=== PATIENT | female | born 1935 | race Caucasian/White ===

== ENCOUNTER 2016-11-02 10:09 | Inpatient (IN) ==
[2016-11-02 10:46] LABS: Basophils % 0.4 %; Eosinophils # 0.1 K/mcL (0.0-0.6); Eosinophils % 0.6 %; Hematocrit 36.5 % (35.3-44.9); Hemoglobin 11.4 g/dL (11.5-15.4); Immature Granulocytes % 0.5 % (0-4); Lymphocytes # 1.5 K/mcL (0.6-4.6); Lymphocytes % 18.6 %; Mean Corpuscular HGB Conc 31.2 g/dL (31.6-35.5); Mean Corpuscular Hemoglobin 30.2 pg (28.0-33.3); Mean Corpuscular Volume 96.8 fL (83.0-100.0); Mean Platelet Volume 9.1 fL (9.4-12.4); Monocytes # 0.9 K/mcL (0.0-1.3); Monocytes % 10.8 %; Neutrophils # 5.5 K/mcL (1.6-8.9); Platelet Count 203 K/mcL (140-400); Red Blood Count 3.77 M/mcL (3.82-4.97); Red Cell Distribution Width 13.7 % (11.5-14.5); Segmented Neutrophils % 69.1 %
[2016-11-02] MEDS ORDERED: Ondansetron ODT 4 MG TAB.RAPDIS SL ONE (10:46)
[2016-11-02 10:53] LABS: INR 3.6; Prothrombin Time 40.7 Seconds (9.4-12.1)
[2016-11-02 10:56] LABS: Activated Partial Thrombo Time 53.1 Seconds (26.0-36.0)
[2016-11-02 10:58] LABS: Calcium 10.5 mg/dL (8.6-10.8); Potassium 4.3 mEq/L (3.5-4.5)
--- NOTE | 2016-11-02 11:03 | Emergency Department Note ---
Disposition Clinical Impression: Bleeding, Renal insufficiency Disposition: Admitted As Inpatient Condition: Fair Referrals: Domingo Melton DO [Primary Care Provider] - Forms: ED Satisfaction Letter Time of Disposition: 11:00 Dental HPI - General Chief complaint: ED Dental/Oral Stated complaint: Dental bleeding post op Time Seen by Provider: 11/02/16 10:23 Source: patient, family Limitations: physical limitation Nursing Notes Reviewed: Yes Vital Signs Reviewed: Yes - History of Present Illness HPI Narrative: Alert and oriented nontoxic-appearing 81-year-old female is brought to the emergency department for complaint of "bleeding after a dental procedure yesterday". The patient states that yesterday, she had a tooth extraction performed at [facility]. She is on Coumadin for chronic atrial fibrillation. Her last INR was checked on 10/29/16 and found to be 2.9. Her Coumadin was not held for this procedure. The patient states that she has bled from the extraction site since yesterday evening. She states that she has became nauseated from "swallowing so much blood". She denies any pain, fever, chills, nausea, vomiting, or any other concerns or complaints at this time. Location: Tooth # (31) Onset (ago): hour(s) (since yesterday evening) Duration: constant - Related Data Home Medications Medication Instructions Recorded Confirmed Alprazolam [Xanax 0.25 MG Tablet] 0.25 mg PO TID 08/04/15 08/04/15 Budesonide/Formoterol 160/4.5 1 puff IH BIDR 08/04/15 08/04/15 [Symbicort 160/4.5] Cyclobenzaprine [Flexeril] 5 mg PO TID 08/04/15 08/04/15 Diltiazem HCl [Diltiazem 24Hr Cd] 240 mg PO DAILY 08/04/15 08/04/15 Furosemide [Lasix] 80 mg PO BID 08/04/15 08/04/15 GlyBURIDE 2.5 mg PO 0800 08/04/15 08/04/15 HYDROcodone/Acet 5/325 mg [[place] 5 mg PO TID 08/04/15 08/04/15 5-325 mg] Potassium Chloride 20 meq PO DAILY 08/04/15 08/04/15 Simvastatin [Zocor] 20 mg PO HS 08/04/15 08/04/15 Warfarin [Coumadin] 1.5 mg PO AD PRN 08/04/15 08/04/15 Warfarin [Coumadin] 3 mg PO AD PRN 08/04/15 08/04/15 Previous Rx's Medication Instructions Recorded Levofloxacin [Levaquin] 500 mg PO DAILY #5 tablet 08/06/15 PredniSONE 10 mg PO DAILY #21 tablet 08/06/15 Allergies Allergy/AdvReac Type Severity Reaction Status Date / Time iodine Allergy See Verified 11/02/16 10:16 Comments Constitutional: Denies: fever, chills, weakness, weight change Eyes: Denies: eye pain, eye discharge, vision change ENT ED: Reports: as per HPI, other (Bleeding from site of tooth extraction). Denies: ear pain, throat pain, dental pain, hearing loss, epistaxis, congestion , dysphagia Cardiovascular: Denies: chest pain, palpitations, dyspnea on exertion, edema, syncope Respiratory: Denies: cough, dyspnea, wheezes, hemoptysis, stridor Gastrointestinal: Denies: abdominal pain, nausea, vomiting, diarrhea, constipation, hematemesis, melena, hematochezia Genitourinary: Denies: dysuria, frequency, hematuria, discharge Musculoskeletal: Denies: back pain, neck pain, arthralgia, myalgia Integumentary: Denies: rash, abrasion, lesions Neurological: Denies: headache, weakness, numbness, paresthesias, confusion, abnormal gait, vertigo Psychiatric: Denies: anxiety, depression, suicidal thoughts, homicidal thoughts , auditory hallucinations, visual hallucinations Endocrine: Denies: fatigue Hematological/Lymphatic: Denies: easy bleeding, easy bruising Allergic/Immunologic: Denies: facial swelling, urticaria Past Medical History - Past Medical History Attestation: Yes The following information was validated with the patient. Source: patient Medical history: Reports: atrial fibrillation, CHF, COPD, diabetes, hyperlipidemia, hypertension, other Surgical history: Reports: no surgical history Psychiatric history: Reports: no psych history BUILDING ILLUMINATING ENGINEER history: Reports: no BUILDING ILLUMINATING ENGINEER history - Social History Smoking Status: Former smoker Smokeless Tobacco Status: No Alcohol use: Reports: none Drug use: Reports: none Physical Exam - General Limitations: physical limitation General appearance: alert, in no apparent distress - Eye Eye exam: Present: normal appearance, PERRL, EOMI. Absent: nystagmus - Expanded ENT Exam Teeth exam: Present: other (Moderate Bleeding noted from the site of an extraction of tooth #30 one performed yesterday.) Throat exam: Present: normal inspection. Absent: tonsillar erythema, tonsillomegaly, tonsillar exudate, R peritonsillar mass, L peritonsillar mass, muffled voice - Neck Neck exam: Present: normal inspection, full ROM, trachea midline, lymphadenopathy - Chest Chest inspection: Present: normal inspection, symmetric chest wall rise - Respiratory Respiratory exam: Present: normal lung sounds bilaterally. Absent: respiratory distress, wheezes, stridor, accessory muscle use, prolonged expiratory phase - Cardiovascular Cardiovascular exam: Present: regular rate, normal rhythm, normal heart sounds - Abdominal Exam Abdominal exam: Present: soft, Non-Tender, normal bowel sounds. Absent: tenderness, distention, guarding, rebound, rigidity - Extremities Exam Extremities exam: Present: normal inspection, full ROM. Absent: tenderness, pedal edema - Neurological Exam Neurological exam: Present: alert, oriented X3 - Skin Skin exam: Present: warm, dry, intact, normal color Course Course Narrative: We will obtain a CBC, BMP, PT/INR, and PTT. We will attempt hemostasis through the use of Surgicel. - Reevaluation(s) Reevaluation #1: The bleeding has slowed significantly. Consultation has been obtained from ENT who agrees with the Surgicel packing. I did speak to cardiology we will give 2-1 /2 vitamin K and monitor if persistent we can give fresh frozen. Time: 12:09 - Consultations Consultation #1: I discussed the case with , agrees with packing with Surgicel. Time: 12:08 Consultation #2: I discussed with cardiology Dr. Santiago, who indicates 2-1/2 mg of vitamin K and monitor if further reversal as needed FFP should be considered. Time: 12:08 Consultation #3: Discussed with Dr. Garcia, admit. Time: 12:08 Vital Signs Temperature 97.5 F L 11/02/16 10:18 Pulse Rate 98 11/02/16 10:18 Respiratory Rate 16 11/02/16 10:18 Blood Pressure 171/71 11/02/16 10:18 O2 Sat by Pulse Oximetry 87 L 11/02/16 10:18 Temperature 97.5 F L 11/02/16 10:18 Pulse Rate 85 11/02/16 12:01 Respiratory Rate 18 11/02/16 12:01 Blood Pressure 156/69 11/02/16 12:01 O2 Sat by Pulse Oximetry 95 11/02/16 12:01 Oxygen Delivery Oxygen Delivery Nasal Cannula Dental/Oral - Medical Records Medical records reviewed: Yes I reviewed the patient's medical records. - Lab Data Lab results reviewed: Yes I reviewed the patient's lab results. Result diagrams: 11/02/16 10:40 11/02/16 10:40 Lab Results 11/02/16 11/02/16 11/02/16 Range/Units 10:40 10:40 10:40 WBC 8.0 (4.3-11.1) K/mcL RBC 3.77 L (3.82-4.97) M/mcL Hgb 11.4 L (11.5-15.4) g/dL Hct 36.5 (35.3-44.9) % MCV 96.8 (83.0-100.0) fL MCH 30.2 (28.0-33.3) pg MCHC 31.2 L (31.6-35.5) g/dL RDW 13.7 (11.5-14.5) % Plt Count 203 (140-400) K/mcL MPV 9.1 L (9.4-12.4) fL Immature Gran % 0.5 (0-4) % Seg Neutrophils % 69.1 % Lymphocytes % 18.6 % Monocytes % 10.8 % Eosinophils % 0.6 % Basophils % 0.4 % Neutrophils # 5.5 (1.6-8.9) K/mcL Lymphocytes # 1.5 (0.6-4.6) K/mcL Monocytes # 0.9 (0.0-1.3) K/mcL Eosinophils # 0.1 (0.0-0.6) K/mcL Basophils # 0.0 (0.0-0.2) K/mcL PT 40.7 H (9.4-12.1) Seconds INR 3.6 APTT 53.1 H (26.0-36.0) Seconds Sodium 140 (136-145) mEq/L Potassium 4.3 (3.5-4.5) mEq/L Chloride 96 L (98-109) mEq/L Carbon Dioxide 33 H (19-29) mEq/L BUN 29 H (7-20) mg/dL Creatinine 1.26 H (0.57-1.11) mg/dL Est GFR ( Amer) 50 L (> 60) Est GFR (Non-Af Amer) 41 L (> 60) BUN/Creatinine Ratio 23 (6-26) Glucose 194 H (70-99) mg/dL Calculated Osmolality 301 H (280-300) Calcium 10.5 (8.6-10.8) mg/dL S.B.A.R. - S.B.A.R. Situation: Demographics, MOA Background: Presenting Complaint, Relevant PMH, Meds, & Allergies Assessment: Vital Signs, Course and respsone to treatment, Exam Concerns, Patient/Family Expectation, Pertinant Lab Results, Outstanding Labs Recommendation: Barrier(s) to disposition, Recommendation based on pending studies, treatments, or consults S.B.A.R. Report Given to: Dr. Peck S.B.A.R. Repor Time: 11:00 (Dr. Peck has assumed care of this patient due to mid-level shift change at 11:00.)
[2016-11-02] MEDS: 0.9 % Sodium Chloride 500 ML IVC ONE ×2 (11:54→11:57)
[2016-11-02] MEDS ORDERED: Naloxone 0.4 MG/ML INJ IVP PRN (16:26)
[2016-11-02] MEDS ORDERED: Ondansetron 4 MG/2 ML VIAL IVP PRN (16:26)
[2016-11-02] MEDS ORDERED: 0.9 % Sodium Chloride 1,000 ML IVC SCH (16:30)
[2016-11-02] MEDS ORDERED: Albuterol 2.5 MG/3 ML NEBULIZER IH PRN (16:32)
[2016-11-02] MEDS ORDERED: Furosemide 40 MG TABLET PO SCH (17:00)
[2016-11-02] MEDS ORDERED: *HR* Dextrose 50 % in Water (Syg) 50 ML SYRINGE IVP PRN (17:42)
[2016-11-02] MEDS ORDERED: D5% in Water 1,000 ML IV PRN (17:42)
[2016-11-02] MEDS ORDERED: Dextrose Gel 15 GM PO PRN ×2 (17:42)
[2016-11-02] MEDS: *HR* HYDROcodone/Acet 5/325 mg TABLET PO PRN (18:16)
--- NOTE | 2016-11-02 18:17 | Internal Med History&Physical ---
<Bill Garcia - Last Filed: 11/02/16 22:07> Date of Encounter: 11/02/16 Internal Medicine - H&P: HPI History of present illness: Ms. Perez is a 81 year old female Internal Medicine - H&P: Meds Alprazolam [Xanax 0.25 MG Tablet] 0.25 mg PO TID 08/04/15 [History] Budesonide/Formoterol 160/4.5 [Symbicort 160/4.5] 2 puff IH BID 08/04/15 [ History] Cyclobenzaprine [Flexeril] 5 mg PO TID 08/04/15 [History] Furosemide [Lasix] 80 mg PO BID 08/04/15 [History] HYDROcodone/Acet 5/325 mg [[place] 5-325 mg] 1 tab PO TID PRN 08/04/15 [History] Potassium Chloride 20 meq PO DAILY 08/04/15 [History] Simvastatin [Zocor] 40 mg PO DAILY 08/04/15 [History] Warfarin [Coumadin] 3 mg PO SUMOTUTHFRSA 08/04/15 [History] Albuterol Neb [Proventil Neb] 2.5 mg IH TID PRN 11/02/16 [History] Diltiazem HCl [Diltiazem 24Hr Cd] 360 mg PO DAILY 11/02/16 [History] GlyBURIDE [GlyBURIDE] 5 mg PO DAILY 11/02/16 [History] Metformin [Glucophage] 500 mg PO DAILY 11/02/16 [History] Warfarin Sodium [Warfarin Sodium] 4.5 mg PO WE 11/02/16 [History] Allergies iodine Allergy (Verified 11/02/16 13:52) Rash All Systems PM: A 10-system review of systems was performed and is negative for pertinent findings except as documented above in the HPI. - Constitutional Vitals: Temp Pulse Resp BP Pulse Ox 97.9 F 95 14 156/69 93 L 11/02/16 19:02 11/02/16 19:02 11/02/16 20:05 11/02/16 19:02 11/02/16 20:05 Internal Med - H&P Results - Labs CBC & Chem 7: 11/02/16 10:40 11/02/16 10:40 - Attending Attestation I examined this patient and my medical decision-making was reviewed with the Advanced Practice Nurse. I agree with the documented findings, disposition and treatment plan as described except to the extent set forth below. The patient is in no acute distress, awake alert oriented, heart tones S1 and S2 with no murmurs, lungs clear. We will monitor hemoglobin and hematocrit. Check INR in the morning. If the bleeding stops and hemoglobin is stable consider resuming Coumadin. <Carmencita Cordero - Last Filed: 11/03/16 12:56> Date of Encounter: 11/03/16 Time of Encounter: 16:30 Assessment and Plan (1) Bleeding Current visit: Yes Status: Acute 1 patient is on Coumadin for atrial fibrillation. Had a tooth extracted yesterday had continuous bleeding after procedure. INR today is 3.6. Patient given vitamin K . 2 we will continue to monitor for bleeding -monitor INR-if bleeding continues and INR elevated, consider administering FFP 3 we will monitor H&H presently stable hemoglobin 11.4 4 hold Coumadin for now (2) A-fib Current visit: No Status: Acute 1 patient has history of atrial fibrillation she is on Coumadin however she has had excessive bleeding after tooth extraction. We will hold for now. We will continue with Cardizem. Presently rate controlled Qualifiers: Atrial fibrillation type: paroxysmal Qualified Code(s): I48.0 - Paroxysmal atrial fibrillation (3) Renal insufficiency Current visit: Yes Status: Acute 1. Patient's creatinine has bumped up to 1.26 patient's baseline is one or less than 1. Patient has had poor oral intake. We will give gentle IV fluids overnight, hold dose of Lasix and resume in a.m. recheck creatinine in a.m. and (4) COPD exacerbation Current visit: No Status: Acute 1 personally stable no exacerbation at this time. We will continue with oxygen titrated to maintain SPO2 greater 92%, the whole BiPAP for now due to oral bleeding (5) DM (diabetes mellitus) Current visit: No Status: Acute 1 H Beltran on oral antidiabetics will hold this for now. Will resume upon discharge Place on Accu-Cheks before meals at bedtime with sliding scale insulin. Qualifiers: Diabetes mellitus type: type 2 Diabetes mellitus complication status: without complication Diabetes mellitus intermediate card tender insulin use: with prison use Qualified Code(s): E11.9 - Type 2 diabetes mellitus without complications ; Z79.4 - terminologist (current) use of insulin (6) DVT prophylaxis Current visit: No Status: Acute 1 ALINE mckeon, encourage ambulation (7) CHF (congestive heart failure) Current visit: No Status: Acute 1 she has history of CHF. EF of 65%.-We will hold evening Lasix due to increasing creatinine for oral intake will resume in a.m. Qualifiers: Congestive heart failure type: diastolic Congestive heart failure chronicity: chronic Qualified Code(s): I50.32 - Chronic diastolic (congestive ) heart failure Internal Medicine - H&P: HPI Chief complaint: dental bleeding Admitted From: Emergency Dept History of present illness: Ms. Perez is a 81 year old female past medical history of atrial fibrillation CHF COPD oxygen dependent diabetes hyperlipidemia hypertension. Currently the patient she underwent a dental procedure yesterday presently 1:00 she had her tooth extracted. She is on Coumadin for chronic atrial fibrillation her last INR on 10/29/16 was 2.9 . Her coumadin was not held prior to the procedure. After the procedure she had a small amount of bleeding from the extraction site, however as the night progressed her bleeding increased. She had a large amount of clots as well as she became nauseated from swallowing blood. The bleeding continued this am and she went to the ED for evaluation. In the Ed her INR was 3.6 , Hgb 11.4 . She was given vit K , site was packed with surgicel and bleeding improved . [place] physician did speak with ENT who agrees with packing and surgicel. Cardiology was alos contacted who agreed with vit k and monitor if further reversal indicated FFP should be considered. Patient has been fitted with evaluation. Presently patient denies any chest pain shortness of breath. There is no active bleeding noted from tooth extraction site. Site repacked. She denies any nausea vomiting diarrhea or fevers.Present time she is hemodynamically stable. Reviewed his case with Dr Garcia who agrres with plan Past Med Surg Social Fam HX - Past Medical History Medical history: atrial fibrillation, CHF, COPD, diabetes, hyperlipidemia, hypertension, other Psychiatric history: no psych history - Past Surgical History Surgical History: no surgical history - Social History Smoking Status: Former smoker Smokeless Tobacco Status: No Alcohol use: none Drug use: none - Family History Mother Adopted: No Father Adopted: No All Systems PM: A 10-system review of systems was performed and is negative for pertinent findings except as documented above in the HPI. - Constitutional Constitutional: no chills, no fever(s), no night sweats - EENT Eyes: no change in vision, no discharge, no pain, no photophobia Ears: no ear discharge, no ear pain, no tinnitus Nose, mouth and throat: bleeding gums, no dysphagia, no nasal discharge, no neck pain, no sore throat - Cardiovascular Cardiovascular ROS IM: no chest pain, no diaphoresis, no dyspnea, no lightheadedness, no palpitations, no syncope - Respiratory Respiratory: no cough, no dyspnea, no wheezing, no excessive phlegm production - Gastrointestinal Gastrointestinal: nausea - Genitourinary Genitourinary: no change in urinary stream, no dysuria, no flank pain, no hematuria - Musculoskeletal Musculoskeletal ROS IM: no numbness, no tingling - Integumentary Integumentary IM: no rash, no unusual bruising - Neurological Neurological ROS: no confusion, no convulsions, no focal weakness, no numbness, no tingling, no tremor(s) - Hematologic/Lymphatic Hematologic/Lymphatic: easy bleeding, easy bruising - Constitutional Vitals: Temp Pulse Resp BP Pulse Ox 98.6 F 99 16 155/70 92 L 11/02/16 17:10 11/02/16 17:10 11/02/16 17:10 11/02/16 17:10 11/02/16 17:10 General appearance: Present: A&O X 3, answers questions appropriately - Head Head exam: Present: atraumatic, normocephalic - ENT Additional comments: Poor dental hygiene was multiple dental caries, right molar extracted with packing in place. No active bleeding at this time - Neck Neck exam general surgery: Present: supple, trachea midline. Absent: lymphadenopathy - Respiratory Respiratory exam: Present: CTAB. Absent: accessory muscle use, rales, rhonchi, wheezes - Cardiovascular Cardiovascular exam: Present: RRR, +S1, +S2. Absent: diastolic murmur, gallop, rubs, systolic murmur - GI/Abdominal GI/Abdominal exam: Present: normal bowel sounds, soft, no peritoneal signs. Absent: distended, tenderness - Extremities Exam Extremities exam: Present: warm, radial pulses palpable and symetrical. Absent : calf tenderness, cyanotic, pedal edema - Neurological Exam Neurological exam: Present: CN II-XII intact, oriented X3, no focal deficits. Absent: pronater drift, facial droop, speech deficit - Skin Skin exam: Present: dry, intact Internal Med - H&P Results - Labs CBC & Chem 7: 11/03/16 04:39 11/03/16 03:23
[2016-11-02] MEDS: Budesonide/Formoterol 160/4.5 MDI IH SCH (20:05)
[2016-11-02] MEDS: Insulin LISPRO 300 UNITS/3 ML VIAL SQ SCH (22:01)
[2016-11-02] MEDS: ALPRAZolam 0.25 MG TABLET PO SCH (22:08)
[2016-11-03 04:44] LABS: Basophils % 0.2 %; Eosinophils # 0.1 K/mcL (0.0-0.6); Eosinophils % 0.8 %; Hematocrit 32.5 % (35.3-44.9); Hemoglobin 10.3 g/dL (11.5-15.4); Immature Granulocytes % 0.9 % (0-4); Lymphocytes # 2.3 K/mcL (0.6-4.6); Mean Corpuscular HGB Conc 31.7 g/dL (31.6-35.5); Mean Corpuscular Hemoglobin 30.7 pg (28.0-33.3); Mean Platelet Volume 10.1 fL (9.4-12.4); Monocytes # 1.4 K/mcL (0.0-1.3); Monocytes % 15.9 %; Neutrophils # 4.9 K/mcL (1.6-8.9); Platelet Count 194 K/mcL (140-400); Red Blood Count 3.35 M/mcL (3.82-4.97); Red Cell Distribution Width 13.9 % (11.5-14.5); Segmented Neutrophils % 56.2 %
[2016-11-03 04:45] LABS: Calcium 9.1 mg/dL (8.6-10.8); Potassium 4.3 mEq/L (3.5-4.5)
[2016-11-03] MEDS: *HR* HYDROcodone/Acet 5/325 mg TABLET PO PRN ×4 (04:45→15:35)
[2016-11-03 04:54] LABS: INR 1.5; Prothrombin Time 15.9 Seconds (9.4-12.1)
[2016-11-03] MEDS: Budesonide/Formoterol 160/4.5 MDI IH SCH ×2 (07:53→21:54)
[2016-11-03] MEDS: ALPRAZolam 0.25 MG TABLET PO SCH ×3 (08:33→21:27)
[2016-11-03] MEDS: Diltiazem CD (24hr) 180 MG CAPSULE PO SCH (08:33)
[2016-11-03] MEDS: Insulin LISPRO 300 UNITS/3 ML VIAL SQ SCH ×4 (08:35→23:06)
--- NOTE | 2016-11-03 13:27 | Internal Med Progress Note ---
Date of Encounter: 11/03/16 Time of Encounter: 12:30 - Assessment and plan (1) Bleeding Current Visit: Yes Status: Acute Assessment and plan: Resolved HB stablized at 10 (2) A-fib Current Visit: Yes Status: Chronic Assessment and plan: Rate controlled on current meds, continue same INR now 1.5 Consider restarting coumadin Qualifiers: Atrial fibrillation type: paroxysmal Qualified Code(s): I48.0 - Paroxysmal atrial fibrillation (3) CKD (chronic kidney disease) Current Visit: Yes Status: Chronic Assessment and plan: she also has acute renal insufficiency with Cr 1.26 and GFR in the 40s. Her baseline CR is 0.8 and GR has always ranged from 52-58 She now has inspiratory crackles not documented on admission Hold IVF for now Resume po intake Monitor Chem Qualifiers: Chronic kidney disease stage: stage 2 (mild) Qualified Code(s): N18.2 - Chronic kidney disease, stage 2 (mild) (4) COPD (chronic obstructive pulmonary disease) Current Visit: Yes Status: Chronic Assessment and plan: Not in exacerbation Qualifiers: COPD type: unspecified COPD Qualified Code(s): J44.9 - Chronic obstructive pulmonary disease, unspecified (5) CAROLIN (obstructive sleep apnea) Current Visit: Yes Status: Chronic Assessment and plan: BiPAp at night (6) CHF (congestive heart failure) Current Visit: Yes Status: Chronic Assessment and plan: Chronic, stable Lasix was held due to renal insufficiency Will restart at lower dose if renal function is stable a.m Qualifiers: Congestive heart failure type: diastolic Congestive heart failure chronicity: chronic Qualified Code(s): I50.32 - Chronic diastolic (congestive ) heart failure (7) DM (diabetes mellitus) Current Visit: No Status: Acute Assessment and plan: FSACHS Sliding scale Qualifiers: Diabetes mellitus type: type 2 Diabetes mellitus complication status: without complication Diabetes mellitus long-term insulin use: with intermediate card tender use Qualified Code(s): E11.9 - Type 2 diabetes mellitus without complications ; Z79.4 - prison (current) use of insulin - Subjective Interval history: Initial encounter 81 Y/O F with medical history of atrial fibrillation on Coumadin, HTN, diabetes mellitus, COPD, CHF with preserved ejection fraction Patient is placed on observation due to intractable bleeding from a dental procedure was done on 02 of November. Inr on 29 of October was 2.9. INR on admission was 3.6. Sign apparently patient had significant bleeding from a dental procedure associated with clots and nausea and vomiting from swallowing blood. She also has BARRY Patient is seen at bedside today, she reports that the bleeding has stopped. She complains of mild shortness of breath worse than her baseline. Note, she also has acute renal insufficiency with Cr 1.26 and GFR in the 40s. Her baseline CR is 0.8 and GR has always ranged from 52-58 Her HB has stabilized She did receive some IVF hydration and lasix was held this morning due to renal insufficiency - Constitutional Vitals: Temp Pulse Resp BP Pulse Ox 97.7 F 91 14 123/68 91 L 11/03/16 11:27 11/03/16 11:27 11/03/16 11:27 11/03/16 11:11/03/16 11:27 General appearance: Present: A&O X 3, pleasant, no acute distress, answers questions appropriately - Head Head exam: Present: atraumatic, normocephalic - Eye Eye exam: Present: PERRL, conjuntiva pink, sclera anicteric Pupils: Present: PERRL - ENT ENT exam: Present: mucous membranes moist - Neck Neck exam general surgery: Present: supple, trachea midline. Absent: lymphadenopathy - Respiratory Respiratory exam: Present: rales (Scatterd bibasilar rales) - Cardiovascular Cardiovascular exam: Present: irregular rhythm, +S1, +S2. Absent: diastolic murmur, gallop, rubs, systolic murmur - GI/Abdominal GI/Abdominal exam: Present: normal bowel sounds, soft, no peritoneal signs. Absent: distended, tenderness - Extremities Exam Extremities exam: Present: warm, radial pulses palpable and symetrical. Absent : calf tenderness, cyanotic, pedal edema - Neurological Exam Neurological exam: Present: CN II-XII intact, oriented X3, no focal deficits. Absent: pronater drift, facial droop, speech deficit - Skin Skin exam: Present: dry, intact Internal Medicine: Result - Labs CBC & Chem 7: 11/03/16 04:39 11/03/16 03:23 Labs: Short CBC 11/03/16 Range/Units 04:39 WBC 8.7 (4.3-11.1) K/mcL Hgb 10.3 L (11.5-15.4) g/dL Hct 32.5 L (35.3-44.9) % Plt Count 194 (140-400) K/mcL Neutrophils # 4.9 (1.6-8.9) K/mcL BMP 11/03/16 03:23 Sodium 140 Potassium 4.3 Chloride 100 Carbon Dioxide 30 H BUN 30 H Creatinine 1.26 H Glucose 112 H Calcium 9.1 - ABG Interpretation ABG results: PT/INR, D-dimer PT 15.9 Seconds (9.4-12.1) H D 11/03/16 04:39 - VTE Documentation of Mechanical Device: Graduated compression elastic hosiery Consult Discharge Plan - Plan Referrals: Domingo Melton DO [Primary Care Provider] -
[2016-11-04 04:39] LABS: Basophils % 0.3 %; Eosinophils # 0.1 K/mcL (0.0-0.6); Eosinophils % 1.7 %; Hemoglobin 9.4 g/dL (11.5-15.4); Lymphocytes # 1.2 K/mcL (0.6-4.6); Lymphocytes % 20.6 %; Mean Corpuscular HGB Conc 30.3 g/dL (31.6-35.5); Mean Corpuscular Hemoglobin 30.1 pg (28.0-33.3); Mean Corpuscular Volume 99.4 fL (83.0-100.0); Mean Platelet Volume 9.4 fL (9.4-12.4); Monocytes # 0.6 K/mcL (0.0-1.3); Monocytes % 10.8 %; Neutrophils # 3.8 K/mcL (1.6-8.9); Platelet Count 189 K/mcL (140-400); Red Blood Count 3.12 M/mcL (3.82-4.97); Red Cell Distribution Width 13.8 % (11.5-14.5); Segmented Neutrophils % 65.6 %
[2016-11-04 04:53] LABS: Calcium 8.4 mg/dL (8.6-10.8); Potassium 4.7 mEq/L (3.5-4.5)
[2016-11-04] MEDS: Insulin LISPRO 300 UNITS/3 ML VIAL SQ SCH ×4 (08:43→21:16)
[2016-11-04] MEDS: Diltiazem CD (24hr) 180 MG CAPSULE PO SCH (08:44)
[2016-11-04] MEDS: ALPRAZolam 0.25 MG TABLET PO SCH ×3 (08:44→21:13)
[2016-11-04] MEDS: Budesonide/Formoterol 160/4.5 MDI IH SCH ×2 (10:41→21:46)
[2016-11-04] MEDS ORDERED: 0.9 % Sodium Chloride 500 ML IVC ONE (11:10)
--- NOTE | 2016-11-04 12:21 | Internal Med Progress Note ---
Date of Encounter: 11/04/16 Time of Encounter: 11:50 - Assessment and plan (1) Bleeding Current Visit: Yes Status: Acute Assessment and plan: Resolved HB 11.4-10.3-9.4 No oral bleeding noted Type and screen Rpt Hb a.m Patient is asymptomatic (2) A-fib Current Visit: Yes Status: Chronic Assessment and plan: Rate controlled on current meds, continue same INR now 1.5 Continue to hold Coumadin Qualifiers: Atrial fibrillation type: paroxysmal Qualified Code(s): I48.0 - Paroxysmal atrial fibrillation (3) CKD (chronic kidney disease) Current Visit: Yes Status: Chronic Assessment and plan: she also has acute renal insufficiency with Cr 1.26 and GFR in the 40s. Her baseline CR is 0.8 and GR has always ranged from 52-58 She has inspiratory crackles not documented on admission Hold lasix 500cc bolus Monitor respiratory status Renal USS Send UA Qualifiers: Chronic kidney disease stage: stage 2 (mild) Qualified Code(s): N18.2 - Chronic kidney disease, stage 2 (mild) (4) COPD (chronic obstructive pulmonary disease) Current Visit: Yes Status: Chronic Assessment and plan: Not in exacerbation Duonebs prn Continue Oxygen Qualifiers: COPD type: unspecified COPD Qualified Code(s): J44.9 - Chronic obstructive pulmonary disease, unspecified (5) CAROLIN (obstructive sleep apnea) Current Visit: Yes Status: Chronic Assessment and plan: BiPAp at night (6) CHF (congestive heart failure) Current Visit: Yes Status: Chronic Assessment and plan: Chronic, stable Lasix was held due to renal insufficiency Continue to hold lasix Qualifiers: Congestive heart failure type: diastolic Congestive heart failure chronicity: chronic Qualified Code(s): I50.32 - Chronic diastolic (congestive ) heart failure (7) DM (diabetes mellitus) Current Visit: No Status: Acute Assessment and plan: FSACHS Sliding scale Qualifiers: Diabetes mellitus type: type 2 Diabetes mellitus complication status: without complication Diabetes mellitus watermelon inspector insulin use: with alf use Qualified Code(s): E11.9 - Type 2 diabetes mellitus without complications ; Z79.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 Inr on 29 of October was 2.9. INR on admission was 3.6. Sign apparently patient had significant bleeding from a dental procedure associated with clots and nausea and vomiting from swallowing blood. She also has BARRY Patient is seen at bedside today, she reports that the bleeding has stopped. She complains of feeling weak Her renal function has worsened She had only received 80mg of lasix on day of admission She has been off diuretics since then, none given 11/03 She still has few rales She is on home O2 and has not been having increasing requirements Will give one 500cc bolus and monitor respiratory status Continue to hold Lasix May consult renal if no improvement - Constitutional Vitals: Temp Pulse Resp BP Pulse Ox 97.9 F 94 16 133/66 90 L 11/04/16 12:01 11/04/16 12:01 11/04/16 12:01 11/04/16 12:11/04/16 12:01 General appearance: Present: A&O X 3, pleasant, no acute distress, answers questions appropriately - Head Head exam: Present: atraumatic, normocephalic - Eye Eye exam: Present: PERRL, conjuntiva pink, sclera anicteric Pupils: Present: PERRL - Neck Neck exam general surgery: Present: supple, trachea midline. Absent: lymphadenopathy - Respiratory Respiratory exam: Present: rales - Cardiovascular Cardiovascular exam: Present: RRR, +S1, +S2. Absent: diastolic murmur, gallop, rubs, systolic murmur - GI/Abdominal GI/Abdominal exam: Present: normal bowel sounds, soft, no peritoneal signs. Absent: distended, tenderness - Extremities Exam Extremities exam: Present: warm, radial pulses palpable and symetrical. Absent : calf tenderness, cyanotic, pedal edema - Neurological Exam Neurological exam: Present: CN II-XII intact, oriented X3, no focal deficits. Absent: pronater drift, facial droop, speech deficit - Skin Skin exam: Present: dry, intact Internal Medicine: Result - Labs CBC & Chem 7: 11/04/16 04:22 11/04/16 04:22 Labs: Short CBC 11/04/16 Range/Units 04:22 WBC 5.7 (4.3-11.1) K/mcL Hgb 9.4 L (11.5-15.4) g/dL Hct 31.0 L (35.3-44.9) % Plt Count 189 (140-400) K/mcL Neutrophils # 3.8 (1.6-8.9) K/mcL BMP 11/04/16 04:22 Sodium 136 Potassium 4.7 H Chloride 96 L Carbon Dioxide 33 H BUN 38 H Creatinine 2.21 H D Glucose 171 H Calcium 8.4 L - ABG Interpretation ABG results: PT/INR, D-dimer PT 15.9 Seconds (9.4-12.1) H D 11/03/16 04:39 - VTE Documentation of Mechanical Device: Graduated compression elastic hosiery Consult Discharge Plan - Plan Referrals: ColDomingo diggs DO [Primary Care Provider] -
[2016-11-04] MEDS: *HR* Heparin 5,000 UNIT/ML VIAL SQ SCH ×2 (14:25→23:00)
[2016-11-04 22:48] LABS: Bilirubin,Urine Negative (Negative); Blood,Urine Large (Negative); Clarity,Urine Cloudy (Clear); Color,Urine Yellow (Yellow); Glucose,Urine (UA) Normal (Normal); Ketones,Urine Negative (Negative); Leukocyte Esterase,Urine Small (Negative); Nitrite,Urine Negative (Negative); Protein,Urine Trace mg/dL (Neg-Trace); Specific Gravity,Urine 1.011 (1.010-1.025); Urobilinogen,Urine Normal (Normal)
[2016-11-05 00:23] LABS: ABG Base Excess 9.1 mEq/L (-2.0 to 3.0); ABG HCO3 37.5 mEQ/L (21-27); ABG Oxygen Saturation 94 % (95-98); ABG PH 7.29 pH Units (7.32-7.45); ABG PO2 79 mmHg (85-104); ABG TCO2 39.9 mEq/L (20-26)
[2016-11-05 00:27] LABS: Blood Gas FiO2 40 %; Blood Gas Liter Flow 5 L/MIN
[2016-11-05 00:28] LABS: ABG PCO2 78 mmHg (35-45)
[2016-11-05 04:54] LABS: Basophils % 0.4 %; Eosinophils # 0.1 K/mcL (0.0-0.6); Eosinophils % 0.8 %; Hematocrit 28.5 % (35.3-44.9); Hemoglobin 8.9 g/dL (11.5-15.4); Immature Granulocytes % 1.2 % (0-4); Lymphocytes # 2.1 K/mcL (0.6-4.6); Lymphocytes % 25.8 %; Mean Corpuscular HGB Conc 31.2 g/dL (31.6-35.5); Mean Corpuscular Hemoglobin 30.6 pg (28.0-33.3); Mean Corpuscular Volume 97.9 fL (83.0-100.0); Mean Platelet Volume 10.6 fL (9.4-12.4); Monocytes % 12.6 %; Neutrophils # 4.9 K/mcL (1.6-8.9); Platelet Count 184 K/mcL (140-400); Red Blood Count 2.91 M/mcL (3.82-4.97); Red Cell Distribution Width 13.7 % (11.5-14.5); Segmented Neutrophils % 59.2 %
[2016-11-05 05:07] LABS: Calcium 8.4 mg/dL (8.6-10.8); Potassium 4.7 mEq/L (3.5-4.5)
[2016-11-05 05:42] LABS: ABG Base Excess 6.8 mEq/L (-2.0 to 3.0); ABG HCO3 34.4 mEQ/L (21-27); ABG Oxygen Saturation 98 % (95-98); ABG PO2 115 mmHg (85-104); ABG TCO2 36.5 mEq/L (20-26)
[2016-11-05 05:44] LABS: ABG PCO2 70 mmHg (35-45); Blood Gas FiO2 40 %
[2016-11-05] MEDS: *HR* Heparin 5,000 UNIT/ML VIAL SQ SCH ×3 (05:58→22:41)
[2016-11-05] MEDS: Insulin LISPRO 300 UNITS/3 ML VIAL SQ SCH ×4 (07:24→21:22)
[2016-11-05] MEDS: ALPRAZolam 0.25 MG TABLET PO SCH ×3 (09:25→21:16)
[2016-11-05] MEDS: Diltiazem CD (24hr) 180 MG CAPSULE PO SCH (09:25)
[2016-11-05] MEDS: Budesonide/Formoterol 160/4.5 MDI IH SCH ×2 (11:35→21:16)
[2016-11-05 11:49] LABS: ABG Base Excess 7.5 mEq/L (-2.0 to 3.0); ABG HCO3 35.6 mEQ/L (21-27); ABG Oxygen Saturation 92 % (95-98); ABG PH 7.29 pH Units (7.32-7.45); ABG PO2 71 mmHg (85-104); ABG TCO2 37.9 mEq/L (20-26)
[2016-11-05 11:53] LABS: ABG PCO2 74 mmHg (35-45); Blood Gas FiO2 32 %
[2016-11-05] MEDS ORDERED: Ipratropium/Albuterol Neb 3 ML IH PRN (12:40)
[2016-11-05] MEDS ORDERED: methylPREDNISolone 125 MG/2 ML VIAL IVP ONE (12:43)
--- NOTE | 2016-11-05 12:53 | Internal Med Progress Note ---
Date of Encounter: 11/05/16 Time of Encounter: 12:48 - Assessment and plan (1) Acute exacerbation of chronic obstructive airways disease Current Visit: No Status: Acute Assessment and plan: Acute respiratory distress secondary to underlying chronic lung disease ABG consistent with chronic respiratory acidosis with metabolic compensation Will continue Bipap support Patient reports of being on home Oxygen 31/03 Will start Steroid therapy Bronchodilator support continue to monitor O2 saturation, goal O2 sat: 89-92% Will closely monitor respiratory status Repeat ABG as needed Will consider pulmonary eval if respiratory status worsens CXR consistent with atelectasis vs. pneumonia. No clinical signs of infectious etiology present. Will monitor off antibiotics at this time. (2) Bleeding Current Visit: Yes Status: Acute Assessment and plan: Resolved HB 11.4-10.3-9.4-8.9 No oral bleeding noted Type and screen Rpt Hb a.m Patient is asymptomatic (3) A-fib Current Visit: Yes Status: Chronic Assessment and plan: Rate controlled on current meds, continue same INR now 1.5 Continue to hold Coumadin Qualifiers: Atrial fibrillation type: paroxysmal Qualified Code(s): I48.0 - Paroxysmal atrial fibrillation (4) CHF (congestive heart failure) Current Visit: Yes Status: Chronic Assessment and plan: Chronic, stable Lasix was held due to renal insufficiency Continue to hold lasix Qualifiers: Congestive heart failure type: diastolic Congestive heart failure chronicity: chronic Qualified Code(s): I50.32 - Chronic diastolic (congestive ) heart failure (5) CKD (chronic kidney disease) Current Visit: Yes Status: Chronic Assessment and plan: she also has acute renal insufficiency with Cr 1.68 and GFR in the 30s. Her baseline CR is 0.8 and GR has always ranged from 52-58 Renal function improved from previous day Will continue to hold diuretic therapy at this time continue to avoid nephrotoxic agents continue to closely monitor renal function Renal US: unremarkable study Qualifiers: Chronic kidney disease stage: stage 2 (mild) Qualified Code(s): N18.2 - Chronic kidney disease, stage 2 (mild) (6) CAROLIN (obstructive sleep apnea) Current Visit: Yes Status: Chronic Assessment and plan: BiPAp at night (7) DM (diabetes mellitus) Current Visit: No Status: Acute Assessment and plan: Hold oral antihyperglycemic agents at this time continue to monitor fingerstick and blood glucose continue sliding scale insulin algorithm Qualifiers: Diabetes mellitus type: type 2 Diabetes mellitus complication status: without complication Diabetes mellitus oil heaterman insulin use: with oil heaterman use Qualified Code(s): E11.9 - Type 2 diabetes mellitus without complications ; 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 Per family patient has history of chronic lung disease requiring multiple intubations in the past. This time she is admitted for bleeding after a dental procedure and was noted to be hypercapenic on ABG. Pt is placed on bipap support. She denies any discomfort at this time. As per the nursing staff, patient's family has been extremely difficult. They continuously keep on demanding different speciality consultations. One of the family members is employed by [employer] and they went to speak with Dr. Shoemaker independently requesting consultation without any physician's consent. - Constitutional Vitals: Temp Pulse Resp BP Pulse Ox 97.4 F L 82 17 134/69 94 L 11/05/16 12:06 11/05/16 12:06 11/05/16 12:06 11/05/16 12:06 11/05/16 12:06 General appearance: Present: A&O X 3, morbidly obese, pleasant, no acute distress, answers questions appropriately - Head Head exam: Present: atraumatic, normocephalic - Eye Eye exam: Present: normal appearance, conjuntiva pink, sclera anicteric - Respiratory Respiratory exam: Present: decreased breath sounds, wheezes (bilateral expiratory wheezing ) - Cardiovascular Cardiovascular exam: Present: RRR, +S1, +S2 - GI/Abdominal GI/Abdominal exam: Present: distended (obese), normal bowel sounds, soft. Absent: tenderness - Extremities Exam Extremities exam: Present: pedal edema, warm, radial pulses palpable and symetrical. Absent: calf tenderness - Neurological Exam Neurological exam: Present: alert, oriented X3 - Psychiatric Psychiatric exam: Present: normal affect, normal mood Internal Medicine: Result - Labs CBC & Chem 7: 11/05/16 04:23 11/05/16 04:23 Labs: Short CBC 11/05/16 Range/Units 04:23 WBC 8.3 (4.3-11.1) K/mcL Hgb 8.9 L (11.5-15.4) g/dL Hct 28.5 L (35.3-44.9) % Plt Count 184 (140-400) K/mcL Neutrophils # 4.9 (1.6-8.9) K/mcL BMP 11/05/16 04:23 Sodium 135 L Potassium 4.7 H Chloride 99 Carbon Dioxide 28 BUN 37 H Creatinine 1.68 H Glucose 146 H Calcium 8.4 L Urine 11/04/16 Range/Units 22:30 Urine Color Yellow (Yellow) Urine Clarity Cloudy A (Clear) Urine pH 6.0 (5.0-8.0) pH Units Ur Specific [place] 1.011 (1.010-1.025) Urine Protein Trace (Neg-Trace) mg/dL Urine Glucose (UA) Normal (Normal) mg/dL - ABG Interpretation ABG results: ABG ABG pH 7.29 pH Units (7.32-7.45) L 11/05/16 11:40 ABG pCO2 74 mmHg (35-45) H* 11/05/16 11:40 ABG pO2 71 mmHg (85-104) L 11/05/16 11:40 ABG O2 Saturation 92 % (95-98) L 11/05/16 11:40 PT/INR, D-dimer PT 15.9 Seconds (9.4-12.1) H D 11/03/16 04:39 - Impressions Impressions Retroperitoneum Ultrasound 11/04/16 19:30 IMPRESSION: Unremarkable ultrasound of the kidneys and urinary bladder. D/ / 11/04/2016 21:21:53 Uche Parker MD / luciana Interpreting Provider: Uche Parker MD Chest X-Ray 11/05/16 00:31 IMPRESSION: Left lower lobe atelectasis versus pneumonia. D/ / Jemma Turner MD / Jemma Turner MD Interpreting Provider: Jemma Turner MD - VTE Documentation of Mechanical Device: Graduated compression elastic hosiery Consult Discharge Plan - Plan Referrals: Colopy,Domingo Liang DO [Primary Care Provider] -
[2016-11-05] MEDS: Ipratropium/Albuterol Neb 3 ML IH SCH ×2 (15:48→21:12)
[2016-11-05 20:34] LABS: ABG Base Excess 10.4 mEq/L (-2.0 to 3.0); ABG HCO3 38.8 mEQ/L (21-27); ABG Oxygen Saturation 93 % (95-98); ABG PH 7.31 pH Units (7.32-7.45); ABG PO2 72 mmHg (85-104); ABG TCO2 41.2 mEq/L (20-26)
[2016-11-05 20:35] LABS: Blood Gas FiO2 32 %
[2016-11-05 20:36] LABS: ABG PCO2 77 mmHg (35-45)
[2016-11-06] MEDS: Ipratropium/Albuterol Neb 3 ML IH SCH ×4 (04:52→21:37)
[2016-11-06 05:01] LABS: Basophils % 0.1 %; Hematocrit 30.3 % (35.3-44.9); Hemoglobin 9.5 g/dL (11.5-15.4); Immature Granulocytes % 1.6 % (0-4); Lymphocytes # 0.5 K/mcL (0.6-4.6); Lymphocytes % 7.7 %; Mean Corpuscular HGB Conc 31.4 g/dL (31.6-35.5); Mean Corpuscular Hemoglobin 30.4 pg (28.0-33.3); Mean Corpuscular Volume 97.1 fL (83.0-100.0); Mean Platelet Volume 10.3 fL (9.4-12.4); Monocytes # 0.2 K/mcL (0.0-1.3); Monocytes % 2.3 %; Neutrophils # 6.2 K/mcL (1.6-8.9); Platelet Count 192 K/mcL (140-400); Red Blood Count 3.12 M/mcL (3.82-4.97); Red Cell Distribution Width 13.5 % (11.5-14.5); Segmented Neutrophils % 88.3 %
[2016-11-06 05:39] LABS: Calcium 8.7 mg/dL (8.6-10.8); Magnesium 2.5 mg/dL (1.6-2.6); Phosphorous 3.8 mg/dL (2.3-4.7); Potassium 5.5 mEq/L (3.5-4.5)
[2016-11-06 06:20] LABS: ABG Base Excess 7.7 mEq/L (-2.0 to 3.0); ABG HCO3 35.7 mEQ/L (21-27); ABG Oxygen Saturation 99 % (95-98); ABG PH 7.31 pH Units (7.32-7.45); ABG PO2 124 mmHg (85-104); ABG TCO2 37.9 mEq/L (20-26)
[2016-11-06 06:21] LABS: Blood Gas FiO2 40 %
[2016-11-06 06:22] LABS: ABG PCO2 71 mmHg (35-45)
[2016-11-06] MEDS: *HR* Heparin 5,000 UNIT/ML VIAL SQ SCH ×3 (08:42→22:23)
[2016-11-06] MEDS: Diltiazem CD (24hr) 180 MG CAPSULE PO SCH (08:42)
[2016-11-06] MEDS: predniSONE 20 MG TABLET PO SCH (08:43)
[2016-11-06] MEDS: ALPRAZolam 0.25 MG TABLET PO SCH ×3 (08:43→22:23)
[2016-11-06] MEDS: Insulin LISPRO 300 UNITS/3 ML VIAL SQ SCH ×4 (08:47→22:39)
[2016-11-06] MEDS: *HR* HYDROcodone/Acet 5/325 mg TABLET PO PRN (09:51)
[2016-11-06] MEDS: Budesonide/Formoterol 160/4.5 MDI IH SCH ×3 (10:28→21:37)
[2016-11-06 11:28] LABS: Calcium 9.1 mg/dL (8.6-10.8); Potassium 5.1 mEq/L (3.5-4.5)
--- NOTE | 2016-11-06 13:47 | Internal Med Progress Note ---
<Reji Isabel - Last Filed: 11/06/16 13:40> Date of Encounter: 11/06/16 Time of Encounter: 11:15 - Assessment and plan (1) Acute blood loss anemia Current Visit: Yes Status: Acute Assessment and plan: secondary to dental procedure while on coumadin continue to hold coumadin Hg stable. (2) COPD (chronic obstructive pulmonary disease) Current Visit: Yes Status: Acute Assessment and plan: not in exacerbation. continue PRN duonebs and symbicort. (3) Chronic hypoxemic respiratory failure Current Visit: Yes Status: Acute Assessment and plan: Likely from COPD. Possibly also has a component of OHS. At baseline today. On 3L NC (4) Chronic hypercapnic respiratory failure Current Visit: Yes Status: Acute Assessment and plan: secondary to COPD Looking at the expected change in pH and calculating her expected Bicarb I beleive this patient is at her baseline PCO2 No signs of CO2 narcosis on exam. Continue BIPAP while asleep. (5) Atrial fibrillation Current Visit: Yes Status: Acute Assessment and plan: Continue diltiazem for rate control holding coumadin as she has had an acute bleed. (6) Insulin dependent diabetes mellitus Current Visit: Yes Status: Acute Assessment and plan: above goal increase sliding scale to medium dose. (7) BARRY (acute kidney injury) Current Visit: Yes Status: Acute Assessment and plan: likely from acute blood loss anemia and poor PO Improving and aproaching baseline. (8) CAROLIN (obstructive sleep apnea) Current Visit: Yes Status: Acute Assessment and plan: BIPAP while sleeping. (9) Hyperkalemia Current Visit: Yes Status: Acute Assessment and plan: 5.5 repeat BMP stat If still elevated will consider treating. (10) Hematuria Current Visit: Yes Status: Acute Assessment and plan: No marie hematuria at ths time. Large blood in UA However RBCs not reported. repeat UA ordered. If she dose have hematuria should consider outpatient urology consulation for cystoscopy. (11) DVT prophylaxis Current Visit: Yes Status: Acute Assessment and plan: Will continue EPCDs in this patient with acute blood loss anemia. - Subjective Interval history: Patien states she is feeling better today. She has had no mre bleeding. She denies increased dyspnea from last night. No increase cough, whheeze, or sputum production. She denies hemoptysis. she has no further complaints or concerns at this time. - Constitutional Vitals: Temp Pulse Resp BP Pulse Ox 97.1 F L 87 18 146/75 99 11/06/16 10:07 11/06/16 10:07 11/06/16 10:29 11/06/16 10:07 11/06/16 10:29 General appearance: Present: A&O X 3, morbidly obese, pleasant, no acute distress, answers questions appropriately - Head Head exam: Present: atraumatic, normocephalic - Eye Eye exam: Present: PERRL, conjuntiva pink, sclera anicteric Pupils: Present: PERRL - Neck Neck exam general surgery: Present: supple, trachea midline. Absent: lymphadenopathy - Respiratory Respiratory exam: Present: CTAB. Absent: accessory muscle use, rales, rhonchi, wheezes Additional comments: diminished bilaterally. - Cardiovascular Cardiovascular exam: Present: RRR, +S1, +S2. Absent: diastolic murmur, gallop, rubs, systolic murmur - GI/Abdominal GI/Abdominal exam: Present: normal bowel sounds, soft, no peritoneal signs. Absent: distended, tenderness Additional comments: obese - Extremities Exam Extremities exam: Present: warm, radial pulses palpable and symetrical. Absent : calf tenderness, cyanotic, pedal edema - Neurological Exam Neurological exam: Present: oriented X3 - Skin Skin exam: Present: dry, intact Internal Medicine: Result - Labs CBC & Chem 7: 11/06/16 04:11 11/06/16 09:45 Labs: Short CBC 11/06/16 Range/Units 04:11 WBC 7.0 (4.3-11.1) K/mcL Hgb 9.5 L (11.5-15.4) g/dL Hct 30.3 L (35.3-44.9) % Plt Count 192 (140-400) K/mcL Neutrophils # 6.2 (1.6-8.9) K/mcL BMP 11/06/16 11/06/16 04:11 09:45 Sodium 139 138 Potassium 5.5 H 5.1 H Chloride 100 101 Carbon Dioxide 32 H 31 H BUN 36 H 36 H Creatinine 1.29 H 1.32 H Glucose 221 H 309 H Calcium 8.7 9.1 - ABG Interpretation ABG results: ABG ABG pH 7.31 pH Units (7.32-7.45) L 11/06/16 06:05 ABG pCO2 71 mmHg (35-45) H* 11/06/16 06:05 ABG pO2 124 mmHg (85-104) H 11/06/16 06:05 ABG O2 Saturation 99 % (95-98) H 11/06/16 06:05 PT/INR, D-dimer PT 15.9 Seconds (9.4-12.1) H D 11/03/16 04:39 - VTE Documentation of Mechanical Device: Graduated compression elastic hosiery Consult Discharge Plan - Plan Referrals: Domingo Melton DO [Primary Care Provider] - <Chad Mock - Last Filed: 11/07/16 07:36> Date of Encounter: 11/07/16 - Constitutional Vitals: Temp Pulse Resp BP Pulse Ox 97.4 F L 80 21 127/61 97 11/07/16 04:57 11/07/16 04:57 11/07/16 04:57 11/07/16 04:57 11/07/16 04:57 Internal Medicine: Result - Labs CBC & Chem 7: 11/07/16 05:27 11/07/16 06:38 Labs: Short CBC 11/07/16 Range/Units 05:27 WBC 9.6 (4.3-11.1) K/mcL Hgb 9.2 L (11.5-15.4) g/dL Hct 28.8 L (35.3-44.9) % Plt Count 188 (140-400) K/mcL Neutrophils # 8.0 (1.6-8.9) K/mcL BMP 11/06/16 11/07/16 11/07/16 09:45 05:27 06:38 Sodium 138 139 140 Potassium 5.1 H 5.5 H 5.3 H Chloride 101 103 103 Carbon Dioxide 31 H 26 32 H BUN 36 H 44 H 45 H Creatinine 1.32 H 1.42 H 1.40 H Glucose 309 H 205 H 195 H Calcium 9.1 9.1 8.7 Urine 11/06/16 Range/Units 20:35 Urine Color Yellow (Yellow) Urine Clarity Hazy A (Clear) Urine pH 5.5 (5.0-8.0) pH Units Ur Specific [place] 1.014 (1.010-1.025) Urine Protein Negative (Neg-Trace) mg/dL Urine Glucose (UA) Normal (Normal) mg/dL - ABG Interpretation ABG results: ABG ABG pH 7.31 pH Units (7.32-7.45) L 11/06/16 06:05 ABG pCO2 71 mmHg (35-45) H* 11/06/16 06:05 ABG pO2 124 mmHg (85-104) H 11/06/16 06:05 ABG O2 Saturation 99 % (95-98) H 11/06/16 06:05 PT/INR, D-dimer PT 15.9 Seconds (9.4-12.1) H D 11/03/16 04:39 - Attending Attestation I examined this patient and my medical decision-making was reviewed with the CHIPPER MACHINE OPERATOR/PA/Advanced Practice Nurse/Resident Physician. I agree with the documented findings, disposition and treatment plan as described except to the extent set forth below. Supratherapuetic INR and bleeding now resolved. COPD improving. Chronic co2 retainer. POssible d/c tomorrow in am. D/W patient and her daughter.
[2016-11-06 21:06] LABS: Bilirubin,Urine Negative (Negative); Blood,Urine Large (Negative); Color,Urine Yellow (Yellow); Glucose,Urine (UA) Normal (Normal); Ketones,Urine Negative (Negative); Leukocyte Esterase,Urine Trace (Negative); Nitrite,Urine Negative (Negative); PH,Urine 5.5 pH Units (5.0-8.0); Protein,Urine Negative (Neg-Trace); Specific Gravity,Urine 1.014 (1.010-1.025); Urobilinogen,Urine Normal (Normal)
[2016-11-06 21:07] LABS: Bacteria,Urine None Seen per hpf (None-Few); Clarity,Urine Hazy (Clear); Hyaline Casts,Urine Few per lpf (None-Few); Squamous Epithelial Cell,Urine Many per lpf (None-Few); WBC,Urine 15-30 per hpf (0-3)
[2016-11-06] MEDS: Simethicone 80 MG TAB.CHEW PO SCH ×2 (22:26→22:27)
[2016-11-07] MEDS: Ipratropium/Albuterol Neb 3 ML IH SCH ×4 (03:49→20:55)
[2016-11-07] MEDS: *HR* HYDROcodone/Acet 5/325 mg TABLET PO PRN ×2 (05:27→19:37)
[2016-11-07 05:57] LABS: Basophils % 0.1 %; Hematocrit 28.8 % (35.3-44.9); Hemoglobin 9.2 g/dL (11.5-15.4); Immature Granulocytes % 1.3 % (0-4); Lymphocytes # 0.8 K/mcL (0.6-4.6); Lymphocytes % 8.6 %; Mean Corpuscular HGB Conc 31.9 g/dL (31.6-35.5); Mean Platelet Volume 10.8 fL (9.4-12.4); Monocytes # 0.6 K/mcL (0.0-1.3); Monocytes % 6.6 %; Platelet Count 188 K/mcL (140-400); Red Blood Count 2.97 M/mcL (3.82-4.97); Red Cell Distribution Width 13.6 % (11.5-14.5); Segmented Neutrophils % 83.4 %
[2016-11-07 06:08] LABS: Calcium 9.1 mg/dL (8.6-10.8)
[2016-11-07 06:19] LABS: Potassium 5.5 mEq/L (3.5-4.5)
[2016-11-07] MEDS: *HR* Heparin 5,000 UNIT/ML VIAL SQ SCH ×6 (06:22→23:13)
[2016-11-07 07:00] LABS: Calcium 8.7 mg/dL (8.6-10.8); Potassium 5.3 mEq/L (3.5-4.5)
[2016-11-07] MEDS: Simethicone 80 MG TAB.CHEW PO SCH ×3 (07:56→21:00)
[2016-11-07] MEDS: predniSONE 20 MG TABLET PO SCH (07:56)
[2016-11-07] MEDS: ALPRAZolam 0.25 MG TABLET PO SCH ×3 (07:56→21:00)
[2016-11-07] MEDS: Diltiazem CD (24hr) 180 MG CAPSULE PO SCH (07:56)
[2016-11-07] MEDS: Insulin LISPRO 300 UNITS/3 ML VIAL SQ SCH ×4 (08:13→21:00)
[2016-11-07] MEDS: Budesonide/Formoterol 160/4.5 MDI IH SCH ×2 (10:08→20:55)
[2016-11-07 15:20] LABS: Calcium 8.9 mg/dL (8.6-10.8)
--- NOTE | 2016-11-07 17:12 | Internal Med Progress Note ---
<Reji Isabel - Last Filed: 11/07/16 17:17> Date of Encounter: 11/07/16 Time of Encounter: 17:10 - Assessment and plan (1) Acute blood loss anemia Current Visit: Yes Status: Acute Assessment and plan: secondary to dental procedure while on coumadin continue to hold coumadin Hg stable. (2) COPD (chronic obstructive pulmonary disease) Current Visit: Yes Status: Acute Assessment and plan: not in exacerbation. continue PRN duonebs and symbicort. Qualifiers: Qualified Code(s): J44.9 - Chronic obstructive pulmonary disease, unspecified (3) Chronic hypoxemic respiratory failure Current Visit: Yes Status: Acute Assessment and plan: Likely from COPD. Possibly also has a component of OHS. At baseline today. On 3L NC (4) Chronic hypercapnic respiratory failure Current Visit: Yes Status: Acute Assessment and plan: secondary to COPD Looking at the expected change in pH and calculating her expected Bicarb this patient is at her baseline PCO2 No signs of CO2 narcosis on exam. Continue BIPAP while asleep. (5) Atrial fibrillation Current Visit: Yes Status: Acute Assessment and plan: Continue diltiazem for rate control holding coumadin as she has had an acute bleed. Qualifiers: Qualified Code(s): I48.91 - Unspecified atrial fibrillation (6) Insulin dependent diabetes mellitus Current Visit: Yes Status: Acute Assessment and plan: improving but still above goal increase sliding scale to high dose. May need to adjust oral medications to renal function upon discharge. (7) BARRY (acute kidney injury) Current Visit: Yes Status: Acute Assessment and plan: likely from acute blood loss anemia and poor PO SCR worsening some today. we will give her IV fluids. Possible DC in AM if improved. (8) CAROLIN (obstructive sleep apnea) Current Visit: Yes Status: Acute Assessment and plan: BIPAP while sleeping. (9) Hyperkalemia Current Visit: Yes Status: Acute Assessment and plan: kayexalate given. improved to 5.0 I expect it will come down further with fluids and beter glycemic control. repeat BMP in AM. (10) Hematuria Current Visit: Yes Status: Acute Assessment and plan: repeat UA shows continued microscopic hematuria. would consider ourpatietn referrel to Urology for evaluation/Cystoscopy (11) Abdominal distension (gaseous) Current Visit: Yes Status: Acute Assessment and plan: continue simethicone. (12) DVT prophylaxis Current Visit: Yes Status: Acute Assessment and plan: Will continue EPCDs in this patient with acute blood loss anemia. - Subjective Interval history: Patimiko states she is feeling better today. She has had no further bleeding. She denies increased dyspnea from last night. She states that she feels that she is close to her baseline. No increase cough, wheeze, or sputum production. She dose complain of abdominal distention. Denies any abdominal pain or distention. No N/V. Last Bm was this AM. she has no further complaints or concerns at this time. - Constitutional Vitals: Temp Pulse Resp BP Pulse Ox 97.5 F L 103 18 136/80 95 11/07/16 15:21 11/07/16 15:21 11/07/16 15:39 11/07/16 15:21 11/07/16 15:39 General appearance: Present: A&O X 3, morbidly obese, pleasant, no acute distress, answers questions appropriately - Head Head exam: Present: atraumatic, normal inspection, normocephalic - Eye Eye exam: Present: PERRL, conjuntiva pink, sclera anicteric Pupils: Present: PERRL - Neck Neck exam general surgery: Present: supple, trachea midline. Absent: lymphadenopathy - Respiratory Respiratory exam: Present: CTAB. Absent: accessory muscle use, rales, rhonchi, wheezes Additional comments: mild conversational dyspnea. - Cardiovascular Cardiovascular exam: Present: RRR, +S1, +S2. Absent: diastolic murmur, gallop, rubs, systolic murmur - GI/Abdominal GI/Abdominal exam: Present: distended, normal bowel sounds, soft, no peritoneal signs. Absent: tenderness Additional comments: abdomen is distended. Tympanic to percussion. no fluid wave - Extremities Exam Extremities exam: Present: pedal edema (minimal), warm, radial pulses palpable and symetrical. Absent: calf tenderness, cyanotic - Skin Skin exam: Present: dry, intact Internal Medicine: Result - Labs CBC & Chem 7: 11/07/16 05:27 11/07/16 14:59 Labs: Short CBC 11/07/16 Range/Units 05:27 WBC 9.6 (4.3-11.1) K/mcL Hgb 9.2 L (11.5-15.4) g/dL Hct 28.8 L (35.3-44.9) % Plt Count 188 (140-400) K/mcL Neutrophils # 8.0 (1.6-8.9) K/mcL BMP 11/07/16 11/07/16 11/07/16 05:27 06:38 14:59 Sodium 139 140 141 Potassium 5.5 H 5.3 H 5.0 H Chloride 103 103 101 Carbon Dioxide 26 32 H 32 H BUN 44 H 45 H 48 H Creatinine 1.42 H 1.40 H 1.51 H Glucose 205 H 195 H 240 H Calcium 9.1 8.7 8.9 Urine 11/06/16 Range/Units 20:35 Urine Color Yellow (Yellow) Urine Clarity Hazy A (Clear) Urine pH 5.5 (5.0-8.0) pH Units Ur Specific [place] 1.014 (1.010-1.025) Urine Protein Negative (Neg-Trace) mg/dL Urine Glucose (UA) Normal (Normal) mg/dL - ABG Interpretation ABG results: ABG ABG pH 7.31 pH Units (7.32-7.45) L 11/06/16 06:05 ABG pCO2 71 mmHg (35-45) H* 11/06/16 06:05 ABG pO2 124 mmHg (85-104) H 11/06/16 06:05 ABG O2 Saturation 99 % (95-98) H 11/06/16 06:05 PT/INR, D-dimer PT 15.9 Seconds (9.4-12.1) H D 11/03/16 04:39 - VTE Documentation of Mechanical Device: Graduated compression elastic hosiery Consult Discharge Plan - Plan Referrals: Domingo Melton DO [Primary Care Provider] - <Chad Mock - Last Filed: 11/07/16 18:04> Date of Encounter: 11/07/16 - Constitutional Vitals: Temp Pulse Resp BP Pulse Ox 97.5 F L 103 18 136/80 95 11/07/16 15:21 11/07/16 15:21 11/07/16 15:39 11/07/16 15:21 11/07/16 15:39 Internal Medicine: Result - Labs CBC & Chem 7: 11/07/16 05:27 11/07/16 14:59 Labs: Short CBC 11/07/16 Range/Units 05:27 WBC 9.6 (4.3-11.1) K/mcL Hgb 9.2 L (11.5-15.4) g/dL Hct 28.8 L (35.3-44.9) % Plt Count 188 (140-400) K/mcL Neutrophils # 8.0 (1.6-8.9) K/mcL BMP 11/07/16 11/07/16 11/07/16 05:27 06:38 14:59 Sodium 139 140 141 Potassium 5.5 H 5.3 H 5.0 H Chloride 103 103 101 Carbon Dioxide 26 32 H 32 H BUN 44 H 45 H 48 H Creatinine 1.42 H 1.40 H 1.51 H Glucose 205 H 195 H 240 H Calcium 9.1 8.7 8.9 Urine 11/06/16 Range/Units 20:35 Urine Color Yellow (Yellow) Urine Clarity Hazy A (Clear) Urine pH 5.5 (5.0-8.0) pH Units Ur Specific [place] 1.014 (1.010-1.025) Urine Protein Negative (Neg-Trace) mg/dL Urine Glucose (UA) Normal (Normal) mg/dL - ABG Interpretation ABG results: ABG ABG pH 7.31 pH Units (7.32-7.45) L 11/06/16 06:05 ABG pCO2 71 mmHg (35-45) H* 11/06/16 06:05 ABG pO2 124 mmHg (85-104) H 11/06/16 06:05 ABG O2 Saturation 99 % (95-98) H 11/06/16 06:05 PT/INR, D-dimer PT 15.9 Seconds (9.4-12.1) H D 11/03/16 04:39 - Attending Attestation I examined this patient and my medical decision-making was reviewed with the ESOL INSTRUCTOR/PA/Advanced Practice Nurse/Resident Physician. I agree with the documented findings, disposition and treatment plan as described except to the extent set forth below. Ms. Perez was seen and examined during morning rounds. Hyperkalemia noted, mild hemolysis in the sample sent earlier this morning, potassium was repeated and was noted to be 5.3. Kayaxelate given. Potassium was reevaluated later in the afternoon was 5.0. We will continue monitoring the patient closely, avoid nephrotoxic agents and repeat kidney function tests and electrolytes tomorrow in a.m. Patient has abdominal discomfort, bowel movements and bowel sounds are present. Possible aerophagia secondary to the use of BiPAP. We will continue monitoring the patient. Stable respiratory mayer.
[2016-11-07] MEDS ORDERED: Insulin LISPRO 300 UNITS/3 ML VIAL SQ SCH (17:13)
[2016-11-07] MEDS: 0.9 % Sodium Chloride 1,000 ML IVC SCH (17:51)
[2016-11-08] MEDS: Ipratropium/Albuterol Neb 3 ML IH SCH ×3 (05:07→22:48)
[2016-11-08] MEDS: *HR* Heparin 5,000 UNIT/ML VIAL SQ SCH ×3 (05:45→21:44)
[2016-11-08 07:08] LABS: Basophils # 0.1 K/mcL (0.0-0.2); Basophils % 0.7 %; Hematocrit 31.5 % (35.3-44.9); Hemoglobin 9.6 g/dL (11.5-15.4); Immature Granulocytes % 9.6 % (0-4); Lymphocytes # 1.2 K/mcL (0.6-4.6); Lymphocytes % 12.2 %; Mean Corpuscular HGB Conc 30.5 g/dL (31.6-35.5); Mean Corpuscular Hemoglobin 30.7 pg (28.0-33.3); Mean Corpuscular Volume 100.6 fL (83.0-100.0); Mean Platelet Volume 10.4 fL (9.4-12.4); Monocytes # 1.1 K/mcL (0.0-1.3); Monocytes % 11.1 %; Neutrophils # 6.8 K/mcL (1.6-8.9); Nucleated Red Blood Cells 0.3 /100 WBC (0); Platelet Count 211 K/mcL (140-400); Red Blood Count 3.13 M/mcL (3.82-4.97); Red Cell Distribution Width 13.8 % (11.5-14.5); Segmented Neutrophils % 66.4 %
[2016-11-08 07:22] LABS: Calcium 8.6 mg/dL (8.6-10.8); Potassium 4.9 mEq/L (3.5-4.5)
[2016-11-08 07:36] LABS: Platelet Estimate Normal (Normal)
[2016-11-08] MEDS: Diltiazem CD (24hr) 180 MG CAPSULE PO SCH (08:09)
[2016-11-08] MEDS: ALPRAZolam 0.25 MG TABLET PO SCH ×2 (08:09→13:02)
[2016-11-08] MEDS: Simethicone 80 MG TAB.CHEW PO SCH ×3 (08:09→21:44)
[2016-11-08] MEDS: predniSONE 20 MG TABLET PO SCH (08:09)
[2016-11-08] MEDS: Insulin LISPRO 300 UNITS/3 ML VIAL SQ SCH ×4 (08:09→21:48)
[2016-11-08] MEDS: *HR* HYDROcodone/Acet 5/325 mg TABLET PO PRN (08:21)
--- NOTE | 2016-11-08 08:44 | Internal Med Progress Note ---
Date of Encounter: 11/08/16 Time of Encounter: 08:41 - Assessment and plan (1) Chronic hypercapnic respiratory failure Current Visit: Yes Status: Acute Assessment and plan: Diminished air entry in both lung bazzi today, will continue with steroids and nbz therapy along with bipap. Will obtain a new CXR today for reevaluation and see if there is another precipitating factor. Not at her baseline yet. PT OT evlauation. Patient lives at home with her fiance for over 25 years. Has family in town. Respiratory failure is secondary to COPD Looking at the expected change in pH and calculating her expected Bicarb this patient is at her baseline PCO2 No signs of CO2 narcosis on exam. Continue BIPAP while asleep. (2) BARRY (acute kidney injury) Current Visit: Yes Status: Acute Assessment and plan: likely from acute blood loss anemia and poor PO SCR slightly better today. Continue monitoring. Avoid nephrotoxic agents. (3) Abdominal distension (gaseous) Current Visit: Yes Status: Acute Assessment and plan: aerophagia? continue simethicone. XR today. BM yesterday. (4) Acute blood loss anemia Current Visit: Yes Status: Acute Assessment and plan: secondary to dental procedure while on coumadin continue to hold coumadin Hg stable. (5) Atrial fibrillation Current Visit: Yes Status: Acute Assessment and plan: Continue diltiazem for rate control holding coumadin as she has had an acute bleed. Qualifiers: Qualified Code(s): I48.91 - Unspecified atrial fibrillation (6) DVT prophylaxis Current Visit: Yes Status: Acute Assessment and plan: Will continue EPCDs in this patient with acute blood loss anemia. (7) Hyperkalemia Current Visit: Yes Status: Acute Assessment and plan: potassium improved. not receiving meds that can increase potassium levels. will continue monitoring. patient on potassium supplements at home. (8) Insulin dependent diabetes mellitus Current Visit: Yes Status: Acute Assessment and plan: improving but still above goal sliding scale to high dose. May need to adjust oral medications to renal function upon discharge. metformin on hold while inpatient. (9) CAROLIN (obstructive sleep apnea) Current Visit: Yes Status: Acute Assessment and plan: BIPAP while sleeping. - Time Spent With Patient 25 - 35 minutes - Subjective Interval history: The patient was seen and examined during rounds. She states that had a rough night, could not sleep well she had a nightmare and was not able to wear the BiPAP mask as she normally does. She is feeling short of breath. Her abdominal distention however has improved. - Constitutional Vitals: Temp Pulse Resp BP Pulse Ox 97.5 F L 93 14 124/68 95 11/08/16 06:55 11/08/16 06:55 11/08/16 06:55 11/08/16 06:55 11/08/16 06:55 General appearance: Present: mild distress, A&O X 3, morbidly obese, pleasant, answers questions appropriately - Head Head exam: Present: atraumatic, normocephalic - Eye Eye exam: Present: PERRL, conjuntiva pink, sclera anicteric Pupils: Present: PERRL - Neck Neck exam general surgery: Present: supple, trachea midline. Absent: lymphadenopathy - Respiratory Respiratory exam: Present: decreased breath sounds. Absent: accessory muscle use, rales, rhonchi, wheezes Additional comments: diminished air entry on both lug bazzi, decreased compared to yesterday. - Cardiovascular Cardiovascular exam: Present: RRR, +S1, +S2. Absent: diastolic murmur, gallop, rubs, systolic murmur - GI/Abdominal GI/Abdominal exam: Present: normal bowel sounds, soft, no peritoneal signs. Absent: distended, tenderness - Extremities Exam Extremities exam: Present: warm, radial pulses palpable and symetrical. Absent : calf tenderness, cyanotic, pedal edema - Neurological Exam Neurological exam: Present: CN II-XII intact, oriented X3, no focal deficits. Absent: pronater drift, facial droop, speech deficit - Skin Skin exam: Present: dry, intact Internal Medicine: Result - Labs CBC & Chem 7: 11/08/16 05:22 11/08/16 05:22 Labs: Short CBC 11/08/16 Range/Units 05:22 WBC 10.2 (4.3-11.1) K/mcL Hgb 9.6 L (11.5-15.4) g/dL Hct 31.5 L (35.3-44.9) % Plt Count 211 (140-400) K/mcL Neutrophils # 6.8 (1.6-8.9) K/mcL BMP 11/07/16 11/08/16 14:59 05:22 Sodium 141 141 Potassium 5.0 H 4.9 H Chloride 101 101 Carbon Dioxide 32 H 32 H BUN 48 H 44 H Creatinine 1.51 H 1.46 H Glucose 240 H 136 H Calcium 8.9 8.6 - ABG Interpretation ABG results: ABG ABG pH 7.31 pH Units (7.32-7.45) L 11/06/16 06:05 ABG pCO2 71 mmHg (35-45) H* 11/06/16 06:05 ABG pO2 124 mmHg (85-104) H 11/06/16 06:05 ABG O2 Saturation 99 % (95-98) H 11/06/16 06:05 PT/INR, D-dimer PT 15.9 Seconds (9.4-12.1) H D 11/03/16 04:39 - VTE Documentation of Mechanical Device: Graduated compression elastic hosiery Consult Discharge Plan - Plan Referrals: Domingo Melton DO [Primary Care Provider] -
[2016-11-08] MEDS ORDERED: Furosemide 20 MG/2 ML VIAL IVP ONE (08:57)
[2016-11-08] MEDS ORDERED: Ipratropium/Albuterol Neb 3 ML IH SCH (09:00)
[2016-11-08] MEDS: Budesonide/Formoterol 160/4.5 MDI IH SCH ×2 (11:08→22:48)
[2016-11-08] MEDS: 0.9 % Sodium Chloride 1,000 ML IVC SCH (13:04)
[2016-11-09] MEDS: Ipratropium/Albuterol Neb 3 ML IH SCH ×4 (04:11→21:03)
[2016-11-09 04:58] LABS: Hematocrit 32.4 % (35.3-44.9); Hemoglobin 9.6 g/dL (11.5-15.4); Mean Corpuscular HGB Conc 29.6 g/dL (31.6-35.5); Mean Corpuscular Volume 101.3 fL (83.0-100.0); Mean Platelet Volume 10.1 fL (9.4-12.4); Nucleated Red Blood Cells 0.6 /100 WBC (0); Platelet Count 199 K/mcL (140-400)
[2016-11-09] MEDS: *HR* Heparin 5,000 UNIT/ML VIAL SQ SCH ×3 (05:06→20:48)
[2016-11-09] MEDS: *HR* HYDROcodone/Acet 5/325 mg TABLET PO PRN ×3 (05:07→20:53)
[2016-11-09 05:14] LABS: Calcium 8.7 mg/dL (8.6-10.8); Potassium 5.2 mEq/L (3.5-4.5)
[2016-11-09 05:26] LABS: Lymphocytes # 1.2 K/mcL (0.6-4.6); Macrocytosis Present (Not Present); Monocytes # 0.9 K/mcL (0.0-1.3); Neutrophils # 9.6 K/mcL (1.6-8.9); Platelet Estimate Normal (Normal)
[2016-11-09 05:27] LABS: Basophilic Stippling 1+ (Not Present); Polychromasia 1+ (Not Present); Reactive Lymphocytes Present (Not Present)
[2016-11-09] MEDS: Simethicone 80 MG TAB.CHEW PO SCH ×3 (08:20→20:48)
[2016-11-09] MEDS: predniSONE 20 MG TABLET PO SCH (08:20)
[2016-11-09] MEDS: Diltiazem CD (24hr) 180 MG CAPSULE PO SCH (08:20)
[2016-11-09] MEDS ORDERED: *HR* Warfarin 3 MG TABLET PO SCH (08:30)
[2016-11-09] MEDS: Budesonide/Formoterol 160/4.5 MDI IH SCH ×2 (10:12→21:03)
[2016-11-09] MEDS ORDERED: Furosemide 20 MG/2 ML VIAL IVP ONE (11:43)
[2016-11-09] MEDS: Insulin LISPRO 300 UNITS/3 ML VIAL SQ SCH ×5 (12:49→22:35)
--- NOTE | 2016-11-09 15:31 | Internal Med Progress Note ---
<Reji Isabel - Last Filed: 11/09/16 15:38> Date of Encounter: 11/09/16 Time of Encounter: 11:25 - Assessment and plan (1) Acute blood loss anemia Current Visit: Yes Status: Acute Assessment and plan: secondary to dental procedure while on coumadin Hg stable. (2) COPD (chronic obstructive pulmonary disease) Current Visit: Yes Status: Acute Assessment and plan: not in exacerbation. continue PRN duonebs and symbicort. Qualifiers: Qualified Code(s): J44.9 - Chronic obstructive pulmonary disease, unspecified (3) Chronic hypoxemic respiratory failure Current Visit: Yes Status: Acute Assessment and plan: Likely from COPD. Possibly also has a component of OHS. At baseline today. On 3L NC (4) Chronic hypercapnic respiratory failure Current Visit: Yes Status: Acute Assessment and plan: Diminished air entry in both lung bazzi today, will continue with steroids and bronchodilators along with bipap. PT OT evlauation. Respiratory failure is secondary to COPD Looking at the expected change in pH and calculating her expected Bicarb this patient is at her baseline PCO2 No signs of CO2 narcosis on exam. Continue BIPAP while asleep. (5) Atrial fibrillation Current Visit: Yes Status: Acute Assessment and plan: Continue diltiazem for rate control restart warfarin as Hg has been stable for several days. Qualifiers: Qualified Code(s): I48.91 - Unspecified atrial fibrillation (6) Insulin dependent diabetes mellitus Current Visit: Yes Status: Acute Assessment and plan: At inpatient goal continue high dose sliding scale, May need to adjust oral medications to renal function upon discharge. metformin on hold while inpatient. (7) BARRY (acute kidney injury) Current Visit: Yes Status: Acute Assessment and plan: PAtient appears volume overloaded on exam. now wit orthopnea overnight. Possiblecardiorenal syndrome? Continue diuresis and strict I's and O's (8) CAROLIN (obstructive sleep apnea) Current Visit: Yes Status: Acute Assessment and plan: BIPAP while sleeping. (9) Hyperkalemia Current Visit: Yes Status: Acute Assessment and plan: Lasix kayexalate. (10) Hematuria Current Visit: Yes Status: Acute Assessment and plan: repeat UA shows continued microscopic hematuria. No with flank pain and BARRY. Neprholithiasis? Will check a CT scan. [facility]/C[facility] (11) Abdominal distension (gaseous) Current Visit: Yes Status: Acute Assessment and plan: improving continue simethicone. (12) DVT prophylaxis Current Visit: Yes Status: Acute Assessment and plan: Will continue EPCDs resume warfarin - Subjective Interval history: No major evetns over night. However patient dose complain of some orthopnea overnight. She states she is now breathing normally. she denies any cough or wheeze. She dose admit to ome mild left flank pain this AM. She denies any further complaints or concerns at this time. - Constitutional Vitals: Temp Pulse Resp BP Pulse Ox 98.0 F 97 18 149/63 90 L 11/09/16 12:00 11/09/16 12:00 11/09/16 12:00 11/09/16 12:00 11/09/16 12:00 General appearance: Present: mild distress, A&O X 3, morbidly obese, pleasant, answers questions appropriately - Head Head exam: Present: atraumatic, normocephalic - Eye Eye exam: Present: PERRL, conjuntiva pink, sclera anicteric Pupils: Present: PERRL - Neck Neck exam general surgery: Present: supple, trachea midline. Absent: lymphadenopathy - Respiratory Respiratory exam: Present: CTAB. Absent: accessory muscle use, rales, rhonchi, wheezes Additional comments: diminished throughout. Mild crackles at this bases of the lungs. - Cardiovascular Cardiovascular exam: Present: RRR, +S1, +S2. Absent: diastolic murmur, gallop, rubs, systolic murmur - GI/Abdominal GI/Abdominal exam: Present: normal bowel sounds, soft, tenderness (right costovertebral / flank with percussion only. ), no peritoneal signs. Absent: distended - Extremities Exam Extremities exam: Present: pedal edema (2+ bilaterally), warm, radial pulses palpable and symetrical. Absent: calf tenderness, cyanotic - Skin Skin exam: Present: dry, intact Internal Medicine: Result - Labs CBC & Chem 7: 11/09/16 04:19 11/09/16 04:19 Labs: Short CBC 11/09/16 Range/Units 04:19 WBC 12.1 H (4.3-11.1) K/mcL Hgb 9.6 L (11.5-15.4) g/dL Hct 32.4 L (35.3-44.9) % Plt Count 199 (140-400) K/mcL Neutrophils # 9.6 H (1.6-8.9) K/mcL BMP 11/09/16 04:19 Sodium 143 Potassium 5.2 H Chloride 103 Carbon Dioxide 31 H BUN 47 H Creatinine 1.66 H Glucose 169 H Calcium 8.7 - ABG Interpretation ABG results: ABG ABG pH 7.31 pH Units (7.32-7.45) L 11/06/16 06:05 ABG pCO2 71 mmHg (35-45) H* 11/06/16 06:05 ABG pO2 124 mmHg (85-104) H 11/06/16 06:05 ABG O2 Saturation 99 % (95-98) H 11/06/16 06:05 PT/INR, D-dimer PT 15.9 Seconds (9.4-12.1) H D 11/03/16 04:39 - Impressions Impressions Chest X-Ray 11/08/16 08:47 IMPRESSION: Bibasilar opacities, which either reflect atelectasis or pneumonia. D/ / Magui Pérez MD / Magui Pérez MD Interpreting Provider: Magui Pérez MD X-Ray 11/08/16 08:47 IMPRESSION: Mild gaseous distention of the colon. Overall assessment of bowel gas pattern is limited due to the paucity of small bowel gas. D/ / Willard Delong MD / Willard Delong MD Interpreting Provider: Willard Delong MD Abdomen/Pelvis CT 11/09/16 10:13 IMPRESSION: No acute abnormality in the abdomen or pelvis on the noncontrast CT. No renal or urinary tract calculus. Moderate sigmoid diverticulosis. D/ / 11/09/2016 12:09:40 Radhames Almanzar MD / Rosy Ann Interpreting Provider: Radhames Almanzar MD - VTE Documentation of Mechanical Device: Graduated compression elastic hosiery Consult Discharge Plan - Plan Referrals: Domingo Melton DO [Primary Care Provider] - <Chad Mock - Last Filed: 11/09/16 16:01> Date of Encounter: 11/09/16 - Assessment and plan (1) Chronic hypercapnic respiratory failure Current Visit: Yes Status: Acute (2) BARRY (acute kidney injury) Current Visit: Yes Status: Acute (3) Abdominal distension (gaseous) Current Visit: Yes Status: Acute (4) Acute blood loss anemia Current Visit: Yes Status: Acute (5) Atrial fibrillation Current Visit: Yes Status: Acute Qualifiers: Qualified Code(s): I48.91 - Unspecified atrial fibrillation (6) DVT prophylaxis Current Visit: Yes Status: Acute (7) Hyperkalemia Current Visit: Yes Status: Acute (8) Insulin dependent diabetes mellitus Current Visit: Yes Status: Acute (9) CAROLIN (obstructive sleep apnea) Current Visit: Yes Status: Acute - Constitutional Vitals: Temp Pulse Resp BP Pulse Ox 98.0 F 97 18 149/63 90 L 11/09/16 12:00 11/09/16 12:00 11/09/16 12:00 11/09/16 12:00 11/09/16 12:00 Internal Medicine: Result - Labs CBC & Chem 7: 11/09/16 04:19 11/09/16 04:19 Labs: Short CBC 11/09/16 Range/Units 04:19 WBC 12.1 H (4.3-11.1) K/mcL Hgb 9.6 L (11.5-15.4) g/dL Hct 32.4 L (35.3-44.9) % Plt Count 199 (140-400) K/mcL Neutrophils # 9.6 H (1.6-8.9) K/mcL BMP 11/09/16 04:19 Sodium 143 Potassium 5.2 H Chloride 103 Carbon Dioxide 31 H BUN 47 H Creatinine 1.66 H Glucose 169 H Calcium 8.7 - ABG Interpretation ABG results: ABG ABG pH 7.31 pH Units (7.32-7.45) L 11/06/16 06:05 ABG pCO2 71 mmHg (35-45) H* 11/06/16 06:05 ABG pO2 124 mmHg (85-104) H 11/06/16 06:05 ABG O2 Saturation 99 % (95-98) H 11/06/16 06:05 PT/INR, D-dimer PT 15.9 Seconds (9.4-12.1) H D 11/03/16 04:39 - Impressions Impressions Chest X-Ray 11/08/16 08:47 IMPRESSION: Bibasilar opacities, which either reflect atelectasis or pneumonia. D/ / Magui Pérez MD / Magui Pérez MD Interpreting Provider: Magui Pérez MD X-Ray 11/08/16 08:47 IMPRESSION: Mild gaseous distention of the colon. Overall assessment of bowel gas pattern is limited due to the paucity of small bowel gas. D/ / Willard Delong MD / Willard Delong MD Interpreting Provider: Willard Delong MD Abdomen/Pelvis CT 11/09/16 10:13 IMPRESSION: No acute abnormality in the abdomen or pelvis on the noncontrast CT. No renal or urinary tract calculus. Moderate sigmoid diverticulosis. D/ / 11/09/2016 12:09:40 Radhames Almanzar MD / Rosy Ann Interpreting Provider: Radhames Almanzar MD - Attending Attestation I examined this patient and my medical decision-making was reviewed with the PYROTECHNICIAN/PA/Advanced Practice Nurse/Resident Physician. I agree with the documented findings, disposition and treatment plan as described except to the extent set forth below. Acute kidney injury, continue with current management. Management of hyperkalemia. CT scan requested today. Continue with oxygen therapy and BiPAP.
[2016-11-09] MEDS: *HR* Warfarin 3 MG TABLET PO SCH (16:53)
[2016-11-09] MEDS: Furosemide 20 MG/2 ML VIAL IVP SCH (16:53)
[2016-11-09] MEDS: ALPRAZolam 0.25 MG TABLET PO PRN (18:58)
[2016-11-10] MEDS: Ipratropium/Albuterol Neb 3 ML IH SCH ×4 (04:43→22:59)
[2016-11-10 05:45] LABS: Hematocrit 34.4 % (35.3-44.9); Hemoglobin 10.1 g/dL (11.5-15.4); Lymphocytes # 1.1 K/mcL (0.6-4.6); Mean Corpuscular HGB Conc 29.4 g/dL (31.6-35.5); Mean Corpuscular Hemoglobin 30.1 pg (28.0-33.3); Mean Corpuscular Volume 102.4 fL (83.0-100.0); Mean Platelet Volume 10.2 fL (9.4-12.4); Nucleated Red Blood Cells 0.7 /100 WBC (0); Platelet Count 199 K/mcL (140-400); Red Blood Count 3.36 M/mcL (3.82-4.97)
[2016-11-10 06:00] LABS: Calcium 8.9 mg/dL (8.6-10.8); Potassium 4.7 mEq/L (3.5-4.5)
[2016-11-10 06:09] LABS: Monocytes # 0.7 K/mcL (0.0-1.3); Platelet Estimate Normal (Normal)
[2016-11-10] MEDS: *HR* Heparin 5,000 UNIT/ML VIAL SQ SCH ×3 (07:15→20:39)
[2016-11-10] MEDS: Insulin LISPRO 300 UNITS/3 ML VIAL SQ SCH ×4 (07:41→22:19)
[2016-11-10] MEDS: Diltiazem CD (24hr) 180 MG CAPSULE PO SCH (07:53)
[2016-11-10] MEDS: predniSONE 20 MG TABLET PO SCH (07:53)
[2016-11-10] MEDS: Simethicone 80 MG TAB.CHEW PO SCH ×3 (07:54→20:38)
[2016-11-10] MEDS: Furosemide 20 MG/2 ML VIAL IVP SCH ×2 (07:54→16:34)
[2016-11-10] MEDS: Budesonide/Formoterol 160/4.5 MDI IH SCH ×2 (09:29→22:58)
[2016-11-10] MEDS: ALPRAZolam 0.25 MG TABLET PO PRN (13:37)
[2016-11-10] MEDS ORDERED: MOM Conc 10 ML UD.LIQ PO ONE (14:18)
--- NOTE | 2016-11-10 14:36 | Internal Med Progress Note ---
<Reji Isabel - Last Filed: 11/10/16 14:46> Date of Encounter: 11/10/16 Time of Encounter: 14:34 - Assessment and plan (1) Acute blood loss anemia Current Visit: Yes Status: Acute Assessment and plan: secondary to dental procedure while on warfarin Hg stable. (2) COPD (chronic obstructive pulmonary disease) Current Visit: Yes Status: Acute Assessment and plan: not in exacerbation. continue PRN duonebs and symbicort. Qualifiers: Qualified Code(s): J44.9 - Chronic obstructive pulmonary disease, unspecified (3) Chronic hypoxemic respiratory failure Current Visit: Yes Status: Acute Assessment and plan: Likely from COPD. Possibly also has a component of OHS. At baseline today. On 3L NC (4) Chronic hypercapnic respiratory failure Current Visit: Yes Status: Acute Assessment and plan: Respiratory failure is secondary to COPD Looking at the expected change in pH and calculating her expected Bicarb this patient is at her baseline PCO2 No signs of CO2 narcosis on exam. Continue BIPAP while asleep. (5) Atrial fibrillation Current Visit: Yes Status: Acute Assessment and plan: Continue diltiazem for rate control on warfarin will need follow up INR as outpatient. Qualifiers: Qualified Code(s): I48.91 - Unspecified atrial fibrillation (6) Insulin dependent diabetes mellitus Current Visit: Yes Status: Acute Assessment and plan: At inpatient goal continue high dose sliding scale, May need to adjust oral medications to renal function upon discharge. metformin on hold while inpatient. (7) BARRY (acute kidney injury) Current Visit: Yes Status: Acute Assessment and plan: PAtient appears volume overloaded on exam. improving with lasix. Continue home dose at discharge. (8) CAROLIN (obstructive sleep apnea) Current Visit: Yes Status: Acute Assessment and plan: BIPAP while sleeping. (9) Hyperkalemia Current Visit: Yes Status: Acute Assessment and plan: Lasix trending down. (10) Hematuria Current Visit: Yes Status: Acute Assessment and plan: repeat UA shows continued microscopic hematuria. would consider out patient referrel to Urology for evaluation/Cystoscopy (11) Abdominal distension (gaseous) Current Visit: Yes Status: Acute Assessment and plan: Likely from airophagia from BIPAP switching to Nasal mask today. (12) DVT prophylaxis Current Visit: Yes Status: Acute Assessment and plan: Will continue EPCDs resume warfarin (13) Discharge planning issues Current Visit: Yes Status: Acute Assessment and plan: Patient medically stable for discharge. will discharge once she has placement to ECF for inpatient rehab. would also like to switch to [place] O2. - Subjective Interval history: No major events overnight. Patient dose complain of continued abdominal distention but denies pain. She states her last BM was yesterday. However she believes she is constipated as this was a small BM. She denies any N/V. She states that her breathing is at its baseline. She has no further complaints or concerns at this time. she has brought her home BiPAP machine from home. I have told the RN what the settings are. I discussed code status with the patient Her daughter and Son. She will be A DNR CCA /DNI. - Constitutional Vitals: Temp Pulse Resp BP Pulse Ox 97.6 F 98 22 169/75 93 L 11/10/16 11:00 11/10/16 11:00 11/10/16 11:00 11/10/16 11:00 11/10/16 11:00 General appearance: Present: mild distress, A&O X 3, morbidly obese, pleasant, answers questions appropriately - Head Head exam: Present: atraumatic, normal inspection, normocephalic - Eye Eye exam: Present: PERRL, conjuntiva pink, sclera anicteric Pupils: Present: PERRL - Neck Neck exam general surgery: Present: supple, trachea midline. Absent: lymphadenopathy - Respiratory Respiratory exam: Present: CTAB. Absent: accessory muscle use, rales, rhonchi, wheezes Additional comments: globally diminished lungs sounds throughout. No change from yesterday. I think this is likely her baseline exam. - Cardiovascular Cardiovascular exam: Present: RRR, +S1, +S2. Absent: diastolic murmur, gallop, rubs, systolic murmur - GI/Abdominal GI/Abdominal exam: Present: distended, normal bowel sounds, soft, no peritoneal signs. Absent: tenderness Additional comments: distended. tympanic to percussion Internal Medicine: Result - Labs CBC & Chem 7: 11/10/16 04:55 11/10/16 04:55 Labs: Short CBC 11/10/16 Range/Units 04:55 WBC 8.8 (4.3-11.1) K/mcL Hgb 10.1 L (11.5-15.4) g/dL Hct 34.4 L (35.3-44.9) % Plt Count 199 (140-400) K/mcL Neutrophils # 7.0 (1.6-8.9) K/mcL BMP 11/10/16 04:55 Sodium 146 H Potassium 4.7 H Chloride 101 Carbon Dioxide 36 H BUN 47 H Creatinine 1.56 H Glucose 146 H Calcium 8.9 - ABG Interpretation ABG results: ABG ABG pH 7.31 pH Units (7.32-7.45) L 11/06/16 06:05 ABG pCO2 71 mmHg (35-45) H* 11/06/16 06:05 ABG pO2 124 mmHg (85-104) H 11/06/16 06:05 ABG O2 Saturation 99 % (95-98) H 11/06/16 06:05 PT/INR, D-dimer PT 15.9 Seconds (9.4-12.1) H D 11/03/16 04:39 - Impressions Impressions KUB X-Ray 11/10/16 10:15 IMPRESSION: No acute abdominal radiographic abnormality. D/ / Katerin Castro Cha, MD / Katerin Castro Cha, MD Interpreting Provider: Katerin Castro Cha, MD - VTE Documentation of Mechanical Device: Graduated compression elastic hosiery Consult Discharge Plan - Plan Referrals: Domingo Melton DO [Primary Care Provider] - <Chad Mock - Last Filed: 11/10/16 16:03> Date of Encounter: 11/10/16 - Assessment and plan (1) Chronic hypercapnic respiratory failure Current Visit: Yes Status: Acute (2) BARRY (acute kidney injury) Current Visit: Yes Status: Acute (3) Abdominal distension (gaseous) Current Visit: Yes Status: Acute (4) Acute blood loss anemia Current Visit: Yes Status: Acute (5) Atrial fibrillation Current Visit: Yes Status: Acute Qualifiers: Qualified Code(s): I48.91 - Unspecified atrial fibrillation (6) DVT prophylaxis Current Visit: Yes Status: Acute (7) Hyperkalemia Current Visit: Yes Status: Acute (8) Insulin dependent diabetes mellitus Current Visit: Yes Status: Acute (9) CAROLIN (obstructive sleep apnea) Current Visit: Yes Status: Acute - Constitutional Vitals: Temp Pulse Resp BP Pulse Ox 97.6 F 98 22 169/75 93 L 11/10/16 11:00 11/10/16 11:00 11/10/16 11:00 11/10/16 11:00 11/10/16 11:00 Internal Medicine: Result - Labs CBC & Chem 7: 11/10/16 04:55 11/10/16 15:03 Labs: Short CBC 11/10/16 Range/Units 04:55 WBC 8.8 (4.3-11.1) K/mcL Hgb 10.1 L (11.5-15.4) g/dL Hct 34.4 L (35.3-44.9) % Plt Count 199 (140-400) K/mcL Neutrophils # 7.0 (1.6-8.9) K/mcL BMP 11/10/16 11/10/16 04:55 15:03 Sodium 146 H 143 Potassium 4.7 H 4.7 H Chloride 101 98 Carbon Dioxide 36 H 36 H BUN 47 H 48 H Creatinine 1.56 H 1.51 H Glucose 146 H 262 H Calcium 8.9 8.7 - ABG Interpretation ABG results: ABG ABG pH 7.31 pH Units (7.32-7.45) L 11/06/16 06:05 ABG pCO2 71 mmHg (35-45) H* 11/06/16 06:05 ABG pO2 124 mmHg (85-104) H 11/06/16 06:05 ABG O2 Saturation 99 % (95-98) H 11/06/16 06:05 PT/INR, D-dimer PT 15.9 Seconds (9.4-12.1) H D 11/03/16 04:39 - Impressions Impressions Abdomen/Pelvis CT 11/09/16 10:13 IMPRESSION: No acute abnormality in the abdomen or pelvis on the noncontrast CT. No renal or urinary tract calculus. Moderate sigmoid diverticulosis. D/ / 11/09/2016 12:09:40 Radhames Almanzar MD / Rosy Ann Interpreting Provider: Radhames Almanzar MD X-Ray 11/10/16 10:15 IMPRESSION: No acute abdominal radiographic abnormality. D/ / Katerin Castro Cha, MD / Katerin Castro Cha, MD Interpreting Provider: Katerin Castro Cha, MD - Attending Attestation I examined this patient and my medical decision-making was reviewed with the HOLE DIGGER OPERATOR/PA/Advanced Practice Nurse/Resident Physician. I agree with the documented findings, disposition and treatment plan as described except to the extent set forth below. Ms. Perez was seen and examined in grounds. Evaluation by physical therapy recommends placement to extended care facility. Continue with BiPAP. Monitor BMP this afternoon. Discussed with patient.
[2016-11-10 15:22] LABS: Calcium 8.7 mg/dL (8.6-10.8); Potassium 4.7 mEq/L (3.5-4.5)
[2016-11-10] MEDS: *HR* Warfarin 3 MG TABLET PO SCH (16:35)
[2016-11-10] MEDS: Sennosides/Docusate Sodium TABLET PO SCH (20:38)
[2016-11-11] MEDS: ALPRAZolam 0.25 MG TABLET PO PRN (00:16)
[2016-11-11] MEDS: Ipratropium/Albuterol Neb 3 ML IH SCH ×2 (04:31→10:53)
[2016-11-11 05:24] LABS: INR 1.1; Prothrombin Time 11.7 Seconds (9.4-12.1)
[2016-11-11] MEDS: *HR* Heparin 5,000 UNIT/ML VIAL SQ SCH (06:32)
[2016-11-11] MEDS: *HR* HYDROcodone/Acet 5/325 mg TABLET PO PRN (06:39)
[2016-11-11 08:00] VITALS: BP 154/70
[2016-11-11] MEDS: Insulin LISPRO 300 UNITS/3 ML VIAL SQ SCH (08:18)
[2016-11-11] MEDS: Diltiazem CD (24hr) 180 MG CAPSULE PO SCH (08:26)
[2016-11-11] MEDS: Simethicone 80 MG TAB.CHEW PO SCH (08:26)
[2016-11-11] MEDS: Sennosides/Docusate Sodium TABLET PO SCH (08:26)
[2016-11-11] MEDS: Furosemide 20 MG/2 ML VIAL IVP SCH (08:29)
--- NOTE | 2016-11-11 08:31 | Discharge Summary ---
<Reji Isabel - Last Filed: 11/11/16 09:49> Date of Encounter: 11/11/16 Time of Encounter: 08:29 - Discharge Diagnosis (1) Acute blood loss anemia Priority: Primary Status: Acute (2) COPD (chronic obstructive pulmonary disease) Priority: Secondary Status: Acute Qualifiers: Qualified Code(s): J44.9 - Chronic obstructive pulmonary disease, unspecified (3) Chronic hypoxemic respiratory failure Priority: Secondary Status: Acute (4) Chronic hypercapnic respiratory failure Priority: Secondary Status: Acute (5) Atrial fibrillation Priority: Secondary Status: Acute Qualifiers: Qualified Code(s): I48.91 - Unspecified atrial fibrillation (6) Insulin dependent diabetes mellitus Priority: Secondary Status: Acute (7) BARRY (acute kidney injury) Priority: Secondary Status: Acute (8) CAROLIN (obstructive sleep apnea) Priority: Secondary Status: Acute (9) Hyperkalemia Priority: Secondary Status: Acute (10) Hematuria Priority: Secondary Status: Acute (11) Abdominal distension (gaseous) Priority: Secondary Status: Acute (12) Discharge planning issues Priority: Secondary Status: Acute - Discharge Medications Prescriptions: Alprazolam [Xanax 0.25 MG Tablet] 0.25 mg PO TID #14 tablet Furosemide [Lasix] 40 mg PO BID 30 Days HYDROcodone/Acet 5/325 mg [[place] 5-325 mg] 1 tab PO TID PRN #14 tablet PRN Reason: Pain HydrALAZINE 10 mg PO TID 30 Days Sennosides/Docusate Sodium [Senna Plus] 2 each PO BID 30 Days Home Medications: Budesonide/Formoterol 160/4.5 [Symbicort 160/4.5] 2 puff IH BID 08/04/15 [ History] Cyclobenzaprine [Flexeril] 5 mg PO TID 08/04/15 [History] Furosemide [Lasix] 80 mg PO BID 08/04/15 [History] Simvastatin [Zocor] 40 mg PO DAILY 08/04/15 [History] Warfarin [Coumadin] 3 mg PO SUMOTUTHFRSA 08/04/15 [History] Albuterol Neb [Proventil Neb] 2.5 mg IH TID PRN 11/02/16 [History] Diltiazem HCl [Diltiazem 24Hr Cd] 360 mg PO DAILY 11/02/16 [History] Warfarin Sodium 4.5 mg PO WE 11/02/16 [History] Alprazolam [Xanax 0.25 MG Tablet] 0.25 mg PO TID #14 tablet 11/11/16 [Rx] Furosemide [Lasix] 40 mg PO BID 30 Days 11/11/16 [Rx] HYDROcodone/Acet 5/325 mg [[place] 5-325 mg] 1 tab PO TID PRN #14 tablet 11/11/16 [Rx] HydrALAZINE 10 mg PO TID 30 Days 11/11/16 [Rx] Insulin LISPRO [HumaLOG] 0 units SQ HS vial 11/11/16 [Rx] Insulin LISPRO [HumaLOG] 0 units SQ TIDAC vial 11/11/16 [Rx] Ipratropium/Albuterol Neb [Duoneb] 3 ml IH QIDR inhsol 11/11/16 [Rx] Sennosides/Docusate Sodium [Senna Plus] 2 each PO BID 30 Days 11/11/16 [Rx] Allergies/Adverse Reactions: Allergies iodine Allergy (Verified 11/02/16 13:52) Rash Procedures/tests Complete & Pending: Procedures Performed prior 72 hours Category Date Time Status CT kidney stone [CT] Routine Cat Scan 11/09/16 10:13 Completed Date of admission: 11/04/16 13:19 Primary care physician: Domingo Melton Consults: 11/06/16 09:00 Consult to Technical Research Scientist [CONS] Routine Reason for SW Consult: discharge planning 11/07/16 18:53 Consult to Occupational Therapy [CONS] Routine Comment: Evaluate, develop and implement POC Consult to Physical Therapy [CONS] Routine Comment: Evaluate, develop and implement POC Discharging clinician: Chad Mock Anticipated date of discharge: 11/11/16 - Patient Status Disposition: Transfer SNF Condition: Fair Functional capacity at discharge: independent ambulation Overall status at discharge: patient is progressing back to baseline - Discharge Instructions Instructions: Chronic Obstructive Pulmonary Disease (DC) Follow Up With: Domingo Melton DO [Primary Care Provider] - - Diet and Activity Activity: as per physical therapy Diet: diabetic diet, low fat, low cholesterol, low salt diet Hospital course: Ms. Perez is a 81 year old female who was admitted for Acute blood loss anemia secondayr to tooth extraction while on coumadin. she also developed an BARRY. Her Hg did stabilize. She did not require transfusion. Her BARRY initially improved with fluids. However she became overloaded and developed some mild BARRY form cardio renal syndrome from diastolic dysfunction. Her lasix was resumed. Her renal function improved and continues to improve. Today her vitals are stable. she has had some hypertension so will add some hydralzine to her regmimen. Also with her renal function will hold off on restarting her oral diabetes medications at this time so will discharge her to ECF with a sliding scale. Her PCP or facility physician can determine when or if to resume those medications if her renal function improves. We have also restarted her coumadin and will ask to check an INR in 2 days. Patient and family are agreeable to the above plan. - Time Spent with Patient Total time spent providing and/or coordinating discharge services: Greater than 30 minutes (approximately 35 minutes) - Constitutional Vitals: Temp Pulse Resp BP Pulse Ox 98.2 F 105 20 154/70 91 L 11/11/16 07:55 11/11/16 07:55 11/11/16 07:55 11/11/16 07:55 11/11/16 07:55 General appearance: Present: A&O X 3, morbidly obese, pleasant, answers questions appropriately - Head Head exam: Present: atraumatic, normal inspection, normocephalic - Eye Eye exam: Present: PERRL, conjuntiva pink, sclera anicteric Pupils: Present: PERRL - ENT ENT exam: Present: mucous membranes moist - Expanded ENT Exam Throat exam: Present: post pharyngeal erythema (mild) - Respiratory Respiratory exam: Present: CTAB. Absent: accessory muscle use, rales, rhonchi, wheezes Additional comments: globally diminished. No change form yesterday. - Cardiovascular Cardiovascular exam: Present: RRR, +S1, +S2. Absent: diastolic murmur, gallop, rubs, systolic murmur - GI/Abdominal GI/Abdominal exam: Present: distended (improving), normal bowel sounds, soft, no peritoneal signs. Absent: tenderness - Extremities Exam Extremities exam: Present: pedal edema (2+ improving), warm, radial pulses palpable and symetrical. Absent: calf tenderness, cyanotic - Skin Skin exam: Present: dry, intact - VTE Documentation of Mechanical Device: Graduated compression elastic hosiery <Chad Mock - Last Filed: 11/11/16 17:56> Date of Encounter: 11/11/16 - Discharge Diagnosis (1) Chronic hypercapnic respiratory failure Status: Acute (2) BARRY (acute kidney injury) Status: Acute (3) Abdominal distension (gaseous) Status: Acute (4) Acute blood loss anemia Status: Acute (5) Atrial fibrillation Status: Acute Qualifiers: Qualified Code(s): I48.91 - Unspecified atrial fibrillation (6) DVT prophylaxis Status: Acute (7) Hyperkalemia Status: Acute (8) Insulin dependent diabetes mellitus Status: Acute (9) CAROLIN (obstructive sleep apnea) Status: Acute Procedures/tests Complete & Pending: Procedures Performed prior 72 hours Category Date Time Status CT kidney stone [CT] Routine Cat Scan 11/09/16 10:13 Completed Date of admission: 11/04/16 13:19 Primary care physician: Domingo Liang Colopy Consults: 11/06/16 09:00 Consult to Technical Research Scientist [CONS] Routine Reason for SW Consult: discharge planning 11/07/16 18:53 Consult to Occupational Therapy [CONS] Routine Comment: Evaluate, develop and implement POC Consult to Physical Therapy [CONS] Routine Comment: Evaluate, develop and implement POC Hospital course: Ms. Perez is a 81 year old female - Time Spent with Patient Total time spent providing and/or coordinating discharge services: - Constitutional Vitals: Temp Pulse Resp BP Pulse Ox 98.2 F 105 18 154/70 92 L 11/11/16 07:55 11/11/16 07:55 11/11/16 10:53 11/11/16 07:55 11/11/16 10:53 - Attending Attestation I examined this patient and my medical decision-making was reviewed with the COMPUTER GAME DESIGNER/PA/Advanced Practice Nurse/Resident Physician. I agree with the documented findings, disposition and treatment plan as described except to the extent set forth below. Anemia with stable hb, resume coumadin. CKD, follow up as outpatient. Avoid nephrotoxic agents. REsume lasix.
--- NOTE | 2016-11-11 09:08 | Physician Discharge Referral ---
ExtendedCare Referral Info Transfer To: ECF Provider in Charge after Transfer: PCP Institutional Level of Care: Skilled - Diagnosis (1) Acute blood loss anemia Status: Acute (2) COPD (chronic obstructive pulmonary disease) Status: Acute (3) Chronic hypoxemic respiratory failure Status: Acute (4) Chronic hypercapnic respiratory failure Status: Acute (5) Atrial fibrillation Status: Acute (6) Insulin dependent diabetes mellitus Status: Acute (7) BARRY (acute kidney injury) Status: Acute (8) CAROLIN (obstructive sleep apnea) Status: Acute (9) Hyperkalemia Status: Acute (10) Hematuria Status: Acute (11) Abdominal distension (gaseous) Status: Acute (12) Discharge planning issues Status: Acute - Transfer Medications Prescriptions: Alprazolam [Xanax 0.25 MG Tablet] 0.25 mg PO TID #14 tablet Furosemide [Lasix] 40 mg PO BID 30 Days HYDROcodone/Acet 5/325 mg [[place] 5-325 mg] 1 tab PO TID PRN #14 tablet PRN Reason: Pain HydrALAZINE 10 mg PO TID 30 Days Sennosides/Docusate Sodium [Senna Plus] 2 each PO BID 30 Days Home Medications: Budesonide/Formoterol 160/4.5 [Symbicort 160/4.5] 2 puff IH BID 08/04/15 [ History] Cyclobenzaprine [Flexeril] 5 mg PO TID 08/04/15 [History] Furosemide [Lasix] 80 mg PO BID 08/04/15 [History] Simvastatin [Zocor] 40 mg PO DAILY 08/04/15 [History] Warfarin [Coumadin] 3 mg PO SUMOTUTHFRSA 08/04/15 [History] Albuterol Neb [Proventil Neb] 2.5 mg IH TID PRN 11/02/16 [History] Diltiazem HCl [Diltiazem 24Hr Cd] 360 mg PO DAILY 11/02/16 [History] Warfarin Sodium 4.5 mg PO WE 11/02/16 [History] Alprazolam [Xanax 0.25 MG Tablet] 0.25 mg PO TID #14 tablet 11/11/16 [Rx] Furosemide [Lasix] 40 mg PO BID 30 Days 11/11/16 [Rx] HYDROcodone/Acet 5/325 mg [[place] 5-325 mg] 1 tab PO TID PRN #14 tablet 11/11/16 [Rx] HydrALAZINE 10 mg PO TID 30 Days 11/11/16 [Rx] Insulin LISPRO [HumaLOG] 0 units SQ HS vial 11/11/16 [Rx] Insulin LISPRO [HumaLOG] 0 units SQ TIDAC vial 11/11/16 [Rx] Ipratropium/Albuterol Neb [Duoneb] 3 ml IH QIDR inhsol 11/11/16 [Rx] Sennosides/Docusate Sodium [Senna Plus] 2 each PO BID 30 Days 11/11/16 [Rx] Allergies/Adverse Reactions: Allergies iodine Allergy (Verified 11/02/16 13:52) Rash - Respiratory Orders Smoking Cessation: Smoking cessation has been advised. For more information, call the [place] Tobacco Quit Line at 8-011-JXOT-NOW. - Lab Orders Lab Orders: Other (include drug levels w/frequency) (BMP and INR in 2 days to check K and renal function and to see if INr is therapeutic. Please forward results to Facility Physician or PCP. W) - Ancillary Orders May use pressure relief devices daily prn - Advance Directives Living Will: No Power of Riding Instructor: No Code Status: DNR-Arrest/Don't Intubate - Mobility Orders Ambulate - Rehabiliation Orders Rehab Potential: Fair Rehab Orders: Evaluation for Physical Therapy, Evaluation for Occupational Therapy - Treatments Skin tear care topically daily PRN per policy - Diet Orders Cardiac (and diabetic) CERTIFICATION: I certify that the transfer of the above named patient to an Extended Care Facility is necessary for the continuing treatment of the diagnosis listed. The above information is true and accurate reflection of patient's current condition. Confidential - Redisclosure prohibited without a patient's written consent.
[2016-11-11] MEDS: Budesonide/Formoterol 160/4.5 MDI IH SCH (10:53)
[2016-11-12 08:18] LABS: Total Volume 24 Hour,Urine 1.86 Liters (0.60-1.60)
[2016-11-12 11:09] LABS: Creatinine 24 Hour,Urine 0.91 g/day (0.71-1.65)
[2016-11-13] MEDS ORDERED: *HR* Warfarin 3 MG TABLET PO SCH (18:00)
== END 2016-11-11 13:00 | DRG 813 ==
LOC: EMEROO 10:09 → 3BNU 10:09 → SUATTDRO 12:24 → 3BNU 13:16 → SUATTDRO 11-04 13:19 → 3ANU 11-05 19:56
PROVIDERS: ADMIT Internal Medicine; ATTEND Internal Medicine

== ENCOUNTER 2016-11-14 19:24 | Inpatient (IN) ==
[2016-11-14] MEDS ORDERED: Ipratropium/Albuterol Neb 3 ML ONE (19:31)
[2016-11-14] MEDS ORDERED: Ipratropium/Albuterol Neb 3 ML IH ONE (19:41)
[2016-11-14] MEDS ORDERED: methylPREDNISolone 125 MG/2 ML VIAL IVP ONE (19:41)
--- NOTE | 2016-11-14 19:53 | Emergency Department Note ---
Disposition Clinical Impression: COPD exacerbation Acute respiratory failure Qualifiers: Respiratory failure complication: hypoxia and hypercapnia Qualified Code(s): J96.01 - Acute respiratory failure with hypoxia Altered mental status Qualifiers: Altered mental status type: somnolence Qualified Code(s): R40.0 - Somnolence Disposition: Admitted As Inpatient Condition: Fair Time of Disposition: 23:01 SOB HPI - General Chief Complaint: ED Shortness of Breath/Dyspnea Stated Complaint: ОЛЕГ Time Seen by Provider: 11/14/16 19:32 Source: patient, EMS Limitations: altered mental status Nursing Notes Reviewed: Yes Vital Signs Reviewed: Yes - History of Present Illness Patient is an 81-year-old female who presents to [facility] ED via EMS in respiratory distress. Apparently patient was just recently discharged from our hospital on 11/11/2016 after a one-week stay. Since going to [facility], patient has been getting more frequent pain and anxiety medication and has been more sleepy. Family states today when he went to see her, she was unresponsive. Then they had found her oxygen to be low in the 50s. They had been able to place her on oxygen and get her oxygen saturation back up. However family states the last was when they got her up and she was so weak that she almost fell over. Past medical history significant for COPD, CHF, atrial fibrillation on Coumadin. Patient's initial CODE STATUS states she is DNR CC/DNI, however talking with the power of civil rights attorney and family members, her wishes are in-line with DNR CCA/ DNI. Pt Subjective Complaint: shortness of breath Onset (ago): hour(s) Severity: severe Consistency/Duration: gradually worsening Improves with: oxygen, bronchodilators, upright position Worsens with: lying flat, exertion Known history of: COPD, congestive heart failure Treatment prior to arrival: oxygen, bronchodilator Cough present: No - Related Data Home oxygen amount: 2 liters Home Medications Medication Instructions Recorded Confirmed Budesonide/Formoterol 160/4.5 2 puff IH BID 08/04/15 11/14/16 [Symbicort 160/4.5] Albuterol Neb [Proventil Neb] 2.5 mg IH TID PRN 11/02/16 11/14/16 Diltiazem HCl [Diltiazem 24Hr Cd] 360 mg PO DAILY 11/02/16 11/14/16 Warfarin Sodium 4.5 mg PO DAILY 11/02/16 11/14/16 Cyclobenzaprine HCl 5 mg PO TID 11/14/16 11/14/16 Glucagon,Human Recombinant 1 mg IM ONCE PRN 11/14/16 11/14/16 [Glucagen] GlyBURIDE 5 mg PO 0800 11/14/16 11/14/16 HYDROcodone/Acet 5/325 mg [[place] 1 tab PO Q4H 11/14/16 11/14/16 5-325 mg] Metformin [Glucophage] 500 mg PO 0800 11/14/16 11/14/16 Potassium Chloride [K-Tab ER] 20 meq PO DAILY 11/14/16 11/14/16 Simvastatin [Zocor] 40 mg PO HS 11/14/16 11/14/16 Previous Rx's Medication Instructions Recorded Alprazolam [Xanax 0.25 MG Tablet] 0.25 mg PO TID #14 tablet 11/11/16 Furosemide [Lasix] 40 mg PO BID 30 Days 11/11/16 HydrALAZINE 10 mg PO TID 30 Days 11/11/16 Sennosides/Docusate Sodium [Senna 2 each PO BID 30 Days 11/11/16 Plus] Allergies Allergy/AdvReac Type Severity Reaction Status Date / Time iodine Allergy Rash Verified 11/02/16 13:52 clemastine AdvReac Unknown Verified 11/14/16 22:01 All systems ED: reviewed and negative except as stated. Limitations: ROS unobtainable due to patients medical condition Past Medical History - Past Medical History Attestation: Yes The following information was validated with the patient. Source: patient Medical history: Reports: atrial fibrillation, CHF, COPD, diabetes, hyperlipidemia, hypertension, other Surgical history: Reports: no surgical history Psychiatric history: Reports: no psych history HVAC OPERATIONS TECHNICIAN history: Reports: no HVAC OPERATIONS TECHNICIAN history - Social History Smoking Status: Former smoker Smokeless Tobacco Status: No Alcohol use: Reports: none Drug use: Reports: none Physical Exam - General Limitations: altered mental status General appearance: obtunded, in distress - Head Head exam: atraumatic, normocephalic, normal inspection - Eye Eye exam: Present: normal appearance, PERRL, EOMI - ENT ENT exam: normal exam, normal oropharynx, mucous membranes moist - Neck Neck exam: Present: normal inspection, full ROM, trachea midline - Chest Chest inspection: Present: normal inspection, symmetric chest wall rise - Respiratory Respiratory exam: Present: wheezes, other (Very tight breath sounds diffusely) - Cardiovascular Cardiovascular exam: Present: normal rhythm, tachycardia - Abdominal Exam Abdominal exam: Present: soft, Non-Tender, distention, normal bowel sounds. Absent: tenderness, guarding, rebound, rigidity - Extremities Exam Extremities exam: Present: normal inspection, full ROM. Absent: tenderness, pedal edema - Back Exam Back exam: Present: normal inspection, full ROM. Absent: tenderness - Psychiatric Psychiatric exam: Present: normal affect, normal mood - Skin Skin exam: Present: warm, dry, intact, normal color Course Course Narrative: Patient seen and examined. Patient arrives in respiratory distress. Sounds very tight bilaterally in the lungs. Triple DuoNeb ordered as well as BiPAP and solumedrol. Respiratory therapist was at bedside. Patient's CODE STATUS is DNR CCA/DNI. Family concerned for altered mental status. I suspect this is likely secondary to CO2 narcosis. However there is questionable overuse of medication at the group home as well. Critical care cardiopulmonary workup initiated. - Reevaluation(s) Reevaluation #1: Lab work shows a normal lactic acid, elevated CO2 on VBG and BMP, BARRY on CKD, elevated BNP, signs of edema on chest x-ray. Patient was still on BiPAP and a triple albuterol neb was also ordered. Patient feeling much better and able to verbalize this. Will admit for acute respiratory failure, COPD exacerbation, CHF exacerbation, CO2 narcosis. I spoke with hospitalist Dr. Grullon who has accepted patient for admission. He would like an ABG. Time: 23:00 Vital Signs Temperature 99.0 F 11/14/16 19:27 Pulse Rate 104 11/14/16 19:27 Respiratory Rate 22 11/14/16 19:27 Blood Pressure 172/73 11/14/16 19:27 O2 Sat by Pulse Oximetry 100 11/14/16 19:27 Temperature 98.2 F 11/14/16 23:50 Pulse Rate 97 11/14/16 23:50 Respiratory Rate 23 11/14/16 23:50 Blood Pressure 160/71 11/14/16 23:50 O2 Sat by Pulse Oximetry 94 L 11/14/16 23:50 Oxygen Delivery Oxygen Delivery CPAP Mask O2 Shortness of Breath/Dyspnea - Medical Records Medical records reviewed: Yes I reviewed the patient's medical records. - Lab Data Lab results reviewed: Yes I reviewed the patient's lab results. Result diagrams: 11/14/16 20:35 11/14/16 20:35 Lab Results 11/14/16 11/14/16 11/14/16 Range/Units 20:35 20:35 20:35 WBC 10.8 (4.3-11.1) K/mcL RBC 3.06 L (3.82-4.97) M/mcL Hgb 9.3 L (11.5-15.4) g/dL Hct 32.8 L (35.3-44.9) % MCV 107.2 H (83.0-100.0) fL MCH 30.4 (28.0-33.3) pg MCHC 28.4 L (31.6-35.5) g/dL RDW 14.3 (11.5-14.5) % Plt Count 133 L (140-400) K/mcL MPV 10.4 (9.4-12.4) fL Immature Gran % 4.7 H (0-4) % Seg Neutrophils % 65.3 % Lymphocytes % 16.8 % Monocytes % 11.7 % Eosinophils % 1.3 % Basophils % 0.2 % Neutrophils # 7.1 (1.6-8.9) K/mcL Lymphocytes # 1.8 (0.6-4.6) K/mcL Monocytes # 1.3 (0.0-1.3) K/mcL Eosinophils # 0.1 (0.0-0.6) K/mcL Basophils # 0.0 (0.0-0.2) K/mcL Nucleated RBCs/100 WBC 0.3 H (0) /100 WBC Hypochromasia Present A (Not Present) PT 24.1 H D (9.4-12.1) Seconds INR 2.2 D APTT 34.8 (26.0-36.0) Seconds VBG pH (7.32-7.42) pH Units VBG pCO2 (41-51) mmHg VBG pO2 (25-40) mmHg VBG HCO3 (21-27) mEq/L Sodium (136-145) mEq/L Potassium (3.5-4.5) mEq/L Chloride (98-109) mEq/L Carbon Dioxide (19-29) mEq/L BUN (7-20) mg/dL Creatinine (0.57-1.11) mg/dL Est GFR ( Amer) (> 60) Est GFR (Non-Af Amer) (> 60) BUN/Creatinine Ratio (6-26) Glucose (70-99) mg/dL Calculated Osmolality (280-300) Lactic Acid 0.6 (0.5-2.2) mmol/L Calcium (8.6-10.8) mg/dL Total Bilirubin (0.2-1.2) mg/dL Direct Bilirubin (0.0-0.5) mg/dL Indirect Bilirubin (0.0-1.2) mg/dL AST (5-34) Units/L ALT (0-55) Units/L Alkaline Phosphatase (38-126) Units/L Troponin I (0-0.03) ng/mL B-Natriuretic Peptide (0-100) pg/mL Serum Total Protein (6.0-8.3) g/dL Albumin (3.5-5.0) g/dL Globulin (2.4-3.5) g/dL Albumin/Globulin Ratio (1.1-2.2) Urine Color (Yellow) Urine Clarity (Clear) Urine pH (5.0-8.0) pH Units Ur Specific [place] (1.010-1.025) Urine Protein (Neg-Trace) mg/dL Urine Glucose (UA) (Normal) mg/dL Urine Ketones (Negative) mg/dL Urine Blood (Negative) Urine Nitrite (Negative) Urine Bilirubin (Negative) Urine Urobilinogen (Normal) mg/dL Ur Leukocyte Esterase (Negative) Urine Microscopic RBC (0-3) per hpf Urine Microscopic WBC (0-3) per hpf Ur Squamous Epith Cells (None-Few) per lpf Amorphous Sediment (Few) Urine Bacteria (None-Few) per hpf Hyaline Casts (None-Few) per lpf Granular Casts (None Seen) per lpf Waxy Casts (None Seen) per lpf Urine Yeast Ur Culture Indicated? (NO) 11/14/16 11/14/16 11/14/16 Range/Units 20:35 20:35 20:35 WBC (4.3-11.1) K/mcL RBC (3.82-4.97) M/mcL Hgb (11.5-15.4) g/dL Hct (35.3-44.9) % MCV (83.0-100.0) fL MCH (28.0-33.3) pg MCHC (31.6-35.5) g/dL RDW (11.5-14.5) % Plt Count (140-400) K/mcL MPV (9.4-12.4) fL Immature Gran % (0-4) % Seg Neutrophils % % Lymphocytes % % Monocytes % % Eosinophils % % Basophils % % Neutrophils # (1.6-8.9) K/mcL Lymphocytes # (0.6-4.6) K/mcL Monocytes # (0.0-1.3) K/mcL Eosinophils # (0.0-0.6) K/mcL Basophils # (0.0-0.2) K/mcL Nucleated RBCs/100 WBC (0) /100 WBC Hypochromasia (Not Present) PT (9.4-12.1) Seconds INR APTT (26.0-36.0) Seconds VBG pH (7.32-7.42) pH Units VBG pCO2 (41-51) mmHg VBG pO2 (25-40) mmHg VBG HCO3 (21-27) mEq/L Sodium 140 (136-145) mEq/L Potassium 5.0 H (3.5-4.5) mEq/L Chloride 94 L (98-109) mEq/L Carbon Dioxide 38 H (19-29) mEq/L BUN 28 H (7-20) mg/dL Creatinine 1.60 H (0.57-1.11) mg/dL Est GFR ( Amer) 38 L (> 60) Est GFR (Non-Af Amer) 31 L (> 60) BUN/Creatinine Ratio 18 (6-26) Glucose 193 H (70-99) mg/dL Calculated Osmolality 301 H (280-300) Lactic Acid (0.5-2.2) mmol/L Calcium 8.4 L (8.6-10.8) mg/dL Total Bilirubin 0.6 (0.2-1.2) mg/dL Direct Bilirubin 0.3 (0.0-0.5) mg/dL Indirect Bilirubin 0.3 (0.0-1.2) mg/dL AST 21 (5-34) Units/L ALT 29 (0-55) Units/L Alkaline Phosphatase 69 (38-126) Units/L Troponin I 0.02 (0-0.03) ng/mL B-Natriuretic Peptide 195 H (0-100) pg/mL Serum Total Protein 6.7 (6.0-8.3) g/dL Albumin 3.1 L (3.5-5.0) g/dL Globulin 3.6 H (2.4-3.5) g/dL Albumin/Globulin Ratio 0.9 L (1.1-2.2) Urine Color (Yellow) Urine Clarity (Clear) Urine pH (5.0-8.0) pH Units Ur Specific [place] (1.010-1.025) Urine Protein (Neg-Trace) mg/dL Urine Glucose (UA) (Normal) mg/dL Urine Ketones (Negative) mg/dL Urine Blood (Negative) Urine Nitrite (Negative) Urine Bilirubin (Negative) Urine Urobilinogen (Normal) mg/dL Ur Leukocyte Esterase (Negative) Urine Microscopic RBC (0-3) per hpf Urine Microscopic WBC (0-3) per hpf Ur Squamous Epith Cells (None-Few) per lpf Amorphous Sediment (Few) Urine Bacteria (None-Few) per hpf Hyaline Casts (None-Few) per lpf Granular Casts (None Seen) per lpf Waxy Casts (None Seen) per lpf Urine Yeast Ur Culture Indicated? (NO) 11/14/16 11/14/16 Range/Units 20:35 21:10 WBC (4.3-11.1) K/mcL RBC (3.82-4.97) M/mcL Hgb (11.5-15.4) g/dL Hct (35.3-44.9) % MCV (83.0-100.0) fL MCH (28.0-33.3) pg MCHC (31.6-35.5) g/dL RDW (11.5-14.5) % Plt Count (140-400) K/mcL MPV (9.4-12.4) fL Immature Gran % (0-4) % Seg Neutrophils % % Lymphocytes % % Monocytes % % Eosinophils % % Basophils % % Neutrophils # (1.6-8.9) K/mcL Lymphocytes # (0.6-4.6) K/mcL Monocytes # (0.0-1.3) K/mcL Eosinophils # (0.0-0.6) K/mcL Basophils # (0.0-0.2) K/mcL Nucleated RBCs/100 WBC (0) /100 WBC Hypochromasia (Not Present) PT (9.4-12.1) Seconds INR APTT (26.0-36.0) Seconds VBG pH 7.29 L (7.32-7.42) pH Units VBG pCO2 97 H (41-51) mmHg VBG pO2 47 H (25-40) mmHg VBG HCO3 46.6 H (21-27) mEq/L Sodium (136-145) mEq/L Potassium (3.5-4.5) mEq/L Chloride (98-109) mEq/L Carbon Dioxide (19-29) mEq/L BUN (7-20) mg/dL Creatinine (0.57-1.11) mg/dL Est GFR ( Amer) (> 60) Est GFR (Non-Af Amer) (> 60) BUN/Creatinine Ratio (6-26) Glucose (70-99) mg/dL Calculated Osmolality (280-300) Lactic Acid (0.5-2.2) mmol/L Calcium (8.6-10.8) mg/dL Total Bilirubin (0.2-1.2) mg/dL Direct Bilirubin (0.0-0.5) mg/dL Indirect Bilirubin (0.0-1.2) mg/dL AST (5-34) Units/L ALT (0-55) Units/L Alkaline Phosphatase (38-126) Units/L Troponin I (0-0.03) ng/mL B-Natriuretic Peptide (0-100) pg/mL Serum Total Protein (6.0-8.3) g/dL Albumin (3.5-5.0) g/dL Globulin (2.4-3.5) g/dL Albumin/Globulin Ratio (1.1-2.2) Urine Color Yellow (Yellow) Urine Clarity Cloudy A (Clear) Urine pH 5.0 (5.0-8.0) pH Units Ur Specific [place] 1.013 (1.010-1.025) Urine Protein Negative (Neg-Trace) mg/dL Urine Glucose (UA) Normal (Normal) mg/dL Urine Ketones Negative (Negative) mg/dL Urine Blood Large H (Negative) Urine Nitrite Negative (Negative) Urine Bilirubin Negative (Negative) Urine Urobilinogen Normal (Normal) mg/dL Ur Leukocyte Esterase Negative (Negative) Urine Microscopic RBC 50-100 H (0-3) per hpf Urine Microscopic WBC 5-15 H (0-3) per hpf Ur Squamous Epith Cells Many H (None-Few) per lpf Amorphous Sediment Moderate H (Few) Urine Bacteria Moderate H (None-Few) per hpf Hyaline Casts Moderate H (None-Few) per lpf Granular Casts Few H (None Seen) per lpf Waxy Casts Few H (None Seen) per lpf Urine Yeast Test Not Performed Ur Culture Indicated? YES A (NO) - EKG Data EKG attestation: Yes I reviewed and interpreted this EKG. EKG results narrative: EKG done at 2000 shows sinus tachycardia with a rate of [address] elevation or depression. Normal axis. Low voltage throughout. Attestation Statement - Attestation Attestation: For this encounter, I have reviewed the resident, SPECIALTY TRANSFORMER ASSEMBLER, or PA documentation, treatment plan, and medical decision making; and I have had face to face time with this patient. 81-year-old female brought in by family from group home for altered mental status and dyspnea. Family states the patient was recently admitted to the hospital for similar symptoms and has had difficulty with her medications which have caused frequent sedation. Family states the patient became sedated this morning, the group home physician evaluated her and diagnosed her with medication overdose and withhold her afternoon medications. During this time the patient became hypoxic and she was placed on oxygen however the patient has a history of severe COPD and continued to be drowsy and fatigued throughout the day. Per family, the patient is DNR CCA. Family states the patient was in her usual state of health last night and had no difficulty. The school exam the patient had significant wheezing in the bilateral posterior lung bazzi with minimal air movement, she was placed on BiPAP upon her initial arrival to the emergency department. Patient had a significantly elevated pCO2 level is likely the cause of her symptoms. Patient steadily improved while on the BiPAP and was able to wake him give a fairly productive history. Patient was admitted to the hospitalist after discussion with the patient and family regarding her case and presentation. Patient family were comfortable with the plan. Possible the patient may have PE however unable to obtain CTA due to Cr and GFR. Likely the patient's symptoms are secondary to medication reaction and hypercarbic respiratory failure.
[2016-11-14] MEDS ORDERED: Albuterol Neb 7.5 MG, Sodium Chloride for inhalation 12 ML IH ONE (20:32)
[2016-11-14 20:53] LABS: Mean Corpuscular HGB Conc 28.4 g/dL (31.6-35.5)
[2016-11-14 20:54] LABS: Nucleated Red Blood Cells 0.3 /100 WBC (0); VBG HCO3 46.6 mEq/L (21-27); VBG PH 7.29 pH Units (7.32-7.42)
[2016-11-14 20:55] LABS: Basophils % 0.2 %; Eosinophils # 0.1 K/mcL (0.0-0.6); Eosinophils % 1.3 %; Hematocrit 32.8 % (35.3-44.9); Hemoglobin 9.3 g/dL (11.5-15.4); Immature Granulocytes % 4.7 % (0-4); Lymphocytes # 1.8 K/mcL (0.6-4.6); Lymphocytes % 16.8 %; Mean Corpuscular Hemoglobin 30.4 pg (28.0-33.3); Mean Corpuscular Volume 107.2 fL (83.0-100.0); Mean Platelet Volume 10.4 fL (9.4-12.4); Monocytes # 1.3 K/mcL (0.0-1.3); Monocytes % 11.7 %; Platelet Count 133 K/mcL (140-400); Red Blood Count 3.06 M/mcL (3.82-4.97); Red Cell Distribution Width 14.3 % (11.5-14.5); Segmented Neutrophils % 65.3 %
[2016-11-14 21:02] LABS: Activated Partial Thrombo Time 34.8 Seconds (26.0-36.0)
[2016-11-14 21:04] LABS: INR 2.2; Neutrophils # 7.1 K/mcL (1.6-8.9); Prothrombin Time 24.1 Seconds (9.4-12.1)
[2016-11-14 21:07] LABS: Albumin 3.1 g/dL (3.5-5.0); Albumin/Globulin Ratio 0.9 (1.1-2.2); Bilirubin,Direct 0.3 mg/dL (0.0-0.5); Bilirubin,Indirect 0.3 mg/dL (0.0-1.2); Bilirubin,Total 0.6 mg/dL (0.2-1.2); Calcium 8.4 mg/dL (8.6-10.8); Globulin 3.6 g/dL (2.4-3.5); Total Protein 6.7 g/dL (6.0-8.3)
[2016-11-14 21:18] LABS: Bilirubin,Urine Negative (Negative); Blood,Urine Large (Negative); Clarity,Urine Cloudy (Clear); Color,Urine Yellow (Yellow); Glucose,Urine (UA) Normal (Normal); Ketones,Urine Negative (Negative); Leukocyte Esterase,Urine Negative (Negative); Nitrite,Urine Negative (Negative); Protein,Urine Negative (Neg-Trace); Specific Gravity,Urine 1.013 (1.010-1.025); Urobilinogen,Urine Normal (Normal)
[2016-11-14 21:20] LABS: Hyaline Casts,Urine Moderate per lpf (None-Few); RBC,Urine 50-100 per hpf (0-3); Squamous Epithelial Cell,Urine Many per lpf (None-Few)
[2016-11-14 21:22] LABS: Hypochromasia Present (Not Present)
[2016-11-14 21:47] LABS: Granular Casts,Urine Few per lpf (None Seen); Waxy Casts,Urine Few per lpf (None Seen)
[2016-11-14 21:48] LABS: Amorphous Sediment,Urine Moderate (Few); Bacteria,Urine Moderate per hpf (None-Few)
[2016-11-14 22:32] LABS: ABG Base Excess 15.5 mEq/L (-2.0 to 3.0); ABG HCO3 46.2 mEQ/L (21-27); ABG Oxygen Saturation 83 % (95-98); ABG PH 7.26 pH Units (7.32-7.45); ABG PO2 55 mmHg (85-104); ABG TCO2 49.4 mEq/L (20-26); Blood Gas FiO2 40 %
[2016-11-14 22:34] LABS: ABG PCO2 103 mmHg (35-45)
[2016-11-15] MEDS ORDERED: Furosemide 20 MG/2 ML VIAL IVP ONE (01:39)
[2016-11-15] MEDS ORDERED: Naloxone 0.4 MG/ML INJ IVP PRN (01:41)
[2016-11-15] MEDS ORDERED: Dextrose Gel 15 GM PO PRN ×2 (01:52)
[2016-11-15] MEDS ORDERED: *HR* Dextrose 50 % in Water (Syg) 50 ML SYRINGE IVP PRN (01:52)
[2016-11-15] MEDS ORDERED: D5% in Water 1,000 ML IV PRN (01:52)
--- NOTE | 2016-11-15 01:54 | Internal Med History&Physical ---
Date of Encounter: 11/15/16 Time of Encounter: 01:20 Assessment and Plan (1) Acute and chronic respiratory failure ([id number]) Current visit: Yes Status: Acute Possibly contributed by not being on BiPAP therapy and narcotic pain meds/ benzodiazepines and flexeril. She is on BiPAP therapy normal. He is a dose of her medications and made them PRN instead of scheduled medications. Request pulmonary consultation Qualifiers: Respiratory failure complication: hypoxia and hypercapnia Qualified Code(s) : J96.21 - Acute and chronic respiratory failure with hypoxia; J96.22 - Acute and chronic respiratory failure with hypercapnia (2) Altered mental status Current visit: Yes Status: Acute Possibly contributed by CO2 narcosis. Continue BiPAP therapy Qualifiers: Altered mental status type: somnolence Qualified Code(s): R40.0 - Somnolence (3) Pulmonary edema Current visit: Yes Status: Acute Will treat with intravenous Lasix. Request echocardiogram. Qualifiers: Chronicity: acute Qualified Code(s): J81.0 - Acute pulmonary edema (4) DM (diabetes mellitus) Current visit: Yes Status: Chronic Start sliding scale insulin Qualifiers: Diabetes mellitus type: type 2 Diabetes mellitus complication status: without complication Diabetes mellitus termite renewal inspector insulin use: with termite renewal inspector use Qualified Code(s): E11.9 - Type 2 diabetes mellitus without complications ; Z79.4 - termite renewal inspector (current) use of insulin (5) CHF (congestive heart failure) Current visit: Yes Status: Chronic Echocardioram to evaluate LV function Qualifiers: Congestive heart failure type: diastolic Congestive heart failure chronicity: chronic Qualified Code(s): I50.32 - Chronic diastolic (congestive ) heart failure (6) CKD (chronic kidney disease) Current visit: Yes Status: Chronic Monitor renal function Qualifiers: Chronic kidney disease stage: stage 3 (moderate) Qualified Code(s): N18.3 - Chronic kidney disease, stage 3 (moderate) (7) COPD (chronic obstructive pulmonary disease) Current visit: Yes Status: Chronic Continue bronchodilator therapy Qualifiers: COPD type: unspecified COPD Qualified Code(s): J44.9 - Chronic obstructive pulmonary disease, unspecified (8) Chronic anticoagulation Current visit: Yes Status: Acute INR is therapeutic. Monitor INR. Pharmacy to manage dosing (9) Hyperkalemia Current visit: Yes Status: Acute Hold potassium supplements. Monitor potassium level and consider Kayexalate, if not improving. Internal Medicine - H&P: HPI Chief complaint: Low oxygen saturations Admitted From: Emergency Dept Plans for Post Hospital Care: Transfer [facility] History of present illness: Ms. Perez is a 81 year old female With past medical history significant for atrial fibrillation - on warfarin, CHF (LVEF of 65%), COPD, chronic respiratory failure - on home BiPAP for long time (but apparently not on BiPAP therapy in the rehab unit), diabetes, hyperlipidemia, hypertension. Pt is not able to give clinical details, but the family members (daughter and granddaughter provided the details). Pt apparently takes pain medications and anxiety medications when necessary at home. The medications were given as scheduled medications in the rehabilitation facility. Family stated that, when they went to see her in the rehab unit, she was unresponsive and hypoxic with oxygen saturations in the 50s. Patient did not report any chest pain. No significant cough or expectoration report. She was evaluated in the emergency department and was noted to have significant CO2 retention. She was started on BiPAP therapy. She is admitted to the hospitalist service for further management. Of note - patients cor status is DNR CCA DNI, which is confirmed with POA. POA: Nava Donis (daughter) Past Med Surg Social Fam HX - Past Medical History Medical history: atrial fibrillation, CHF, COPD, diabetes, hyperlipidemia, hypertension, other Psychiatric history: no psych history - Past Surgical History Surgical History: no surgical history - Social History Smoking Status: Former smoker Smokeless Tobacco Status: No Alcohol use: none Drug use: none - Family History Mother Adopted: No Father Adopted: No Internal Medicine - H&P: Meds Budesonide/Formoterol 160/4.5 [Symbicort 160/4.5] 2 puff IH BID 08/04/15 [ History] Albuterol Neb [Proventil Neb] 2.5 mg IH TID PRN 11/02/16 [History] Diltiazem HCl [Diltiazem 24Hr Cd] 360 mg PO DAILY 11/02/16 [History] Warfarin Sodium 4.5 mg PO DAILY 11/02/16 [History] Alprazolam [Xanax 0.25 MG Tablet] 0.25 mg PO TID #14 tablet 11/11/16 [Rx] Furosemide [Lasix] 40 mg PO BID 30 Days 11/11/16 [Rx] HydrALAZINE 10 mg PO TID 30 Days 11/11/16 [Rx] Sennosides/Docusate Sodium [Senna Plus] 2 each PO BID 30 Days 11/11/16 [Rx] Cyclobenzaprine HCl 5 mg PO TID 11/14/16 [History] Glucagon,Human Recombinant [Glucagen] 1 mg IM ONCE PRN 11/14/16 [History] GlyBURIDE 5 mg PO 0800 11/14/16 [History] HYDROcodone/Acet 5/325 mg [[place] 5-325 mg] 1 tab PO Q4H 11/14/16 [History] Metformin [Glucophage] 500 mg PO 0800 11/14/16 [History] Potassium Chloride [K-Tab ER] 20 meq PO DAILY 11/14/16 [History] Simvastatin [Zocor] 40 mg PO HS 11/14/16 [History] Allergies iodine Allergy (Verified 11/02/16 13:52) Rash clemastine Adverse Reaction (Verified 11/14/16 22:01) Unknown ECF list ROS unobtainable: due to mental status - Constitutional Vitals: Temp Pulse Resp BP Pulse Ox 98.2 F 97 23 160/71 94 L 11/14/16 23:50 11/14/16 23:50 11/14/16 23:50 11/14/16 23:50 11/14/16 23:50 Exam: General: Somnulent. arousable but confused. Not in acute distress at the time of my evaluation HEENT: No conjunctival palor or scleral icterus Neck: No obvious neck swellings Lungs: B/L basal crackles present Cardiac: Regular rate and rhythm. No significant murmurs Abdomen: Soft, non tender. Bowel sounds present Neurological: Somnulent. arousable. confused. Not able to follow commands well Psych: Not aggressive or agitated Extremities: B/L leg edema present Skin: No generalized rash Internal Med - H&P Results - Labs CBC & Chem 7: 11/15/16 05:03 11/15/16 05:03 - ABG Interpretation ABG results: 11/14/16 22:24 ABG pH 7.26 L ABG pCO2 103 H* ABG pO2 55 L ABG HCO3 46.2 H ABG Total CO2 49.4 H ABG O2 Saturation 83 L ABG Base Excess 15.5 H - EKG Data -: EKG Interpreted by Myself EKG shows normal: sinus rhythm - Impressions ITS Impressions Chest X-Ray 11/14/16 19:42 IMPRESSION: CHF with bibasilar airspace disease compatible with edema, with atelectasis in both lower lung bazzi D/ / Pablo Candelario MD / Pablo Candelario MD Interpreting Provider: Pablo Candelario MD Head CT 11/14/16 19:47 IMPRESSION: No acute intracranial abnormality. D/ / Pablo Candelario MD / Pablo Candelario MD Interpreting Provider: Pablo Candelario MD - VTE Reasons for not Prescribing Prophylaxis: Not indicated-Anticoagulated or INR therapeutic
[2016-11-15] MEDS: *HR* HYDROcodone/Acet 5/325 mg TABLET PO PRN (02:09)
[2016-11-15] MEDS: ALPRAZolam 0.25 MG TABLET PO PRN ×2 (02:25→20:07)
[2016-11-15 04:29] LABS: ABG Base Excess 19.1 mEq/L (-2.0 to 3.0); ABG HCO3 49.5 mEQ/L (21-27); ABG Oxygen Saturation 92 % (95-98); ABG PH 7.29 pH Units (7.32-7.45); ABG PO2 70 mmHg (85-104); ABG TCO2 52.7 mEq/L (20-26)
[2016-11-15 04:31] LABS: Blood Gas FiO2 40 %
[2016-11-15 04:32] LABS: ABG PCO2 103 mmHg (35-45)
[2016-11-15 05:19] LABS: Hematocrit 31.4 % (35.3-44.9); Hemoglobin 9.3 g/dL (11.5-15.4); Mean Corpuscular HGB Conc 29.6 g/dL (31.6-35.5); Mean Corpuscular Hemoglobin 30.8 pg (28.0-33.3); Mean Platelet Volume 10.6 fL (9.4-12.4); Platelet Count 119 K/mcL (140-400); Red Blood Count 3.02 M/mcL (3.82-4.97)
[2016-11-15 05:20] LABS: INR 2.7; Prothrombin Time 29.9 Seconds (9.4-12.1)
[2016-11-15 05:42] LABS: Calcium 8.3 mg/dL (8.6-10.8); Magnesium 2.2 mg/dL (1.6-2.6); Potassium 5.5 mEq/L (3.5-4.5)
[2016-11-15] MEDS ORDERED: Furosemide 40 MG TABLET PO SCH (08:00)
[2016-11-15] MEDS: Albuterol 2.5 MG/3 ML NEBULIZER IH PRN (08:04)
[2016-11-15] MEDS: hydrALAZINE 10 MG TABLET PO SCH ×3 (08:11→20:01)
[2016-11-15] MEDS: Diltiazem CD (24hr) 180 MG CAPSULE PO SCH (08:12)
[2016-11-15] MEDS: Sennosides/Docusate Sodium TABLET PO SCH ×2 (08:13→20:01)
[2016-11-15] MEDS: Insulin LISPRO 300 UNITS/3 ML VIAL SQ SCH ×4 (08:13→20:33)
--- NOTE | 2016-11-15 08:13 | Pulmonology Consult Note ---
Date of Encounter: 11/15/16 Time of Encounter: 08:13 Assessment and Plan (1) Acute and chronic respiratory failure ([id number]) Current Visit: Yes Status: Acute This is multifactorial including decompensated heart failure with preserved ejection fraction versus sleep apnea obesity hypoventilation syndrome. And ONLINE MARKETING ANALYST depressants. -Avoid ONLINE MARKETING ANALYST depressants (no benzo or narcotics) -cont BiPAP increased IPAP/EPAP ration to 18/4 recheck ABG in 2 hours -Cont Diuresis and BP control -wean Fio2 to keep Spo2 around 92% Qualifiers: Respiratory failure complication: hypoxia and hypercapnia Qualified Code(s) : J96.21 - Acute and chronic respiratory failure with hypoxia; J96.22 - Acute and chronic respiratory failure with hypercapnia (2) Chronic anticoagulation Current Visit: Yes Status: Acute defer to primary IM team (3) CHF (congestive heart failure) Current Visit: Yes Status: Chronic HFpEF. Cont lasix diuresis for goal negative 1.5L today. BID Renal Function Panel BP control Qualifiers: Congestive heart failure type: diastolic Congestive heart failure chronicity: chronic Qualified Code(s): I50.32 - Chronic diastolic (congestive ) heart failure (4) CAROLIN (obstructive sleep apnea) Current Visit: No Status: Chronic Cont PAP therapy History of Present Illness Consult date: 11/15/16 Requesting physician: Candida Welch Reason for consult: hypoxemia Chief complaint: Shortness of Breath History of present illness: This is a pleasant 81-year-old woman with a history of atrial fibrillation on long-term anticoagulation heart failure with preserved ejection fraction and obesity hypoventilation syndrome and obstructive sleep apnea remote smoking history who [facility] increased lethargy and altered mental status found to have acutely decompensated hypercarbic respiratory failure that is responded in part to bilevel positive airway pressure support overnight Was recently discharged from hospital after about a week stay for bleeding related to it dental extraction which resulted in pulmonary edema from blood transfusions. Patient was doing well transferred to inpatient rehabilitation facility and over the course of the last 24-48 hours has had increasing somnolence which the family reports has been triggered by use of benzodiazepines and narcotics During my conversation today patient says she is feeling much better she continues to wear bilevel positive airway pressure support and has undergone some diuresis Past Med Surg Social Fam HX - Past Medical History Medical history: atrial fibrillation, CHF, COPD, diabetes, hyperlipidemia, hypertension, other Psychiatric history: no psych history - Past Surgical History Surgical History: no surgical history - Social History Smoking Status: Former smoker Smokeless Tobacco Status: No Alcohol use: none Drug use: none - Family History Mother Adopted: No Father Adopted: No Medications and Allergies Budesonide/Formoterol 160/4.5 [Symbicort 160/4.5] 2 puff IH BID 08/04/15 [ History] Albuterol Neb [Proventil Neb] 2.5 mg IH TID PRN 11/02/16 [History] Diltiazem HCl [Diltiazem 24Hr Cd] 360 mg PO DAILY 11/02/16 [History] Warfarin Sodium 4.5 mg PO DAILY 11/02/16 [History] Alprazolam [Xanax 0.25 MG Tablet] 0.25 mg PO TID #14 tablet 11/11/16 [Rx] Furosemide [Lasix] 40 mg PO BID 30 Days 11/11/16 [Rx] HydrALAZINE 10 mg PO TID 30 Days 11/11/16 [Rx] Sennosides/Docusate Sodium [Senna Plus] 2 each PO BID 30 Days 11/11/16 [Rx] Cyclobenzaprine HCl 5 mg PO TID 11/14/16 [History] Glucagon,Human Recombinant [Glucagen] 1 mg IM ONCE PRN 11/14/16 [History] GlyBURIDE 5 mg PO 0800 11/14/16 [History] HYDROcodone/Acet 5/325 mg [Bourg 5-325 mg] 1 tab PO Q4H 11/14/16 [History] Metformin [Glucophage] 500 mg PO 0800 11/14/16 [History] Potassium Chloride [K-Tab ER] 20 meq PO DAILY 11/14/16 [History] Simvastatin [Zocor] 40 mg PO HS 11/14/16 [History] Allergies iodine Allergy (Verified 11/02/16 13:52) Rash clemastine Adverse Reaction (Verified 11/14/16 22:01) Unknown ECF list All Systems: A 10-system review of systems was performed and is negative for pertinent findings except as documented above in the HPI. Physical Examination Vital Signs: Vital Signs, Last 4 Hours Resp Pulse Ox 11/15/16 08:04 24 98 General appearance: no acute distress ENT: oropharynx moist Neck: supple Effort: normal Auscultation: bilateral: diminished breath sounds, rales Cardiovascular: irregular rhythm Gastrointestinal: normoactive bowel sounds, non-tender Extremities: no cyanosis, pink and warm, no ischemia or petechiae, edema Musculoskeletal: no deformities normal mental status, non-focal exam other (Patient is slightly "giddy" possibly from narcosis) Results - Laboratory Findings CBC and BMP: 11/15/16 05:03 11/15/16 05:03 ABG ABG pH 7.29 pH Units (7.32-7.45) L 11/15/16 04:17 ABG pCO2 103 mmHg (35-45) H* 11/15/16 04:17 ABG pO2 70 mmHg (85-104) L 11/15/16 04: ABG O2 Saturation 92 % (95-98) L 11/15/16 04:17 PT/INR, D-dimer PT 29.9 Seconds (9.4-12.1) H 11/15/16 05:03 Abnormal lab findings: Abnormal lab results RBC 3.02 M/mcL (3.82-4.97) L 11/15/16 05:03 Hgb 9.3 g/dL (11.5-15.4) L 11/15/16 05:03 Hct 31.4 % (35.3-44.9) L 11/15/16 05:03 MCV 104.0 fL (83.0-100.0) H 11/15/16 05:03 MCHC 29.6 g/dL (31.6-35.5) L 11/15/16 05:03 Plt Count 119 K/mcL (140-400) L 11/15/16 05:03 Immature Gran % 4.7 % (0-4) H 11/14/16 20:35 Nucleated RBCs/100 WBC 0.3 /100 WBC (0) H 11/14/16 20:35 Hypochromasia Present (Not Present) A 11/14/16 20:35 PT 29.9 Seconds (9.4-12.1) H 11/15/16 05:03 ABG pH 7.29 pH Units (7.32-7.45) L 11/15/16 04:17 ABG pCO2 103 mmHg (35-45) H* 11/15/16 04:17 ABG pO2 70 mmHg (85-104) L 11/15/16 04:17 ABG HCO3 49.5 mEQ/L (21-27) H 11/15/16 04:17 ABG Total CO2 52.7 mEq/L (20-26) H 11/15/16 04:17 ABG O2 Saturation 92 % (95-98) L 11/15/16 04:17 ABG Base Excess 19.1 mEq/L (-2.0 to 3.0) H 11/15/16 04:17 VBG pH 7.29 pH Units (7.32-7.42) L 11/14/16 20:35 VBG pCO2 97 mmHg (41-51) H 11/14/16 20:35 VBG pO2 47 mmHg (25-40) H 11/14/16 20:35 VBG HCO3 46.6 mEq/L (21-27) H 11/14/16 20:35 Potassium 5.5 mEq/L (3.5-4.5) H 11/15/16 05:03 Chloride 94 mEq/L (98-109) L 11/15/16 05:03 Carbon Dioxide 38 mEq/L (19-29) H 11/15/16 05:03 BUN 27 mg/dL (7-20) H 11/15/16 05:03 Creatinine 1.50 mg/dL (0.57-1.11) H 11/15/16 05:03 Est GFR ( Amer) 40 (> 60) L 11/15/16 05:03 Est GFR (Non-Af Amer) 33 (> 60) L 11/15/16 05:03 Glucose 297 mg/dL (70-99) H 11/15/16 05:03 POC Glucose 249 (58-89) H 11/15/16 00:38 Calculated Osmolality 304 (280-300) H 11/15/16 05:03 Calcium 8.3 mg/dL (8.6-10.8) L 11/15/16 05:03 B-Natriuretic Peptide 195 pg/mL (0-100) H 11/14/16 20:35 Albumin 3.1 g/dL (3.5-5.0) L 11/14/16 20:35 Globulin 3.6 g/dL (2.4-3.5) H 11/14/16 20:35 Albumin/Globulin Ratio 0.9 (1.1-2.2) L 11/14/16 20:35 Urine Clarity Cloudy (Clear) A 11/14/16 21:10 Urine Blood Large (Negative) H 11/14/16 21:10 Urine Microscopic RBC 50-100 per hpf (0-3) H 11/14/16 21:10 Urine Microscopic WBC 5-15 per hpf (0-3) H 11/14/16 21:10 Ur Squamous Epith Cells Many per lpf (None-Few) H 11/14/16 21:10 Amorphous Sediment Moderate (Few) H 11/14/16 21:10 Urine Bacteria Moderate per hpf (None-Few) H 11/14/16 21:10 Hyaline Casts Moderate per lpf (None-Few) H 11/14/16 21:10 Granular Casts Few per lpf (None Seen) H 11/14/16 21:10 Waxy Casts Few per lpf (None Seen) H 11/14/16 21:10 Ur Culture Indicated? YES (NO) A 11/14/16 21:10 - Diagnostic Findings Chest x-ray: report reviewed, image reviewed CT scan - chest: report reviewed, image reviewed - Clinical Findings Intake & Output: Intake & Output 11/14/16 11/15/16 11/15/16 23:59 07:59 15:59 Intake Total 300 / 300 Output Total 850 / 850 Balance -550 / -550 Weight 106 kg Consult Discharge Plan - Plan Referrals: Colopy,Domingo Liang DO [Primary Care Provider] -
[2016-11-15] MEDS: Budesonide/Formoterol 160/4.5 MDI IH SCH ×2 (10:34→23:55)
[2016-11-15 10:41] LABS: ABG Base Excess 19.2 mEq/L (-2.0 to 3.0); ABG HCO3 47.1 mEQ/L (21-27); ABG Oxygen Saturation 96 % (95-98); ABG PO2 81 mmHg (85-104); ABG TCO2 49.4 mEq/L (20-26)
[2016-11-15 10:42] LABS: ABG PCO2 76 mmHg (35-45); Blood Gas FiO2 35 %
[2016-11-15] MEDS ORDERED: Furosemide 40 MG/4 ML VIAL IVP ONE (12:00)
[2016-11-15 13:29] LABS: Calcium 8.5 mg/dL (8.6-10.8); Potassium 4.9 mEq/L (3.5-4.5)
--- NOTE | 2016-11-15 15:57 | Internal Med Progress Note ---
Date of Encounter: 11/15/16 Time of Encounter: 15:41 - Assessment and plan (1) Acute and chronic respiratory failure ([id number]) Current Visit: Yes Status: Acute Assessment and plan: Likely secondary to noncompliance.Reported of not using bipap at the [place] Currently improving on bipap support history of chronic resp failure with hypercapnia continue bipap support ABG as needed continue to hold narcotics and sedative agents continue diuresis continue to monitor O2 sat, O2 sat goal: around 92% Pulmonary consultation appreciated. Qualifiers: Respiratory failure complication: hypoxia and hypercapnia Qualified Code(s) : J96.21 - Acute and chronic respiratory failure with hypoxia; J96.22 - Acute and chronic respiratory failure with hypercapnia (2) Altered mental status Current Visit: Yes Status: Acute Assessment and plan: Likely secondary to polypharmacy Hold narcotics and sedative agents at this time. Qualifiers: Altered mental status type: somnolence Qualified Code(s): R40.0 - Somnolence (3) Pulmonary edema Current Visit: Yes Status: Acute Assessment and plan: Likely secondary to CHF decompensation continue diuretic therapy f/u repeat 2D echo (done, awaiting report) monitor I/os daily weights fluid restricted diet Qualifiers: Chronicity: acute Qualified Code(s): J81.0 - Acute pulmonary edema (4) CHF (congestive heart failure) Current Visit: Yes Status: Chronic Assessment and plan: Renal function improved appears to be at baseline continue to monitor Qualifiers: Congestive heart failure type: diastolic Congestive heart failure chronicity: chronic Qualified Code(s): I50.32 - Chronic diastolic (congestive ) heart failure (5) BARRY (acute kidney injury) Current Visit: No Status: Acute (6) Atrial fibrillation Current Visit: No Status: Acute Assessment and plan: Rate controlled with Cardizem Anticoagulated with Coumadin Pharmacy to dose Coumadin. monitor INR goal INR: 2-3 Qualifiers: Atrial fibrillation type: chronic Qualified Code(s): I48.2 - Chronic atrial fibrillation (7) DVT prophylaxis Current Visit: No Status: Acute Assessment and plan: anticoagulated with Coumadin (8) Hyperkalemia Current Visit: No Status: Acute Assessment and plan: Improving continue to monitor (9) Morbid obesity Current Visit: Yes Status: Chronic Qualifiers: Obesity type: unspecified obesity type Qualified Code(s): E66.01 - Morbid ( severe) obesity due to excess calories (10) CAROLIN (obstructive sleep apnea) Current Visit: No Status: Chronic Assessment and plan: Likely contributing to current respiratory failure - Subjective Interval history: Patient seen and examined with family present at bedside. Reports of improvement in her breathing and has had 1300cc urine output since morning. Pt noted to have chronic respiratory failure with hypercapnia and repeat ABG improved and consistent with prior lab values. NOted to have distended abd, no abd discomfort, reports of constipation. Abd xray: nonspecific gas pattern. - Constitutional Vitals: Temp Pulse Resp BP Pulse Ox 97.8 F 87 20 152/70 92 L 11/15/16 12:00 11/15/16 15:15 11/15/16 12:00 11/15/16 12:00 11/15/16 12:00 General appearance: Present: A&O X 3, morbidly obese, no acute distress, answers questions appropriately - Head Head exam: Present: atraumatic, normocephalic - Respiratory Respiratory exam: Present: decreased breath sounds. Absent: respiratory distress, wheezes - Cardiovascular Cardiovascular exam: Present: RRR, +S1, +S2. Absent: diastolic murmur, gallop, rubs, systolic murmur - GI/Abdominal GI/Abdominal exam: Present: distended, normal bowel sounds, soft. Absent: guarding, tenderness - Extremities Exam Extremities exam: Present: pedal edema (bilateral LE pitting edema), warm, radial pulses palpable and symetrical. Absent: calf tenderness, tenderness - Neurological Exam Neurological exam: Present: alert, oriented X3 - Psychiatric Psychiatric exam: Present: normal affect, normal mood Internal Medicine: Result - Labs CBC & Chem 7: 11/15/16 05:03 11/15/16 13:08 Labs: Short CBC 11/15/16 Range/Units 05:03 WBC 9.0 (4.3-11.1) K/mcL Hgb 9.3 L (11.5-15.4) g/dL Hct 31.4 L (35.3-44.9) % Plt Count 119 L (140-400) K/mcL BMP 11/15/16 11/15/16 05:03 13:08 Sodium 139 141 Potassium 5.5 H 4.9 H Chloride 94 L 94 L Carbon Dioxide 38 H 38 H BUN 27 H 28 H Creatinine 1.50 H 1.35 H Glucose 297 H 154 H Calcium 8.3 L 8.5 L - ABG Interpretation ABG results: ABG ABG pH 7.40 pH Units (7.32-7.45) 11/15/16 10:33 ABG pCO2 76 mmHg (35-45) H* 11/15/16 10:33 ABG pO2 81 mmHg (85-104) L 11/15/16 10:33 ABG O2 Saturation 96 % (95-98) 11/15/16 10:33 PT/INR, D-dimer PT 29.9 Seconds (9.4-12.1) H 11/15/16 05:03 - VTE Reasons for not Prescribing Prophylaxis: Not indicated-Anticoagulated or INR therapeutic Consult Discharge Plan - Plan Referrals: Domingo Melton DO [Primary Care Provider] -
--- NOTE | 2016-11-15 16:04 | ECHO - Doppler Report ---
Echocardiogram Name: Irena Perez Date of Study: 11/15/2016 Date: 1935 Ht: 65.0 in Medical Record#: [id number] Age: 81 Wt: 233.0 lb Gender: Female BSA: 2.11 Order #: [id number] Location: [facility] Room #: 2N15 Reading Physician: Ranjeet Mac MD, [facility] Fiction And Nonfiction Prose Writer: KIRILL HoltT, [facility] Ordering Physician: Vladimir Welch MD Primary Physician: Domingo Melton DO Indications: Congestive heart failure Impressions: Normal LV systolic function, LVEF 60-65%. Mild left ventricular diastolic dysfunction. Normal right ventricular size and function. No significant valvular dysfunction. Unable to estimate RVSP due to lack of TR jet. Left Ventricular Wall Motion: Rest Echo Findings All wall segments showed normal motion. Findings: Study Quality * Technically sub-optimal due to poor echocardiographic windows. ECG Findings * Normal sinus rhythm. Left Ventricle * Normal LV systolic function, LVEF 60-65%. * Normal LV chamber size, wall thickness and function. * Mild left ventricular diastolic dysfunction. Right Ventricle * Normal right ventricular size and function. Left Atrium * Normal left atrial size. Right Atrium * Normal right atrial size. Aorta * Normally sized aortic root. Pericardium * There is a trivial pericardial effusion present. IVC * The IVC is not well evaluated. Aortic Valve * Aortic valve not well visualized. * No aortic stenosis. * No aortic regurgitation. Mitral Valve * Mild mitral annular calcification * No mitral stenosis. * Trace mitral regurgitation. Tricuspid Valve * Tricuspid valve not well visualized. * No tricuspid stenosis. * Trace tricuspid regurgitation. * Unable to estimate RVSP due to lack of TR jet. Pulmonic Valve * Pulmonic valve not well visualized. * No pulmonic stenosis. * No pulmonic regurgitation. History Hypertension Diabetes Hypercholesteremia Congestive Heart Failure 09-07-2015 a Previous Echo was performed. Measurements: BP: 152/ 80 2D Normal Values RVIDd: 3.30 cm IVSd: 1.00 cm 0.6 - 1.0 cm LVIDd: 4.90 cm 3.7 - 5.6 cm LVPWd: 1.00 cm 0.6 - 1.1 cm LVIDs: 3.10 cm 1.5 - 3.6 cm AO: 2.90 cm < 4.0 cm %FS: 36.70 cm >25 % LA volume: 50 Mitral Valve Peak E:1.18 m/sec Peak A:1.43 m/sec E/A Ratio:0.8 Updated by Ranjeet Mac MD, [facility] on 11/15/2016 3:58:38 PM electronically signed on 11/15/2016 3:59:13 PM with status of Final Wall Motion Prince: 1=Normal, 2=Hypokinesis, 3=Akinesis, 4=Dyskinesis, 5=Aneurysmal, 6=Hyperkinetic, X=Not Visualized (Blank)=Missing
[2016-11-15 16:19] LABS: Calcium 8.4 mg/dL (8.6-10.8); Magnesium 2.1 mg/dL (1.6-2.6)
[2016-11-15] MEDS ORDERED: Warfarin perPT PO PRN (18:00)
[2016-11-15] MEDS ORDERED: Warfarin 2.5 MG, Warfarin 2 MG PO ONE (18:00)
[2016-11-16] MEDS: ALPRAZolam 0.25 MG TABLET PO PRN (02:00)
[2016-11-16] MEDS: *HR* HYDROcodone/Acet 5/325 mg TABLET PO PRN ×2 (05:57→20:56)
[2016-11-16 06:06] LABS: ABG Base Excess 25.1 mEq/L (-2.0 to 3.0); ABG HCO3 54.8 mEQ/L (21-27); ABG Oxygen Saturation 90 % (95-98); ABG PH 7.36 pH Units (7.32-7.45); ABG PO2 61 mmHg (85-104); ABG TCO2 57.8 mEq/L (20-26)
[2016-11-16 06:09] LABS: ABG PCO2 97 mmHg (35-45); Blood Gas FiO2 50 %
[2016-11-16 06:16] LABS: Basophils % 0.1 %; Hematocrit 30.4 % (35.3-44.9); Hemoglobin 9.1 g/dL (11.5-15.4); Immature Granulocytes % 1.1 % (0-4); Lymphocytes # 1.2 K/mcL (0.6-4.6); Lymphocytes % 11.9 %; Mean Corpuscular HGB Conc 29.9 g/dL (31.6-35.5); Mean Corpuscular Hemoglobin 30.3 pg (28.0-33.3); Mean Corpuscular Volume 101.3 fL (83.0-100.0); Monocytes # 0.8 K/mcL (0.0-1.3); Monocytes % 7.4 %; Neutrophils # 8.2 K/mcL (1.6-8.9); Platelet Count 148 K/mcL (140-400); Red Cell Distribution Width 13.8 % (11.5-14.5); Segmented Neutrophils % 79.5 %
[2016-11-16 06:18] LABS: INR 3.2; Prothrombin Time 36.1 Seconds (9.4-12.1)
[2016-11-16 06:33] LABS: Potassium 4.8 mEq/L (3.5-4.5)
[2016-11-16 06:34] LABS: Calcium 8.8 mg/dL (8.6-10.8); Magnesium 2.2 mg/dL (1.6-2.6); Phosphorous 3.4 mg/dL (2.3-4.7)
--- NOTE | 2016-11-16 08:26 | Pulmonology Progress Note ---
Date of Encounter: 11/16/16 Time of Encounter: 08:24 Assessment and Plan (1) Acute and chronic respiratory failure ([id number]) Current Visit: Yes Status: Acute This is multifactorial including moderate COPD obesity hypoventilation syndrome obstructive sleep apnea cardiogenic pulmonary edema from heart failure with preserved ejection fraction and use of ARCHAEOLOGIST depressants Continue bilevel positive airway pressure support with naps and during rest encouraged patient to bring her home positive airway pressure mask Would continue diuresis today for net -500 mL Avoid ARCHAEOLOGIST depressants Qualifiers: Respiratory failure complication: hypoxia and hypercapnia Qualified Code(s) : J96.21 - Acute and chronic respiratory failure with hypoxia; J96.22 - Acute and chronic respiratory failure with hypercapnia (2) Chronic anticoagulation Current Visit: Yes Status: Acute For chronic atrial fibrillation managed by primary internal medicine service (3) CHF (congestive heart failure) Current Visit: Yes Status: Chronic Heart failure with preserved ejection fraction continue diuretic regimen and blood pressure regimen Qualifiers: Congestive heart failure type: diastolic Congestive heart failure chronicity: chronic Qualified Code(s): I50.32 - Chronic diastolic (congestive ) heart failure (4) CAROLIN (obstructive sleep apnea) Current Visit: No Status: Chronic Continue positive airway pressure Subjective Principal diagnosis: AMS Interval history: Did well yesterday and overnight using bilevel positive airway pressure support and diuresis Did have some issue with mask fitting or the course of the night. Patient and Family suggest that mask had been "changed" and didn't fit as well and so she wore it less. This was reflected in worsening in ABG. Objective PUL Vital signs: Last Vital Signs Temp 97.8 F 11/16/16 03:52 Pulse 86 11/16/16 03:52 Resp 18 11/16/16 03:52 BP 133/57 11/16/16 03:52 Pulse Ox 98 11/16/16 03:52 General appearance: no acute distress Eyes: nonicteric ENT: oropharynx moist Effort: normal Auscultation: bilateral: diminished breath sounds Cardiovascular: regular rate and rhythm Gastrointestinal: normoactive bowel sounds Extremities: no cyanosis, edema normal mental status, non-focal exam Results - Laboratory Findings CBC and BMP: 11/16/16 05:36 11/16/16 05:36 ABG ABG pH 7.36 pH Units (7.32-7.45) 11/16/16 05:55 ABG pCO2 97 mmHg (35-45) H* 11/16/16 05:55 ABG pO2 61 mmHg (85-104) L 11/16/16 05:55 ABG O2 Saturation 90 % (95-98) L 11/16/16 05:55 PT/INR, D-dimer PT 36.1 Seconds (9.4-12.1) H 11/16/16 05:36 Abnormal lab findings: Abnormal lab results RBC 3.00 M/mcL (3.82-4.97) L 11/16/16 05:36 Hgb 9.1 g/dL (11.5-15.4) L 11/16/16 05:36 Hct 30.4 % (35.3-44.9) L 11/16/16 05:36 MCV 101.3 fL (83.0-100.0) H 11/16/16 05:36 MCHC 29.9 g/dL (31.6-35.5) L 11/16/16 05:36 Nucleated RBCs/100 WBC 0.3 /100 WBC (0) H 11/14/16 20:35 Hypochromasia Present (Not Present) A 11/14/16 20:35 PT 36.1 Seconds (9.4-12.1) H 11/16/16 05:36 ABG pCO2 97 mmHg (35-45) H* 11/16/16 05:55 ABG pO2 61 mmHg (85-104) L 11/16/16 05:55 ABG HCO3 54.8 mEQ/L (21-27) H 11/16/16 05:55 ABG Total CO2 57.8 mEq/L (20-26) H 11/16/16 05:55 ABG O2 Saturation 90 % (95-98) L 11/16/16 05:55 ABG Base Excess 25.1 mEq/L (-2.0 to 3.0) H 11/16/16 05:55 VBG pH 7.29 pH Units (7.32-7.42) L 11/14/16 20:35 VBG pCO2 97 mmHg (41-51) H 11/14/16 20:35 VBG pO2 47 mmHg (25-40) H 11/14/16 20:35 VBG HCO3 46.6 mEq/L (21-27) H 11/14/16 20:35 Potassium 4.8 mEq/L (3.5-4.5) H 11/16/16 05:36 Chloride 94 mEq/L (98-109) L 11/16/16 05:36 Carbon Dioxide 41 mEq/L (19-29) H* 11/16/16 05:36 BUN 30 mg/dL (7-20) H 11/16/16 05:36 Creatinine 1.29 mg/dL (0.57-1.11) H 11/16/16 05:36 Est GFR ( Amer) 48 (> 60) L 11/16/16 05:36 Est GFR (Non-Af Amer) 40 (> 60) L 11/16/16 05:36 Glucose 124 mg/dL (70-99) H 11/16/16 05:36 POC Glucose 142 (58-89) H 11/15/16 20:29 B-Natriuretic Peptide 195 pg/mL (0-100) H 11/14/16 20:35 Albumin 3.1 g/dL (3.5-5.0) L 11/14/16 20:35 Globulin 3.6 g/dL (2.4-3.5) H 11/14/16 20:35 Albumin/Globulin Ratio 0.9 (1.1-2.2) L 11/14/16 20:35 Urine Clarity Cloudy (Clear) A 11/14/16 21:10 Urine Blood Large (Negative) H 11/14/16 21:10 Urine Microscopic RBC 50-100 per hpf (0-3) H 11/14/16 21:10 Urine Microscopic WBC 5-15 per hpf (0-3) H 11/14/16 21:10 Ur Squamous Epith Cells Many per lpf (None-Few) H 11/14/16 21:10 Amorphous Sediment Moderate (Few) H 11/14/16 21:10 Urine Bacteria Moderate per hpf (None-Few) H 11/14/16 21:10 Hyaline Casts Moderate per lpf (None-Few) H 11/14/16 21:10 Granular Casts Few per lpf (None Seen) H 11/14/16 21:10 Waxy Casts Few per lpf (None Seen) H 11/14/16 21:10 Ur Culture Indicated? YES (NO) A 11/14/16 21:10 - Clinical Findings Intake & Output: Intake & Output 11/15/16 11/16/16 11/16/16 23:59 07:59 15:59 Output Total 950 / 950 Balance -950 / -950 Weight 105.3 kg - VTE Reasons for not Prescribing Prophylaxis: Not indicated-Anticoagulated or INR therapeutic Consult Discharge Plan - Plan Referrals: Domingo Melton DO [Primary Care Provider] -
[2016-11-16] MEDS: Sennosides/Docusate Sodium TABLET PO SCH ×2 (08:45→20:53)
[2016-11-16] MEDS: hydrALAZINE 10 MG TABLET PO SCH ×3 (08:46→20:53)
[2016-11-16] MEDS: Furosemide 40 MG/4 ML VIAL IVP SCH ×2 (08:46→16:43)
[2016-11-16] MEDS: Diltiazem CD (24hr) 180 MG CAPSULE PO SCH (08:46)
[2016-11-16] MEDS: Insulin LISPRO 300 UNITS/3 ML VIAL SQ SCH ×4 (08:48→21:34)
[2016-11-16] MEDS: Albuterol 2.5 MG/3 ML NEBULIZER IH PRN ×2 (09:28→20:19)
[2016-11-16] MEDS: Budesonide/Formoterol 160/4.5 MDI IH SCH ×2 (09:28→20:20)
--- NOTE | 2016-11-16 13:15 | Internal Med Progress Note ---
Date of Encounter: 11/16/16 Time of Encounter: 11:30 - Assessment and plan (1) Acute and chronic respiratory failure ([id number]) Current Visit: Yes Status: Acute Assessment and plan: Chronic resp failure likely secondary to underlying cardiopulmonary disease, CAROLIN , and component of Obesity hypoventilation syndrome Acute exacerbation likely secondary to noncompliance.Reported of not using bipap at the AR Currently improving on bipap support history of chronic resp failure with hypercapnia continue bipap support ABG as needed continue to hold narcotics and sedative agents continue diuresis continue to monitor O2 sat, O2 sat goal: around 92% Pulmonary consultation appreciated. patient will to comply at this time and staying on bipap support. Palliative care consultation requested for goals of care Qualifiers: Respiratory failure complication: hypoxia and hypercapnia Qualified Code(s) : J96.21 - Acute and chronic respiratory failure with hypoxia; J96.22 - Acute and chronic respiratory failure with hypercapnia (2) Altered mental status Current Visit: Yes Status: Acute Assessment and plan: Likely secondary to polypharmacy Mental status at baseline at this time Hold narcotics and sedative agents at this time. Qualifiers: Altered mental status type: somnolence Qualified Code(s): R40.0 - Somnolence (3) Pulmonary edema Current Visit: Yes Status: Acute Assessment and plan: Likely secondary to CHF decompensation continue diuretic therapy f/u repeat 2D echo (done, awaiting report) monitor I/os daily weights fluid restricted diet Qualifiers: Chronicity: acute Qualified Code(s): J81.0 - Acute pulmonary edema (4) CHF (congestive heart failure) Current Visit: Yes Status: Chronic Assessment and plan: Plan as listed above Qualifiers: Congestive heart failure type: diastolic Congestive heart failure chronicity: chronic Qualified Code(s): I50.32 - Chronic diastolic (congestive ) heart failure (5) BARRY (acute kidney injury) Current Visit: No Status: Acute Assessment and plan: Renal function improved appears to be at baseline continue to monitor (6) Atrial fibrillation Current Visit: No Status: Acute Assessment and plan: Rate controlled with Cardizem Anticoagulated with Coumadin Pharmacy to dose Coumadin. monitor INR goal INR: 2-3 Hold today's Coumadin dose given supratherapeutic INR Qualifiers: Atrial fibrillation type: chronic Qualified Code(s): I48.2 - Chronic atrial fibrillation (7) DVT prophylaxis Current Visit: No Status: Acute Assessment and plan: anticoagulated with Coumadin (8) Hyperkalemia Current Visit: No Status: Acute Assessment and plan: Improving continue to monitor (9) Morbid obesity Current Visit: Yes Status: Chronic Qualifiers: Obesity type: unspecified obesity type Qualified Code(s): E66.01 - Morbid ( severe) obesity due to excess calories (10) CAROLIN (obstructive sleep apnea) Current Visit: No Status: Chronic - Subjective Interval history: Patient seen and examined with family present at bedside. Noted to have difficulty keeping the bipap on overnight. Had an extensive conversation for the need to remain on bipap support, patient willing to comply at this time. Family/patient requests palliative care consultation, however they also want to explore the option of getting a tracheostomy. - Constitutional Vitals: Temp Pulse Resp BP Pulse Ox 98.4 F 78 20 137/81 96 11/16/16 12:16 11/16/16 12:45 11/16/16 12:16 11/16/16 12:16 11/16/16 12:16 General appearance: Present: A&O X 3, morbidly obese, no acute distress, answers questions appropriately - Head Head exam: Present: atraumatic, normocephalic - Respiratory Respiratory exam: Present: decreased breath sounds. Absent: respiratory distress, wheezes - Cardiovascular Cardiovascular exam: Present: RRR, +S1, +S2. Absent: diastolic murmur, gallop, rubs, systolic murmur - GI/Abdominal GI/Abdominal exam: Present: distended, normal bowel sounds, soft, no peritoneal signs. Absent: tenderness - Extremities Exam Extremities exam: Present: pedal edema, warm, radial pulses palpable and symetrical. Absent: calf tenderness - Neurological Exam Neurological exam: Present: alert, oriented X3 - Psychiatric Psychiatric exam: Present: normal affect, normal mood Internal Medicine: Result - Labs CBC & Chem 7: 11/16/16 05:36 11/16/16 05:36 Labs: Short CBC 11/16/16 Range/Units 05:36 WBC 10.3 (4.3-11.1) K/mcL Hgb 9.1 L (11.5-15.4) g/dL Hct 30.4 L (35.3-44.9) % Plt Count 148 (140-400) K/mcL Neutrophils # 8.2 (1.6-8.9) K/mcL BMP 11/15/16 11/15/16 11/16/16 13:08 15:58 05:36 Sodium 141 139 140 Potassium 4.9 H 5.0 H 4.8 H Chloride 94 L 94 L 94 L Carbon Dioxide 38 H 36 H 41 H* BUN 28 H 29 H 30 H Creatinine 1.35 H 1.35 H 1.29 H Glucose 154 H 145 H 124 H Calcium 8.5 L 8.4 L 8.8 - ABG Interpretation ABG results: ABG ABG pH 7.36 pH Units (7.32-7.45) 11/16/16 05:55 ABG pCO2 97 mmHg (35-45) H* 11/16/16 05:55 ABG pO2 61 mmHg (85-104) L 11/16/16 05:55 ABG O2 Saturation 90 % (95-98) L 11/16/16 05:55 PT/INR, D-dimer PT 36.1 Seconds (9.4-12.1) H 11/16/16 05:36 - Impressions Impressions Abdomen X-Ray 11/15/16 15:11 IMPRESSION: Nonspecific bowel gas pattern. Atelectasis at the lung bases. D/ / Wilber Larose MD / Wilber Larose MD Interpreting Provider: Wilber Larose MD - VTE Reasons for not Prescribing Prophylaxis: Not indicated-Anticoagulated or INR therapeutic Consult Discharge Plan - Plan Referrals: Domingo Melton DO [Primary Care Provider] -
--- NOTE | 2016-11-16 20:05 | Palliative - Consult Note ---
Date of Encounter: 11/16/16 Time of Encounter: 17:00 - Assessment and Plan (1) Dyspnea Current Visit: Yes Status: Acute Assessment and plan: BiPAP as tolerated, activity as tolerated, position for comfort, supplemental oxygen. Qualifiers: Dyspnea type: shortness of breath Qualified Code(s): R06.02 - Shortness of breath (2) Anxiety about health Current Visit: Yes Status: Acute Assessment and plan: Caution with use of sedating medications due to pulmonary status. Alprazolam 2 times a day as needed per home medications. (3) Acute and chronic respiratory failure ([id number]) Current Visit: Yes Status: Acute Assessment and plan: Pulmonology consult, management per pulmonology/hospitalist Qualifiers: Respiratory failure complication: hypoxia and hypercapnia Qualified Code(s) : J96.21 - Acute and chronic respiratory failure with hypoxia; J96.22 - Acute and chronic respiratory failure with hypercapnia (4) COPD (chronic obstructive pulmonary disease) Current Visit: Yes Status: Chronic Assessment and plan: Management per pulmonology/hospitalist Qualifiers: COPD type: unspecified COPD Qualified Code(s): J44.9 - Chronic obstructive pulmonary disease, unspecified (5) Goals of care, counseling/discussion Current Visit: Yes Status: Acute Assessment and plan: Extensive goals of care discussion with the patient, her significant other, and children: Deepa Moore Tina, Nemo. Discussed hospice philosophy and care. Discussed various scenarios and solutions including home hospice care. Reviewed current goals of discharging to rehabilitation facility. Discussed long-term expectations of her pulmonary status, as well as her ability to tolerate rehabilitation. Reviewed typical hospice treatment plans for dyspnea. Patient and family members both asked appropriate questions. At this time, they are considering future options. Ms. Perez continue to be firm in her decision for DNR CCA/DNI CODE STATUS. The palliative care team will follow up further discussions tomorrow. Total visit time 1 hour and 35 minutes. Palliative-CN HPI - Data of Consult Patient: new to practice Consult date: 11/16/16 Requesting Physician: Falguni Boykin MD Primary Care Provider: Domingo Melton - Consult Narrative Palliative Care/Comfort Measures: Palliative care Reason for consult: Goals of care History of present illness: Ms. Perez is a 81 year old female patient admitted to [facility] with acute on chronic respiratory failure. Ms. Perez had a recent stay at [facility] for acute blood loss related to tooth extraction while on anticoagulation. She was discharged to a local rehabilitation facility on 11/11/2016. After participating in therapy, Ms. Perez developed increasing pain levels and anxiety. The patient was given medications to assist with her symptoms including benzodiazepine and opioids. Subsequently, the patient developed difficulty breathing and had an altered mental status. Ms. Perez did not have her BiPAP. She was sent to the emergency department for further workup and evaluation. On the day of admission , she was found to be severely hypoxic with an altered mental status. The patient's prior known wishes were for no heroic measures, and her CODE STATUS was DNR CCA/DNI. She was placed on the BiPAP and admitted for further workup and treatment. Pulmonology services were consulted due to her chronic respiratory failure. The palliative care service was consulted to assist with goals of care planning for long-term. She was seen in consultation along with her family including: Significant other, Shashi; daughter's: Shelly, Carmencita, Deepa ; son: Oscar. Ms. Perez has had a steady decline in her health. She requires the support of the BiPAP at home during most of the day. She often removes the BiPAP for meal time and short social interactions, but ultimately depends upon the BiPAP for assistance with her shortness of breath. She resides in the home under the care of her significant other and daughter. Her mobility is limited due to her shortness of breath. She utilizes a bedside commode as she can use this and remain on her BiPAP. Her typical dose of home oxygen is 4 L/m, but she is currently at 8 L/m while hospitalized. She has chronic pain in her lower back, and does become anxious with her shortness of breath. During the examination, Ms. Perez had obvious exertional dyspnea along with conversational dyspnea. She was able to tolerate nasal cannula for about 10 minutes. CC: Falguni Boykin MD Past Med Surg Social Fam HX - Past Medical History Source: patient, old records reviewed, obtained from family Medical history: atrial fibrillation, CHF, COPD, diabetes, hyperlipidemia, hypertension, other (Obesity hypoventilation syndrome, degenerative disc disease , lumbar stenosis) Psychiatric history: no psych history - Past Surgical History Surgical History: hysterectomy, other (Carpal tunnel release, cataracts) - Social History Smoking Status: Former smoker Smokeless Tobacco Status: No Alcohol use: none Drug use: none Current living situation: ECF Activity Level: Mostly sedentary - Family History Mother Adopted: No Father Adopted: No Medications and Allergies Budesonide/Formoterol 160/4.5 [Symbicort 160/4.5] 2 puff IH BID 08/04/15 [ History] Albuterol Neb [Proventil Neb] 2.5 mg IH TID PRN 11/02/16 [History] Diltiazem HCl [Diltiazem 24Hr Cd] 360 mg PO DAILY 11/02/16 [History] Warfarin Sodium 4.5 mg PO DAILY 11/02/16 [History] Alprazolam [Xanax 0.25 MG Tablet] 0.25 mg PO TID #14 tablet 11/11/16 [Rx] Furosemide [Lasix] 40 mg PO BID 30 Days 11/11/16 [Rx] HydrALAZINE 10 mg PO TID 30 Days 11/11/16 [Rx] Sennosides/Docusate Sodium [Senna Plus] 2 each PO BID 30 Days 11/11/16 [Rx] Cyclobenzaprine HCl 5 mg PO TID 11/14/16 [History] Glucagon,Human Recombinant [Glucagen] 1 mg IM ONCE PRN 11/14/16 [History] GlyBURIDE 5 mg PO 0800 11/14/16 [History] HYDROcodone/Acet 5/325 mg [Rhine 5-325 mg] 1 tab PO Q4H 11/14/16 [History] Metformin [Glucophage] 500 mg PO 0800 11/14/16 [History] Potassium Chloride [K-Tab ER] 20 meq PO DAILY 11/14/16 [History] Simvastatin [Zocor] 40 mg PO HS 11/14/16 [History] Allergies iodine Allergy (Verified 11/02/16 13:52) Rash clemastine Adverse Reaction (Verified 11/14/16 22:01) Unknown ECF list - Constitutional Constitutional ROS PAL: decreased appetite (Related to dyspnea), fatigue, frequent falls, no weight loss - EENT Eyes: no diplopia Ears: no decreased hearing Ears, nose, mouth, throat: dry mouth, hoarseness, no dysphagia, no sore throat - Cardiovascular Cardiovascular ROS: dyspnea on exertion, palpitations, pedal edema, no chest pain, no chest pain with activity - Respiratory Respiratory: cough, dyspnea, dyspnea on exertion, wheezing, no hemoptysis - Gastrointestinal Gastrointestinal: bloating, constipation, no abdominal pain, no diarrhea, no nausea, no vomiting - Genitourinary Palliative ROS female: urinary frequency (Related to medications), no difficulty voiding - Musculoskeletal Musculoskeletal ROS IM: muscle weakness - Integumentary ROS Integumentary: no sores, no wounds - Neurological Neurological ROS: weakness (Global), no confusion, no numbness - Psychiatric Psychiatric general PM: anxiety Palliative Care-Exam - Constitutional Vitals: Temp Pulse Resp BP Pulse Ox 97.8 F 82 20 143/59 95 11/16/16 16:00 11/16/16 17:19 11/16/16 17:19 11/16/16 17:19 11/16/16 17:19 General appearance: Present: cooperative, morbidly obese Exam: 81-year-old female appearing chronically ill, BiPAP dependent, exertional and conversational dyspnea. - Head Head Exam: Absent: atraumatic - Eye Eye exam: Present: EOMI Pupils: Present: PERRL - ENT ENT exam: Present: mucous membranes moist - Respiratory Respiratory exam: Present: accessory muscle use (With exertion), decreased breath sounds, prolonged expiratory phase, respiratory distress (With exertion) , wheezes, tachypnea (With exertion) - Cardiovascular Cardiovascular exam: Present: irregular rhythm - GI/Abdominal Exam GI/Abdominal exam: Present: normal bowel sounds, soft. Absent: tenderness - Extremities Exam Extremities exam: Present: pedal edema - Neurological Exam Neurological exam: Present: alert, oriented X3, no focal deficits, strengths equal and symetr throughout (Global weakness) - Psychiatric Psychiatric exam: Absent: agitated, anxious - Skin Skin exam: Present: dry, warm Internal Medicine - CN: Reslt - Labs CBC & Chem 7: 11/16/16 05:36 11/16/16 05:36 Labs: Short CBC 11/16/16 Range/Units 05:36 WBC 10.3 (4.3-11.1) K/mcL Hgb 9.1 L (11.5-15.4) g/dL Hct 30.4 L (35.3-44.9) % Plt Count 148 (140-400) K/mcL Neutrophils # 8.2 (1.6-8.9) K/mcL BMP 11/16/16 05:36 Sodium 140 Potassium 4.8 H Chloride 94 L Carbon Dioxide 41 H* BUN 30 H Creatinine 1.29 H Glucose 124 H Calcium 8.8 - ABG Interpretation ABG results: ABG ABG pH 7.36 pH Units (7.32-7.45) 11/16/16 05:55 ABG pCO2 97 mmHg (35-45) H* 11/16/16 05:55 ABG pO2 61 mmHg (85-104) L 11/16/16 05:55 ABG O2 Saturation 90 % (95-98) L 11/16/16 05:55 PT/INR, D-dimer PT 36.1 Seconds (9.4-12.1) H 11/16/16 05:36 Consult Discharge Plan - Plan Referrals: Domingo Melton DO [Primary Care Provider] - Palliative Quality Palliative Quality: Screen for Code Status: Yes, Screen for Goals of Care: Yes, Screen for Pain: Yes, If Pain Regimen Started, Initiate Bowel Regimen: NA, Screen for Nausea/Vomitting: Yes Code Status: 11/15/16 01:46 CODE [Resuscitation Status: Active] [RES] Routine Comment: Resuscitation Status: [id number]
[2016-11-17] MEDS: *HR* HYDROcodone/Acet 5/325 mg TABLET PO PRN (04:34)
[2016-11-17 06:21] LABS: INR 2.9; Prothrombin Time 32.1 Seconds (9.4-12.1)
--- NOTE | 2016-11-17 07:33 | Pulmonology Progress Note ---
Date of Encounter: 11/17/16 Time of Encounter: 07:31 Assessment and Plan (1) Acute and chronic respiratory failure ([id number]) Current Visit: Yes Status: Acute This is multifactorial including moderate COPD obesity hypoventilation syndrome obstructive sleep apnea cardiogenic pulmonary edema from heart failure with preserved ejection fraction and use of [employer] depressants Cont bilevel PAP support today during naps and at night. (goal usage 10-12 hours daily) Check Resting ABG today around noon off of PAP support Clearly would benefit from continued Diuresis Avoid [employer] depressants Qualifiers: Respiratory failure complication: hypoxia and hypercapnia Qualified Code(s) : J96.21 - Acute and chronic respiratory failure with hypoxia; J96.22 - Acute and chronic respiratory failure with hypercapnia (2) Chronic anticoagulation Current Visit: Yes Status: Acute For chronic atrial fibrillation managed by primary internal medicine service (3) CHF (congestive heart failure) Current Visit: Yes Status: Chronic Heart failure with preserved ejection fraction continue diuretic regimen and blood pressure regimen Qualifiers: Congestive heart failure type: diastolic Congestive heart failure chronicity: chronic Qualified Code(s): I50.32 - Chronic diastolic (congestive ) heart failure (4) CAROLIN (obstructive sleep apnea) Current Visit: No Status: Chronic Continue positive airway pressure Subjective Principal diagnosis: AMS Interval history: Slept well overnight with new PAP mask. Met with Palliative Care team - ongoing discussions regarding Goals Of Care. Family showed some interest in pursuing a Tracheostomy which I counseled against at this time and explained that this would be an option of last resort Objective PUL Vital signs: Last Vital Signs Temp 98.6 F 11/17/16 04:37 Pulse 82 11/17/16 04:37 Resp 17 11/17/16 04:46 BP 148/60 11/17/16 04:37 Pulse Ox 95 11/17/16 04:46 General appearance: no acute distress Auscultation: bilateral: diminished breath sounds, rales Cardiovascular: regular rate and rhythm Extremities: edema normal mental status Results - Laboratory Findings CBC and BMP: 11/16/16 05:36 11/16/16 05:36 ABG ABG pH 7.36 pH Units (7.32-7.45) 11/16/16 05:55 ABG pCO2 97 mmHg (35-45) H* 11/16/16 05:55 ABG pO2 61 mmHg (85-104) L 11/16/16 05:55 ABG O2 Saturation 90 % (95-98) L 11/16/16 05:55 PT/INR, D-dimer PT 32.1 Seconds (9.4-12.1) H 11/17/16 05:38 Abnormal lab findings: Abnormal lab results RBC 3.00 M/mcL (3.82-4.97) L 11/16/16 05:36 Hgb 9.1 g/dL (11.5-15.4) L 11/16/16 05:36 Hct 30.4 % (35.3-44.9) L 11/16/16 05:36 MCV 101.3 fL (83.0-100.0) H 11/16/16 05:36 MCHC 29.9 g/dL (31.6-35.5) L 11/16/16 05:36 Nucleated RBCs/100 WBC 0.3 /100 WBC (0) H 11/14/16 20:35 Hypochromasia Present (Not Present) A 11/14/16 20:35 PT 32.1 Seconds (9.4-12.1) H 11/17/16 05:38 ABG pCO2 97 mmHg (35-45) H* 11/16/16 05:55 ABG pO2 61 mmHg (85-104) L 11/16/16 05:55 ABG HCO3 54.8 mEQ/L (21-27) H 11/16/16 05:55 ABG Total CO2 57.8 mEq/L (20-26) H 11/16/16 05:55 ABG O2 Saturation 90 % (95-98) L 11/16/16 05:55 ABG Base Excess 25.1 mEq/L (-2.0 to 3.0) H 11/16/16 05:55 VBG pH 7.29 pH Units (7.32-7.42) L 11/14/16 20:35 VBG pCO2 97 mmHg (41-51) H 11/14/16 20:35 VBG pO2 47 mmHg (25-40) H 11/14/16 20:35 VBG HCO3 46.6 mEq/L (21-27) H 11/14/16 20:35 Potassium 4.8 mEq/L (3.5-4.5) H 11/16/16 05:36 Chloride 94 mEq/L (98-109) L 11/16/16 05:36 Carbon Dioxide 41 mEq/L (19-29) H* 11/16/16 05:36 BUN 30 mg/dL (7-20) H 11/16/16 05:36 Creatinine 1.29 mg/dL (0.57-1.11) H 11/16/16 05:36 Est GFR ( Amer) 48 (> 60) L 11/16/16 05:36 Est GFR (Non-Af Amer) 40 (> 60) L 11/16/16 05:36 Glucose 124 mg/dL (70-99) H 11/16/16 05:36 POC Glucose 186 (58-89) H 11/16/16 21:27 B-Natriuretic Peptide 195 pg/mL (0-100) H 11/14/16 20:35 Albumin 3.1 g/dL (3.5-5.0) L 11/14/16 20:35 Globulin 3.6 g/dL (2.4-3.5) H 11/14/16 20:35 Albumin/Globulin Ratio 0.9 (1.1-2.2) L 11/14/16 20:35 Urine Clarity Cloudy (Clear) A 11/14/16 21:10 Urine Blood Large (Negative) H 11/14/16 21:10 Urine Microscopic RBC 50-100 per hpf (0-3) H 11/14/16 21:10 Urine Microscopic WBC 5-15 per hpf (0-3) H 11/14/16 21:10 Ur Squamous Epith Cells Many per lpf (None-Few) H 11/14/16 21:10 Amorphous Sediment Moderate (Few) H 11/14/16 21:10 Urine Bacteria Moderate per hpf (None-Few) H 11/14/16 21:10 Hyaline Casts Moderate per lpf (None-Few) H 11/14/16 21:10 Granular Casts Few per lpf (None Seen) H 11/14/16 21:10 Waxy Casts Few per lpf (None Seen) H 11/14/16 21:10 Ur Culture Indicated? YES (NO) A 11/14/16 21:10 - Clinical Findings Intake & Output: Intake & Output 11/16/16 11/16/16 11/17/16 15:59 23:59 08:59 Intake Total 820 / 820 400 / 400 100 / 100 Output Total 1850 / 1850 1450 / 1450 250 / 250 Balance -1030 / -1030 -1050 / -1050 -150 / -150 Weight 105.3 kg 101.8 kg - VTE Reasons for not Prescribing Prophylaxis: Not indicated-Anticoagulated or INR therapeutic Consult Discharge Plan - Plan Referrals: Domingo Melton DO [Primary Care Provider] -
[2016-11-17] MEDS: Sennosides/Docusate Sodium TABLET PO SCH ×2 (08:16→21:05)
[2016-11-17] MEDS: hydrALAZINE 10 MG TABLET PO SCH ×3 (08:16→21:05)
[2016-11-17] MEDS: Furosemide 40 MG/4 ML VIAL IVP SCH ×2 (08:16→16:29)
[2016-11-17] MEDS: Diltiazem CD (24hr) 180 MG CAPSULE PO SCH (08:17)
[2016-11-17] MEDS: Insulin LISPRO 300 UNITS/3 ML VIAL SQ SCH ×4 (08:17→20:59)
[2016-11-17 09:07] LABS: Basophils % 0.1 %; Eosinophils % 0.5 %; Hemoglobin 10.1 g/dL (11.5-15.4); Immature Granulocytes % 0.6 % (0-4); Lymphocytes # 1.7 K/mcL (0.6-4.6); Mean Corpuscular HGB Conc 29.7 g/dL (31.6-35.5); Mean Corpuscular Hemoglobin 30.1 pg (28.0-33.3); Mean Corpuscular Volume 101.2 fL (83.0-100.0); Mean Platelet Volume 10.2 fL (9.4-12.4); Monocytes % 11.4 %; Neutrophils # 5.7 K/mcL (1.6-8.9); Platelet Count 167 K/mcL (140-400); Red Blood Count 3.36 M/mcL (3.82-4.97); Red Cell Distribution Width 14.2 % (11.5-14.5); Segmented Neutrophils % 67.4 %
[2016-11-17 09:21] LABS: Calcium 9.6 mg/dL (8.6-10.8); Magnesium 2.3 mg/dL (1.6-2.6); Phosphorous 3.7 mg/dL (2.3-4.7); Potassium 4.5 mEq/L (3.5-4.5)
[2016-11-17] MEDS: Budesonide/Formoterol 160/4.5 MDI IH SCH ×2 (09:38→23:40)
[2016-11-17] MEDS: acetaZOLAMIDE 250 MG TABLET PO SCH ×2 (10:41→21:05)
[2016-11-17 12:00] LABS: ABG Base Excess 23.9 mEq/L (-2.0 to 3.0); ABG HCO3 53.2 mEQ/L (21-27); ABG Oxygen Saturation 98 % (95-98); ABG PH 7.38 pH Units (7.32-7.45); ABG PO2 98 mmHg (85-104)
[2016-11-17 12:01] LABS: ABG PCO2 90 mmHg (35-45)
[2016-11-17 12:02] LABS: Blood Gas FiO2 44 %
--- NOTE | 2016-11-17 12:48 | Internal Med Progress Note ---
Date of Encounter: 11/17/16 Time of Encounter: 12:20 - Assessment and plan (1) Acute and chronic respiratory failure ([id number]) Current Visit: Yes Status: Acute Assessment and plan: Chronic resp failure likely secondary to underlying cardiopulmonary disease, CAROLIN , and component of Obesity hypoventilation syndrome Acute exacerbation likely secondary to noncompliance.Reported of not using bipap at the [place] Currently improving on bipap support history of chronic resp failure with hypercapnia continue bipap support ABG as needed continue to hold narcotics and sedative agents continue diuresis continue to monitor O2 sat, O2 sat goal: around 92% Pulmonary consultation appreciated. Acetazolamide added by pulmonology Palliative care consultation appreciated. Qualifiers: Respiratory failure complication: hypoxia and hypercapnia Qualified Code(s) : J96.21 - Acute and chronic respiratory failure with hypoxia; J96.22 - Acute and chronic respiratory failure with hypercapnia (2) Altered mental status Current Visit: Yes Status: Acute Assessment and plan: Likely secondary to polypharmacy Mental status at baseline at this time Hold narcotics and sedative agents at this time. Qualifiers: Altered mental status type: somnolence Qualified Code(s): R40.0 - Somnolence (3) Pulmonary edema Current Visit: Yes Status: Acute Assessment and plan: Likely secondary to CHF decompensation continue diuretic therapy 2D echo: Normal LV systolic function with LVEF 60-65%, mild left ventricular diastolic dysfunction. normal right ventricular size and function. monitor I/os daily weights fluid restricted diet Qualifiers: Chronicity: acute Qualified Code(s): J81.0 - Acute pulmonary edema (4) CHF (congestive heart failure) Current Visit: Yes Status: Chronic Assessment and plan: Plan as listed above Qualifiers: Congestive heart failure type: diastolic Congestive heart failure chronicity: chronic Qualified Code(s): I50.32 - Chronic diastolic (congestive ) heart failure (5) BARRY (acute kidney injury) Current Visit: No Status: Acute Assessment and plan: Renal function improved appears to be at baseline continue to monitor (6) Atrial fibrillation Current Visit: No Status: Acute Assessment and plan: Rate controlled with Cardizem Anticoagulated with Coumadin Pharmacy to dose Coumadin. monitor INR goal INR: 2-3 Qualifiers: Atrial fibrillation type: chronic Qualified Code(s): I48.2 - Chronic atrial fibrillation (7) DVT prophylaxis Current Visit: No Status: Acute Assessment and plan: anticoagulated with Coumadin (8) Hyperkalemia Current Visit: No Status: Resolved (9) Morbid obesity Current Visit: Yes Status: Chronic Qualifiers: Obesity type: unspecified obesity type Qualified Code(s): E66.01 - Morbid ( severe) obesity due to excess calories (10) CAROLIN (obstructive sleep apnea) Current Visit: No Status: Chronic - Subjective Interval history: Patient seen and examined with family present at bedside. Resting in chair and saturating well on nasal cannula. Slept well overnight with bipap. Family currently undergoing conversation with palliative care in regards to goals of care/discharge plan. - Constitutional Vitals: Temp Pulse Resp BP Pulse Ox 98.6 F 79 17 148/60 95 11/17/16 04:37 11/17/16 08:00 11/17/16 04:46 11/17/16 04:37 11/17/16 04:46 General appearance: Present: A&O X 3, morbidly obese, no acute distress, answers questions appropriately - Head Head exam: Present: atraumatic, normocephalic - Eye Eye exam: Present: normal appearance, conjuntiva pink, sclera anicteric - Respiratory Respiratory exam: Present: decreased breath sounds. Absent: respiratory distress, wheezes - Cardiovascular Cardiovascular exam: Present: RRR, +S1, +S2 - GI/Abdominal GI/Abdominal exam: Present: distended, normal bowel sounds, soft. Absent: tenderness - Extremities Exam Extremities exam: Present: pedal edema, warm, radial pulses palpable and symetrical. Absent: calf tenderness - Neurological Exam Neurological exam: Present: alert, oriented X3, no focal deficits - Psychiatric Psychiatric exam: Present: normal affect, normal mood Internal Medicine: Result - Labs CBC & Chem 7: 11/17/16 09:00 11/17/16 09:00 Labs: Short CBC 11/17/16 Range/Units 09:00 WBC 8.5 (4.3-11.1) K/mcL Hgb 10.1 L (11.5-15.4) g/dL Hct 34.0 L (35.3-44.9) % Plt Count 167 (140-400) K/mcL Neutrophils # 5.7 (1.6-8.9) K/mcL BMP 11/17/16 09:00 Sodium 145 Potassium 4.5 Chloride 92 L Carbon Dioxide 47 H* BUN 32 H Creatinine 1.38 H Glucose 132 H Calcium 9.6 - ABG Interpretation ABG results: ABG ABG pH 7.38 pH Units (7.32-7.45) 11/17/16 11:50 ABG pCO2 90 mmHg (35-45) H* 11/17/16 11:50 ABG pO2 98 mmHg (85-104) 11/17/16 11:50 ABG O2 Saturation 98 % (95-98) 11/17/16 11:50 PT/INR, D-dimer PT 32.1 Seconds (9.4-12.1) H 11/17/16 05:38 - VTE Reasons for not Prescribing Prophylaxis: Not indicated-Anticoagulated or INR therapeutic Consult Discharge Plan - Plan Referrals: Domingo Melton DO [Primary Care Provider] -
[2016-11-18] MEDS: *HR* HYDROcodone/Acet 5/325 mg TABLET PO PRN ×2 (02:25→23:58)
[2016-11-18 04:45] LABS: ABG Base Excess 19.8 mEq/L (-2.0 to 3.0); ABG HCO3 48.5 mEQ/L (21-27); ABG Oxygen Saturation 94 % (95-98); ABG PH 7.38 pH Units (7.32-7.45); ABG PO2 74 mmHg (85-104)
[2016-11-18 04:50] LABS: ABG PCO2 82 mmHg (35-45); Blood Gas FiO2 35 %
[2016-11-18 05:21] LABS: Basophils % 0.2 %; Eosinophils # 0.1 K/mcL (0.0-0.6); Eosinophils % 0.9 %; Hematocrit 32.7 % (35.3-44.9); Hemoglobin 9.7 g/dL (11.5-15.4); INR 2.3; Immature Granulocytes % 0.5 % (0-4); Lymphocytes # 0.9 K/mcL (0.6-4.6); Lymphocytes % 15.1 %; Mean Corpuscular HGB Conc 29.7 g/dL (31.6-35.5); Mean Corpuscular Volume 101.2 fL (83.0-100.0); Mean Platelet Volume 10.3 fL (9.4-12.4); Monocytes # 0.8 K/mcL (0.0-1.3); Monocytes % 13.9 %; Platelet Count 145 K/mcL (140-400); Prothrombin Time 25.9 Seconds (9.4-12.1); Red Blood Count 3.23 M/mcL (3.82-4.97); Segmented Neutrophils % 69.4 %
[2016-11-18 05:34] LABS: Calcium 9.1 mg/dL (8.6-10.8); Magnesium 1.9 mg/dL (1.6-2.6); Phosphorous 4.7 mg/dL (2.3-4.7)
[2016-11-18] MEDS: Furosemide 40 MG/4 ML VIAL IVP SCH ×2 (08:39→18:05)
[2016-11-18] MEDS: Insulin LISPRO 300 UNITS/3 ML VIAL SQ SCH ×4 (08:39→21:10)
[2016-11-18] MEDS: Diltiazem CD (24hr) 180 MG CAPSULE PO SCH (08:40)
[2016-11-18] MEDS: Sennosides/Docusate Sodium TABLET PO SCH ×2 (08:40→21:10)
[2016-11-18] MEDS: acetaZOLAMIDE 250 MG TABLET PO SCH (08:40)
[2016-11-18] MEDS: hydrALAZINE 10 MG TABLET PO SCH ×3 (08:40→21:11)
[2016-11-18] MEDS: Budesonide/Formoterol 160/4.5 MDI IH SCH ×2 (10:59→19:39)
--- NOTE | 2016-11-18 11:04 | Internal Med Progress Note ---
<Anuradha Long - Last Filed: 11/18/16 14:32> Date of Encounter: 11/18/16 Time of Encounter: 09:15 - Assessment and plan (1) Acute and chronic respiratory failure ([id number]) Current Visit: Yes Status: Acute Assessment and plan: - Chronic respiratory failure with hypercapnia likely secondary to underlying cardiopulmonary disease, CAROLIN, and component of Obesity hypoventilation syndrome - Acute exacerbation likely secondary to noncompliance with Reported not using bipap at the SNF - Clinically improved with bipap support - Continue bipap support - ABG as needed - Continue to hold narcotics and sedative agents - Continue diuresis - Continue to monitor O2 sat with goal around 92% - Appreciate Pulmonary recommendation. - Appreciate Palliative care recommendation. Qualifiers: Respiratory failure complication: hypoxia and hypercapnia Qualified Code(s) : J96.21 - Acute and chronic respiratory failure with hypoxia; J96.22 - Acute and chronic respiratory failure with hypercapnia (2) UTI (urinary tract infection) Current Visit: Yes Status: Acute Assessment and plan: - Urine culture from 11/14/16 grew Proteus mirabilis (almost menjivar-sensitive except intermediate to amikacin, gentamicin & tobramycin) and Strep agalactiae. - Patient reports no urinary symptoms but will still treat given her age and its potential contribution to her prior altered mental status. - Start Augmentin 500 mg PO BID. Qualifiers: Urinary tract infection type: site unspecified Hematuria presence: with hematuria Qualified Code(s): N39.0 - Urinary tract infection, site not specified; R31.9 - Hematuria, unspecified (3) Altered mental status Current Visit: Yes Status: Acute Assessment and plan: - Likely secondary to polypharmacy - Mental status at baseline at this time - Avoid narcotics and sedative agents Qualifiers: Altered mental status type: somnolence Qualified Code(s): R40.0 - Somnolence (4) Pulmonary edema Current Visit: Yes Status: Acute Assessment and plan: - Likely secondary to CHF decompensation - Echo on 11/15/16: Normal LV systolic function with LVEF 60-65%, mild left ventricular diastolic dysfunction. normal right ventricular size and function - Continue diuretic therapy, fluid restricted diet, monitor I/Os, daily weights Qualifiers: Chronicity: acute Qualified Code(s): J81.0 - Acute pulmonary edema (5) Atrial fibrillation Current Visit: No Status: Chronic Assessment and plan: - Rate-controlled with Cardizem - Anticoagulated with Coumadin, pharmacy to dose & monitor INR with goal INR 2- 3. Qualifiers: Atrial fibrillation type: chronic Qualified Code(s): I48.2 - Chronic atrial fibrillation - Subjective Interval history: No significant event noted. Patient was seen and examined this morning. Patient reports breathing better compared to yesterday. Patient denies chest pain, nausea, vomiting, diarrhea, dysuria, hematuria. - Constitutional Vitals: Temp Pulse Resp BP Pulse Ox 97.9 F 104 16 133/49 97 11/18/16 09:00 11/18/16 09:00 11/18/16 11:02 11/18/16 09:00 11/18/16 11:02 General appearance: Present: A&O X 3, morbidly obese, no acute distress, answers questions appropriately - Head Head exam: Present: atraumatic, normocephalic - Eye Eye exam: Present: EOMI, PERRL - ENT ENT exam: Present: mucous membranes dry - Neck Neck exam general surgery: Present: supple, trachea midline - Respiratory Respiratory exam: Present: decreased breath sounds. Absent: rales, respiratory distress, rhonchi, wheezes - Cardiovascular Cardiovascular exam: Present: RRR, +S1, +S2 - GI/Abdominal GI/Abdominal exam: Present: normal bowel sounds, soft. Absent: tenderness - Extremities Exam Extremities exam: Present: pedal edema, warm, radial pulses palpable and symetrical. Absent: cyanotic - Neurological Exam Neurological exam: Present: alert, oriented X3, no focal deficits. Absent: facial droop, speech deficit - Skin Skin exam: Present: normal color, warm. Absent: rash Internal Medicine: Result - Labs CBC & Chem 7: 11/18/16 04:48 11/18/16 04:48 Labs: Short CBC 11/18/16 Range/Units 04:48 WBC 5.8 (4.3-11.1) K/mcL Hgb 9.7 L (11.5-15.4) g/dL Hct 32.7 L (35.3-44.9) % Plt Count 145 (140-400) K/mcL Neutrophils # 4.0 (1.6-8.9) K/mcL BMP 11/18/16 04:48 Sodium 141 Potassium 4.0 Chloride 94 L Carbon Dioxide 41 H* BUN 28 H Creatinine 1.34 H Glucose 150 H Calcium 9.1 - ABG Interpretation ABG results: ABG ABG pH 7.38 pH Units (7.32-7.45) 11/18/16 04:40 ABG pCO2 82 mmHg (35-45) H* 11/18/16 04:40 ABG pO2 74 mmHg (85-104) L 11/18/16 04:40 ABG O2 Saturation 94 % (95-98) L 11/18/16 04:40 PT/INR, D-dimer PT 25.9 Seconds (9.4-12.1) H 11/18/16 04:48 - VTE Reasons for not Prescribing Prophylaxis: Not indicated-Anticoagulated or INR therapeutic Consult Discharge Plan - Plan Referrals: Domingo Melton DO [Primary Care Provider] - (DR. MELTON OFFICE WILL NOT MAKE AN APPOINTMENT FOR US, HE WANTS THE PATIENT TO CALL AND MAKE THEIR OWN APPOINTMENT.) <William Lucero - Last Filed: 11/18/16 16:37> - Constitutional Vitals: Temp Pulse Resp BP Pulse Ox 98.7 F 79 16 134/56 97 11/18/16 15:30 11/18/16 15:30 11/18/16 15:30 11/18/16 15:30 11/18/16 11:02 Internal Medicine: Result - Labs CBC & Chem 7: 11/18/16 04:48 11/18/16 04:48 Labs: Short CBC 11/18/16 Range/Units 04:48 WBC 5.8 (4.3-11.1) K/mcL Hgb 9.7 L (11.5-15.4) g/dL Hct 32.7 L (35.3-44.9) % Plt Count 145 (140-400) K/mcL Neutrophils # 4.0 (1.6-8.9) K/mcL BMP 11/18/16 04:48 Sodium 141 Potassium 4.0 Chloride 94 L Carbon Dioxide 41 H* BUN 28 H Creatinine 1.34 H Glucose 150 H Calcium 9.1 - ABG Interpretation ABG results: ABG ABG pH 7.38 pH Units (7.32-7.45) 11/18/16 04:40 ABG pCO2 82 mmHg (35-45) H* 11/18/16 04:40 ABG pO2 74 mmHg (85-104) L 11/18/16 04:40 ABG O2 Saturation 94 % (95-98) L 11/18/16 04:40 PT/INR, D-dimer PT 25.9 Seconds (9.4-12.1) H 11/18/16 04:48 - Attending Attestation I examined this patient and my medical decision-making was reviewed with the MILK SAMPLER/PA/Advanced Practice Nurse/Resident Physician. I agree with the documented findings, disposition and treatment plan as described except to the extent set forth below. Seen independently at bedside, has no new complains 81 Y/O F on admission for acute on chronic hypercapneic and hypoxic respiratory failure secondary to Pulmonart edema, acute on chronic CHFpEF , Afib , UTI, Altered mental status Patient is a chronic retainer with chronic metabolic alkalosis and hypercapnea that seems somewhat improved today Altered mental status has improved Pulmonology and Palliative care input appreciated Physical exam is remarkable for obesity, chest with few expiratory wheezes, trace pedal edema Labs and imaging reviewed Urine culture with strep agalactiae and proteus, pansensitive INR is therapeutic, her numbers are improving in her ABG, Chem and CBC, CR is stable Plan is to continue current care, give po a/b for UTI, ensure BiPAP, continue other medications Check labs am, anticipate d/c if stable Rest of details as in resident's notes
--- NOTE | 2016-11-18 11:32 | Palliative Progress Note ---
Date of Encounter: 11/18/16 Time of Encounter: 10:45 - Assessment and plan (1) Dyspnea Current Visit: Yes Status: Acute Assessment and plan: BiPAP for support as needed-use full face mask if possible due to tissue injury. Qualifiers: Dyspnea type: shortness of breath Qualified Code(s): R06.02 - Shortness of breath (2) Anxiety about health Current Visit: Yes Status: Acute Assessment and plan: Alprazolam BID as needed. (3) Acute and chronic respiratory failure ([id number]) Current Visit: Yes Status: Acute Assessment and plan: Management per hospitalist/pulmonology. Qualifiers: Respiratory failure complication: hypoxia and hypercapnia Qualified Code(s) : J96.21 - Acute and chronic respiratory failure with hypoxia; J96.22 - Acute and chronic respiratory failure with hypercapnia (4) COPD (chronic obstructive pulmonary disease) Current Visit: Yes Status: Chronic Assessment and plan: Management per hospitalist/pulmonary Qualifiers: COPD type: unspecified COPD Qualified Code(s): J44.9 - Chronic obstructive pulmonary disease, unspecified (5) Goals of care, counseling/discussion Current Visit: Yes Status: Acute Assessment and plan: Reviewed goals of care with Ms. Perez. She is eager to return to rehab once stable. She also realizes that her stay in rehab may be limited due to the severity of her lung disease and poor activity tolerance. Reviewed hospice information once again, and Ms. Perez is aware of eligibility. Her daughter is closely connected with a national hospice agency. environmental services director following for discharge needs. - Time Spent With Patient Total time spent is greater than 50% in coordination of care (as documented) at patient's floor/unit and/or counseling patient: - Subjective Interval history: Ms. Perez is lying in bed on nasal cannula and tolerating well. She developed a pressure related deep tissue injury to her nose. Ms. Perez reports a great improvement in her breathing when compared to the weekend. She is able to tolerate nasal cannula at 5 liters. - Constitutional Vitals: Abnormal lab results RBC 3.23 M/mcL (3.82-4.97) L 11/18/16 04:48 Hgb 9.7 g/dL (11.5-15.4) L 11/18/16 04:48 Hct 32.7 % (35.3-44.9) L 11/18/16 04:48 MCV 101.2 fL (83.0-100.0) H 11/18/16 04:48 MCHC 29.7 g/dL (31.6-35.5) L 11/18/16 04:48 Nucleated RBCs/100 WBC 0.3 /100 WBC (0) H 11/14/16 20:35 Hypochromasia Present (Not Present) A 11/14/16 20:35 PT 25.9 Seconds (9.4-12.1) H 11/18/16 04:48 ABG pCO2 82 mmHg (35-45) H* 11/18/16 04:40 ABG pO2 74 mmHg (85-104) L 11/18/16 04:40 ABG HCO3 48.5 mEQ/L (21-27) H 11/18/16 04:40 ABG Total CO2 51.0 mEq/L (20-26) H 11/18/16 04:40 ABG O2 Saturation 94 % (95-98) L 11/18/16 04:40 ABG Base Excess 19.8 mEq/L (-2.0 to 3.0) H 11/18/16 04:40 VBG pH 7.29 pH Units (7.32-7.42) L 11/14/16 20:35 VBG pCO2 97 mmHg (41-51) H 11/14/16 20:35 VBG pO2 47 mmHg (25-40) H 11/14/16 20:35 VBG HCO3 46.6 mEq/L (21-27) H 11/14/16 20:35 Chloride 94 mEq/L (98-109) L 11/18/16 04:48 Carbon Dioxide 41 mEq/L (19-29) H* 11/18/16 04:48 BUN 28 mg/dL (7-20) H 11/18/16 04:48 Creatinine 1.34 mg/dL (0.57-1.11) H 11/18/16 04:48 Est GFR ( Amer) 46 (> 60) L 11/18/16 04:48 Est GFR (Non-Af Amer) 38 (> 60) L 11/18/16 04:48 Glucose 150 mg/dL (70-99) H 11/18/16 04:48 POC Glucose 180 (58-89) H 11/17/16 19:19 B-Natriuretic Peptide 195 pg/mL (0-100) H 11/14/16 20:35 Albumin 3.1 g/dL (3.5-5.0) L 11/14/16 20:35 Globulin 3.6 g/dL (2.4-3.5) H 11/14/16 20:35 Albumin/Globulin Ratio 0.9 (1.1-2.2) L 11/14/16 20:35 Urine Clarity Cloudy (Clear) A 11/14/16 21:10 Urine Blood Large (Negative) H 11/14/16 21:10 Urine Microscopic RBC 50-100 per hpf (0-3) H 11/14/16 21:10 Urine Microscopic WBC 5-15 per hpf (0-3) H 11/14/16 21:10 Ur Squamous Epith Cells Many per lpf (None-Few) H 11/14/16 21:10 Amorphous Sediment Moderate (Few) H 11/14/16 21:10 Urine Bacteria Moderate per hpf (None-Few) H 11/14/16 21:10 Hyaline Casts Moderate per lpf (None-Few) H 11/14/16 21:10 Granular Casts Few per lpf (None Seen) H 11/14/16 21:10 Waxy Casts Few per lpf (None Seen) H 11/14/16 21:10 Ur Culture Indicated? YES (NO) A 11/14/16 21:10 General appearance: Present: cooperative, no acute distress - Eye Eye exam: Present: EOMI, PERRL - ENT ENT exam: Present: mucous membranes moist - Respiratory Respiratory exam: Present: decreased breath sounds. Absent: accessory muscle use, respiratory distress - Cardiovascular Cardiovascular exam: Present: RRR - GI/Abdominal GI/Abdominal exam: Present: normal bowel sounds, soft. Absent: tenderness - Extremities Exam Extremities exam: Absent: normal inspection - Neurological Exam Neurological exam: Present: alert, oriented X3, no focal deficits, strengths equal and symetr throughout - Psychiatric Psychiatric exam: Present: normal affect, normal mood. Absent: agitated, anxious - Skin Additional comments: dressing intact to right nasolabial fold from deep tissue injury. Palliative Quality Palliative Quality: Screen for Code Status: Yes, Screen for Goals of Care: Yes, Screen for Pain: Yes, If Pain Regimen Started, Initiate Bowel Regimen: NA, Screen for Nausea/Vomitting: Yes Code Status: 11/15/16 01:46 CODE [Resuscitation Status: Active] [RES] Routine Comment: Resuscitation Status: [id number] - Labs CBC & Chem 7: 11/18/16 04:48 11/18/16 04:48 Labs: Laboratory Results - last 24 hr 11/17/16 11/17/16 11/17/16 08:01 11:10 11:50 WBC RBC Hgb Hct MCV MCH MCHC RDW Plt Count MPV Immature Gran % Seg Neutrophils % Lymphocytes % Monocytes % Eosinophils % Basophils % Neutrophils # Lymphocytes # Monocytes # Eosinophils # Basophils # PT INR ABG pH 7.38 ABG pCO2 90 H* ABG pO2 98 ABG HCO3 53.2 H ABG Total CO2 56.0 H ABG O2 Saturation 98 ABG Base Excess 23.9 H Blood Gas Modality NC Inspired O2 44 Sodium Potassium Chloride Carbon Dioxide BUN Creatinine Est GFR ( Amer) Est GFR (Non-Af Amer) BUN/Creatinine Ratio Glucose POC Glucose 115 H 199 H Calculated Osmolality Calcium Phosphorus Magnesium 11/17/16 11/17/16 11/18/16 16:13 19:19 04:40 WBC RBC Hgb Hct MCV MCH MCHC RDW Plt Count MPV Immature Gran % Seg Neutrophils % Lymphocytes % Monocytes % Eosinophils % Basophils % Neutrophils # Lymphocytes # Monocytes # Eosinophils # Basophils # PT INR ABG pH 7.38 ABG pCO2 82 H* ABG pO2 74 L ABG HCO3 48.5 H ABG Total CO2 51.0 H ABG O2 Saturation 94 L ABG Base Excess 19.8 H Blood Gas Modality Inspired O2 35 Sodium Potassium Chloride Carbon Dioxide BUN Creatinine Est GFR ( Amer) Est GFR (Non-Af Amer) BUN/Creatinine Ratio Glucose POC Glucose 115 H 180 H Calculated Osmolality Calcium Phosphorus Magnesium 11/18/16 11/18/16 11/18/16 04:48 04:48 04:48 WBC 5.8 RBC 3.23 L Hgb 9.7 L Hct 32.7 L MCV 101.2 H MCH 30.0 MCHC 29.7 L RDW 14.0 Plt Count 145 MPV 10.3 Immature Gran % 0.5 Seg Neutrophils % 69.4 Lymphocytes % 15.1 Monocytes % 13.9 Eosinophils % 0.9 Basophils % 0.2 Neutrophils # 4.0 Lymphocytes # 0.9 Monocytes # 0.8 Eosinophils # 0.1 Basophils # 0.0 PT 25.9 H INR 2.3 ABG pH ABG pCO2 ABG pO2 ABG HCO3 ABG Total CO2 ABG O2 Saturation ABG Base Excess Blood Gas Modality Inspired O2 Sodium 141 Potassium 4.0 Chloride 94 L Carbon Dioxide 41 H* BUN 28 H Creatinine 1.34 H Est GFR ( Amer) 46 L Est GFR (Non-Af Amer) 38 L BUN/Creatinine Ratio 21 Glucose 150 H POC Glucose Calculated Osmolality 300 Calcium 9.1 Phosphorus 4.7 Magnesium 1.9 - ABG Interpretation ABG results: ABG ABG pH 7.38 pH Units (7.32-7.45) 11/18/16 04:40 ABG pCO2 82 mmHg (35-45) H* 11/18/16 04:40 ABG pO2 74 mmHg (85-104) L 11/18/16 04:40 ABG O2 Saturation 94 % (95-98) L 11/18/16 04:40 PT/INR, D-dimer PT 25.9 Seconds (9.4-12.1) H 11/18/16 04:48 Consult Discharge Plan - Plan Referrals: Domingo Taylor DO [Primary Care Provider] - (DR. TAYLOR OFFICE WILL NOT MAKE AN APPOINTMENT FOR US, HE WANTS THE PATIENT TO CALL AND MAKE THEIR OWN APPOINTMENT.)
[2016-11-18] MEDS ORDERED: *HR* Warfarin 3 MG TABLET PO ONE (18:00)
[2016-11-18] MEDS: Amoxicillin/Clavulanate 500 MG TABLET PO SCH (18:05)
[2016-11-18] MEDS: Furosemide 40 MG TABLET PO SCH (21:11)
[2016-11-19 05:24] LABS: Prothrombin Time 21.9 Seconds (9.4-12.1)
[2016-11-19 05:29] LABS: Eosinophils # 0.1 K/mcL (0.0-0.6); Eosinophils % 1.5 %; Hematocrit 30.7 % (35.3-44.9); Hemoglobin 9.4 g/dL (11.5-15.4); Immature Granulocytes % 0.5 % (0-4); Lymphocytes # 1.3 K/mcL (0.6-4.6); Lymphocytes % 20.7 %; Mean Corpuscular HGB Conc 30.6 g/dL (31.6-35.5); Mean Corpuscular Hemoglobin 30.5 pg (28.0-33.3); Mean Corpuscular Volume 99.7 fL (83.0-100.0); Mean Platelet Volume 10.1 fL (9.4-12.4); Monocytes # 0.8 K/mcL (0.0-1.3); Monocytes % 13.5 %; Neutrophils # 3.9 K/mcL (1.6-8.9); Platelet Count 150 K/mcL (140-400); Red Blood Count 3.08 M/mcL (3.82-4.97); Red Cell Distribution Width 13.9 % (11.5-14.5); Segmented Neutrophils % 63.8 %
[2016-11-19 05:39] LABS: Calcium 8.5 mg/dL (8.6-10.8); Potassium 3.6 mEq/L (3.5-4.5)
[2016-11-19 08:05] VITALS: BP 134/56
[2016-11-19] MEDS: hydrALAZINE 10 MG TABLET PO SCH (08:08)
[2016-11-19] MEDS: Insulin LISPRO 300 UNITS/3 ML VIAL SQ SCH (08:08)
[2016-11-19] MEDS: Sennosides/Docusate Sodium TABLET PO SCH (08:08)
[2016-11-19] MEDS: Amoxicillin/Clavulanate 500 MG TABLET PO SCH (08:08)
[2016-11-19] MEDS: Furosemide 40 MG TABLET PO SCH (08:08)
[2016-11-19] MEDS: Diltiazem CD (24hr) 180 MG CAPSULE PO SCH (08:08)
--- NOTE | 2016-11-19 09:54 | Discharge Summary ---
<Anuradha Long - Last Filed: 11/19/16 11:02> Date of Encounter: 11/19/16 Time of Encounter: 08:00 - Discharge Diagnosis (1) Acute and chronic respiratory failure ([id number]) Priority: Primary Status: Acute Qualifiers: Respiratory failure complication: hypoxia and hypercapnia Qualified Code(s) : J96.21 - Acute and chronic respiratory failure with hypoxia; J96.22 - Acute and chronic respiratory failure with hypercapnia (2) UTI (urinary tract infection) Priority: Secondary Status: Acute Qualifiers: Urinary tract infection type: site unspecified Hematuria presence: with hematuria Qualified Code(s): N39.0 - Urinary tract infection, site not specified; R31.9 - Hematuria, unspecified (3) Altered mental status Priority: Secondary Status: Acute Qualifiers: Altered mental status type: somnolence Qualified Code(s): R40.0 - Somnolence (4) Pulmonary edema Priority: Secondary Status: Acute Qualifiers: Chronicity: acute Qualified Code(s): J81.0 - Acute pulmonary edema (5) Atrial fibrillation Priority: Secondary Status: Chronic Qualifiers: Atrial fibrillation type: chronic Qualified Code(s): I48.2 - Chronic atrial fibrillation - Discharge Medications Prescriptions: Amoxicillin/Clavulanate [Augmentin] 500 mg PO BIDWM #4 tablet Home Medications: Budesonide/Formoterol 160/4.5 [Symbicort 160/4.5] 2 puff IH BID 08/04/15 [ History] Albuterol Neb [Proventil Neb] 2.5 mg IH TID PRN 11/02/16 [History] Diltiazem HCl [Diltiazem 24Hr Cd] 360 mg PO DAILY 11/02/16 [History] Warfarin Sodium 4.5 mg PO WE@1800 11/02/16 [History] Furosemide [Lasix] 40 mg PO BID 30 Days 11/11/16 [Rx] HydrALAZINE 10 mg PO TID 30 Days 11/11/16 [Rx] Sennosides/Docusate Sodium [Senna Plus] 2 each PO BID 30 Days 11/11/16 [Rx] Glucagon,Human Recombinant [Glucagen] 1 mg IM ONCE PRN 11/14/16 [History] GlyBURIDE 5 mg PO 0800 11/14/16 [History] Metformin [Glucophage] 500 mg PO 0800 11/14/16 [History] Potassium Chloride [K-Tab ER] 20 meq PO DAILY 11/14/16 [History] Simvastatin [Zocor] 40 mg PO HS 11/14/16 [History] Warfarin [Coumadin] 3 mg PO [place]@1800 11/18/16 [History] Amoxicillin/Clavulanate [Augmentin] 500 mg PO BIDWM #4 tablet 11/19/16 [Rx] Allergies/Adverse Reactions: Allergies iodine Allergy (Verified 11/02/16 13:52) Rash clemastine Adverse Reaction (Verified 11/14/16 22:01) Unknown ECF list Date of admission: 11/15/16 01:41 Primary care physician: Domingo Melton Consults: 11/15/16 01:57 Consult to Civil Engineering Designer [CONS] Routine Reason for SW Consult: From ECF 11/15/16 06:31 Consult to Pulmonology [CONS] Routine Consulting Provider: Pulm Crit Care & Sleep Horatio Reason for Consult: Acute on chronic respiratory failure Call Completed: No 11/16/16 12:24 Consult to Palliative Care [CONS] Stat Comment: Consulting Provider: Palliative Care Keren Discharging clinician: Anuradha Long Anticipated date of discharge: 11/19/16 - Patient Status Disposition: Transfer SNF Condition: Fair Functional capacity at discharge: uses cane/walker Overall status at discharge: patient is progressing back to baseline - Discharge Instructions Instructions: Heart Failure (DC), Acute Respiratory Distress Syndrome (DC), Chronic Obstructive Pulmonary Disease (DC) Follow Up With: Domingo Melton, [Primary Care Provider] - (DR. MELTON OFFICE WILL NOT MAKE AN APPOINTMENT FOR US, HE WANTS THE PATIENT TO CALL AND MAKE THEIR OWN APPOINTMENT.) Additional Instructions: Please use BiPAP at sleep, even for nap at day time. Please finish your 3-day course of Augmentin 500 mg by mouth twice a day (4 more pills to go) for your urinary tract infection. Please avoid narcotic and benzodiazepam if possible since those can contribute to your altered mental status. Your oxygen saturation goal is around 92%. Please have your SNF staff adjust your supplemental oxygen to meet that level. Too high oxygen saturation in your case can depress your respiratory drive. Please call your primary care physician for follow up after discharge, preferably within a week. - Diet and Activity Activity: as per physical therapy, other (Use BiPAP at sleep, even for nap during day time.) Diet: low salt diet Hospital course: Ms. Perez is a 81 year old obese female with PMH of a-fib on warfarin, HFpEF, COPD and chronic respiratory failure with CO2 retention & metabolic alkalosis, diabetes, hyperlipidemia, hypertension. Patient was found at rehab unresponsive with oxygen saturation at 50s. Patient used to be on BiPAP at home but apparently not on it at rehab. Patient was admitted for acute on chronic respiratory failure and altered mental status. Pulmonology and palliative care were also consulted to assist in patient care. 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 Patient's respiratory status improved with restart of BiPAP along with diuresis, Symbicort and bronchodilator. 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 Patient is also noted to have UTI with urine culture growing Proteus mirabilis & Strep. agalactiae and is currently under treatment of 3-day course Augmentin. Given patient remains hemodynamically stable and improves clinically with oxygen saturation 97% on 4.5 L high flow NC, will discharge patient back to [facility] rehab with BiPAP and discontinuation of Xanax and Flexeril. Patient and family were instructed the importance of BiPAP use at sleep, even during the nap at daytime and they verbalized their understanding. Patient's oxygen saturation goal is around 92% and oxygen saturation higher than this can potentially depress patient's respiratory drive. Patient will need to follow up with her PCP or physician at rehab, preferably within a week. - Time Spent with Patient Total time spent providing and/or coordinating discharge services: Greater than 30 minutes - Constitutional Vitals: Temp Pulse Resp BP Pulse Ox 97.9 F 80 18 134/56 95 11/19/16 07:52 11/19/16 08:18 11/19/16 07:52 11/19/16 07:52 11/19/16 07:52 General appearance: Present: A&O X 3, morbidly obese, no acute distress, answers questions appropriately - Head Head exam: Present: atraumatic, normocephalic - Eye Eye exam: Present: PERRL, conjuntiva pink, sclera anicteric - Neck Neck exam general surgery: Present: supple, trachea midline. Absent: lymphadenopathy - Respiratory Respiratory exam: Present: decreased breath sounds. Absent: accessory muscle use, rales, rhonchi, wheezes - Cardiovascular Cardiovascular exam: Present: RRR, +S1, +S2. Absent: diastolic murmur, gallop, rubs, systolic murmur - GI/Abdominal GI/Abdominal exam: Present: normal bowel sounds, soft, no peritoneal signs. Absent: distended, tenderness - Extremities Exam Extremities exam: Present: pedal edema (Mild), warm, radial pulses palpable and symetrical. Absent: calf tenderness, cyanotic - Neurological Exam Neurological exam: Present: CN II-XII intact, oriented X3, no focal deficits. Absent: pronater drift, facial droop, speech deficit - Skin Skin exam: Present: dry, intact. Absent: rash - VTE Reasons for not Prescribing Prophylaxis: Not indicated-Anticoagulated or INR therapeutic <William Lucero - Last Filed: 11/19/16 14:22> Date of admission: 11/15/16 01:41 Primary care physician: Domingo Liang Colopy Consults: 11/15/16 01:57 Consult to Civil Engineering Designer [CONS] Routine Reason for SW Consult: From ECF 11/15/16 06:31 Consult to Pulmonology [CONS] Routine Consulting Provider: Pulm Crit Care & Sleep Horatio Reason for Consult: Acute on chronic respiratory failure Call Completed: No 11/16/16 12:24 Consult to Palliative Care [CONS] Stat Comment: Consulting Provider: Palliative Care [facility] course: Ms. Perez is a 81 year old female - Time Spent with Patient Total time spent providing and/or coordinating discharge services: Greater than 30 minutes - Constitutional Vitals: Temp Pulse Resp BP Pulse Ox 97.9 F 80 24 134/56 94 L 11/19/16 07:52 11/19/16 08:18 11/19/16 11:05 11/19/16 11:05 11/19/16 11:05 - Attending Attestation I examined this patient and my medical decision-making was reviewed with the RECEPTION INTERVIEWER/PA/Advanced Practice Nurse/Resident Physician. I agree with the documented findings, disposition and treatment plan as described except to the extent set forth below. 81 Y/O F on admission for acute on chronic hypercapneic and hypoxic respiratory failure secondary to Pulmonart edema, acute on chronic CHFpEF , Afib , UTI, Altered mental status Patient is a chronic retainer with chronic metabolic alkalosis and hypercapnea that seems somewhat improved today Seen independently at bedside, has no new complains, clinically improved, stable for discharge Altered mental status has improved Pulmonology and Palliative care input appreciated Physical exam is remarkable for obesity, chest with few expiratory wheezes, trace pedal edema Labs and imaging reviewed-improved metabolic alkalosis Urine culture with strep agalactiae and proteus, pansensitive INR is therapeutic, her numbers are improving in her ABG, Chem and CBC, CR is stable Plan is to discharge to SNF with BiPAP, po Augmentin O2 Sat goal for her 89-92% Rest of details as in resident's documentation
--- NOTE | 2016-11-19 10:03 | Physician Discharge Referral ---
ExtendedCare Referral Info Transfer To: [facility] rehab Provider in Charge after Transfer: PCP Institutional Level of Care: Intermediate - MR - Diagnosis (1) Acute and chronic respiratory failure ([id number]) Priority: Primary Status: Acute (2) UTI (urinary tract infection) Priority: Secondary Status: Acute (3) Altered mental status Priority: Secondary Status: Acute (4) Pulmonary edema Priority: Secondary Status: Acute (5) Atrial fibrillation Priority: Secondary Status: Chronic - Transfer Medications Prescriptions: Amoxicillin/Clavulanate [Augmentin] 500 mg PO BIDWM #4 tablet Home Medications: Budesonide/Formoterol 160/4.5 [Symbicort 160/4.5] 2 puff IH BID 08/04/15 [ History] Albuterol Neb [Proventil Neb] 2.5 mg IH TID PRN 11/02/16 [History] Diltiazem HCl [Diltiazem 24Hr Cd] 360 mg PO DAILY 11/02/16 [History] Warfarin Sodium 4.5 mg PO WE@1800 11/02/16 [History] Furosemide [Lasix] 40 mg PO BID 30 Days 11/11/16 [Rx] HydrALAZINE 10 mg PO TID 30 Days 11/11/16 [Rx] Sennosides/Docusate Sodium [Senna Plus] 2 each PO BID 30 Days 11/11/16 [Rx] Glucagon,Human Recombinant [Glucagen] 1 mg IM ONCE PRN 11/14/16 [History] GlyBURIDE 5 mg PO 0800 11/14/16 [History] Metformin [Glucophage] 500 mg PO 0800 11/14/16 [History] Potassium Chloride [K-Tab ER] 20 meq PO DAILY 11/14/16 [History] Simvastatin [Zocor] 40 mg PO HS 11/14/16 [History] Warfarin [Coumadin] 3 mg PO SUMOTUTHFRSA@1800 11/18/16 [History] Amoxicillin/Clavulanate [Augmentin] 500 mg PO BIDWM #4 tablet 11/19/16 [Rx] Allergies/Adverse Reactions: Allergies iodine Allergy (Verified 11/02/16 13:52) Rash clemastine Adverse Reaction (Verified 11/14/16 22:01) Unknown ECF list - Respiratory Orders Other (Use BiPAP at sleep, even for nap during day time.) Smoking Cessation: Smoking cessation has been advised. For more information, call the [place] Tobacco Quit Line at 8-919-HISN-NOW. - Advance Directives Code Status: DNR-Arrest - Mobility Orders Ambulate (With walker or per physical therapy recommendations.) - Rehabiliation Orders Rehab Potential: Fair Rehab Orders: Evaluation for Physical Therapy, Evaluation for Occupational Therapy - Diet Orders No Added Salt (ALKIA) CERTIFICATION: I certify that the transfer of the above named patient to an Extended Care Facility is necessary for the continuing treatment of the diagnosis listed. The above information is true and accurate reflection of patient's current condition. Confidential - Redisclosure prohibited without a patient's written consent.
[2016-11-19] MEDS: Budesonide/Formoterol 160/4.5 MDI IH SCH (11:05)
[2016-11-19] MEDS ORDERED: *HR* Warfarin 3 MG TABLET PO ONE (18:00)
== END 2016-11-19 13:05 | DRG 291 ==
LOC: 2NNU 19:24 → EMEROO 19:24 → 2NNU 23:46 → SUATTDRO 11-15 01:41
PROVIDERS: ADMIT Hospitalist; ATTEND Internal Medicine

== ENCOUNTER 2017-12-19 09:03 | Inpatient (IN) ==
[2017-12-19] MEDS ORDERED: Albuterol 2.5 MG/3 ML NEBULIZER IH ONE (09:15)
[2017-12-19] MEDS ORDERED: Ipratropium/Albuterol Neb 3 ML IH ONE (09:15)
[2017-12-19] MEDS ORDERED: methylPREDNISolone 125 MG/2 ML VIAL IVP ONE (09:17)
[2017-12-19 09:51] LABS: Basophils % 0.2 %; Hemoglobin 11.8 g/dL (11.5-15.4); Immature Granulocytes % 1.2 % (0-4); Lymphocytes # 1.6 K/mcL (0.6-4.6); Lymphocytes % 14.9 %; Mean Corpuscular HGB Conc 31.1 g/dL (31.6-35.5); Mean Corpuscular Hemoglobin 29.6 pg (28.0-33.3); Mean Corpuscular Volume 95.2 fL (83.0-100.0); Mean Platelet Volume 9.4 fL (9.4-12.4); Monocytes # 0.8 K/mcL (0.0-1.3); Monocytes % 7.7 %; Neutrophils # 8.1 K/mcL (1.6-8.9); Nucleated Red Blood Cells 0.2 /100 WBC (0); Platelet Count 254 K/mcL (140-400); Red Blood Count 3.99 M/mcL (3.82-4.97); Red Cell Distribution Width 13.3 % (11.5-14.5)
--- NOTE | 2017-12-19 10:05 | Emergency Department Note ---
Disposition Clinical Impression: Hypoxia, COPD exacerbation, History of lung cancer, Hypercapnia Acute respiratory failure Qualifiers: Respiratory failure complication: hypoxia and hypercapnia Qualified Code(s): J96.01 - Acute respiratory failure with hypoxia Disposition: Admitted As Inpatient Condition: Serious Referrals: Domingo Melton DO [Primary Care Provider] - Forms: ED Satisfaction Letter Time of Disposition: 13:56 SOB HPI - General Chief Complaint: ED Shortness of Breath/Dyspnea Stated Complaint: ОЛЕГ Time Seen by Provider: 12/19/17 09:15 Source: patient, EMS Limitations: no limitations Nursing Notes Reviewed: Yes Vital Signs Reviewed: Yes - History of Present Illness 82-year-old female complains of severe shortness of breath. Has been worsening over the past week. She was placed on antibiotics for upper and lower respiratory infection week ago but her symptoms continued to get progressively worse. Patient has a history of COPD, CHF and A. fib. and she is on Coumadin. Patient states she is on oxygen at home and has a BiPAP but was unable to use a last night and because of discomfort and coughing. Patient complains of severe chest wall pain intercostally as well as abdominal wall pain from all the coughing. Difficulty taking deep inspirations because of pain around her lower rib areas bilaterally. EMS states they found patient in tripod position and they placed her on O2 and transported. - Related Data Home Medications Medication Instructions Recorded Confirmed Budesonide/Formoterol 160/4.5 2 puff IH BID 08/04/15 12/19/17 [Symbicort 160/4.5] Albuterol Neb [Proventil Neb] 2.5 mg IH TID PRN 11/02/16 12/19/17 Diltiazem HCl [Diltiazem 24Hr Cd] 360 mg PO DAILY 11/02/16 12/19/17 Potassium Chloride [K-Tab ER] 20 meq PO DAILY 11/14/16 12/19/17 Simvastatin [Zocor] 40 mg PO HS 11/14/16 12/19/17 glyBURIDE [GlyBURIDE] 5 mg PO 0800 11/14/16 12/19/17 metFORMIN [Glucophage] 500 mg PO 0800 11/14/16 12/19/17 Warfarin [Coumadin] 3 mg PO SUMOWE 11/18/16 12/19/17 Acetylcysteine 600 mg PO BID 12/19/17 12/19/17 [P-Hrmhqe-t-Cysteine] Furosemide [Lasix] 80 mg PO BID 12/19/17 12/19/17 HYDROcodone/Acet 5/325 mg [[place] 1 tab PO TID 12/19/17 12/19/17 5-325 mg] Tiotropium [Spiriva] 18 mcg IH DAILY 12/19/17 12/19/17 Warfarin Sodium 1.5 mg PO TU 12/19/17 12/19/17 Allergies Allergy/AdvReac Type Severity Reaction Status Date / Time iodine Allergy Rash Verified 12/19/17 09:46 clemastine AdvReac Unknown Verified 12/19/17 09:46 All systems ED: reviewed and negative except as stated. Review of Systems: As Per HPI Constitutional: Reports: fever ENT ED: Reports: congestion Cardiovascular: Reports: chest pain Respiratory: Reports: cough, dyspnea, wheezes Past Medical History - Past Medical History Attestation: Yes The following information was validated with the patient. 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 - Social History Smoking Status: Former smoker Smokeless Tobacco Status: No Alcohol use: Reports: none Drug use: Reports: none Physical Exam Vital Signs Temperature 98.9 F 12/19/17 09:16 Pulse Rate 108 12/19/17 09:16 Respiratory Rate 20 12/19/17 09:16 Blood Pressure 155/71 12/19/17 09:16 O2 Sat by Pulse Oximetry 84 12/19/17 09:16 Temperature 98.9 F 12/19/17 09:16 Pulse Rate 108 12/19/17 09:16 Respiratory Rate 20 12/19/17 09:16 Blood Pressure 155/71 12/19/17 09:16 O2 Sat by Pulse Oximetry 93 12/19/17 09:25 Oxygen Delivery Oxygen Delivery Room Air CONSTITUTIONAL: Ill-appearing elderly patient does not appear toxic, alert and oriented 3, in acute distress severe conversational dyspnea. Patient sitting up in the bed. Patient is tachycardic at 108 bpm, slightly hypertensive at 155/ 71. O2 sat on room air is 84%. O2 sat placed on supplemental oxygen is 93% at 4 L. HEAD: Normocephalic; atraumatic EYES: PERRL, no scleral icterus NOSE: The nose is normal in appearance without rhinorrhea NECK: No JVD or distended neck veins RESP: Lung sounds bilaterally Wheezing, rhonchi and bibasilar rales CARD: Regular rhythm, without murmurs, rub or gallop ABD: Non-distended; non-tender, soft, without rigidity, rebound or guarding,no pulsatile mass CHEST: No pain with palpation SKIN: Normal for age and race; warm and dry without diaphoresis ; no apparent lesions EXTREMITIES: Pulses are 2 plus and equal times 4 extremities, no peripheral edema or calf muscle pain - General Limitations: no limitations General appearance: alert, in no apparent distress Course - Reevaluation(s) Reevaluation #1: Patient is on BiPAP currently breathing easily. Time: 10:16 Reevaluation #2: Patient's currently breathing comfortably Time: 11:16 Reevaluation #3: Patient continues to do well off BiPAP. The requires increase oxygen of 4 L to maintain appropriate O2 saturations. Time: 13:32 Vital Signs Temperature 98.9 F 12/19/17 09:16 Pulse Rate 108 12/19/17 09:16 Respiratory Rate 20 12/19/17 09:16 Blood Pressure 155/71 12/19/17 09:16 O2 Sat by Pulse Oximetry 84 12/19/17 09:16 Temperature 98.9 F 12/19/17 09:16 Pulse Rate 108 12/19/17 09:16 Respiratory Rate 20 12/19/17 09:16 Blood Pressure 155/71 12/19/17 09:16 O2 Sat by Pulse Oximetry 93 12/19/17 09:25 Oxygen Delivery Oxygen Delivery Room Air Shortness of Breath/Dyspnea - MDM Narrative Medical decision making narrative: COPD exacerbation: Possible instigator's: Pneumonia, CHF exacerbation. Patient has a likely source of infection causing her symptoms which makes my assumption for pulmonary embolism less likely, but the patient does not report to treatment appropriate since we taken to identify further causes. Patient is currently on Coumadin and will check her INR to make sure it is appropriate for anticoagulation. Patient's chest x-ray was negative for pneumonia per radiology read. Patient's labs were not clinically significant for any abnormalities. Patient's troponin was negative. Patient's PT/INR is 3.2. Patient is properly anticoagulated. After about 3 hours patient was taken off BiPAP and has been doing well. However, patient does require increase of supplemental oxygen to maintain her O2 saturations above 90%. Patient is currently on 2 L at home. Due to patient' s hypoxia, respiratory distress/failure patient will be admitted to the hospital for further evaluation and treatment. Patient was started on antibiotics 500 mg IV azithromycin and 1 g IV ceftriaxone. Flu test has been ordered. Patient understands and agrees to treatment plan for admission Patient was accepted for admission by Dr. Betts the hospitalist in stable condition. - Lab Data Lab results reviewed: Yes I reviewed the patient's lab results. Lab results narrative: Short CBC 12/19/17 Range/Units 09:39 WBC 10.7 (4.3-11.1) K/mcL Hgb 11.8 (11.5-15.4) g/dL Hct 38.0 (35.3-44.9) % Plt Count 254 (140-400) K/mcL Neutrophils # 8.1 (1.6-8.9) K/mcL BMP 12/19/17 Range/Units 09:39 Sodium 137 (136-145) mEq/L Potassium 3.8 (3.5-5.1) mEq/L Chloride 92 L (98-107) mEq/L Carbon Dioxide 38 H (23-29) mEq/L BUN 25 H (8-23) mg/dL Creatinine 1.10 (0.60-1.20) mg/dL Glucose 214 H (70-105) mg/dL Calcium 9.2 (8.6-10.3) mg/dL Cardiac Enzymes 12/19/17 Range/Units 09:39 Troponin I < 0.03 (< 0.04) ng/mL Result diagrams: 12/19/17 09:39 12/19/17 09:39 Lab Results 12/19/17 12/19/17 12/19/17 Range/Units 09:39 09:39 09:39 WBC 10.7 (4.3-11.1) K/mcL RBC 3.99 (3.82-4.97) M/mcL Hgb 11.8 (11.5-15.4) g/dL Hct 38.0 (35.3-44.9) % MCV 95.2 (83.0-100.0) fL MCH 29.6 (28.0-33.3) pg MCHC 31.1 L (31.6-35.5) g/dL RDW 13.3 (11.5-14.5) % Plt Count 254 (140-400) K/mcL MPV 9.4 (9.4-12.4) fL Immature Gran % 1.2 (0-4) % Seg Neutrophils % 76.0 % Lymphocytes % 14.9 % Monocytes % 7.7 % Eosinophils % 0.0 % Basophils % 0.2 % Neutrophils # 8.1 (1.6-8.9) K/mcL Lymphocytes # 1.6 (0.6-4.6) K/mcL Monocytes # 0.8 (0.0-1.3) K/mcL Eosinophils # 0.0 (0.0-0.6) K/mcL Basophils # 0.0 (0.0-0.2) K/mcL Nucleated RBCs/100 WBC 0.2 H (0) /100 WBC PT (9.4-12.1) Seconds INR VBG pH (7.32-7.42) pH Units VBG pCO2 (41-51) mmHg VBG pO2 (25-50) mmHg VBG HCO3 (21-27) mEq/L Sodium 137 (136-145) mEq/L Potassium 3.8 (3.5-5.1) mEq/L Chloride 92 L (98-107) mEq/L Carbon Dioxide 38 H (23-29) mEq/L BUN 25 H (8-23) mg/dL Creatinine 1.10 (0.60-1.20) mg/dL Est GFR ( Amer) 58 L (> 60) Est GFR (Non-Af Amer) 48 L (> 60) BUN/Creatinine Ratio 23 (6-26) Glucose 214 H (70-105) mg/dL Calculated Osmolality 295 (280-300) Calcium 9.2 (8.6-10.3) mg/dL Troponin I (< 0.04) ng/mL B-Natriuretic Peptide 52 (Less than 100) pg/mL 12/19/17 12/19/17 12/19/17 Range/Units 09:39 09:39 11:50 WBC (4.3-11.1) K/mcL RBC (3.82-4.97) M/mcL Hgb (11.5-15.4) g/dL Hct (35.3-44.9) % MCV (83.0-100.0) fL MCH (28.0-33.3) pg MCHC (31.6-35.5) g/dL RDW (11.5-14.5) % Plt Count (140-400) K/mcL MPV (9.4-12.4) fL Immature Gran % (0-4) % Seg Neutrophils % % Lymphocytes % % Monocytes % % Eosinophils % % Basophils % % Neutrophils # (1.6-8.9) K/mcL Lymphocytes # (0.6-4.6) K/mcL Monocytes # (0.0-1.3) K/mcL Eosinophils # (0.0-0.6) K/mcL Basophils # (0.0-0.2) K/mcL Nucleated RBCs/100 WBC (0) /100 WBC PT 35.1 H (9.4-12.1) Seconds INR 3.2 VBG pH 7.42 (7.32-7.42) pH Units VBG pCO2 57 H (41-51) mmHg VBG pO2 193 H (25-50) mmHg VBG HCO3 37 H (21-27) mEq/L Sodium (136-145) mEq/L Potassium (3.5-5.1) mEq/L Chloride (98-107) mEq/L Carbon Dioxide (23-29) mEq/L BUN (8-23) mg/dL Creatinine (0.60-1.20) mg/dL Est GFR ( Amer) (> 60) Est GFR (Non-Af Amer) (> 60) BUN/Creatinine Ratio (6-26) Glucose (70-105) mg/dL Calculated Osmolality (280-300) Calcium (8.6-10.3) mg/dL Troponin I < 0.03 (< 0.04) ng/mL B-Natriuretic Peptide (Less than 100) pg/mL - Radiology Data Radiology results reviewed: Yes I reviewed the patient's radiology results. Chest X-Ray 12/19/17 09:17 IMPRESSION: No acute process. D/ / Jorge De León MD / Jorge De León MD Interpreting Provider: Jorge De León MD - EKG Data EKG attestation: Yes I reviewed and interpreted this EKG. EKG results narrative: EKG taken 12/19/2017 shows a sinus tachycardia at a rate of 102 beats minute with no acute ST elevations in leads, and no ST depressions in leads. No signs of Brugada, Wellens, WPW. Previous EKG for comparison taken 08/04/2015 shows no change from today's EKG along patient's waveform morphology.
[2017-12-19 10:17] LABS: Calcium 9.2 mg/dL (8.6-10.3); Potassium 3.8 mEq/L (3.5-5.1)
[2017-12-19 10:33] LABS: INR 3.2; Prothrombin Time 35.1 Seconds (9.4-12.1)
--- NOTE | 2017-12-19 11:13 | Emergency Department Note ---
Disposition Clinical Impression: Hypoxia, COPD exacerbation, History of lung cancer, Hypercapnia Acute respiratory failure Qualifiers: Respiratory failure complication: hypoxia and hypercapnia Qualified Code(s): J96.01 - Acute respiratory failure with hypoxia Disposition: Admitted As Inpatient Condition: Serious General Adult HPI - General Chief complaint: ED Shortness of Breath/Dyspnea Stated complaint: ОЛЕГ Time Seen by Provider: 12/19/17 09:15 Source: patient, EMS Limitations: no limitations - History of Present Illness Pain Scale: 5 - Related Data Home Medications Medication Instructions Recorded Confirmed Budesonide/Formoterol 160/4.5 2 puff IH BID 08/04/15 12/19/17 [Symbicort 160/4.5] Albuterol Neb [Proventil Neb] 2.5 mg IH TID PRN 11/02/16 12/19/17 Diltiazem HCl [Diltiazem 24Hr Cd] 360 mg PO DAILY 11/02/16 12/19/17 Potassium Chloride [K-Tab ER] 20 meq PO DAILY 11/14/16 12/19/17 Simvastatin [Zocor] 40 mg PO HS 11/14/16 12/19/17 glyBURIDE [GlyBURIDE] 5 mg PO 0800 11/14/16 12/19/17 metFORMIN [Glucophage] 500 mg PO 0800 11/14/16 12/19/17 Warfarin [Coumadin] 3 mg PO SUMOWE 11/18/16 12/19/17 Acetylcysteine 600 mg PO BID 12/19/17 12/19/17 [K-Conmvp-u-Cysteine] Furosemide [Lasix] 80 mg PO BID 12/19/17 12/19/17 HYDROcodone/Acet 5/325 mg [Climax 1 tab PO TID 12/19/17 12/19/17 5-325 mg] Tiotropium [Spiriva] 18 mcg IH DAILY 12/19/17 12/19/17 Warfarin Sodium 1.5 mg PO TU 12/19/17 12/19/17 Allergies Allergy/AdvReac Type Severity Reaction Status Date / Time iodine Allergy Rash Verified 12/19/17 09:46 clemastine AdvReac Unknown Verified 12/19/17 09:46 Constitutional: Reports: fever ENT ED: Reports: congestion Cardiovascular: Reports: chest pain Respiratory: Reports: cough, dyspnea, wheezes Past Medical History - Past Medical History Medical history: Reports: atrial fibrillation, CHF, COPD, diabetes, hyperlipidemia, hypertension, other Surgical history: Reports: hysterectomy, other (Carpal tunnel release, cataracts ) Psychiatric history: Reports: no psych history TENNIS INSTRUCTOR history: Reports: no TENNIS INSTRUCTOR history - Social History Smoking Status: Former smoker Smokeless Tobacco Status: No Alcohol use: Reports: none Drug use: Reports: none Physical Exam - General Limitations: no limitations General appearance: alert, in no apparent distress Course Vital Signs Temperature 98.9 F 12/19/17 09:16 Pulse Rate 108 12/19/17 09:16 Respiratory Rate 20 12/19/17 09:16 Blood Pressure 155/71 12/19/17 09:16 O2 Sat by Pulse Oximetry 84 12/19/17 09:16 Temperature 98.5 F 12/19/17 15:03 Pulse Rate 107 12/19/17 15:03 Respiratory Rate 17 12/19/17 15:03 Blood Pressure 151/68 12/19/17 15:03 O2 Sat by Pulse Oximetry 93 12/19/17 15:03 Oxygen Delivery Oxygen Delivery Nasal Cannula Medical Decision Making - Lab Data Result diagrams: 12/19/17 09:39 12/19/17 09:39 Lab Results 12/19/17 12/19/17 12/19/17 Range/Units 09:39 09:39 09:39 WBC 10.7 (4.3-11.1) K/mcL RBC 3.99 (3.82-4.97) M/mcL Hgb 11.8 (11.5-15.4) g/dL Hct 38.0 (35.3-44.9) % MCV 95.2 (83.0-100.0) fL MCH 29.6 (28.0-33.3) pg MCHC 31.1 L (31.6-35.5) g/dL RDW 13.3 (11.5-14.5) % Plt Count 254 (140-400) K/mcL MPV 9.4 (9.4-12.4) fL Immature Gran % 1.2 (0-4) % Seg Neutrophils % 76.0 % Lymphocytes % 14.9 % Monocytes % 7.7 % Eosinophils % 0.0 % Basophils % 0.2 % Neutrophils # 8.1 (1.6-8.9) K/mcL Lymphocytes # 1.6 (0.6-4.6) K/mcL Monocytes # 0.8 (0.0-1.3) K/mcL Eosinophils # 0.0 (0.0-0.6) K/mcL Basophils # 0.0 (0.0-0.2) K/mcL Nucleated RBCs/100 WBC 0.2 H (0) /100 WBC PT (9.4-12.1) Seconds INR VBG pH (7.32-7.42) pH Units VBG pCO2 (41-51) mmHg VBG pO2 (25-50) mmHg VBG HCO3 (21-27) mEq/L Sodium 137 (136-145) mEq/L Potassium 3.8 (3.5-5.1) mEq/L Chloride 92 L (98-107) mEq/L Carbon Dioxide 38 H (23-29) mEq/L BUN 25 H (8-23) mg/dL Creatinine 1.10 (0.60-1.20) mg/dL Est GFR ( Amer) 58 L (> 60) Est GFR (Non-Af Amer) 48 L (> 60) BUN/Creatinine Ratio 23 (6-26) Glucose 214 H (70-105) mg/dL Calculated Osmolality 295 (280-300) Calcium 9.2 (8.6-10.3) mg/dL Troponin I (< 0.04) ng/mL B-Natriuretic Peptide 52 (Less than 100) pg/mL 12/19/17 12/19/17 12/19/17 Range/Units 09:39 09:39 11:50 WBC (4.3-11.1) K/mcL RBC (3.82-4.97) M/mcL Hgb (11.5-15.4) g/dL Hct (35.3-44.9) % MCV (83.0-100.0) fL MCH (28.0-33.3) pg MCHC (31.6-35.5) g/dL RDW (11.5-14.5) % Plt Count (140-400) K/mcL MPV (9.4-12.4) fL Immature Gran % (0-4) % Seg Neutrophils % % Lymphocytes % % Monocytes % % Eosinophils % % Basophils % % Neutrophils # (1.6-8.9) K/mcL Lymphocytes # (0.6-4.6) K/mcL Monocytes # (0.0-1.3) K/mcL Eosinophils # (0.0-0.6) K/mcL Basophils # (0.0-0.2) K/mcL Nucleated RBCs/100 WBC (0) /100 WBC PT 35.1 H (9.4-12.1) Seconds INR 3.2 VBG pH 7.42 (7.32-7.42) pH Units VBG pCO2 57 H (41-51) mmHg VBG pO2 193 H (25-50) mmHg VBG HCO3 37 H (21-27) mEq/L Sodium (136-145) mEq/L Potassium (3.5-5.1) mEq/L Chloride (98-107) mEq/L Carbon Dioxide (23-29) mEq/L BUN (8-23) mg/dL Creatinine (0.60-1.20) mg/dL Est GFR ( Amer) (> 60) Est GFR (Non-Af Amer) (> 60) BUN/Creatinine Ratio (6-26) Glucose (70-105) mg/dL Calculated Osmolality (280-300) Calcium (8.6-10.3) mg/dL Troponin I < 0.03 (< 0.04) ng/mL B-Natriuretic Peptide (Less than 100) pg/mL Attestation Statement - Attestation Attestation: I examined this patient and my medical decision-making was reviewed with the Resident Physician. I agree with the documented findings, disposition and treatment plan as described except to the extent set forth below. Patient to the ED playing a shortness of breath. Coughing up yellow phlegm. History of COPD. She felt bad all week. Patient's last hospitalization was a year ago. On examination she is comfortable on my evaluation on the BiPAP. Lung sounds diminished. Plan. Nebs and steroids. Chest x-ray. Patient tolerating BiPAP at this time. Will be admitted. Patient doing well off BiPAP. Satting low 90s on 4 L. Will admit.
[2017-12-19 11:56] LABS: VBG HCO3 37 mEq/L (21-27); VBG PCO2 57 mmHg (41-51); VBG PH 7.42 pH Units (7.32-7.42); VBG PO2 193 mmHg (25-50)
[2017-12-19] MEDS ORDERED: *HR* OxyCODONE ER (12 HR) 10 MG TABLET PO ONE (12:23)
[2017-12-19] MEDS ORDERED: cefTRIAXone 1,000 MG in Water for inj. (sterile) 20 ML 10 ML IVP ONE (13:35)
[2017-12-19] MEDS ORDERED: Azithromycin 500 MG in D5% in Water 250 ML IVPB ONE (13:35)
[2017-12-19] MEDS ORDERED: Naloxone 0.4 MG/ML INJ IVP PRN (16:14)
[2017-12-19] MEDS ORDERED: Albuterol 2.5 MG/3 ML NEBULIZER IH PRN (16:27)
[2017-12-19] MEDS ORDERED: *HR* Dextrose 50 % in Water (Syg) 50 ML SYRINGE IVP PRN (16:29)
[2017-12-19] MEDS ORDERED: Dextrose Gel 15 GM/37.5 ML TUBE PO PRN ×2 (16:29)
[2017-12-19] MEDS ORDERED: D5% in Water 1,000 ML IVC PRN (16:29)
--- NOTE | 2017-12-19 16:48 | Internal Med History&Physical ---
<AddismaldonadogillBradley - Last Filed: 12/19/17 17:44> Date of Encounter: 12/19/17 Time of Encounter: 15:30 Internal Medicine - H&P: HPI Chief complaint: SOB/Dyspnea Admitted From: Emergency Dept Plans for Post Hospital Care: Home History of present illness: Ms. Perez is a 82 year old female w/PMH of atrial fibrillation, CHF, COPD, diabetes controlled with oral antihyperglycemic medications, HLD, and HTN presents from the ED with chief complaint of shortness of breath and dyspnea for the past week which became worse over the past 2 days. Patient reports she had nosebleed this morning and was sent to hospital due to being on anticoagulation. Patient also reports respiratory infection for which placed on antibiotics but symptoms continue to worsen. On admission, patient was hypoxic and placed on BiPAP. Patient reports dizziness, worsening dyspnea/SOB with exertion as well as cough which causes pain with inspiration. Patient denies changes in vision, nausea, vomiting, chest pain, palpitations, fever, chills, abdominal pain, diarrhea, constipation, numbness, tingling, presyncope, or syncope. Past Med Surg Social Fam HX - Past Medical History Source: patient, old records reviewed, obtained from family Medical history: atrial fibrillation, CHF, COPD, diabetes (Orally controlled), hyperlipidemia, hypertension, myocardial infarction (08-11-13 w/o stent placement ), other Psychiatric history: no psych history - Past Surgical History Surgical History: hysterectomy, other - Social History Smoking Status: Former smoker Packs per day: 1 PPD - Reports quitting 20 years ago Smokeless Tobacco Status: No Alcohol use: none Drug use: none Current living situation: Home Activity Level: Uses cane/walker Recent Out of Country Travel Within the Last 8 Weeks: No Exposure or Possible Exposure to Illness During Travel: No - Family History Mother Adopted: No Race: Family Member Ethnicity: Non- Living Status: Age at : 82 Cause of : HF Hx Family Cardiac Disorders: Yes (CAD) Father Adopted: No Race: Family Member Ethnicity: Non- Living Status: Age at : 87 Cause of : Colon cancer Hx Family Cancer: Yes (Colon) Brother Race: Family Member Ethnicity: Non- Living Status: Age at : 85 Cause of : Lung disease Hx Family Respiratory Disorders: Yes (COPD/Emphysema) Sister Race: Family Member Ethnicity: Non- Living Status: Age at : 57 Cause of : CKD Hx Family Genitourinary Disorders: Yes (CKD) Internal Medicine - H&P: Meds Budesonide/Formoterol 160/4.5 [Symbicort 160/4.5] 2 puff IH BID 08/04/15 [ History] Albuterol Neb [Proventil Neb] 2.5 mg IH TID PRN 11/02/16 [History] Diltiazem HCl [Diltiazem 24Hr Cd] 360 mg PO DAILY 11/02/16 [History] Potassium Chloride [K-Tab ER] 20 meq PO DAILY 11/14/16 [History] Simvastatin [Zocor] 40 mg PO HS 11/14/16 [History] glyBURIDE [GlyBURIDE] 5 mg PO 0800 11/14/16 [History] metFORMIN [Glucophage] 500 mg PO 0800 11/14/16 [History] Warfarin [Coumadin] 3 mg PO SUMOWE 11/18/16 [History] Acetylcysteine [P-Ttimmn-v-Cysteine] 600 mg PO BID 12/19/17 [History] Furosemide [Lasix] 80 mg PO BID 12/19/17 [History] HYDROcodone/Acet 5/325 mg [Bradley 5-325 mg] 1 tab PO TID 12/19/17 [History] Tiotropium [Spiriva] 18 mcg IH DAILY 12/19/17 [History] Warfarin Sodium 1.5 mg PO TU 12/19/17 [History] 3 Allergy/AdvReac Type Severity Reaction Status Date / Time iodine Allergy Rash Verified 12/19/17 09:46 clemastine AdvReac Unknown Verified 12/19/17 09:46 All Systems PM: A 10-system review of systems was performed and is negative for pertinent findings except as documented above in the HPI. - Constitutional Constitutional: as per HPI, fatigue, falls, weakness, no chills, no fever(s), no night sweats - EENT Eyes: no change in vision, no discharge, no pain, no photophobia Ears: no ear discharge, no ear pain, no tinnitus Nose, mouth and throat: no dysphagia, no nasal discharge, no neck pain, no sore throat - Breasts Breasts: as per HPI - Cardiovascular Cardiovascular ROS IM: as per HPI, dyspnea, dyspnea on exertion, no chest pain, no diaphoresis, no lightheadedness, no palpitations, no syncope - Respiratory Respiratory: as per HPI, cough, dyspnea, dyspnea on exertion, wheezing, pain with cough, no excessive phlegm production - Gastrointestinal Gastrointestinal: no abdominal pain, no diarrhea, no hematemesis, no hematochezia, no melena, no nausea, no vomiting - Genitourinary Genitourinary: as per HPI, urinary frequency, no change in urinary stream, no dysuria, no flank pain, no hematuria Menstruation: as per HPI, post hysterectomy - Musculoskeletal Musculoskeletal ROS IM: as per HPI, back pain, no numbness, no tingling - Integumentary Integumentary IM: no rash, no unusual bruising - Neurological Neurological ROS: as per HPI, dizziness, weakness, no confusion, no convulsions , no focal weakness, no numbness, no tingling, no tremor(s) - Psychiatric Psychiatric: as per HPI - Endocrine Endocrine IM: as per HPI - Hematologic/Lymphatic Hematologic/Lymphatic: no easy bruising - Allergic/Immunologic Allergic/Immunologic: as per HPI - Constitutional Vitals: Temp Pulse Resp BP Pulse Ox 98.5 F 107 17 151/68 93 12/19/17 15:03 12/19/17 15:03 12/19/17 15:03 12/19/17 15:03 12/19/17 15:03 General appearance: Present: cooperative, mild distress (SOB/Dyspnea), A&O X 3, pleasant, obese, answers questions appropriately - Head Head exam: Present: atraumatic, normocephalic - Eye Eye exam: Present: PERRL, conjuntiva pink, sclera anicteric Pupils: Present: PERRL - ENT ENT exam: Present: normal exam - Neck Neck exam general surgery: Present: normal inspection, supple, trachea midline. Absent: lymphadenopathy - Respiratory Respiratory exam: Present: decreased breath sounds, wheezes (Bilaterally in all lobes). Absent: accessory muscle use, rales, rhonchi - Cardiovascular Cardiovascular exam: Present: +S1, +S2, tachycardia. Absent: diastolic murmur, gallop, rubs, systolic murmur - GI/Abdominal GI/Abdominal exam: Present: normal bowel sounds, soft, no peritoneal signs. Absent: distended, tenderness - Rectal Rectal exam: Present: deferred - Additional comments: exam deferred. - Extremities Exam Extremities exam: Present: pedal edema, warm, radial pulses palpable and symmetrical. Absent: calf tenderness, cyanotic - Back Exam Back exam: Present: normal inspection - Neurological Exam Neurological exam: Present: CN II-XII intact, oriented X3, no focal deficits. Absent: pronater drift, facial droop, speech deficit - Psychiatric Psychiatric exam: Present: normal affect, normal mood - Skin Skin exam: Present: dry, intact Internal Med - H&P Results - Labs CBC & Chem 7: 12/19/17 09:39 12/19/17 09:39 - EKG Data EKG shows normal: sinus rhythm Rate: tachycardia - EKG Data Prior EKG available for review: yes EKG comments: 12/19/17 16:55 EKG dated 08/04/15 shows sinus tachycardia and abnormal rhythm ECG. EKG dated shows sinus tachycardia with moderate ST depression and abnormal ECG. - Diagnostic Studies Chest x-ray Additional comments: Impressions Chest X-Ray 12/19/17 09:17 IMPRESSION: No acute process. D/ / Jorge De León MD / Jorge De León MD Interpreting Provider: Joreg De León MD - Assessment and plan (1) Acute exacerbation of chronic obstructive airways disease Current Visit: Yes Status: Acute Assessment and plan: Acute exacerbation of COPD w/hypoxia. Pt. was on BiPAP in ED and transitioned to NC @5L w.SpO2 in mid-90s. Solumderol 40 mg Q8HR. IVPB Azithromycin 500 mg daily and Ceftriaxone 2,000 mg daily for bronchitis coverage. Supplemental O2 w/ titration and BiPAP. Continuous cardiac telemetry. Monitor I&O and daily weight. 1.5L daily fluid restriction d/t hx of CHF. PT/OT consults d/t dizziness and falls w/ambulation. Falls/safety precautions. Pt., respiratory status, and f/u labs to be monitored closely. Pt. discussed w/Dr. Ervin who agrees w/plan of care. Pt. is high risk for respiratory distress/failure based on current COPD exacerbation w/hypoxia requiring IV abx and steroids, hx of acute on chronic respiratory failure, hx of concurrent CHF, and risk factors. Inpatient. (2) Acute and chronic respiratory failure ([id number]) Current Visit: Yes Status: Acute Assessment and plan: Acute on chronic respiratory failure. Hx of COPD, CAROLIN, CHF. Current COPD exacerbation. Continue BiPAP on/off and HS. VBG. 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 Qualifiers: Respiratory failure complication: hypoxia and hypercapnia Qualified Code(s) : J96.21 - Acute and chronic respiratory failure with hypoxia; J96.22 - Acute and chronic respiratory failure with hypercapnia; J96.22 - Acute and chronic respiratory failure with hypercapnia; J96.22 - Acute and chronic respiratory failure with hypercapnia (3) Hypoxia Current Visit: Yes Status: Acute Assessment and plan: Acute on chronic hypoxia. VBG shows pH of 7.42, PCO2 57, PO2 of 193, HCO3 of 37. BiPAP on/off times. Pts. SpO2 currently mid-90s on 5L via NC. Will monitor and titrate PRN. (4) CKD (chronic kidney disease) stage 3, GFR 30-59 ml/min Current Visit: Yes Status: Chronic Assessment and plan: Hx of chronic CKD. Currently stage III w/GFR of 48 and creatinine of 1.10. IV fluids to be used judiciously if warranted due to current renal dysfunction and history of CHF. Monitor patient and follow-up labs. Avoid nephrotoxins. (5) CAROLIN (obstructive sleep apnea) Current Visit: Yes Status: Chronic Assessment and plan: Hx of chronic CAROLIN. BiPAP ordered HS and on/off times. (6) Atrial fibrillation Current Visit: Yes Status: Chronic Assessment and plan: Hx of chronic atrial fibrillation. Sinus tachycardia on exam d/t hypoxia. Continue Coumadin w/Pharmacy dosing. Continuous cardiac telemetry. Qualifiers: Atrial fibrillation type: chronic Qualified Code(s): I48.2 - Chronic atrial fibrillation (7) CHF (congestive heart failure) Current Visit: Yes Status: Chronic Assessment and plan: Hx of chronic CHF. Stable. BNP 52 on admission. Continuous cardiac telemetry. 1.5L daily fluid restriction. Qualifiers: Heart failure type: diastolic Heart failure chronicity: chronic Qualified Code(s): I50.32 - Chronic diastolic (congestive) heart failure (8) DM (diabetes mellitus) Current Visit: Yes Status: Chronic Assessment and plan: Hx of chronic diabetes controlled with oral antihyperglycemic medications. Will hold oral medications and administer medium dose correction insulin sliding scale with hypoglycemic protocol. A1c in a.m. labs. BG checks before meals at bedtime. 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 Monitor pt. and VS. Continue pts. Cardizem. Qualifiers: Hypertension type: essential hypertension Qualified Code(s): I10 - Essential (primary) hypertension (10) HLD (hyperlipidemia) Current Visit: Yes Status: Chronic Assessment and plan: Hx of chronic HLD. Lipid panel in a.m. labs. Continue pts. Simvastatin. Qualifiers: Hyperlipidemia type: pure hypercholesterolemia Qualified Code(s): E78.00 - Pure hypercholesterolemia, unspecified (11) DVT prophylaxis Current Visit: Yes Status: Acute Assessment and plan: Continue pts. Coumadin w/Pharmacy dosing for DVT prophylaxis. Monitor pt. for signs of bleeding. - Time Spent With Patient Total time spent is greater than 50% in coordination of care (as documented) at patient's floor/unit and/or counseling patient: 25 - 35 minutes <Jhoan Ervin P - Last Filed: 12/21/17 00:03> Date of Encounter: 12/21/17 Internal Medicine - H&P: HPI History of present illness: Ms. Perez is a 82 year old female All Systems PM: A 10-system review of systems was performed and is negative for pertinent findings except as documented above in the HPI. - Constitutional Vitals: Temp Pulse Resp BP Pulse Ox 97.9 F 92 17 117/59 98 12/20/17 23:38 12/20/17 23:38 12/20/17 23:38 12/20/17 23:38 12/20/17 23:38 Internal Med - H&P Results - Labs CBC & Chem 7: 12/20/17 04:24 12/20/17 04:24 Labs: Short CBC 12/20/17 Range/Units 04:24 WBC 7.0 (4.3-11.1) K/mcL Hgb 11.6 (11.5-15.4) g/dL Hct 37.0 (35.3-44.9) % Plt Count 238 (140-400) K/mcL Neutrophils # 6.2 (1.6-8.9) K/mcL BMP 12/20/17 04:24 Sodium 139 Potassium 3.6 Chloride 93 L Carbon Dioxide 37 H BUN 26 H Creatinine 1.00 Glucose 152 H Calcium 9.5 Liver Function 12/20/17 Range/Units 04:24 Total Bilirubin 0.4 (0.3-1.0) mg/dL AST 14 (13-39) Units/L ALT 16 (7-52) Units/L Alkaline Phosphatase 95 (34-104) Units/L Albumin 4.2 (3.5-5.7) g/dL - Attending Attestation I examined this patient and my medical decision-making was reviewed with the Resident Physician/FISH GRADER. I agree with the documented findings, disposition and treatment plan as described except to the extent set forth below. 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 insulin; Z79.4 - superintendent [employer] ( current) use of insulin; Z79.4 - superintendent [employer] (current) use of insulin; Z79.4 - superintendent [employer] (current) use of insulin (2) DVT prophylaxis Current Visit: Yes Status: Acute (3) Acute exacerbation of chronic obstructive airways disease Current Visit: Yes Status: Acute (4) Atrial fibrillation Current Visit: Yes Status: Chronic Qualifiers: Atrial fibrillation type: chronic Qualified Code(s): I48.2 - Chronic atrial fibrillation (5) CAROLIN (obstructive sleep apnea) Current Visit: Yes Status: Chronic (6) Acute and chronic respiratory failure ([id number]) Current Visit: Yes Status: Acute Qualifiers: Respiratory failure complication: hypoxia and hypercapnia Qualified Code(s) : J96.21 - Acute and chronic respiratory failure with hypoxia; J96.22 - Acute and chronic respiratory failure with hypercapnia; J96.22 - Acute and chronic respiratory failure with hypercapnia; J96.22 - Acute and chronic respiratory failure with hypercapnia (7) Hypoxia Current Visit: Yes Status: Acute (8) CKD (chronic kidney disease) stage 3, GFR 30-59 ml/min Current Visit: Yes Status: Chronic (9) HTN (hypertension) Current Visit: Yes Status: Chronic Qualifiers: Hypertension type: essential hypertension Qualified Code(s): I10 - Essential (primary) hypertension (10) HLD (hyperlipidemia) Current Visit: Yes Status: Chronic Qualifiers: Hyperlipidemia type: mixed hyperlipidemia Qualified Code(s): E78.2 - Mixed hyperlipidemia (11) CHF (congestive heart failure) Current Visit: Yes Status: Chronic Qualifiers: Heart failure type: diastolic Heart failure chronicity: chronic Qualified Code(s): I50.32 - Chronic diastolic (congestive) heart failure - Time Spent With Patient Total time spent is greater than 50% in coordination of care (as documented) at patient's floor/unit and/or counseling patient:
[2017-12-19] MEDS: Furosemide 40 MG TABLET PO SCH (17:18)
[2017-12-19] MEDS: Insulin LISPRO 300 UNITS/3 ML VIAL SQ SCH ×2 (17:18→21:36)
[2017-12-19] MEDS: *HR* HYDROcodone/Acet 5/325 mg TABLET PO PRN (17:21)
[2017-12-19] MEDS ORDERED: Warfarin perPT PO PRN (18:00)
[2017-12-19] MEDS: Ipratropium/Albuterol Neb 3 ML IH SCH ×2 (20:06→23:36)
[2017-12-19] MEDS: Budesonide/Formoterol 160/4.5 MDI IH SCH (20:06)
[2017-12-19] MEDS: *HR* Acetylcysteine 20% 600 MG/3 ML ORAL SYRINGE PO SCH (21:34)
[2017-12-19] MEDS ORDERED: Insulin LISPRO 300 UNITS/3 ML VIAL SQ ONE (23:55)
[2017-12-20] MEDS: MethylPREDNISolone 40 MG/ML VIAL IVP SCH ×3 (00:26→17:01)
[2017-12-20] MEDS: Ipratropium/Albuterol Neb 3 ML IH SCH ×5 (04:11→20:05)
[2017-12-20 04:59] LABS: Basophils % 0.3 %; Hemoglobin 11.6 g/dL (11.5-15.4); Immature Granulocytes % 1.7 % (0-4); Lymphocytes # 0.6 K/mcL (0.6-4.6); Lymphocytes % 8.9 %; Mean Corpuscular HGB Conc 31.4 g/dL (31.6-35.5); Mean Corpuscular Hemoglobin 29.4 pg (28.0-33.3); Mean Corpuscular Volume 93.9 fL (83.0-100.0); Mean Platelet Volume 9.8 fL (9.4-12.4); Monocytes # 0.1 K/mcL (0.0-1.3); Monocytes % 1.7 %; Neutrophils # 6.2 K/mcL (1.6-8.9); Platelet Count 238 K/mcL (140-400); Red Blood Count 3.94 M/mcL (3.82-4.97); Red Cell Distribution Width 13.2 % (11.5-14.5); Segmented Neutrophils % 87.4 %
[2017-12-20 05:03] LABS: INR 2.5; Prothrombin Time 27.4 Seconds (9.4-12.1)
[2017-12-20 05:06] LABS: Activated Partial Thrombo Time 35.3 Seconds (26.0-36.0)
[2017-12-20 05:17] LABS: Alanine Aminotransferase 16 Units/L (7-52); Albumin 4.2 g/dL (3.5-5.7); Albumin/Globulin Ratio 1.4 (1.1-2.2); Alkaline Phosphatase 95 Units/L (34-104); Aspartate Amino Transferase 14 Units/L (13-39); BUN/Creatinine Ratio 26 (6-26); Bilirubin,Total 0.4 mg/dL (0.3-1.0); Blood Urea Nitrogen 26 mg/dL (8-23); Calcium 9.5 mg/dL (8.6-10.3); Carbon Dioxide 37 mEq/L (23-29); Chloride 93 mEq/L (98-107); Chol/HDL Ratio 2.4 (0-4.9); Cholesterol 179 mg/dL (< 200); Glucose 152 mg/dL (70-105); HDL Cholesterol 76 mg/dL (40-59); LDL Cholesterol,Calculated 86 mg/dL (0-99); Magnesium 2.5 mg/dL (1.6-2.6); Osmolality,Calculated 296 (280-300); Potassium 3.6 mEq/L (3.5-5.1); Sodium 139 mEq/L (136-145); Total Protein 7.2 g/dL (6.4-8.9); Triglycerides 83 mg/dL (< 150); eGFR For African Americans > 60 (> 60); eGFR For Non-African Americans 53 (> 60)
--- NOTE | 2017-12-20 07:13 | Electrocardiograph Report ---
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
[2017-12-20] MEDS: Tiotropium 18 MCG inhalation IH SCH (07:40)
[2017-12-20] MEDS: Budesonide/Formoterol 160/4.5 MDI IH SCH ×2 (07:41→20:05)
[2017-12-20] MEDS: *HR* HYDROcodone/Acet 5/325 mg TABLET PO PRN ×3 (08:51→21:50)
[2017-12-20] MEDS: Furosemide 40 MG TABLET PO SCH ×2 (08:51→17:01)
[2017-12-20] MEDS: Diltiazem CD (24hr) 180 MG CAPSULE PO SCH (08:51)
[2017-12-20] MEDS: *HR* Acetylcysteine 20% 600 MG/3 ML ORAL SYRINGE PO SCH ×2 (08:52→21:43)
[2017-12-20] MEDS: Insulin LISPRO 300 UNITS/3 ML VIAL SQ SCH ×4 (08:56→21:44)
[2017-12-20] MEDS ORDERED: cefTRIAXone 2,000 MG in Water for inj. (sterile) 20 ML 20 ML IVP SCH (09:00)
[2017-12-20] MEDS ORDERED: Azithromycin 500 MG in D5% in Water 250 ML IVPB SCH (09:00)
--- NOTE | 2017-12-20 11:51 | Internal Med Progress Note ---
<Nathaniel La - Last Filed: 12/20/17 13:20> Date of Encounter: 12/20/17 Time of Encounter: 11:47 - Assessment and plan (1) DVT prophylaxis Current Visit: Yes Status: Acute Assessment and plan: continue home coumadin. INR today is 2.5, controlled currently, but was >3 when she arrived - will continue to follow INR. (2) Acute exacerbation of chronic obstructive airways disease Current Visit: Yes Status: Acute Assessment and plan: Home O2 is 2L, duoneb, BiPAP, symbicort, spiriva. VBG has pH of 7.42 and well compensated. Clinically patient is stable. Currently well controlled on abx, steroids, breathing treatments, and O2 support. Patient has CAP w/ hx of COPD. - attempt to titrate patient's O2. Goal O2 is 88-92% - Will not switch off of IV steroids today due to sat 02 of 87% on 3L. Will titrate down from 40 TID to 40 BID, with plan to switch to orals tomorrow. - will D/C azithromycin and ceftriaxone IV to PO levaquin tomorrow. - continue tele - Cardiac diet w/ fluid restriction to 1.5L and Na restricted to 2g (3) Atrial fibrillation Current Visit: Yes Status: Chronic Assessment and plan: Hx of chronic atrial fibrillation. Sinus tachycardia on exam d/t hypoxia. Continue Coumadin w/Pharmacy dosing. Continuous cardiac telemetry. Qualifiers: Atrial fibrillation type: chronic Qualified Code(s): I48.2 - Chronic atrial fibrillation (4) CAROLIN (obstructive sleep apnea) Current Visit: Yes Status: Chronic Assessment and plan: Hx of chronic CAROLIN. BiPAP ordered HS and on/off times. (5) Acute and chronic respiratory failure ([id number]) Current Visit: Yes Status: Acute Assessment and plan: Acute on chronic respiratory failure. Hx of COPD, CAROLIN, CHF. Current COPD exacerbation. Continue BiPAP on/off and HS. VBG. Avoid LOAN OPERATIONS SPECIALIST depressants. Qualifiers: Respiratory failure complication: hypoxia and hypercapnia Qualified Code(s) : J96.21 - Acute and chronic respiratory failure with hypoxia; J96.22 - Acute and chronic respiratory failure with hypercapnia; J96.22 - Acute and chronic respiratory failure with hypercapnia; J96.22 - Acute and chronic respiratory failure with hypercapnia (6) Hypoxia Current Visit: Yes Status: Acute Assessment and plan: Acute on chronic hypoxia. VBG shows pH of 7.42, PCO2 57, PO2 of 193, HCO3 of 37. BiPAP on/off times. Pts. SpO2 currently mid-90s on 5L via NC. Will monitor and titrate PRN. (7) CKD (chronic kidney disease) stage 3, GFR 30-59 ml/min Current Visit: Yes Status: Chronic Assessment and plan: Hx of chronic CKD. Currently stage III w/GFR of 48 and creatinine of 1.10. IV fluids to be used judiciously if warranted due to current renal dysfunction and history of CHF. Monitor patient and follow-up labs. Avoid nephrotoxins. (8) HTN (hypertension) Current Visit: Yes Status: Chronic Assessment and plan: Hx of chronic HTN. Monitor pt. and VS. Continue pts. Cardizem. Qualifiers: Hypertension type: essential hypertension Qualified Code(s): I10 - Essential (primary) hypertension (9) HLD (hyperlipidemia) Current Visit: Yes Status: Chronic Assessment and plan: Hx of chronic HLD. Lipid panel in a.m. labs. Continue pts. Simvastatin. Qualifiers: Hyperlipidemia type: pure hypercholesterolemia Qualified Code(s): E78.00 - Pure hypercholesterolemia, unspecified (10) DM (diabetes mellitus) Current Visit: Yes Status: Chronic Assessment and plan: SSI medium dosing Qualifiers: Diabetes mellitus type: type 2 Diabetes mellitus long-term insulin use: with extermination supervisor use Diabetes mellitus complication status: without complication Qualified Code(s): E11.9 - Type 2 diabetes mellitus without complications; Z79.4 - prison (current) use of insulin; Z79.4 - terminal computer operator ( current) use of insulin; Z79.4 - prison (current) use of insulin; Z79.4 - terminal computer operator (current) use of insulin (11) CHF (congestive heart failure) Current Visit: Yes Status: Chronic Assessment and plan: Hx of chronic CHF. Stable. BNP 52 on admission. Continuous cardiac telemetry. 1.5L daily fluid restriction. Qualifiers: Heart failure type: diastolic Heart failure chronicity: chronic Qualified Code(s): I50.32 - Chronic diastolic (congestive) heart failure - Time Spent With Patient Total time spent is greater than 50% in coordination of care (as documented) at patient's floor/unit and/or counseling patient: - Subjective Interval history: Ms Perez is seen and examined today. Patient has long standing history of COPD, and is on 2L at home normally. she states that she has required 3L in the last week. She states she's very scientologist with her BiPAP, and respiratory management at home. Patient states she's feeling a lot better today. She denies feeling feverish, cough, CP, SOB, n/v. - Constitutional Vitals: Temp Pulse Resp BP Pulse Ox 98.1 F 108 20 141/68 87 12/20/17 07:16 12/20/17 07:16 12/20/17 11:09 12/20/17 07:16 12/20/17 11:09 General appearance: Present: cooperative, mild distress (SOB/Dyspnea), A&O X 3, pleasant, obese, answers questions appropriately - Head Head exam: Present: normal inspection - Respiratory Respiratory exam: Present: prolonged expiratory phase, wheezes - Cardiovascular Cardiovascular exam: Present: RRR - GI/Abdominal GI/Abdominal exam: Present: normal bowel sounds - Extremities Exam Extremities exam: Absent: pedal edema Internal Medicine: Result - Labs CBC & Chem 7: 12/20/17 04:24 12/20/17 04:24 Labs: Short CBC 12/20/17 Range/Units 04:24 WBC 7.0 (4.3-11.1) K/mcL Hgb 11.6 (11.5-15.4) g/dL Hct 37.0 (35.3-44.9) % Plt Count 238 (140-400) K/mcL Neutrophils # 6.2 (1.6-8.9) K/mcL BMP 12/20/17 04:24 Sodium 139 Potassium 3.6 Chloride 93 L Carbon Dioxide 37 H BUN 26 H Creatinine 1.00 Glucose 152 H Calcium 9.5 Liver Function 12/20/17 Range/Units 04:24 Total Bilirubin 0.4 (0.3-1.0) mg/dL AST 14 (13-39) Units/L ALT 16 (7-52) Units/L Alkaline Phosphatase 95 (34-104) Units/L Albumin 4.2 (3.5-5.7) g/dL - ABG Interpretation ABG results: PT/INR, D-dimer PT 27.4 Seconds (9.4-12.1) H 12/20/17 04:24 Consult Discharge Plan - Plan Referrals: Domingo Melton, [Primary Care Provider] - <Huy Tompkins - Last Filed: 12/20/17 18:43> Date of Encounter: 12/20/17 - Assessment and plan (1) Acute and chronic respiratory failure ([id number]) Current Visit: Yes Status: Acute Qualifiers: Respiratory failure complication: hypoxia and hypercapnia Qualified Code(s) : J96.21 - Acute and chronic respiratory failure with hypoxia; J96.22 - Acute and chronic respiratory failure with hypercapnia; J96.22 - Acute and chronic respiratory failure with hypercapnia; J96.22 - Acute and chronic respiratory failure with hypercapnia (2) Acute exacerbation of chronic obstructive airways disease Current Visit: Yes Status: Acute (3) DM (diabetes mellitus) Current Visit: Yes Status: Chronic Qualifiers: Diabetes mellitus type: type 2 Diabetes mellitus extermination supervisor insulin use: with extermination supervisor use Diabetes mellitus complication status: without complication Qualified Code(s): E11.9 - Type 2 diabetes mellitus without complications; Z79.4 - terminal computer operator (current) use of insulin; Z79.4 - terminal computer operator ( current) use of insulin; Z79.4 - terminal computer operator (current) use of insulin; Z79.4 - terminal computer operator (current) use of insulin (4) DVT prophylaxis Current Visit: Yes Status: Acute (5) Atrial fibrillation Current Visit: Yes Status: Chronic Qualifiers: Atrial fibrillation type: chronic Qualified Code(s): I48.2 - Chronic atrial fibrillation (6) CAROLIN (obstructive sleep apnea) Current Visit: Yes Status: Chronic (7) Hypoxia Current Visit: Yes Status: Acute (8) CKD (chronic kidney disease) stage 3, GFR 30-59 ml/min Current Visit: Yes Status: Chronic (9) HTN (hypertension) Current Visit: Yes Status: Chronic Qualifiers: Hypertension type: essential hypertension Qualified Code(s): I10 - Essential (primary) hypertension (10) HLD (hyperlipidemia) Current Visit: Yes Status: Chronic Qualifiers: Hyperlipidemia type: mixed hyperlipidemia Qualified Code(s): E78.2 - Mixed hyperlipidemia (11) CHF (congestive heart failure) Current Visit: Yes Status: Chronic Qualifiers: Heart failure type: diastolic Heart failure chronicity: chronic Qualified Code(s): I50.32 - Chronic diastolic (congestive) heart failure - Time Spent With Patient Total time spent is greater than 50% in coordination of care (as documented) at patient's floor/unit and/or counseling patient: - Constitutional Vitals: Temp Pulse Resp BP Pulse Ox 98.1 F 106 16 142/64 94 12/20/17 16:20 12/20/17 16:20 12/20/17 16:20 12/20/17 16:20 12/20/17 16:20 Internal Medicine: Result - Labs CBC & Chem 7: 12/20/17 04:24 12/20/17 04:24 Labs: Short CBC 12/20/17 Range/Units 04:24 WBC 7.0 (4.3-11.1) K/mcL Hgb 11.6 (11.5-15.4) g/dL Hct 37.0 (35.3-44.9) % Plt Count 238 (140-400) K/mcL Neutrophils # 6.2 (1.6-8.9) K/mcL BMP 12/20/17 04:24 Sodium 139 Potassium 3.6 Chloride 93 L Carbon Dioxide 37 H BUN 26 H Creatinine 1.00 Glucose 152 H Calcium 9.5 Liver Function 12/20/17 Range/Units 04:24 Total Bilirubin 0.4 (0.3-1.0) mg/dL AST 14 (13-39) Units/L ALT 16 (7-52) Units/L Alkaline Phosphatase 95 (34-104) Units/L Albumin 4.2 (3.5-5.7) g/dL - ABG Interpretation ABG results: PT/INR, D-dimer PT 27.4 Seconds (9.4-12.1) H 12/20/17 04:24 - Attending Attestation I examined this patient and my medical decision-making was reviewed with the Resident Physician on 12/20/17. I agree with the documented findings, disposition and treatment plan as described except to the extent set forth below. Ms Perez is currently admitted for acute resp failure due to COPD. She remains moderate to high risk due to potential for worsening clinical and respiratory status. Ms Perez feels a little better. She is still dyspneic and coughing. No fever. No GI issues. Wants to get up and walk with walker. Exam alert Comfortable Mucus membranes dry Heart distant Scant end exp wheeze abd soft I/P 1. Resp failure 2. COPD Further diagnoses and plan as above.
[2017-12-21] MEDS: Ipratropium/Albuterol Neb 3 ML IH SCH ×7 (00:13→23:47)
[2017-12-21 03:41] LABS: Basophils % 0.1 %; Hematocrit 34.4 % (35.3-44.9); Immature Granulocytes % 1.2 % (0-4); Lymphocytes # 0.5 K/mcL (0.6-4.6); Lymphocytes % 4.9 %; Mean Corpuscular Hemoglobin 30.1 pg (28.0-33.3); Mean Corpuscular Volume 94.2 fL (83.0-100.0); Mean Platelet Volume 10.1 fL (9.4-12.4); Monocytes # 0.3 K/mcL (0.0-1.3); Monocytes % 2.7 %; Neutrophils # 9.8 K/mcL (1.6-8.9); Platelet Count 225 K/mcL (140-400); Red Blood Count 3.65 M/mcL (3.82-4.97); Red Cell Distribution Width 13.2 % (11.5-14.5); Segmented Neutrophils % 91.1 %
[2017-12-21 03:46] LABS: INR 2.3; Prothrombin Time 24.7 Seconds (9.4-12.1)
[2017-12-21 03:59] LABS: Albumin 3.8 g/dL (3.5-5.7); Albumin/Globulin Ratio 1.3 (1.1-2.2); Bilirubin,Total 0.4 mg/dL (0.3-1.0); Calcium 9.3 mg/dL (8.6-10.3); Potassium 3.8 mEq/L (3.5-5.1); Total Protein 6.8 g/dL (6.4-8.9)
[2017-12-21] MEDS: MethylPREDNISolone 40 MG/ML VIAL IVP SCH (05:21)
[2017-12-21] MEDS: *HR* HYDROcodone/Acet 5/325 mg TABLET PO PRN ×3 (05:25→18:13)
[2017-12-21] MEDS: Budesonide/Formoterol 160/4.5 MDI IH SCH ×2 (08:08→19:55)
[2017-12-21] MEDS: Tiotropium 18 MCG inhalation IH SCH (08:17)
[2017-12-21] MEDS: Furosemide 40 MG TABLET PO SCH ×2 (08:41→15:57)
[2017-12-21] MEDS: levoFLOXacin 500 MG TABLET PO SCH (08:41)
[2017-12-21] MEDS: *HR* Acetylcysteine 20% 600 MG/3 ML ORAL SYRINGE PO SCH ×2 (08:41→19:55)
[2017-12-21] MEDS: Diltiazem CD (24hr) 180 MG CAPSULE PO SCH (08:41)
[2017-12-21] MEDS: Insulin LISPRO 300 UNITS/3 ML VIAL SQ SCH ×4 (08:42→19:56)
--- NOTE | 2017-12-21 11:36 | Internal Med Progress Note ---
<Nathaniel La - Last Filed: 12/21/17 11:33> Date of Encounter: 12/21/17 Time of Encounter: 09:00 - Assessment and plan (1) Acute exacerbation of chronic obstructive airways disease Current Visit: Yes Status: Acute Assessment and plan: Home O2 is 2L, duoneb, BiPAP, symbicort, spiriva. VBG has pH of 7.42 and well compensated. Clinically patient is stable. Currently well controlled on abx, steroids, breathing treatments, and O2 support. Patient has CAP w/ hx of COPD. - attempt to titrate patient's O2. Goal O2 is 88-92% - Steroids IV switch to PO today. - Levaquin Day 1 - continue tele - Cardiac diet w/ fluid restriction to 1.5L and Na restricted to 2g (2) DM (diabetes mellitus) Current Visit: Yes Status: Chronic Assessment and plan: SSI medium dosing Qualifiers: Diabetes mellitus type: type 2 Diabetes mellitus care home insulin use: with local intermodal truck driver use Diabetes mellitus complication status: without complication Qualified Code(s): E11.9 - Type 2 diabetes mellitus without complications; N18.3 - Chronic kidney disease, stage 3 (moderate); N18.3 - Chronic kidney disease, stage 3 (moderate); Z79.4 - longterm (current) use of insulin; Z79.4 - longterm (current) use of insulin; Z79.4 - longterm (current ) use of insulin; Z79.4 - longterm (current) use of insulin (3) DVT prophylaxis Current Visit: Yes Status: Acute Assessment and plan: continue home coumadin. INR today is 2.5, controlled currently, but was >3 when she arrived - will continue to follow INR. (4) Atrial fibrillation Current Visit: Yes Status: Chronic Assessment and plan: Hx of chronic atrial fibrillation. Sinus tachycardia on exam d/t hypoxia. Continue Coumadin w/Pharmacy dosing. Continuous cardiac telemetry. Qualifiers: Atrial fibrillation type: chronic Qualified Code(s): I48.2 - Chronic atrial fibrillation (5) CAROLIN (obstructive sleep apnea) Current Visit: Yes Status: Chronic Assessment and plan: Hx of chronic CAROLIN. BiPAP ordered HS and on/off times. (6) Acute and chronic respiratory failure ([id number]) Current Visit: Yes Status: Acute Assessment and plan: Acute on chronic respiratory failure. Hx of COPD, CAROLIN, CHF. Current COPD exacerbation. Continue BiPAP on/off and HS. VBG. Avoid HEALTH INFORMATION TECHNOLOGIST depressants. Qualifiers: Respiratory failure complication: hypoxia and hypercapnia Qualified Code(s) : J96.21 - Acute and chronic respiratory failure with hypoxia; J96.22 - Acute and chronic respiratory failure with hypercapnia; J96.22 - Acute and chronic respiratory failure with hypercapnia; J96.22 - Acute and chronic respiratory failure with hypercapnia (7) Hypoxia Current Visit: Yes Status: Acute Assessment and plan: Acute on chronic hypoxia. VBG shows pH of 7.42, PCO2 57, PO2 of 193, HCO3 of 37. BiPAP on/off times. Pts. SpO2 currently mid-90s on 5L via NC. Will monitor and titrate PRN. (8) CKD (chronic kidney disease) stage 3, GFR 30-59 ml/min Current Visit: Yes Status: Chronic Assessment and plan: Hx of chronic CKD. Currently stage III w/GFR of 48 and creatinine of 1.10. IV fluids to be used judiciously if warranted due to current renal dysfunction and history of CHF. Monitor patient and follow-up labs. Avoid nephrotoxins. (9) HTN (hypertension) Current Visit: Yes Status: Chronic Assessment and plan: Hx of chronic HTN. Monitor pt. and VS. Continue pts. Cardizem. Qualifiers: Hypertension type: essential hypertension Qualified Code(s): I10 - Essential (primary) hypertension (10) HLD (hyperlipidemia) Current Visit: Yes Status: Chronic Assessment and plan: Hx of chronic HLD. Lipid panel in a.m. labs. Continue pts. Simvastatin. Qualifiers: Hyperlipidemia type: mixed hyperlipidemia Qualified Code(s): E78.2 - Mixed hyperlipidemia (11) CHF (congestive heart failure) Current Visit: Yes Status: Chronic Assessment and plan: Hx of chronic CHF. Stable. BNP 52 on admission. Continuous cardiac telemetry. 1.5L daily fluid restriction. Qualifiers: Heart failure type: diastolic Heart failure chronicity: chronic Qualified Code(s): I50.32 - Chronic diastolic (congestive) heart failure (12) Constipation Current Visit: Yes Status: Acute Assessment and plan: patient states today she hasn't had a bowel movement in a few days. - recommended to get up with assistance to move around - ordered metamucil Qualifiers: Qualified Code(s): K59.00 - Constipation, unspecified - Time Spent With Patient Total time spent is greater than 50% in coordination of care (as documented) at patient's floor/unit and/or counseling patient: - Subjective Interval history: Ms Perez is seen and examined today. Patient has long standing history of COPD, and is on 2L at home normally. She is feeling much better today, and would like to get up and walk around. She does state she didn't sleep so well last night because she was awoken many times by staff for various reasons. She denies feeling feverish, cough, CP, SOB, n/v. - Constitutional Vitals: Temp Pulse Resp BP Pulse Ox 97.8 F 97 16 144/66 90 12/21/17 07:00 12/21/17 07:00 12/21/17 08:08 12/21/17 07:00 12/21/17 08:08 General appearance: Present: cooperative, mild distress (SOB/Dyspnea), A&O X 3, pleasant, obese, answers questions appropriately - ENT ENT exam: Present: mucous membranes dry - Respiratory Respiratory exam: Present: prolonged expiratory phase, wheezes - Cardiovascular Cardiovascular exam: Present: RRR - GI/Abdominal GI/Abdominal exam: Present: normal bowel sounds - Extremities Exam Extremities exam: Absent: pedal edema Internal Medicine: Result - Labs CBC & Chem 7: 12/21/17 03:20 12/21/17 03:20 Labs: Short CBC 12/21/17 Range/Units 03:20 WBC 10.8 D (4.3-11.1) K/mcL Hgb 11.0 L (11.5-15.4) g/dL Hct 34.4 L (35.3-44.9) % Plt Count 225 (140-400) K/mcL Neutrophils # 9.8 H (1.6-8.9) K/mcL BMP 12/21/17 03:20 Sodium 137 Potassium 3.8 Chloride 91 L Carbon Dioxide 39 H BUN 36 H Creatinine 1.24 H Glucose 343 H Calcium 9.3 Liver Function 12/21/17 Range/Units 03:20 Total Bilirubin 0.4 (0.3-1.0) mg/dL AST 12 L (13-39) Units/L ALT 15 (7-52) Units/L Alkaline Phosphatase 80 (34-104) Units/L Albumin 3.8 (3.5-5.7) g/dL - ABG Interpretation ABG results: PT/INR, D-dimer PT 24.7 Seconds (9.4-12.1) H 12/21/17 03:20 - VTE Documentation of Mechanical Device: Graduated compression elastic hosiery Consult Discharge Plan - Plan Referrals: Domingo Melton, [Primary Care Provider] - <Huy Tompkins - Last Filed: 12/21/17 16:00> Date of Encounter: 12/21/17 - Assessment and plan (1) Acute and chronic respiratory failure ([id number]) Current Visit: Yes Status: Acute Qualifiers: Respiratory failure complication: hypoxia and hypercapnia Qualified Code(s) : J96.21 - Acute and chronic respiratory failure with hypoxia; J96.22 - Acute and chronic respiratory failure with hypercapnia; J96.22 - Acute and chronic respiratory failure with hypercapnia; J96.22 - Acute and chronic respiratory failure with hypercapnia (2) Acute exacerbation of chronic obstructive airways disease Current Visit: Yes Status: Acute (3) DM (diabetes mellitus) Current Visit: Yes Status: Chronic Qualifiers: Diabetes mellitus type: type 2 Diabetes mellitus local intermodal truck driver insulin use: with local intermodal truck driver use Diabetes mellitus complication status: with kidney complications Diabetes mellitus complication detail: with chronic kidney disease Chronic kidney disease stage: stage 3 (moderate) Qualified Code(s): E11.22 - Type 2 diabetes mellitus with diabetic chronic kidney disease; N18.3 - Chronic kidney disease, stage 3 (moderate); N18.3 - Chronic kidney disease, stage 3 (moderate); Z79.4 - buttermaker continuous churn (current) use of insulin; Z79.4 - longterm (current) use of insulin; Z79.4 - buttermaker continuous churn (current) use of insulin; Z79.4 - longterm (current) use of insulin (4) Atrial fibrillation Current Visit: Yes Status: Chronic Qualifiers: Atrial fibrillation type: chronic Qualified Code(s): I48.2 - Chronic atrial fibrillation (5) CAROLIN (obstructive sleep apnea) Current Visit: Yes Status: Chronic (6) Hypoxia Current Visit: Yes Status: Acute (7) CKD (chronic kidney disease) stage 3, GFR 30-59 ml/min Current Visit: Yes Status: Chronic (8) HTN (hypertension) Current Visit: Yes Status: Chronic Qualifiers: Hypertension type: essential hypertension Qualified Code(s): I10 - Essential (primary) hypertension (9) HLD (hyperlipidemia) Current Visit: Yes Status: Chronic Qualifiers: Hyperlipidemia type: mixed hyperlipidemia Qualified Code(s): E78.2 - Mixed hyperlipidemia (10) CHF (congestive heart failure) Current Visit: Yes Status: Chronic Qualifiers: Heart failure type: diastolic Heart failure chronicity: chronic Qualified Code(s): I50.32 - Chronic diastolic (congestive) heart failure (11) Constipation Current Visit: Yes Status: Acute Qualifiers: Constipation type: slow transit constipation Qualified Code(s): K59.01 - Slow transit constipation (12) DVT prophylaxis Current Visit: Yes Status: Acute - Time Spent With Patient Total time spent is greater than 50% in coordination of care (as documented) at patient's floor/unit and/or counseling patient: - Constitutional Vitals: Temp Pulse Resp BP Pulse Ox 97.8 F 97 16 144/66 92 12/21/17 07:00 12/21/17 07:00 12/21/17 12:04 12/21/17 07:00 12/21/17 12:04 Internal Medicine: Result - Labs CBC & Chem 7: 12/21/17 03:20 12/21/17 03:20 Labs: Short CBC 12/21/17 Range/Units 03:20 WBC 10.8 D (4.3-11.1) K/mcL Hgb 11.0 L (11.5-15.4) g/dL Hct 34.4 L (35.3-44.9) % Plt Count 225 (140-400) K/mcL Neutrophils # 9.8 H (1.6-8.9) K/mcL BMP 12/21/17 03:20 Sodium 137 Potassium 3.8 Chloride 91 L Carbon Dioxide 39 H BUN 36 H Creatinine 1.24 H Glucose 343 H Calcium 9.3 Liver Function 12/21/17 Range/Units 03:20 Total Bilirubin 0.4 (0.3-1.0) mg/dL AST 12 L (13-39) Units/L ALT 15 (7-52) Units/L Alkaline Phosphatase 80 (34-104) Units/L Albumin 3.8 (3.5-5.7) g/dL - ABG Interpretation ABG results: PT/INR, D-dimer PT 24.7 Seconds (9.4-12.1) H 12/21/17 03:20 - Attending Attestation I examined this patient and my medical decision-making was reviewed with the Resident Physician on 12/21/17. I agree with the documented findings, disposition and treatment plan as described except to the extent set forth below. Ms Perez is currently admitted for acute exac COPD. She remains moderate to high risk due to potential for worsening clinical status. Ms Perez is up walking in room. She feels she is breathing better but is very constipated. No fever. No CP. Exam Alert Comfortable up walking Mucus membranes dry Heart not tachy Some wheeze but less than yesterday Abd soft I/P 1. COPD exac 2. Constipation Further diagnoses and plan as above.
[2017-12-21] MEDS: Psyllium 1 PACKET POWD.PACK PO SCH ×2 (14:12→19:56)
[2017-12-21] MEDS ORDERED: predniSONE 20 MG TABLET PO SCH (17:00)
[2017-12-21] MEDS ORDERED: *HR* Warfarin 2 MG TABLET PO SCH (18:00)
[2017-12-21 21:37] LABS: Estimated Average Glucose 194 mg/dl; Hemoglobin A1C 8.4 %
[2017-12-22] MEDS: *HR* HYDROcodone/Acet 5/325 mg TABLET PO PRN (00:18)
[2017-12-22] MEDS: Ipratropium/Albuterol Neb 3 ML IH SCH ×6 (04:13→19:36)
[2017-12-22 04:42] LABS: Basophils % 0.3 %; Hematocrit 35.9 % (35.3-44.9); Hemoglobin 11.4 g/dL (11.5-15.4); Lymphocytes # 0.4 K/mcL (0.6-4.6); Mean Corpuscular HGB Conc 31.8 g/dL (31.6-35.5); Mean Corpuscular Hemoglobin 29.3 pg (28.0-33.3); Mean Corpuscular Volume 92.3 fL (83.0-100.0); Mean Platelet Volume 10.1 fL (9.4-12.4); Monocytes # 0.6 K/mcL (0.0-1.3); Monocytes % 5.4 %; Neutrophils # 9.5 K/mcL (1.6-8.9); Platelet Count 229 K/mcL (140-400); Red Blood Count 3.89 M/mcL (3.82-4.97); Red Cell Distribution Width 13.5 % (11.5-14.5); Segmented Neutrophils % 87.3 %
[2017-12-22 04:44] LABS: INR 1.8; Prothrombin Time 19.7 Seconds (9.4-12.1)
[2017-12-22 05:01] LABS: Albumin 4.1 g/dL (3.5-5.7); Albumin/Globulin Ratio 1.5 (1.1-2.2); Bilirubin,Total 0.6 mg/dL (0.3-1.0); Calcium 9.7 mg/dL (8.6-10.3); Globulin 2.8 g/dL (2.4-3.5); Potassium 3.9 mEq/L (3.5-5.1); Total Protein 6.9 g/dL (6.4-8.9)
[2017-12-22] MEDS: *HR* Promethazine 25 MG/ML VIAL IVP PRN ×2 (06:58→15:57)
[2017-12-22] MEDS: Budesonide/Formoterol 160/4.5 MDI IH SCH (07:28)
[2017-12-22] MEDS: Tiotropium 18 MCG inhalation IH SCH (07:29)
[2017-12-22] MEDS: Insulin LISPRO 300 UNITS/3 ML VIAL SQ SCH ×4 (08:56→23:19)
[2017-12-22] MEDS ORDERED: Milk and Molasses Enema 200 ML RC ONE (09:41)
[2017-12-22] MEDS ORDERED: 0.9 % Sodium Chloride 500 ML IVC ONE (09:49)
--- NOTE | 2017-12-22 09:50 | Internal Med Progress Note ---
<Nathaniel La - Last Filed: 12/22/17 14:06> Date of Encounter: 12/22/17 Time of Encounter: 09:47 - Assessment and plan (1) DM (diabetes mellitus) Current Visit: Yes Status: Chronic Assessment and plan: SSI medium dosing Qualifiers: Diabetes mellitus type: type 2 Diabetes mellitus longwall foreman insulin use: with halfway use Diabetes mellitus complication status: with kidney complications Diabetes mellitus complication detail: with chronic kidney disease Chronic kidney disease stage: stage 3 (moderate) Qualified Code(s): E11.22 - Type 2 diabetes mellitus with diabetic chronic kidney disease; N18.3 - Chronic kidney disease, stage 3 (moderate); N18.3 - Chronic kidney disease, stage 3 (moderate); Z79.4 - medical terminologist (current) use of insulin; Z79.4 - medical terminologist (current) use of insulin; Z79.4 - medical terminologist (current) use of insulin; Z79.4 - medical terminologist (current) use of insulin (2) DVT prophylaxis Current Visit: Yes Status: Acute Assessment and plan: continue home coumadin. INR today is 2.5, controlled currently, but was >3 when she arrived - will continue to follow INR. (3) Acute exacerbation of chronic obstructive airways disease Current Visit: Yes Status: Acute Assessment and plan: Home O2 is 2L, duoneb, BiPAP, symbicort, spiriva. VBG has pH of 7.42 and well compensated. Clinically patient is stable. Currently well controlled on abx, steroids, breathing treatments, and O2 support. Patient has CAP w/ hx of COPD. - attempt to titrate patient's O2. Goal O2 is 88-92% - PO 40 BID titrated down to PO 40 QD prednisone - Levaquin Day 2 - continue tele - Cardiac diet w/ fluid restriction to 1.5L and Na restricted to 2g (4) Atrial fibrillation Current Visit: Yes Status: Chronic Assessment and plan: Hx of chronic atrial fibrillation. Sinus tachycardia on exam d/t hypoxia. Continue Coumadin w/Pharmacy dosing. Continuous cardiac telemetry. Qualifiers: Atrial fibrillation type: chronic Qualified Code(s): I48.2 - Chronic atrial fibrillation (5) CAROLIN (obstructive sleep apnea) Current Visit: Yes Status: Chronic Assessment and plan: Hx of chronic CAROLIN. BiPAP ordered HS and on/off times. (6) Acute and chronic respiratory failure ([id number]) Current Visit: Yes Status: Acute Assessment and plan: Acute on chronic respiratory failure. Hx of COPD, CAROLIN, CHF. Current COPD exacerbation. Continue BiPAP on/off and HS. VBG. Avoid FIRE OFFICIAL depressants. Qualifiers: Respiratory failure complication: hypoxia and hypercapnia Qualified Code(s) : J96.21 - Acute and chronic respiratory failure with hypoxia; J96.22 - Acute and chronic respiratory failure with hypercapnia; J96.22 - Acute and chronic respiratory failure with hypercapnia; J96.22 - Acute and chronic respiratory failure with hypercapnia (7) Hypoxia Current Visit: Yes Status: Acute Assessment and plan: Acute on chronic hypoxia. VBG shows pH of 7.42, PCO2 57, PO2 of 193, HCO3 of 37. BiPAP on/off times. Pts. SpO2 currently mid-90s on 5L via NC. Will monitor and titrate PRN. (8) CKD (chronic kidney disease) stage 3, GFR 30-59 ml/min Current Visit: Yes Status: Chronic Assessment and plan: Hx of chronic CKD. Currently stage III w/GFR of 48 and creatinine of 1.10. IV fluids to be used judiciously if warranted due to current renal dysfunction and history of CHF. Monitor patient and follow-up labs. Avoid nephrotoxins. (9) HTN (hypertension) Current Visit: Yes Status: Chronic Assessment and plan: Hx of chronic HTN. Monitor pt. and VS. Continue pts. Cardizem. Qualifiers: Hypertension type: essential hypertension Qualified Code(s): I10 - Essential (primary) hypertension (10) HLD (hyperlipidemia) Current Visit: Yes Status: Chronic Assessment and plan: Hx of chronic HLD. Lipid panel in a.m. labs. Continue pts. Simvastatin. Qualifiers: Hyperlipidemia type: mixed hyperlipidemia Qualified Code(s): E78.2 - Mixed hyperlipidemia (11) CHF (congestive heart failure) Current Visit: Yes Status: Chronic Assessment and plan: Hx of chronic CHF. Stable. BNP 52 on admission. Continuous cardiac telemetry. 1.5L daily fluid restriction. Qualifiers: Heart failure type: diastolic Heart failure chronicity: chronic Qualified Code(s): I50.32 - Chronic diastolic (congestive) heart failure (12) Constipation Current Visit: Yes Status: Acute Assessment and plan: patient states today she hasn't had a bowel movement in a few days. - recommended to get up with assistance to move around - continue metamucil, senna plus - ordered milk of mg enema Qualifiers: Constipation type: slow transit constipation Qualified Code(s): K59.01 - Slow transit constipation (13) Nausea & vomiting Current Visit: Yes Status: Acute Assessment and plan: gave extra dose of phenergen. Most likely due to recent history of receiving oxycontin, and constipation. - do not give zofran due to interaction with levaquin - ordered enema Qualifiers: Qualified Code(s): R11.2 - Nausea with vomiting, unspecified (14) Acute kidney injury superimposed on chronic kidney disease Current Visit: Yes Status: Acute Assessment and plan: Cr bumped to 1.34, lowest on admission has been 1.00. Most likely in the setting of dehydration from vomiting. Will control the nausea, vomiting, and constipation symptoms - .5 L bolus IVF - hold lasix - continue to monitor; if worsens will get further workup of FENa (after off lasix) and KUB - Time Spent With Patient Total time spent is greater than 50% in coordination of care (as documented) at patient's floor/unit and/or counseling patient: - Subjective Interval history: Ms Perez is seen and examined today. Patient has long standing history of COPD, and is on 2L at home normally. Patient reports her breathing is getting much better today. But overnight she has reported nausea, vomiting, and remains constipated. She reports that for the last few weeks she's been on oxycontin, and she thinks that might be why she's constipated. She says last time she was hear and she was constipated she had an enema and that worked. She had a hatfield salad last night, but that came back up. She says she's unable to swallow pills. She denies feeling feverish, cough, CP, SOB. - Constitutional Vitals: Temp Pulse Resp BP Pulse Ox 98 F 104 16 158/77 93 12/22/17 06:50 12/22/17 06:50 12/22/17 07:31 12/22/17 06:50 12/22/17 07:31 General appearance: Present: cooperative, mild distress (SOB/Dyspnea), A&O X 3, pleasant, obese, answers questions appropriately - Respiratory Respiratory exam: Present: prolonged expiratory phase, wheezes - Cardiovascular Cardiovascular exam: Present: RRR - GI/Abdominal GI/Abdominal exam: Present: distended, firm, hypoactive bowel sounds Internal Medicine: Result - Labs CBC & Chem 7: 12/22/17 04:10 12/22/17 04:10 Labs: Short CBC 12/22/17 Range/Units 04:10 WBC 10.9 (4.3-11.1) K/mcL Hgb 11.4 L (11.5-15.4) g/dL Hct 35.9 (35.3-44.9) % Plt Count 229 (140-400) K/mcL Neutrophils # 9.5 H (1.6-8.9) K/mcL BMP 12/22/17 04:10 Sodium 138 Potassium 3.9 Chloride 87 L Carbon Dioxide 43 H* BUN 41 H Creatinine 1.34 H Glucose 350 H Calcium 9.7 Liver Function 12/22/17 Range/Units 04:10 Total Bilirubin 0.6 (0.3-1.0) mg/dL AST 12 L (13-39) Units/L ALT 16 (7-52) Units/L Alkaline Phosphatase 82 (34-104) Units/L Albumin 4.1 (3.5-5.7) g/dL - ABG Interpretation ABG results: PT/INR, D-dimer PT 19.7 Seconds (9.4-12.1) H 12/22/17 04:10 - VTE Documentation of Mechanical Device: Graduated compression elastic hosiery Consult Discharge Plan - Plan Referrals: Domingo Melton DO [Primary Care Provider] - <Huy Tompkins - Last Filed: 12/22/17 19:10> Date of Encounter: 12/22/17 - Assessment and plan (1) Small bowel obstruction Current Visit: Yes Status: Acute (2) Nausea & vomiting Current Visit: Yes Status: Acute Qualifiers: Vomiting type: cyclical vomiting Vomiting Intractability: intractable Qualified Code(s): G43.A1 - Cyclical vomiting, intractable (3) Acute and chronic respiratory failure ([id number]) Current Visit: Yes Status: Acute Qualifiers: Respiratory failure complication: hypoxia and hypercapnia Qualified Code(s) : J96.21 - Acute and chronic respiratory failure with hypoxia; J96.22 - Acute and chronic respiratory failure with hypercapnia; J96.22 - Acute and chronic respiratory failure with hypercapnia; J96.22 - Acute and chronic respiratory failure with hypercapnia (4) Acute exacerbation of chronic obstructive airways disease Current Visit: Yes Status: Acute (5) DM (diabetes mellitus) Current Visit: Yes Status: Chronic Qualifiers: Diabetes mellitus type: type 2 Diabetes mellitus longwall foreman insulin use: with halfway use Diabetes mellitus complication status: with kidney complications Diabetes mellitus complication detail: with chronic kidney disease Chronic kidney disease stage: stage 3 (moderate) Qualified Code(s): E11.22 - Type 2 diabetes mellitus with diabetic chronic kidney disease; N18.3 - Chronic kidney disease, stage 3 (moderate); N18.3 - Chronic kidney disease, stage 3 (moderate); Z79.4 - medical terminologist (current) use of insulin; Z79.4 - nursing home (current) use of insulin; Z79.4 - nursing home (current) use of insulin; Z79.4 - nursing home (current) use of insulin (6) DVT prophylaxis Current Visit: Yes Status: Acute (7) Atrial fibrillation Current Visit: Yes Status: Chronic Qualifiers: Atrial fibrillation type: chronic Qualified Code(s): I48.2 - Chronic atrial fibrillation (8) CAROLIN (obstructive sleep apnea) Current Visit: Yes Status: Chronic (9) Hypoxia Current Visit: Yes Status: Acute (10) CKD (chronic kidney disease) stage 3, GFR 30-59 ml/min Current Visit: Yes Status: Chronic (11) HTN (hypertension) Current Visit: Yes Status: Chronic Qualifiers: Hypertension type: essential hypertension Qualified Code(s): I10 - Essential (primary) hypertension (12) HLD (hyperlipidemia) Current Visit: Yes Status: Chronic Qualifiers: Hyperlipidemia type: mixed hyperlipidemia Qualified Code(s): E78.2 - Mixed hyperlipidemia (13) CHF (congestive heart failure) Current Visit: Yes Status: Chronic Qualifiers: Heart failure type: diastolic Heart failure chronicity: chronic Qualified Code(s): I50.32 - Chronic diastolic (congestive) heart failure (14) Constipation Current Visit: Yes Status: Acute Qualifiers: Constipation type: slow transit constipation Qualified Code(s): K59.01 - Slow transit constipation (15) Acute kidney injury superimposed on chronic kidney disease Current Visit: Yes Status: Acute - Time Spent With Patient Total time spent is greater than 50% in coordination of care (as documented) at patient's floor/unit and/or counseling patient: - Constitutional Vitals: Temp Pulse Resp BP Pulse Ox 97.9 F 106 16 164/87 95 12/22/17 17:01 12/22/17 17:01 12/22/17 17:01 12/22/17 17:01 12/22/17 17:01 Internal Medicine: Result - Labs CBC & Chem 7: 12/22/17 04:10 12/22/17 04:10 Labs: Short CBC 12/22/17 Range/Units 04:10 WBC 10.9 (4.3-11.1) K/mcL Hgb 11.4 L (11.5-15.4) g/dL Hct 35.9 (35.3-44.9) % Plt Count 229 (140-400) K/mcL Neutrophils # 9.5 H (1.6-8.9) K/mcL BMP 12/22/17 04:10 Sodium 138 Potassium 3.9 Chloride 87 L Carbon Dioxide 43 H* BUN 41 H Creatinine 1.34 H Glucose 350 H Calcium 9.7 Liver Function 12/22/17 Range/Units 04:10 Total Bilirubin 0.6 (0.3-1.0) mg/dL AST 12 L (13-39) Units/L ALT 16 (7-52) Units/L Alkaline Phosphatase 82 (34-104) Units/L Albumin 4.1 (3.5-5.7) g/dL - ABG Interpretation ABG results: PT/INR, D-dimer PT 19.7 Seconds (9.4-12.1) H 12/22/17 04:10 - Impressions Impressions Abdomen/Pelvis CT 12/22/17 16:12 IMPRESSION: 1. Findings consistent with proximal small bowel obstruction, with transition point in the left mid abdomen. No obstructing lesion is seen. 2. Mildly distended stomach. 3. Coronary atherosclerosis. D/ / 12/22/2017 17:38:59 Willard Medel MD / [email or web address] Interpreting Provider: Willard Medel MD KUB X-Ray 12/22/17 17:27 IMPRESSION: Enteric tube tip in the gastric fundus with the side-port in the region of the gastroesophageal junction. Recommend advancement at least 5 cm prior to use. D/ / Matheus Bryant / Matheus Bryant Interpreting Provider: Matheus Bryant - Attending Attestation I examined this patient and my medical decision-making was reviewed with the Resident Physician on 12/22/17. I agree with the documented findings, disposition and treatment plan as described except to the extent set forth below. Ms Perez is currently admitted for COPD exacerbation. She has developed intractable vomiting. She remains moderate to high risk due to potential for worsening clinical status. Ms Perez is having a lot of vomiting. She is having upper abdominal pain as well. CT shows SBO. NG has been placed. No fever. No worsening of dyspnea. Exam alert Moderate distress Mucus membranes dry Heart distant Lungs with some wheeze Abd distended and tender I/P 1. SBO - NG placed. KUB in AM. May need surg eval 2. COPD exac Further diagnoses and plan as above.
[2017-12-22] MEDS ORDERED: *HR* Promethazine 25 MG/ML VIAL IVP ONE (09:51)
[2017-12-22] MEDS: Psyllium 1 PACKET POWD.PACK PO SCH ×3 (11:54→23:17)
[2017-12-22] MEDS: levoFLOXacin 500 MG TABLET PO SCH (12:53)
[2017-12-22] MEDS: Diltiazem CD (24hr) 180 MG CAPSULE PO SCH (12:53)
[2017-12-22] MEDS: Sennosides/Docusate Sodium TABLET PO SCH ×2 (15:57→23:17)
[2017-12-22] MEDS ORDERED: *HR* Warfarin 3 MG TABLET PO ONE (18:00)
[2017-12-22] MEDS ORDERED: 0.9 % Sodium Chloride 1,000 ML IVC SCH (19:15)
[2017-12-22] MEDS ORDERED: *HR* FentaNYL (PF) 100 MCG/2 ML VIAL IVP ONE (20:41)
--- NOTE | 2017-12-22 20:43 | Event Note ---
Date of Encounter: 12/22/17 Time of Encounter: 20:17 Alerted by pts. nurse that pt. is complaining of chronic back pain that she rates as a 12 or 14 out of 10. Pt. has current renal dysfunction w/GFR of 31 and creatinine of 1.34. Currently on NG tube d/t N/V and possible small bowel obstruction. Opioids contraindicated d/t renal toxicity risk. Fentanyl 25 mcg IV push ONCE ordered for pain due to its hepatic clearance properties. Will order hepatic panel. Monitor patient and vital signs.
[2017-12-22 21:46] LABS: Albumin 3.8 g/dL (3.5-5.7); Albumin/Globulin Ratio 1.4 (1.1-2.2); Bilirubin,Direct 0.2 mg/dL (0.0-0.2); Bilirubin,Indirect 0.4 mg/dL (0.0-1.2); Bilirubin,Total 0.6 mg/dL (0.3-1.0); Globulin 2.8 g/dL (2.4-3.5); Total Protein 6.6 g/dL (6.4-8.9)
[2017-12-23] MEDS: Ipratropium/Albuterol Neb 3 ML IH SCH ×7 (00:24→23:15)
[2017-12-23] MEDS: OXYCODONE Oral CONC 10 MG/0.5 ML ORAL.SYG SL PRN ×2 (00:40→06:33)
[2017-12-23 04:28] LABS: Basophils % 0.2 %; Eosinophils # 0.1 K/mcL (0.0-0.6); Eosinophils % 1.2 %; Hematocrit 38.9 % (35.3-44.9); Immature Granulocytes % 1.1 % (0-4); Lymphocytes # 0.7 K/mcL (0.6-4.6); Lymphocytes % 7.5 %; Mean Corpuscular HGB Conc 30.8 g/dL (31.6-35.5); Mean Corpuscular Hemoglobin 29.9 pg (28.0-33.3); Mean Corpuscular Volume 96.8 fL (83.0-100.0); Mean Platelet Volume 10.3 fL (9.4-12.4); Monocytes # 1.1 K/mcL (0.0-1.3); Monocytes % 11.4 %; Neutrophils # 7.6 K/mcL (1.6-8.9); Nucleated Red Blood Cells 0.2 /100 WBC (0); Platelet Count 196 K/mcL (140-400); Red Blood Count 4.02 M/mcL (3.82-4.97); Red Cell Distribution Width 13.7 % (11.5-14.5); Segmented Neutrophils % 78.6 %
[2017-12-23 04:33] LABS: INR 1.7; Prothrombin Time 18.7 Seconds (9.4-12.1)
[2017-12-23 04:55] LABS: Alanine Aminotransferase 14 Units/L (7-52); Albumin 3.8 g/dL (3.5-5.7); Albumin/Globulin Ratio 1.4 (1.1-2.2); Alkaline Phosphatase 75 Units/L (34-104); Aspartate Amino Transferase 14 Units/L (13-39); BUN/Creatinine Ratio 25 (6-26); Bilirubin,Total 0.7 mg/dL (0.3-1.0); Blood Urea Nitrogen 29 mg/dL (8-23); Calcium 9.5 mg/dL (8.6-10.3); Carbon Dioxide > 45 mEq/L (23-29); Chloride 89 mEq/L (98-107); Globulin 2.8 g/dL (2.4-3.5); Glucose 174 mg/dL (70-105); Osmolality,Calculated 308 (280-300); Potassium 3.8 mEq/L (3.5-5.1); Sodium 144 mEq/L (136-145); Total Protein 6.6 g/dL (6.4-8.9); eGFR For African Americans 54 (> 60); eGFR For Non-African Americans 45 (> 60)
[2017-12-23] MEDS: Tiotropium 18 MCG inhalation IH SCH (07:41)
--- NOTE | 2017-12-23 08:45 | Internal Med Progress Note ---
<Nathaniel La - Last Filed: 12/23/17 13:31> Date of Encounter: 12/23/17 Time of Encounter: 08:42 - Assessment and plan (1) Small bowel obstruction Current Visit: Yes Status: Acute Assessment and plan: patient has nausea, vomiting and constipation. Today patient is flatulent, and nausea is decreasing. Currently is improving Confirmed on CT but not seen on KUB. Strategy is bowel rest at this point. If progresses, will consult Surgery - NPO; please swab mouth with liquids - SBO most likely resolved at the point, wll proceed with clamp trial - ordered miralax (2) Acute exacerbation of chronic obstructive airways disease Current Visit: Yes Status: Acute Assessment and plan: Home O2 is 2L, duoneb, BiPAP, symbicort, spiriva. VBG has pH of 7.42 and well compensated. Clinically patient is stable. Currently well controlled on abx, steroids, breathing treatments, and O2 support. Patient has CAP w/ hx of COPD. - attempt to titrate patient's O2. Goal O2 is 88-92%. DO NOT TURN UP O2 unless O2 <88% - continue prednisone PO 40 qd - Levaquin Day 3 - continue tele - Cardiac diet w/ fluid restriction to 1.5L and Na restricted to 2g (3) DM (diabetes mellitus) Current Visit: Yes Status: Chronic Assessment and plan: SSI medium dosing Qualifiers: Diabetes mellitus type: type 2 Diabetes mellitus exterminator helper termite insulin use: with exterminator helper termite use Diabetes mellitus complication status: with kidney complications Diabetes mellitus complication detail: with chronic kidney disease Chronic kidney disease stage: stage 3 (moderate) Qualified Code(s): E11.22 - Type 2 diabetes mellitus with diabetic chronic kidney disease; N18.3 - Chronic kidney disease, stage 3 (moderate); N18.3 - Chronic kidney disease, stage 3 (moderate); Z79.4 - ferry terminal agent (current) use of insulin; Z79.4 - ferry terminal agent (current) use of insulin; Z79.4 - ferry terminal agent (current) use of insulin; Z79.4 - ferry terminal agent (current) use of insulin (4) DVT prophylaxis Current Visit: Yes Status: Acute Assessment and plan: continue home coumadin. INR today is 2.5, controlled currently, but was >3 when she arrived - will continue to follow INR. (5) Atrial fibrillation Current Visit: Yes Status: Chronic Assessment and plan: Hx of chronic atrial fibrillation. Sinus tachycardia on exam d/t hypoxia. Continue Coumadin w/Pharmacy dosing. Continuous cardiac telemetry. Qualifiers: Atrial fibrillation type: chronic Qualified Code(s): I48.2 - Chronic atrial fibrillation (6) CAROLIN (obstructive sleep apnea) Current Visit: Yes Status: Chronic Assessment and plan: Hx of chronic CAROLIN. BiPAP ordered HS and on/off times. (7) Acute and chronic respiratory failure ([id number]) Current Visit: Yes Status: Acute Assessment and plan: Acute on chronic respiratory failure. Hx of COPD, CAROLIN, CHF. Current COPD exacerbation. Continue BiPAP on/off and HS. VBG. Avoid HOME HEALTH CAREGIVER depressants. Qualifiers: Respiratory failure complication: hypoxia and hypercapnia Qualified Code(s) : J96.21 - Acute and chronic respiratory failure with hypoxia; J96.22 - Acute and chronic respiratory failure with hypercapnia; J96.22 - Acute and chronic respiratory failure with hypercapnia; J96.22 - Acute and chronic respiratory failure with hypercapnia (8) Hypoxia Current Visit: Yes Status: Acute Assessment and plan: Acute on chronic hypoxia. VBG shows pH of 7.42, PCO2 57, PO2 of 193, HCO3 of 37. BiPAP on/off times. Pts. SpO2 currently mid-90s on 5L via NC. Will monitor and titrate PRN. (9) CKD (chronic kidney disease) stage 3, GFR 30-59 ml/min Current Visit: Yes Status: Chronic Assessment and plan: Hx of chronic CKD. Currently stage III w/GFR of 48 and creatinine of 1.10. IV fluids to be used judiciously if warranted due to current renal dysfunction and history of CHF. Monitor patient and follow-up labs. Avoid nephrotoxins. (10) HTN (hypertension) Current Visit: Yes Status: Chronic Assessment and plan: Hx of chronic HTN. Monitor pt. and VS. Continue pts. Cardizem. Qualifiers: Hypertension type: essential hypertension Qualified Code(s): I10 - Essential (primary) hypertension (11) HLD (hyperlipidemia) Current Visit: Yes Status: Chronic Assessment and plan: Hx of chronic HLD. Lipid panel in a.m. labs. Continue pts. Simvastatin. Qualifiers: Hyperlipidemia type: mixed hyperlipidemia Qualified Code(s): E78.2 - Mixed hyperlipidemia (12) CHF (congestive heart failure) Current Visit: Yes Status: Chronic Assessment and plan: Hx of chronic CHF. Stable. BNP 52 on admission. Continuous cardiac telemetry. 1.5L daily fluid restriction. Qualifiers: Heart failure type: diastolic Heart failure chronicity: chronic Qualified Code(s): I50.32 - Chronic diastolic (congestive) heart failure (13) Constipation Current Visit: Yes Status: Acute Assessment and plan: see above Qualifiers: Constipation type: slow transit constipation Qualified Code(s): K59.01 - Slow transit constipation (14) Nausea & vomiting Current Visit: Yes Status: Acute Assessment and plan: see above Qualifiers: Vomiting type: cyclical vomiting Vomiting Intractability: intractable Qualified Code(s): G43.A1 - Cyclical vomiting, intractable (15) Acute kidney injury superimposed on chronic kidney disease Current Visit: Yes Status: Acute Assessment and plan: BARRY has resolved - Time Spent With Patient Total time spent is greater than 50% in coordination of care (as documented) at patient's floor/unit and/or counseling patient: - Subjective Interval history: Ms Perez is seen and examined today. Patient has long standing history of COPD, and is on 2L at home normally. Patient was seen and examined with son this morning. Patient reports that her breathing feels back to normal but the son had concerns that this morning when he came in her NC O2 was up to 4L. The nurse this morning turned it back down to 3L. Patient reports that she still has some nausea, but she is feeling a lot better. She states she has been passing gas since yesterday. Her only complaint is that she is "dying of thirst '. She denies SOB, CP, fever, chills. - Constitutional Vitals: Temp Pulse Resp BP Pulse Ox 97.9 F 100 20 146/70 94 12/23/17 07:41 12/23/17 07:41 12/23/17 07:41 12/23/17 07:41 12/23/17 07:41 General appearance: Present: cooperative, mild distress (SOB/Dyspnea), A&O X 3, pleasant, obese, answers questions appropriately - Head Head exam: Present: normal inspection - ENT ENT exam: Present: mucous membranes dry - Respiratory Respiratory exam: Present: prolonged expiratory phase, wheezes - Cardiovascular Cardiovascular exam: Present: RRR - GI/Abdominal GI/Abdominal exam: Present: hypoactive bowel sounds, soft. Absent: distended, firm, guarding, rebound, rigid - Extremities Exam Extremities exam: Absent: pedal edema Internal Medicine: Result - Labs CBC & Chem 7: 12/23/17 04:10 12/23/17 04:10 Labs: Short CBC 12/23/17 Range/Units 04:10 WBC 9.7 (4.3-11.1) K/mcL Hgb 12.0 (11.5-15.4) g/dL Hct 38.9 (35.3-44.9) % Plt Count 196 (140-400) K/mcL Neutrophils # 7.6 (1.6-8.9) K/mcL BMP 12/23/17 04:10 Sodium 144 Potassium 3.8 Chloride 89 L Carbon Dioxide > 45 H* BUN 29 H Creatinine 1.16 Glucose 174 H Calcium 9.5 Liver Function 12/22/17 12/23/17 Range/Units 21:11 04:10 Total Bilirubin 0.6 0.7 (0.3-1.0) mg/dL Direct Bilirubin 0.2 (0.0-0.2) mg/dL AST 15 14 (13-39) Units/L ALT 14 14 (7-52) Units/L Alkaline Phosphatase 74 75 (34-104) Units/L Albumin 3.8 3.8 (3.5-5.7) g/dL - ABG Interpretation ABG results: PT/INR, D-dimer PT 18.7 Seconds (9.4-12.1) H 12/23/17 04:10 - Impressions Impressions Abdomen/Pelvis CT 12/22/17 16:12 IMPRESSION: 1. Findings consistent with proximal small bowel obstruction, with transition point in the left mid abdomen. No obstructing lesion is seen. 2. Mildly distended stomach. 3. Coronary atherosclerosis. D/ / 12/22/2017 17:38:59 Willard Medel MD / david Interpreting Provider: Willard Medel MD KUB X-Ray 12/22/17 17:27 IMPRESSION: Enteric tube tip in the gastric fundus with the side-port in the region of the gastroesophageal junction. Recommend advancement at least 5 cm prior to use. D/ / Matheus Bryant / Matheus Bryant Interpreting Provider: Matheus Bryant X-Ray 12/23/17 06:00 IMPRESSION: Nasogastric tube in the gastric fundus. No dilated loops of gas-filled small bowel. The fluid-filled loops of dilated proximal small bowel from the recent CT are not visualized radiographically. D/ / 12/23/2017 07:52:34 Radhames Almanzar MD / [email or web address] Interpreting Provider: Radhames Almanzar MD - VTE Documentation of Mechanical Device: Graduated compression elastic hosiery Consult Discharge Plan - Plan Referrals: Domingo Melton DO [Primary Care Provider] - <Aysha Serrato - Last Filed: 12/23/17 17:13> Date of Encounter: 12/23/17 - Time Spent With Patient Total time spent is greater than 50% in coordination of care (as documented) at patient's floor/unit and/or counseling patient: - Constitutional Vitals: Temp Pulse Resp BP Pulse Ox 97.7 F 100 22 158/82 93 12/23/17 16:43 12/23/17 16:43 12/23/17 15:45 12/23/17 16:43 12/23/17 16:43 Internal Medicine: Result - Labs CBC & Chem 7: 12/23/17 04:10 12/23/17 04:10 Labs: Short CBC 12/23/17 Range/Units 04:10 WBC 9.7 (4.3-11.1) K/mcL Hgb 12.0 (11.5-15.4) g/dL Hct 38.9 (35.3-44.9) % Plt Count 196 (140-400) K/mcL Neutrophils # 7.6 (1.6-8.9) K/mcL BMP 12/23/17 04:10 Sodium 144 Potassium 3.8 Chloride 89 L Carbon Dioxide > 45 H* BUN 29 H Creatinine 1.16 Glucose 174 H Calcium 9.5 Liver Function 12/22/17 12/23/17 Range/Units 21:11 04:10 Total Bilirubin 0.6 0.7 (0.3-1.0) mg/dL Direct Bilirubin 0.2 (0.0-0.2) mg/dL AST 15 14 (13-39) Units/L ALT 14 14 (7-52) Units/L Alkaline Phosphatase 74 75 (34-104) Units/L Albumin 3.8 3.8 (3.5-5.7) g/dL - ABG Interpretation ABG results: PT/INR, D-dimer PT 18.7 Seconds (9.4-12.1) H 12/23/17 04:10 - Impressions Impressions Abdomen/Pelvis CT 12/22/17 16:12 IMPRESSION: 1. Findings consistent with proximal small bowel obstruction, with transition point in the left mid abdomen. No obstructing lesion is seen. 2. Mildly distended stomach. 3. Coronary atherosclerosis. D/ / 12/22/2017 17:38:59 [facility] Medel MD / [facility] Inter[facility] Provider: Willard Medel MD KUB X-Ray 12/22/17 17:27 IMPRESSION: Enteric tube tip in the gastric fundus with the side-port in the region of the gastroesophageal junction. Recommend advancement at least 5 cm prior to use. D/ / Matheus Bryant / Matheus Bryant Interpreting Provider: Matheus Bryant X-Ray 12/23/17 06:00 IMPRESSION: Nasogastric tube in the gastric fundus. No dilated loops of gas-filled small bowel. The fluid-filled loops of dilated proximal small bowel from the recent CT are not visualized radiographically. D/ / 12/23/2017 07:52:34 Radhames Almanzar MD / earnold Interpreting Provider: Radhames Almanzar MD - Attending Attestation I saw and examined this patient independently, and my medical decision making was reviewed with the resident physician on 12/23 2017. I agree with the documented findings, assessment and treatment plan as described in the progress note. I reviwed KUB this afternoon, shows severe constipation. MiraLAX every 4 hours added
[2017-12-23] MEDS: Insulin LISPRO 300 UNITS/3 ML VIAL SQ SCH ×4 (10:57→21:32)
[2017-12-23] MEDS: Psyllium 1 PACKET POWD.PACK PO SCH ×2 (10:58→12:26)
[2017-12-23] MEDS: Sennosides/Docusate Sodium TABLET PO SCH ×2 (11:07→20:33)
[2017-12-23] MEDS: Diltiazem CD (24hr) 180 MG CAPSULE PO SCH (11:08)
[2017-12-23] MEDS: levoFLOXacin 500 MG TABLET PO SCH (11:10)
[2017-12-23] MEDS: predniSONE 20 MG TABLET PO SCH (11:11)
[2017-12-23] MEDS: *HR* HYDROcodone/Acet 5/325 mg TABLET PO PRN ×2 (11:16→20:33)
[2017-12-23] MEDS: *HR* Promethazine 25 MG/ML VIAL IVP PRN (13:39)
[2017-12-23] MEDS ORDERED: *HR* Warfarin 4 MG TABLET PO ONE (18:00)
[2017-12-24] MEDS: Ipratropium/Albuterol Neb 3 ML IH SCH ×5 (03:59→19:46)
[2017-12-24 05:54] LABS: Basophils % 0.1 %; Eosinophils # 0.1 K/mcL (0.0-0.6); Hematocrit 40.8 % (35.3-44.9); Immature Granulocytes % 0.9 % (0-4); Lymphocytes # 0.6 K/mcL (0.6-4.6); Lymphocytes % 6.9 %; Mean Corpuscular HGB Conc 29.4 g/dL (31.6-35.5); Mean Corpuscular Hemoglobin 29.4 pg (28.0-33.3); Mean Platelet Volume 10.4 fL (9.4-12.4); Monocytes # 0.7 K/mcL (0.0-1.3); Monocytes % 8.3 %; Neutrophils # 7.2 K/mcL (1.6-8.9); Platelet Count 177 K/mcL (140-400); Red Blood Count 4.08 M/mcL (3.82-4.97); Red Cell Distribution Width 13.6 % (11.5-14.5); Segmented Neutrophils % 82.8 %
[2017-12-24 05:59] LABS: INR 1.7; Prothrombin Time 18.5 Seconds (9.4-12.1)
[2017-12-24 06:25] LABS: Alanine Aminotransferase 14 Units/L (7-52); Albumin 3.7 g/dL (3.5-5.7); Albumin/Globulin Ratio 1.3 (1.1-2.2); Alkaline Phosphatase 73 Units/L (34-104); Aspartate Amino Transferase 14 Units/L (13-39); BUN/Creatinine Ratio 22 (6-26); Bilirubin,Total 0.7 mg/dL (0.3-1.0); Blood Urea Nitrogen 22 mg/dL (8-23); Calcium 9.3 mg/dL (8.6-10.3); Carbon Dioxide > 45 mEq/L (23-29); Chloride 90 mEq/L (98-107); Globulin 2.8 g/dL (2.4-3.5); Glucose 178 mg/dL (70-105); Osmolality,Calculated 308 (280-300); Sodium 145 mEq/L (136-145); Total Protein 6.5 g/dL (6.4-8.9); eGFR For African Americans > 60 (> 60); eGFR For Non-African Americans 53 (> 60)
[2017-12-24] MEDS: *HR* HYDROcodone/Acet 5/325 mg TABLET PO PRN (06:32)
[2017-12-24] MEDS: predniSONE 20 MG TABLET PO SCH (08:03)
[2017-12-24] MEDS: Sennosides/Docusate Sodium TABLET PO SCH ×2 (08:03→21:56)
[2017-12-24] MEDS: levoFLOXacin 250 MG TABLET PO SCH (08:03)
[2017-12-24] MEDS: Diltiazem CD (24hr) 180 MG CAPSULE PO SCH (08:03)
[2017-12-24] MEDS: Insulin LISPRO 300 UNITS/3 ML VIAL SQ SCH ×4 (08:06→22:08)
--- NOTE | 2017-12-24 10:33 | Internal Med Progress Note ---
<Nathaniel La - Last Filed: 12/24/17 13:44> Date of Encounter: 12/24/17 Time of Encounter: 10:31 - Assessment and plan (1) Acute exacerbation of chronic obstructive airways disease Current Visit: Yes Status: Acute Assessment and plan: Home O2 is 2L, duoneb, BiPAP, symbicort, spiriva. VBG has pH of 7.42 and well compensated. Clinically patient is stable. Currently well controlled on abx, steroids, breathing treatments, and O2 support. Patient has CAP w/ hx of COPD. - attempt to titrate patient's O2. Goal O2 is 88-92%. DO NOT TURN UP O2 unless O2 <88% - continue prednisone PO 40 qd - Levaquin Day 4 - continue tele - Cardiac diet w/ fluid restriction to 1.5L and Na restricted to 2g (2) DM (diabetes mellitus) Current Visit: Yes Status: Chronic Assessment and plan: SSI medium dosing Qualifiers: Diabetes mellitus type: type 2 Diabetes mellitus jail insulin use: with regional intermodal truck driver use Diabetes mellitus complication status: with kidney complications Diabetes mellitus complication detail: with chronic kidney disease Chronic kidney disease stage: stage 3 (moderate) Qualified Code(s): E11.22 - Type 2 diabetes mellitus with diabetic chronic kidney disease; N18.3 - Chronic kidney disease, stage 3 (moderate); N18.3 - Chronic kidney disease, stage 3 (moderate); Z79.4 - retirement (current) use of insulin; Z79.4 - retirement (current) use of insulin; Z79.4 - middle or intermediate school principal (current) use of insulin; Z79.4 - middle or intermediate school principal (current) use of insulin (3) DVT prophylaxis Current Visit: Yes Status: Acute Assessment and plan: continue home coumadin. INR today is 2.5, controlled currently, but was >3 when she arrived - will continue to follow INR. (4) Atrial fibrillation Current Visit: Yes Status: Chronic Assessment and plan: Hx of chronic atrial fibrillation. Sinus tachycardia on exam d/t hypoxia. Continue Coumadin w/Pharmacy dosing. Continuous cardiac telemetry. Qualifiers: Atrial fibrillation type: chronic Qualified Code(s): I48.2 - Chronic atrial fibrillation (5) CAROLIN (obstructive sleep apnea) Current Visit: Yes Status: Chronic Assessment and plan: Hx of chronic CAROLIN. BiPAP ordered HS and on/off times. (6) Acute and chronic respiratory failure ([id number]) Current Visit: Yes Status: Acute Assessment and plan: Acute on chronic respiratory failure. Hx of COPD, CAROLIN, CHF. Current COPD exacerbation. Continue BiPAP on/off and HS. VBG. Avoid BOW STRING MAKER depressants. Qualifiers: Respiratory failure complication: hypoxia and hypercapnia Qualified Code(s) : J96.21 - Acute and chronic respiratory failure with hypoxia; J96.22 - Acute and chronic respiratory failure with hypercapnia; J96.22 - Acute and chronic respiratory failure with hypercapnia; J96.22 - Acute and chronic respiratory failure with hypercapnia (7) Hypoxia Current Visit: Yes Status: Acute Assessment and plan: Acute on chronic hypoxia. VBG shows pH of 7.42, PCO2 57, PO2 of 193, HCO3 of 37. BiPAP on/off times. Pts. SpO2 currently mid-90s on 5L via NC. Will monitor and titrate PRN. (8) CKD (chronic kidney disease) stage 3, GFR 30-59 ml/min Current Visit: Yes Status: Chronic Assessment and plan: Hx of chronic CKD. Currently stage III w/GFR of 48 and creatinine of 1.10. IV fluids to be used judiciously if warranted due to current renal dysfunction and history of CHF. Monitor patient and follow-up labs. Avoid nephrotoxins. (9) HTN (hypertension) Current Visit: Yes Status: Chronic Assessment and plan: Hx of chronic HTN. Monitor pt. and VS. Qualifiers: Hypertension type: essential hypertension Qualified Code(s): I10 - Essential (primary) hypertension (10) HLD (hyperlipidemia) Current Visit: Yes Status: Chronic Assessment and plan: Hx of chronic HLD. Lipid panel in a.m. labs. Continue pts. Simvastatin. Qualifiers: Hyperlipidemia type: mixed hyperlipidemia Qualified Code(s): E78.2 - Mixed hyperlipidemia (11) CHF (congestive heart failure) Current Visit: Yes Status: Chronic Assessment and plan: Hx of chronic CHF. Stable. BNP 52 on admission. Continuous cardiac telemetry. 1.5L daily fluid restriction. Qualifiers: Heart failure type: diastolic Heart failure chronicity: chronic Qualified Code(s): I50.32 - Chronic diastolic (congestive) heart failure (12) Constipation Current Visit: Yes Status: Acute Assessment and plan: remains constipated. Confirmed on KUB yesterday. Will continue miralax treatment. Qualifiers: Constipation type: slow transit constipation Qualified Code(s): K59.01 - Slow transit constipation (13) Nausea & vomiting Current Visit: Yes Status: Acute Assessment and plan: vomiting has resolved. remains mildly nauesated. see above. Qualifiers: Vomiting type: cyclical vomiting Vomiting Intractability: intractable Qualified Code(s): G43.A1 - Cyclical vomiting, intractable (14) Acute kidney injury superimposed on chronic kidney disease Current Visit: Yes Status: Acute Assessment and plan: BARRY has resolved (15) Small bowel obstruction Current Visit: Yes Status: Acute Assessment and plan: SBO most likely resolved as she is flatulent, and has had bowel movements. Patient remains constipated. - Time Spent With Patient Total time spent is greater than 50% in coordination of care (as documented) at patient's floor/unit and/or counseling patient: - Subjective Interval history: Ms Perez is seen and examined today. Patient has long standing history of COPD, and is on 2L at home normally. Patient was started on MiraLax yesterday afternoon after contipation was found on KUB. Patient reports having small bowel movements last night, and one this morning. She continues to pass gas, and remains nauseated. Patient denies vomiting, fever, CP, or SOB today - Constitutional Vitals: Temp Pulse Resp BP Pulse Ox 97.8 F 106 18 144/81 92 12/24/17 07:25 12/24/17 07:25 12/24/17 07:43 12/24/17 07:25 12/24/17 07:43 General appearance: Present: cooperative, mild distress (SOB/Dyspnea), A&O X 3, pleasant, obese, answers questions appropriately - Head Head exam: Present: atraumatic, normocephalic - ENT ENT exam: Present: mucous membranes dry - Respiratory Respiratory exam: Present: prolonged expiratory phase, wheezes - Cardiovascular Cardiovascular exam: Present: tachycardia - GI/Abdominal GI/Abdominal exam: Present: distended, hypoactive bowel sounds, soft. Absent: guarding, rebound, rigid, tenderness - Extremities Exam Extremities exam: Absent: pedal edema Internal Medicine: Result - Labs CBC & Chem 7: 12/24/17 05:09 12/24/17 05:09 Labs: Short CBC 12/24/17 Range/Units 05:09 WBC 8.7 (4.3-11.1) K/mcL Hgb 12.0 (11.5-15.4) g/dL Hct 40.8 (35.3-44.9) % Plt Count 177 (140-400) K/mcL Neutrophils # 7.2 (1.6-8.9) K/mcL BMP 12/24/17 05:09 Sodium 145 Potassium 4.0 Chloride 90 L Carbon Dioxide > 45 H* BUN 22 Creatinine 1.00 Glucose 178 H Calcium 9.3 Liver Function 12/24/17 Range/Units 05:09 Total Bilirubin 0.7 (0.3-1.0) mg/dL AST 14 (13-39) Units/L ALT 14 (7-52) Units/L Alkaline Phosphatase 73 (34-104) Units/L Albumin 3.7 (3.5-5.7) g/dL - ABG Interpretation ABG results: PT/INR, D-dimer PT 18.5 Seconds (9.4-12.1) H 12/24/17 05:09 - Impressions Impressions KUB X-Ray 12/23/17 17:39 IMPRESSION: Stable appearing abdomen demonstrating no evidence for obstruction. D/ / 12/23/2017 18:34:19 Ranjeet Holloway MD / trey Interpreting Provider: Ranjeet Holloway MD - VTE Documentation of Mechanical Device: Graduated compression elastic hosiery Consult Discharge Plan - Plan Referrals: Domingo Melton DO [Primary Care Provider] - <Reji Mora - Last Filed: 12/24/17 15:27> Date of Encounter: 12/24/17 - Assessment and plan (1) DM (diabetes mellitus) Current Visit: Yes Status: Chronic Qualifiers: Diabetes mellitus type: type 2 Diabetes mellitus jail insulin use: with regional intermodal truck driver use Diabetes mellitus complication status: with kidney complications Diabetes mellitus complication detail: with chronic kidney disease Chronic kidney disease stage: stage 3 (moderate) Qualified Code(s): E11.22 - Type 2 diabetes mellitus with diabetic chronic kidney disease; N18.3 - Chronic kidney disease, stage 3 (moderate); N18.3 - Chronic kidney disease, stage 3 (moderate); Z79.4 - middle or intermediate school principal (current) use of insulin; Z79.4 - retirement (current) use of insulin; Z79.4 - retirement (current) use of insulin; Z79.4 - retirement (current) use of insulin (2) DVT prophylaxis Current Visit: Yes Status: Acute (3) Acute exacerbation of chronic obstructive airways disease Current Visit: Yes Status: Acute (4) Atrial fibrillation Current Visit: Yes Status: Chronic Qualifiers: Atrial fibrillation type: chronic Qualified Code(s): I48.2 - Chronic atrial fibrillation (5) CAROLIN (obstructive sleep apnea) Current Visit: Yes Status: Chronic (6) Acute and chronic respiratory failure ([id number]) Current Visit: Yes Status: Acute Qualifiers: Respiratory failure complication: hypoxia and hypercapnia Qualified Code(s) : J96.21 - Acute and chronic respiratory failure with hypoxia; J96.22 - Acute and chronic respiratory failure with hypercapnia; J96.22 - Acute and chronic respiratory failure with hypercapnia; J96.22 - Acute and chronic respiratory failure with hypercapnia (7) Hypoxia Current Visit: Yes Status: Acute (8) CKD (chronic kidney disease) stage 3, GFR 30-59 ml/min Current Visit: Yes Status: Chronic (9) HTN (hypertension) Current Visit: Yes Status: Chronic Qualifiers: Hypertension type: essential hypertension Qualified Code(s): I10 - Essential (primary) hypertension (10) HLD (hyperlipidemia) Current Visit: Yes Status: Chronic Qualifiers: Hyperlipidemia type: mixed hyperlipidemia Qualified Code(s): E78.2 - Mixed hyperlipidemia (11) CHF (congestive heart failure) Current Visit: Yes Status: Chronic Qualifiers: Heart failure type: diastolic Heart failure chronicity: chronic Qualified Code(s): I50.32 - Chronic diastolic (congestive) heart failure (12) Constipation Current Visit: Yes Status: Acute Qualifiers: Constipation type: slow transit constipation Qualified Code(s): K59.01 - Slow transit constipation (13) Nausea & vomiting Current Visit: Yes Status: Acute Qualifiers: Vomiting type: cyclical vomiting Vomiting Intractability: intractable Qualified Code(s): G43.A1 - Cyclical vomiting, intractable (14) Acute kidney injury superimposed on chronic kidney disease Current Visit: Yes Status: Acute (15) Small bowel obstruction Current Visit: Yes Status: Acute - Time Spent With Patient Total time spent is greater than 50% in coordination of care (as documented) at patient's floor/unit and/or counseling patient: - Constitutional Vitals: Temp Pulse Resp BP Pulse Ox 97.8 F 106 18 144/81 90 12/24/17 07:25 12/24/17 07:25 12/24/17 11:27 12/24/17 07:25 12/24/17 11:27 Internal Medicine: Result - Labs CBC & Chem 7: 12/24/17 05:09 12/24/17 05:09 Labs: Short CBC 12/24/17 Range/Units 05:09 WBC 8.7 (4.3-11.1) K/mcL Hgb 12.0 (11.5-15.4) g/dL Hct 40.8 (35.3-44.9) % Plt Count 177 (140-400) K/mcL Neutrophils # 7.2 (1.6-8.9) K/mcL BMP 12/24/17 05:09 Sodium 145 Potassium 4.0 Chloride 90 L Carbon Dioxide > 45 H* BUN 22 Creatinine 1.00 Glucose 178 H Calcium 9.3 Liver Function 12/24/17 Range/Units 05:09 Total Bilirubin 0.7 (0.3-1.0) mg/dL AST 14 (13-39) Units/L ALT 14 (7-52) Units/L Alkaline Phosphatase 73 (34-104) Units/L Albumin 3.7 (3.5-5.7) g/dL - ABG Interpretation ABG results: PT/INR, D-dimer PT 18.5 Seconds (9.4-12.1) H 12/24/17 05:09 - Impressions Impressions KUB X-Ray 12/23/17 17:39 IMPRESSION: Stable appearing abdomen demonstrating no evidence for obstruction. D/ / 12/23/2017 18:34:19 Ranjeet Holloway MD / [facility] Interpreting Provider: Ranjeet Holloway MD X-Ray 12/24/17 10:27 IMPRESSION: Stool throughout the colon suggesting constipation. No significant small bowel dilatation. D/ 12/24/2017 14:20:26 Ranjeet Holloway MD / rory Interpreting Provider: Ranjeet Holloway MD - Attending Attestation I performed an independent interview and exam of this patient. I agree with the findings, assessment, and plan of Dr. La, internal medicine music intern. My discussion with him is reflected in his note. Repeat abdominal film does not show any obvious obstruction. Favor constipation. Bowel regimen is intensified. We will add in suppository today. Consider lactulose. Suspect her constipation was due to opioid use prior to admission. Patient's COPD symptoms are significantly improved. Will increase activity as tolerated. Closely monitor blood sugars given steroid use. Her atrial fibrillation remains under good control. She continues on Coumadin, which will be continued as there does not appear to be any surgical issues at this time. Should she have any worsening of her symptoms will probably stop anticoagulation and consider surgical consult. NG tube remains in place. All else as outlined above.
[2017-12-24] MEDS: Bisacodyl 10 MG RECTAL SUPPOSITORY RC SCH ×2 (15:03→17:21)
[2017-12-24] MEDS ORDERED: *HR* Warfarin 3 MG TABLET PO ONE (18:00)
[2017-12-24] MEDS: OXYCODONE Oral CONC 10 MG/0.5 ML ORAL.SYG SL PRN (20:13)
[2017-12-24] MEDS: Acetaminophen 325 MG TABLET PO PRN (22:11)
[2017-12-25] MEDS: Ipratropium/Albuterol Neb 3 ML IH SCH ×7 (00:02→23:49)
[2017-12-25 05:21] LABS: Basophils % 0.2 %; Eosinophils # 0.2 K/mcL (0.0-0.6); Eosinophils % 1.4 %; Hematocrit 39.7 % (35.3-44.9); Hemoglobin 11.6 g/dL (11.5-15.4); Immature Granulocytes % 0.6 % (0-4); Lymphocytes # 1.2 K/mcL (0.6-4.6); Lymphocytes % 11.1 %; Mean Corpuscular HGB Conc 29.2 g/dL (31.6-35.5); Mean Corpuscular Hemoglobin 29.1 pg (28.0-33.3); Mean Corpuscular Volume 99.5 fL (83.0-100.0); Mean Platelet Volume 10.6 fL (9.4-12.4); Monocytes % 8.7 %; Neutrophils # 8.7 K/mcL (1.6-8.9); Platelet Count 166 K/mcL (140-400); Red Blood Count 3.99 M/mcL (3.82-4.97); Red Cell Distribution Width 13.4 % (11.5-14.5)
[2017-12-25 05:24] LABS: INR 2.4; Prothrombin Time 26.6 Seconds (9.4-12.1)
[2017-12-25 06:00] LABS: Alanine Aminotransferase 17 Units/L (7-52); Albumin 3.8 g/dL (3.5-5.7); Albumin/Globulin Ratio 1.4 (1.1-2.2); Alkaline Phosphatase 70 Units/L (34-104); Aspartate Amino Transferase 15 Units/L (13-39); BUN/Creatinine Ratio 26 (6-26); Bilirubin,Total 0.9 mg/dL (0.3-1.0); Blood Urea Nitrogen 27 mg/dL (8-23); Calcium 9.5 mg/dL (8.6-10.3); Carbon Dioxide > 45 mEq/L (23-29); Chloride 87 mEq/L (98-107); Globulin 2.7 g/dL (2.4-3.5); Glucose 174 mg/dL (70-105); Osmolality,Calculated 303 (280-300); Potassium 3.8 mEq/L (3.5-5.1); Sodium 142 mEq/L (136-145); Total Protein 6.5 g/dL (6.4-8.9); eGFR For African Americans > 60 (> 60); eGFR For Non-African Americans 50 (> 60)
--- NOTE | 2017-12-25 09:16 | Internal Med Progress Note ---
<Nathaniel La - Last Filed: 12/25/17 13:48> Date of Encounter: 12/25/17 Time of Encounter: 09:11 - Assessment and plan (1) Constipation Current Visit: Yes Status: Acute Assessment and plan: remains constipated. Will continue miralax, colace, MoM, NG tube treatment. Gave Lactulose rectally today. Qualifiers: Constipation type: slow transit constipation Qualified Code(s): K59.01 - Slow transit constipation (2) Acute exacerbation of chronic obstructive airways disease Current Visit: Yes Status: Acute Assessment and plan: Home O2 is 2L, duoneb, BiPAP, symbicort, spiriva. VBG has pH of 7.42 and well compensated. Clinically patient is stable. Currently well controlled on abx, steroids, breathing treatments, and O2 support. Patient has CAP w/ hx of COPD. - attempt to titrate patient's O2. Goal O2 is 88-92%. DO NOT TURN UP O2 unless O2 <88% - continue prednisone PO 40 qd; if patient remains hospitalized tomorrow will titrate down steroids. Will be d/c'ed with tapered steroids - Levaquin Day 5 - continue tele - Cardiac diet w/ fluid restriction to 1.5L and Na restricted to 2g (3) DM (diabetes mellitus) Current Visit: Yes Status: Chronic Assessment and plan: SSI medium dosing Qualifiers: Diabetes mellitus type: type 2 Diabetes mellitus long line teamster insulin use: with skilled nursing use Diabetes mellitus complication status: with kidney complications Diabetes mellitus complication detail: with chronic kidney disease Chronic kidney disease stage: stage 3 (moderate) Qualified Code(s): E11.22 - Type 2 diabetes mellitus with diabetic chronic kidney disease; N18.3 - Chronic kidney disease, stage 3 (moderate); N18.3 - Chronic kidney disease, stage 3 (moderate); Z79.4 - [facility] (current) use of insulin; Z79.4 - [facility] (current) use of insulin; Z79.4 - long term care social worker (current) use of insulin; Z79.4 - [facility] (current) use of insulin (4) DVT prophylaxis Current Visit: Yes Status: Acute Assessment and plan: continue home coumadin. INR today is 2.5, controlled currently, but was >3 when she arrived - will continue to follow INR. - has swung during admission will discuss with pharmacy (5) Atrial fibrillation Current Visit: Yes Status: Chronic Assessment and plan: Hx of chronic atrial fibrillation. Sinus tachycardia on exam d/t hypoxia. Continue Coumadin w/Pharmacy dosing. Continuous cardiac telemetry. Qualifiers: Atrial fibrillation type: chronic Qualified Code(s): I48.2 - Chronic atrial fibrillation (6) CAROLIN (obstructive sleep apnea) Current Visit: Yes Status: Chronic Assessment and plan: Hx of chronic CAROLIN. BiPAP ordered HS and on/off times. (7) Acute and chronic respiratory failure ([id number]) Current Visit: Yes Status: Acute Assessment and plan: Acute on chronic respiratory failure. Hx of COPD, CAROLIN, CHF. Current COPD exacerbation. Continue BiPAP on/off and HS. VBG. Avoid SIDE PULLER depressants. Qualifiers: Respiratory failure complication: hypoxia and hypercapnia Qualified Code(s) : J96.21 - Acute and chronic respiratory failure with hypoxia; J96.22 - Acute and chronic respiratory failure with hypercapnia; J96.22 - Acute and chronic respiratory failure with hypercapnia; J96.22 - Acute and chronic respiratory failure with hypercapnia (8) Hypoxia Current Visit: Yes Status: Acute Assessment and plan: Acute on chronic hypoxia. VBG shows pH of 7.42, PCO2 57, PO2 of 193, HCO3 of 37. BiPAP on/off times. Pts. SpO2 currently mid-90s on 5L via NC. Will monitor and titrate PRN. (9) CKD (chronic kidney disease) stage 3, GFR 30-59 ml/min Current Visit: Yes Status: Chronic Assessment and plan: Hx of chronic CKD. Currently stage III w/GFR of 48 and creatinine of 1.10. IV fluids to be used judiciously if warranted due to current renal dysfunction and history of CHF. Monitor patient and follow-up labs. Avoid nephrotoxins. (10) HTN (hypertension) Current Visit: Yes Status: Chronic Assessment and plan: Hx of chronic HTN. Monitor pt. and VS. Qualifiers: Hypertension type: essential hypertension Qualified Code(s): I10 - Essential (primary) hypertension (11) HLD (hyperlipidemia) Current Visit: Yes Status: Chronic Assessment and plan: Hx of chronic HLD. Lipid panel in a.m. labs. Continue pts. Simvastatin. Qualifiers: Hyperlipidemia type: mixed hyperlipidemia Qualified Code(s): E78.2 - Mixed hyperlipidemia (12) CHF (congestive heart failure) Current Visit: Yes Status: Chronic Assessment and plan: Hx of chronic CHF. Stable. BNP 52 on admission. Continuous cardiac telemetry. 1.5L daily fluid restriction. Qualifiers: Heart failure type: diastolic Heart failure chronicity: chronic Qualified Code(s): I50.32 - Chronic diastolic (congestive) heart failure (13) Nausea & vomiting Current Visit: Yes Status: Acute Assessment and plan: vomiting has resolved. remains mildly nauesated. see above. Qualifiers: Vomiting type: cyclical vomiting Vomiting Intractability: intractable Qualified Code(s): G43.A1 - Cyclical vomiting, intractable (14) Acute kidney injury superimposed on chronic kidney disease Current Visit: Yes Status: Acute Assessment and plan: BARRY has resolved (15) Small bowel obstruction Current Visit: Yes Status: Acute Assessment and plan: SBO most likely resolved as she is flatulent, and has had bowel movements. Patient remains constipated. - Time Spent With Patient Total time spent is greater than 50% in coordination of care (as documented) at patient's floor/unit and/or counseling patient: - Subjective Interval history: Ms Perez is seen and examined today. Patient has long standing history of COPD, and is on 2L at home normally. Patient had a small bowel movement yesterday. Patient states that her nausea has mostly resolved, she has not had any vomiting. Patient reports being flatulent. Patient denies vomiting, fever, CP, or SOB today. *update* nurse reports that patient is drinking miralax very slowly, and other bowel Rx are adminiistered and NG tube is turned on soon after. He is concerned that medications are being suctioned through NG tube. He plans to clamp NG tube for 2 hours after medication administration. He reports quite a bit remains suctioned from NG tube - Constitutional Vitals: Temp Pulse Resp BP Pulse Ox 97.8 F 110 20 141/75 89 12/25/17 07:24 12/25/17 07:24 12/25/17 07:49 12/25/17 07:24 12/25/17 07:49 General appearance: Present: cooperative, mild distress (SOB/Dyspnea), A&O X 3, pleasant, obese, answers questions appropriately - ENT ENT exam: Present: mucous membranes dry - Respiratory Respiratory exam: Present: prolonged expiratory phase, wheezes - Cardiovascular Cardiovascular exam: Present: RRR - GI/Abdominal GI/Abdominal exam: Present: soft. Absent: distended, firm, guarding - Extremities Exam Extremities exam: Absent: pedal edema Internal Medicine: Result - Labs CBC & Chem 7: 12/25/17 04:44 12/25/17 04:44 Labs: Short CBC 12/25/17 Range/Units 04:44 WBC 11.2 H (4.3-11.1) K/mcL Hgb 11.6 (11.5-15.4) g/dL Hct 39.7 (35.3-44.9) % Plt Count 166 (140-400) K/mcL Neutrophils # 8.7 (1.6-8.9) K/mcL BMP 12/25/17 04:44 Sodium 142 Potassium 3.8 Chloride 87 L Carbon Dioxide > 45 H* BUN 27 H Creatinine 1.05 Glucose 174 H Calcium 9.5 Liver Function 12/25/17 Range/Units 04:44 Total Bilirubin 0.9 (0.3-1.0) mg/dL AST 15 (13-39) Units/L ALT 17 (7-52) Units/L Alkaline Phosphatase 70 (34-104) Units/L Albumin 3.8 (3.5-5.7) g/dL - ABG Interpretation ABG results: PT/INR, D-dimer PT 26.6 Seconds (9.4-12.1) H 12/25/17 04:44 - Impressions Impressions KUB X-Ray 12/24/17 10:27 IMPRESSION: Stool throughout the colon suggesting constipation. No significant small bowel dilatation. D/ / 12/24/2017 14:20:26 Ranjeet Holloway MD / rory Interpreting Provider: Ranjeet Holloway MD - VTE Documentation of Mechanical Device: Graduated compression elastic hosiery Consult Discharge Plan - Plan Referrals: Domingo Melton DO [Primary Care Provider] - <Reji Mora - Last Filed: 12/25/17 14:24> Date of Encounter: 12/25/17 - Assessment and plan (1) DM (diabetes mellitus) Current Visit: Yes Status: Chronic Qualifiers: Diabetes mellitus type: type 2 Diabetes mellitus long line teamster insulin use: with long line teamster use Diabetes mellitus complication status: with kidney complications Diabetes mellitus complication detail: with chronic kidney disease Chronic kidney disease stage: stage 3 (moderate) Qualified Code(s): E11.22 - Type 2 diabetes mellitus with diabetic chronic kidney disease; N18.3 - Chronic kidney disease, stage 3 (moderate); N18.3 - Chronic kidney disease, stage 3 (moderate); Z79.4 - long term care social worker (current) use of insulin; Z79.4 - long term care social worker (current) use of insulin; Z79.4 - [facility] (current) use of insulin; Z79.4 - [facility] (current) use of insulin (2) DVT prophylaxis Current Visit: Yes Status: Acute (3) Acute exacerbation of chronic obstructive airways disease Current Visit: Yes Status: Acute (4) Atrial fibrillation Current Visit: Yes Status: Chronic Qualifiers: Atrial fibrillation type: chronic Qualified Code(s): I48.2 - Chronic atrial fibrillation (5) CAROLIN (obstructive sleep apnea) Current Visit: Yes Status: Chronic (6) Acute and chronic respiratory failure ([id number]) Current Visit: Yes Status: Acute Qualifiers: Respiratory failure complication: hypoxia and hypercapnia Qualified Code(s) : J96.21 - Acute and chronic respiratory failure with hypoxia; J96.22 - Acute and chronic respiratory failure with hypercapnia; J96.22 - Acute and chronic respiratory failure with hypercapnia; J96.22 - Acute and chronic respiratory failure with hypercapnia (7) Hypoxia Current Visit: Yes Status: Acute (8) CKD (chronic kidney disease) stage 3, GFR 30-59 ml/min Current Visit: Yes Status: Chronic (9) HTN (hypertension) Current Visit: Yes Status: Chronic Qualifiers: Hypertension type: essential hypertension Qualified Code(s): I10 - Essential (primary) hypertension (10) HLD (hyperlipidemia) Current Visit: Yes Status: Chronic Qualifiers: Hyperlipidemia type: mixed hyperlipidemia Qualified Code(s): E78.2 - Mixed hyperlipidemia (11) CHF (congestive heart failure) Current Visit: Yes Status: Chronic Qualifiers: Heart failure type: diastolic Heart failure chronicity: chronic Qualified Code(s): I50.32 - Chronic diastolic (congestive) heart failure (12) Constipation Current Visit: Yes Status: Acute Qualifiers: Constipation type: slow transit constipation Qualified Code(s): K59.01 - Slow transit constipation (13) Nausea & vomiting Current Visit: Yes Status: Acute Qualifiers: Vomiting type: cyclical vomiting Vomiting Intractability: intractable Qualified Code(s): G43.A1 - Cyclical vomiting, intractable (14) Acute kidney injury superimposed on chronic kidney disease Current Visit: Yes Status: Acute (15) Small bowel obstruction Current Visit: Yes Status: Acute - Time Spent With Patient Total time spent is greater than 50% in coordination of care (as documented) at patient's floor/unit and/or counseling patient: - Constitutional Vitals: Temp Pulse Resp BP Pulse Ox 97.7 F 108 24 149/71 89 12/25/17 11:36 12/25/17 11:36 12/25/17 11:36 12/25/17 11:36 12/25/17 11:36 Internal Medicine: Result - Labs CBC & Chem 7: 12/25/17 04:44 12/25/17 04:44 Labs: Short CBC 12/25/17 Range/Units 04:44 WBC 11.2 H (4.3-11.1) K/mcL Hgb 11.6 (11.5-15.4) g/dL Hct 39.7 (35.3-44.9) % Plt Count 166 (140-400) K/mcL Neutrophils # 8.7 (1.6-8.9) K/mcL BMP 12/25/17 04:44 Sodium 142 Potassium 3.8 Chloride 87 L Carbon Dioxide > 45 H* BUN 27 H Creatinine 1.05 Glucose 174 H Calcium 9.5 Liver Function 12/25/17 Range/Units 04:44 Total Bilirubin 0.9 (0.3-1.0) mg/dL AST 15 (13-39) Units/L ALT 17 (7-52) Units/L Alkaline Phosphatase 70 (34-104) Units/L Albumin 3.8 (3.5-5.7) g/dL - ABG Interpretation ABG results: PT/INR, D-dimer PT 26.6 Seconds (9.4-12.1) H 12/25/17 04:44 - Impressions Impressions Abdomen/Pelvis CT 12/22/17 16:12 IMPRESSION: 1. Findings consistent with proximal small bowel obstruction, with transition point in the left mid abdomen. No obstructing lesion is seen. 2. Mildly distended stomach. 3. Coronary atherosclerosis. D/ / 12/22/2017 17:38:59 Willard Medel MD / bcarter Interpreting Provider: Willard Medel MD X-Ray 12/24/17 10:27 IMPRESSION: Stool throughout the colon suggesting constipation. No significant small bowel dilatation. D/ / 12/24/2017 14:20:26 Ranjeet Holloway MD / rory Interpreting Provider: Ranjeet Holloway MD - Attending Attestation I performed an independent interview and exam of this patient. I agree with the findings, assessment, and plan of , internal medicine business services intern. Patient overall is improved but still has not had a significant bowel movement. He continues to increase her bowel regimen. Patient's COPD symptoms appear to have nearly resolved. She will continue steroid taper. She is day 5 of Levaquin. Will stop today. We need to increase activity. All else as outlined above.
[2017-12-25] MEDS: levoFLOXacin 250 MG TABLET PO SCH (09:22)
[2017-12-25] MEDS: predniSONE 20 MG TABLET PO SCH (09:23)
[2017-12-25] MEDS: Insulin LISPRO 300 UNITS/3 ML VIAL SQ SCH ×4 (09:23→21:53)
[2017-12-25] MEDS: Diltiazem CD (24hr) 180 MG CAPSULE PO SCH (09:23)
[2017-12-25] MEDS: Sennosides/Docusate Sodium TABLET PO SCH ×2 (09:23→21:59)
[2017-12-25] MEDS ORDERED: Lactulose Oral Soln 20 GM/30 ML UDC RC ONE (09:46)
[2017-12-25] MEDS: *HR* Promethazine 25 MG/ML VIAL IVP PRN (13:18)
[2017-12-26] MEDS: Ipratropium/Albuterol Neb 3 ML IH SCH ×6 (03:56→23:22)
[2017-12-26 06:13] LABS: Hematocrit 39.7 % (35.3-44.9); Hemoglobin 11.7 g/dL (11.5-15.4); Mean Corpuscular HGB Conc 29.5 g/dL (31.6-35.5); Mean Corpuscular Volume 98.5 fL (83.0-100.0); Platelet Count 168 K/mcL (140-400); Red Blood Count 4.03 M/mcL (3.82-4.97); Red Cell Distribution Width 13.4 % (11.5-14.5)
[2017-12-26 06:18] LABS: INR 2.6; Prothrombin Time 28.9 Seconds (9.4-12.1)
[2017-12-26 06:59] LABS: BUN/Creatinine Ratio 25 (6-26); Blood Urea Nitrogen 27 mg/dL (8-23); Calcium 9.6 mg/dL (8.6-10.3); Chloride 86 mEq/L (98-107); Glucose 137 mg/dL (70-105); Osmolality,Calculated 307 (280-300); Potassium 3.6 mEq/L (3.5-5.1); Sodium 145 mEq/L (136-145); eGFR For African Americans 59 (> 60); eGFR For Non-African Americans 49 (> 60)
[2017-12-26 07:05] LABS: Carbon Dioxide > 45 mEq/L (23-29)
[2017-12-26] MEDS ORDERED: MOM Conc 10 ML UD.LIQ PO SCH (09:00)
[2017-12-26] MEDS: Insulin LISPRO 300 UNITS/3 ML VIAL SQ SCH ×4 (09:22→20:40)
[2017-12-26] MEDS: *HR* Promethazine 25 MG/ML VIAL IVP PRN (11:28)
[2017-12-26] MEDS: Diltiazem CD (24hr) 180 MG CAPSULE PO SCH (14:33)
--- NOTE | 2017-12-26 15:03 | Internal Med Progress Note ---
<Nathaniel La - Last Filed: 12/26/17 14:57> Date of Encounter: 12/26/17 Time of Encounter: 14:57 - Assessment and plan (1) Constipation Current Visit: Yes Status: Acute Assessment and plan: Had large bowel movement this AM. Improving. - ordered lactic acid - Abd XR - no acute findings, no longer impacted - clamp NG tube trial - Ordered Reglan TID - D/C milk of Mg, Miralax - will continue Senna Plus (will most likely D/C with an Rx) - discussion was had with patient about d/c'ing opioids. - discussed nutrition with manager finance, will slowly restart feeding. Qualifiers: Constipation type: slow transit constipation Qualified Code(s): K59.01 - Slow transit constipation (2) Acute exacerbation of chronic obstructive airways disease Current Visit: Yes Status: Acute Assessment and plan: Home O2 is 2L, duoneb, BiPAP, symbicort, spiriva. VBG has pH of 7.42 and well compensated. Clinically patient is stable. Currently well controlled on abx, steroids, breathing treatments, and O2 support. Patient has CAP w/ hx of COPD. - attempt to titrate patient's O2. Goal O2 is 88-92%. DO NOT TURN UP O2 unless O2 <88% - continue prednisone PO 40 qd; if patient remains hospitalized tomorrow will titrate down steroids. 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 insulin use: with [facility] use Diabetes mellitus complication status: with kidney complications Diabetes mellitus complication detail: with chronic kidney disease Chronic kidney disease stage: stage 3 (moderate) Qualified Code(s): E11.22 - Type 2 diabetes mellitus with diabetic chronic kidney disease; N18.3 - Chronic kidney disease, stage 3 (moderate); N18.3 - Chronic kidney disease, stage 3 (moderate); Z79.4 - [employer] (current) use of insulin; Z79.4 - [facility] (current) use of insulin; Z79.4 - [facility] (current) use of insulin; Z79.4 - [employer] (current) use of insulin (4) DVT prophylaxis Current Visit: Yes Status: Acute Assessment and plan: continue home coumadin. INR today is 2.5, controlled currently, but was >3 when she arrived - will continue to follow INR. - has swung during admission will discuss with pharmacy (5) Atrial fibrillation Current Visit: Yes Status: Chronic Assessment and plan: Hx of chronic atrial fibrillation. Sinus tachycardia on exam d/t hypoxia. Continue Coumadin w/Pharmacy dosing. Continuous cardiac telemetry. Qualifiers: Atrial fibrillation type: chronic Qualified Code(s): I48.2 - Chronic atrial fibrillation (6) CAROLIN (obstructive sleep apnea) Current Visit: Yes Status: Chronic Assessment and plan: Hx of chronic CAROLIN. BiPAP ordered HS and on/off times. (7) Acute and chronic respiratory failure ([id number]) Current Visit: Yes Status: Acute Assessment and plan: Acute on chronic respiratory failure. Hx of COPD, CAROLIN, CHF. Current COPD exacerbation. Continue BiPAP on/off and HS. VBG. Avoid LINE SUPERVISOR depressants. Qualifiers: Respiratory failure complication: hypoxia and hypercapnia Qualified Code(s) : J96.21 - Acute and chronic respiratory failure with hypoxia; J96.22 - Acute and chronic respiratory failure with hypercapnia; J96.22 - Acute and chronic respiratory failure with hypercapnia; J96.22 - Acute and chronic respiratory failure with hypercapnia (8) Hypoxia Current Visit: Yes Status: Acute Assessment and plan: Acute on chronic hypoxia. VBG shows pH of 7.42, PCO2 57, PO2 of 193, HCO3 of 37. BiPAP on/off times. Pts. SpO2 currently mid-90s on 5L via NC. Will monitor and titrate PRN. (9) CKD (chronic kidney disease) stage 3, GFR 30-59 ml/min Current Visit: Yes Status: Chronic Assessment and plan: Hx of chronic CKD. Currently stage III w/GFR of 48 and creatinine of 1.10. IV fluids to be used judiciously if warranted due to current renal dysfunction and history of CHF. Monitor patient and follow-up labs. Avoid nephrotoxins. (10) HTN (hypertension) Current Visit: Yes Status: Chronic Assessment and plan: Hx of chronic HTN. Monitor pt. and VS. Qualifiers: Hypertension type: essential hypertension Qualified Code(s): I10 - Essential (primary) hypertension (11) HLD (hyperlipidemia) Current Visit: Yes Status: Chronic Assessment and plan: Hx of chronic HLD. Lipid panel in a.m. labs. Continue pts. Simvastatin. Qualifiers: Hyperlipidemia type: mixed hyperlipidemia Qualified Code(s): E78.2 - Mixed hyperlipidemia (12) CHF (congestive heart failure) Current Visit: Yes Status: Chronic Assessment and plan: Hx of chronic CHF. Stable. BNP 52 on admission. Continuous cardiac telemetry. 1.5L daily fluid restriction. Qualifiers: Heart failure type: diastolic Heart failure chronicity: chronic Qualified Code(s): I50.32 - Chronic diastolic (congestive) heart failure (13) Nausea & vomiting Current Visit: Yes Status: Acute Assessment and plan: see above Qualifiers: Vomiting type: cyclical vomiting Vomiting Intractability: intractable Qualified Code(s): G43.A1 - Cyclical vomiting, intractable (14) Acute kidney injury superimposed on chronic kidney disease Current Visit: Yes Status: Acute Assessment and plan: BARRY has resolved (15) Small bowel obstruction Current Visit: Yes Status: Acute Assessment and plan: SBO most likely resolved as she is flatulent, and has had bowel movements. Patient remains constipated. - Time Spent With Patient Total time spent is greater than 50% in coordination of care (as documented) at patient's floor/unit and/or counseling patient: - Subjective Interval history: Ms Perez is seen and examined today. Patient originally admitted for COPD exacerbation now constipated. Patient this AM reports having large bowel movement, but remained nauseated and vomitted. Patient denies fever, CP, or SOB today. - Constitutional Vitals: Temp Pulse Resp BP Pulse Ox 98.5 F 106 16 155/72 92 12/26/17 11:49 12/26/17 11:49 12/26/17 11:49 12/26/17 11:49 12/26/17 11:49 General appearance: Present: cooperative, mild distress (SOB/Dyspnea), A&O X 3, pleasant, obese, answers questions appropriately - Head Head exam: Present: atraumatic, normocephalic - Respiratory Respiratory exam: Present: prolonged expiratory phase, wheezes - Cardiovascular Cardiovascular exam: Present: RRR - Extremities Exam Extremities exam: Absent: pedal edema Internal Medicine: Result - Labs CBC & Chem 7: 12/26/17 05:07 12/26/17 05:07 Labs: Short CBC 12/26/17 Range/Units 05:07 WBC 13.1 H (4.3-11.1) K/mcL Hgb 11.7 (11.5-15.4) g/dL Hct 39.7 (35.3-44.9) % Plt Count 168 (140-400) K/mcL BMP 12/26/17 05:07 Sodium 145 Potassium 3.6 Chloride 86 L Carbon Dioxide > 45 H* BUN 27 H Creatinine 1.08 Glucose 137 H Calcium 9.6 - ABG Interpretation ABG results: PT/INR, D-dimer PT 28.9 Seconds (9.4-12.1) H 12/26/17 05:07 - Impressions Impressions Chest/Abdomen X-ray 12/26/17 10:53 IMPRESSION: Stable appearing chest with COPD though no acute focal infiltrate. No acute abdominal abnormality is identified. D/ / Alfredo Corrigan MD / Alfredo Corrigan MD Interpreting Provider: Alfredo Corrigan MD - VTE Documentation of Mechanical Device: Graduated compression elastic hosiery Consult Discharge Plan - Plan Referrals: Domingo Melton DO [Primary Care Provider] - <Reji Mora - Last Filed: 12/26/17 15:14> Date of Encounter: 12/26/17 - Assessment and plan (1) DM (diabetes mellitus) Current Visit: Yes Status: Chronic Qualifiers: Diabetes mellitus type: type 2 Diabetes mellitus [facility] use: with [facility] Diabetes mellitus complication status: with kidney complications Diabetes mellitus complication detail: with chronic kidney disease Chronic kidney disease stage: stage 3 (moderate) Qualified Code(s): E11.22 - Type 2 diabetes mellitus with diabetic chronic kidney disease; N18.3 - Chronic kidney disease, stage 3 (moderate); N18.3 - Chronic kidney disease, stage 3 (moderate); Z79.4 - [employer] (current) use of insulin; Z79.4 - [employer] (current) use of insulin; Z79.4 - [facility] (current) use of insulin; Z79.4 - [facility] (current) use of insulin (2) DVT prophylaxis Current Visit: Yes Status: Acute (3) Acute exacerbation of chronic obstructive airways disease Current Visit: Yes Status: Acute (4) Atrial fibrillation Current Visit: Yes Status: Chronic Qualifiers: Atrial fibrillation type: chronic Qualified Code(s): I48.2 - Chronic atrial fibrillation (5) CAROLIN (obstructive sleep apnea) Current Visit: Yes Status: Chronic (6) Acute and chronic respiratory failure ([id number]) Current Visit: Yes Status: Acute Qualifiers: Respiratory failure complication: hypoxia and hypercapnia Qualified Code(s) : J96.21 - Acute and chronic respiratory failure with hypoxia; J96.22 - Acute and chronic respiratory failure with hypercapnia; J96.22 - Acute and chronic respiratory failure with hypercapnia; J96.22 - Acute and chronic respiratory failure with hypercapnia (7) Hypoxia Current Visit: Yes Status: Acute (8) CKD (chronic kidney disease) stage 3, GFR 30-59 ml/min Current Visit: Yes Status: Chronic (9) HTN (hypertension) Current Visit: Yes Status: Chronic Qualifiers: Hypertension type: essential hypertension Qualified Code(s): I10 - Essential (primary) hypertension (10) HLD (hyperlipidemia) Current Visit: Yes Status: Chronic Qualifiers: Hyperlipidemia type: mixed hyperlipidemia Qualified Code(s): E78.2 - Mixed hyperlipidemia (11) CHF (congestive heart failure) Current Visit: Yes Status: Chronic Qualifiers: Heart failure type: diastolic Heart failure chronicity: chronic Qualified Code(s): I50.32 - Chronic diastolic (congestive) heart failure (12) Constipation Current Visit: Yes Status: Acute Qualifiers: Constipation type: slow transit constipation Qualified Code(s): K59.01 - Slow transit constipation (13) Nausea & vomiting Current Visit: Yes Status: Acute Qualifiers: Vomiting type: cyclical vomiting Vomiting Intractability: intractable Qualified Code(s): G43.A1 - Cyclical vomiting, intractable (14) Acute kidney injury superimposed on chronic kidney disease Current Visit: Yes Status: Acute (15) Small bowel obstruction Current Visit: Yes Status: Acute - Time Spent With Patient Total time spent is greater than 50% in coordination of care (as documented) at patient's floor/unit and/or counseling patient: - Constitutional Vitals: Temp Pulse Resp BP Pulse Ox 98.5 F 106 16 155/72 92 12/26/17 11:49 12/26/17 11:49 12/26/17 11:49 12/26/17 11:49 12/26/17 11:49 Internal Medicine: Result - Labs CBC & Chem 7: 12/26/17 05:07 12/26/17 05:07 Labs: Short CBC 12/26/17 Range/Units 05:07 WBC 13.1 H (4.3-11.1) K/mcL Hgb 11.7 (11.5-15.4) g/dL Hct 39.7 (35.3-44.9) % Plt Count 168 (140-400) K/mcL BMP 12/26/17 05:07 Sodium 145 Potassium 3.6 Chloride 86 L Carbon Dioxide > 45 H* BUN 27 H Creatinine 1.08 Glucose 137 H Calcium 9.6 - ABG Interpretation ABG results: PT/INR, D-dimer PT 28.9 Seconds (9.4-12.1) H 12/26/17 05:07 - Impressions Impressions Chest/Abdomen X-ray 12/26/17 10:53 IMPRESSION: Stable appearing chest with COPD though no acute focal infiltrate. No acute abdominal abnormality is identified. D/ / Alfredo Corrigan MD / Alfredo Corrigan MD Interpreting Provider: Alfredo Corrigan MD - Attending Attestation I performed an independent interview and examine this patient. I agree with the findings, assessment, and plan of Dr. La, internal medicine internal medicine doctor. We discussed the case and my input is reflected in his note. Patient still has some nausea. Repeat film showed no evidence of acute abdominal process. She is now moving her bowels. NG tube is still in place but now clamped. I do suspicions that she may have diabetic gastroparesis. We will trial of Reglan, slowly advance clears and follow. If she tolerates will hopefully DC NG tube later today or in the morning. We will need to adjust Coumadin for decreased oral intake. Closely monitor.
--- NOTE | 2017-12-26 15:07 | Electrocardiograph Report ---
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
[2017-12-26] MEDS: Sennosides/Docusate Sodium TABLET PO SCH ×2 (16:33→20:39)
[2017-12-26] MEDS: predniSONE 20 MG TABLET PO SCH (17:01)
[2017-12-26] MEDS: Metoclopramide 10 MG/10 ML UD.LIQ PO SCH ×2 (17:01→21:57)
[2017-12-26] MEDS ORDERED: *HR* Warfarin 2 MG TABLET PO ONE (18:00)
[2017-12-27 03:28] LABS: Hematocrit 37.2 % (35.3-44.9); Hemoglobin 11.2 g/dL (11.5-15.4); Mean Corpuscular HGB Conc 30.1 g/dL (31.6-35.5); Mean Corpuscular Hemoglobin 29.2 pg (28.0-33.3); Mean Corpuscular Volume 96.9 fL (83.0-100.0); Mean Platelet Volume 10.7 fL (9.4-12.4); Platelet Count 162 K/mcL (140-400); Red Blood Count 3.84 M/mcL (3.82-4.97); Red Cell Distribution Width 13.4 % (11.5-14.5)
[2017-12-27 03:31] LABS: INR 2.6
[2017-12-27 03:56] LABS: BUN/Creatinine Ratio 28 (6-26); Blood Urea Nitrogen 30 mg/dL (8-23); Carbon Dioxide > 45 mEq/L (23-29); Chloride 86 mEq/L (98-107); Glucose 198 mg/dL (70-105); Osmolality,Calculated 306 (280-300); Potassium 3.5 mEq/L (3.5-5.1); Sodium 142 mEq/L (136-145); eGFR For African Americans > 60 (> 60); eGFR For Non-African Americans 50 (> 60)
[2017-12-27] MEDS: Ipratropium/Albuterol Neb 3 ML IH SCH ×5 (04:36→20:23)
[2017-12-27] MEDS: Diltiazem CD (24hr) 180 MG CAPSULE PO SCH (08:56)
[2017-12-27] MEDS: Sennosides/Docusate Sodium TABLET PO SCH ×2 (08:57→21:16)
[2017-12-27] MEDS: Insulin LISPRO 300 UNITS/3 ML VIAL SQ SCH ×4 (08:57→21:14)
[2017-12-27] MEDS: Metoclopramide 10 MG/10 ML UD.LIQ PO SCH ×3 (08:57→21:16)
[2017-12-27] MEDS: predniSONE 20 MG TABLET PO SCH (08:57)
--- NOTE | 2017-12-27 10:35 | Internal Med Progress Note ---
Date of Encounter: 12/27/17 Time of Encounter: 10:00 - Assessment and plan (1) Acute exacerbation of chronic obstructive airways disease Current Visit: Yes Status: Acute Assessment and plan: Home O2 is 2L, duoneb, BiPAP, symbicort, spiriva. VBG has pH of 7.42 and well compensated. Clinically patient is stable. Currently well controlled on abx, steroids, breathing treatments, and O2 support. Patient has CAP w/ hx of COPD. - attempt to titrate patient's O2. Goal O2 is 88-92%. DO NOT TURN UP O2 unless O2 <88% - continue prednisone PO 40 qd; if patient remains hospitalized tomorrow will titrate down steroids. Will be d/c'ed with tapered steroids - continue tele - Cardiac diet w/ fluid restriction to 1.5L and Na restricted to 2g 12/27: Continues to improve. Patient still has wheezing. As all remains at 40 mg by mouth daily with plans to taper over for the next 5-7 days upon discharge. Encourage pulmonary toilet. Suspect as her abdominal discomfort improves her breathing will significantly improve. (2) Constipation Current Visit: Yes Status: Acute Assessment and plan: Had large bowel movement this AM. Improving. - ordered lactic acid - Abd XR - no acute findings, no longer impacted - clamp NG tube trial - Ordered Reglan TID - D/C milk of Mg, Miralax - will continue Senna Plus (will most likely D/C with an Rx) - discussion was had with patient about d/c'ing opioids. - discussed nutrition with plate worker, will slowly restart feeding. 12/27: Will DC NG tube today. Slowly advance diet as tolerated. Continue aggressive bowel regimen. Ambulate. Monitor. Anticipate discharge tomorrow if tolerating regular diet. Qualifiers: Constipation type: slow transit constipation Qualified Code(s): K59.01 - Slow transit constipation (3) DM (diabetes mellitus) Current Visit: Yes Status: Chronic Assessment and plan: SSI medium dosing 12/27: Reasonable glycemic control Qualifiers: Diabetes mellitus type: type 2 Diabetes mellitus senior care insulin use: with senior care use Diabetes mellitus complication status: with kidney complications Diabetes mellitus complication detail: with chronic kidney disease Chronic kidney disease stage: stage 3 (moderate) Qualified Code(s): E11.22 - Type 2 diabetes mellitus with diabetic chronic kidney disease; N18.3 - Chronic kidney disease, stage 3 (moderate); N18.3 - Chronic kidney disease, stage 3 (moderate); Z79.4 - [employer]orer [employer] (current) use of insulin; Z79.4 - prison (current) use of insulin; Z79.4 - [employer] (current) use of insulin; Z79.4 - prison (current) use of insulin (4) DVT prophylaxis Current Visit: Yes Status: Acute Assessment and plan: continue home coumadin. INR today is 2.5, controlled currently, but was >3 when she arrived - will continue to follow INR. - has swung during admission will discuss with pharmacy (5) Atrial fibrillation Current Visit: Yes Status: Chronic Assessment and plan: Hx of chronic atrial fibrillation. Sinus tachycardia on exam d/t hypoxia. Continue Coumadin w/Pharmacy dosing. Continuous cardiac telemetry. 12/27: Rate controlled. INR therapeutic on Coumadin. Monitor. Qualifiers: Atrial fibrillation type: chronic Qualified Code(s): I48.2 - Chronic atrial fibrillation (6) CAROLIN (obstructive sleep apnea) Current Visit: Yes Status: Chronic Assessment and plan: Hx of chronic CAROLIN. BiPAP ordered HS and on/off times. 12/27: She has chronic CO2 retention, with chronic eye per carb request for a failure likely due to COPD, and obesity hypoventilation syndrome. Presently stable. Continue with BiPAP at night. She has a chronic respiratory acidosis with a metabolic compensation. This is stable. (7) Acute and chronic respiratory failure ([id number]) Current Visit: Yes Status: Acute Assessment and plan: Acute on chronic respiratory failure. Hx of COPD, CAROLIN, CHF. Current COPD exacerbation. Continue BiPAP on/off and HS. VBG. Avoid WOUND/OSTOMY NURSE depressants. Qualifiers: Respiratory failure complication: hypoxia and hypercapnia Qualified Code(s) : J96.21 - Acute and chronic respiratory failure with hypoxia; J96.22 - Acute and chronic respiratory failure with hypercapnia; J96.22 - Acute and chronic respiratory failure with hypercapnia; J96.22 - Acute and chronic respiratory failure with hypercapnia (8) Hypoxia Current Visit: Yes Status: Acute Assessment and plan: Acute on chronic hypoxia. VBG shows pH of 7.42, PCO2 57, PO2 of 193, HCO3 of 37. BiPAP on/off times. Pts. SpO2 currently mid-90s on 5L via NC. Will monitor and titrate PRN. 4/21: Stable. Supplemental oxygen to maintain O2 saturation goal of 88-91% (9) CKD (chronic kidney disease) stage 3, GFR 30-59 ml/min Current Visit: Yes Status: Chronic Assessment and plan: Hx of chronic CKD. Currently stage III w/GFR of 48 and creatinine of 1.10. IV fluids to be used judiciously if warranted due to current renal dysfunction and history of CHF. Monitor patient and follow-up labs. Avoid nephrotoxins. (10) HTN (hypertension) Current Visit: Yes Status: Chronic Assessment and plan: Hx of chronic HTN. Monitor pt. and VS. 12/27: Stable Qualifiers: Hypertension type: essential hypertension Qualified Code(s): I10 - Essential (primary) hypertension (11) HLD (hyperlipidemia) Current Visit: Yes Status: Chronic Assessment and plan: Hx of chronic HLD. Lipid panel in a.m. labs. Continue pts. Simvastatin.d Qualifiers: Hyperlipidemia type: mixed hyperlipidemia Qualified Code(s): E78.2 - Mixed hyperlipidemia (12) CHF (congestive heart failure) Current Visit: Yes Status: Chronic Assessment and plan: Hx of chronic CHF. Stable. BNP 52 on admission. Continuous cardiac telemetry. 1.5L daily fluid restriction. 12/27: No evidence of acute decompensation. Qualifiers: Heart failure type: diastolic Heart failure chronicity: chronic Qualified Code(s): I50.32 - Chronic diastolic (congestive) heart failure (13) Nausea & vomiting Current Visit: Yes Status: Acute Assessment and plan: see above 12/27: Nausea is resolved. I do wonder if she may have a component of diabetic gastroparesis, and we did order Reglan when necessary. Qualifiers: Vomiting type: cyclical vomiting Vomiting Intractability: intractable Qualified Code(s): G43.A1 - Cyclical vomiting, intractable (14) Acute kidney injury superimposed on chronic kidney disease Current Visit: Yes Status: Acute Assessment and plan: BARRY has resolved 12/27: resolved (15) Small bowel obstruction Current Visit: Yes Status: Acute Assessment and plan: SBO most likely resolved as she is flatulent, and has had bowel movements. Patient remains constipated. 12/27: Symptoms resolved. See above. - Time Spent With Patient Total time spent is greater than 50% in coordination of care (as documented) at patient's floor/unit and/or counseling patient: 25 - 35 minutes - Subjective Interval history: This is an 82-year-old female with a history of COPD (not on home O2 ), atrial fibrillation on Coumadin, CHF (echo in November 2016 showed EF of 60-65%), diabetes not on insulin, hypertension, hyperlipidemia. She was admitted to our facility initially on December 19 for an acute COPD exacerbation. Patient has been treated with IV steroids, as well as antibiotics. She is now off antibiotics and her breathing has improved. Unfortunately she developed abdominal pain during this admission, with the abdominal CT on December 22 (note this was without any contrast, IV or oral) showed findings concerning for proximal small bowel obstruction, with a transition point in the left midabdomen. Was also mildly distended. She had an NG tube placed. Her obstruction resolved and follow-up abdominal x-rays showed evidence of constipation but no bowel obstruction. We intensified her bowel regimen and she improved significantly with multiple bowel movements. Patient apparently was receiving narcotics prior to admission, which may have precipitated this. It was felt that her bowel obstruction was related to constipation. 12/27: Patient reports she is feeling much better today. She has had multiple bowel movements. Abd pain is nearly resolved. No further nausea or vomiting. She is tolerating clears with the NG tube clamped. Patient is asking to eat. He denies any chest pain or shortness of breath. No nausea, vomiting, diarrhea. No fevers or chills. She has been ambulatory. - Constitutional Vitals: Temp Pulse Resp BP Pulse Ox 97.7 F 98 16 131/63 92 12/27/17 07:20 12/27/17 07:20 12/27/17 07:54 12/27/17 07:20 12/27/17 09:10 General appearance: Present: cooperative, A&O X 3, pleasant, obese, answers questions appropriately - Head Head exam: Present: atraumatic, normocephalic - Eye Eye exam: Present: PERRL, conjuntiva pink, sclera anicteric Pupils: Present: PERRL - Neck Neck exam general surgery: Present: supple, trachea midline. Absent: lymphadenopathy - Respiratory Respiratory exam: Present: CTAB. Absent: accessory muscle use, rales, rhonchi, wheezes Additional comments: Occ exp wheeze - Cardiovascular Cardiovascular exam: Present: irregular rhythm - GI/Abdominal GI/Abdominal exam: Present: normal bowel sounds, soft, tenderness Additional comments: Minimal lower mid abdominal tenderness to palpation. Significantly improved - Extremities Exam Extremities exam: Present: warm, radial pulses palpable and symmetrical. Absent : calf tenderness, cyanotic, pedal edema - Neurological Exam Neurological exam: Present: CN II-XII intact, oriented X3, no focal deficits. Absent: pronater drift, facial droop, speech deficit Internal Medicine: Result - Labs CBC & Chem 7: 12/27/17 02:48 12/27/17 02:48 Labs: Short CBC 12/27/17 Range/Units 02:48 WBC 12.2 H (4.3-11.1) K/mcL Hgb 11.2 L (11.5-15.4) g/dL Hct 37.2 (35.3-44.9) % Plt Count 162 (140-400) K/mcL BMP 12/27/17 02:48 Sodium 142 Potassium 3.5 Chloride 86 L Carbon Dioxide > 45 H* BUN 30 H Creatinine 1.06 Glucose 198 H Calcium 9.0 - ABG Interpretation ABG results: PT/INR, D-dimer PT 29.0 Seconds (9.4-12.1) H 12/27/17 02:48 - Impressions Impressions Chest/Abdomen X-ray 12/26/17 10:53 IMPRESSION: Stable appearing chest with COPD though no acute focal infiltrate. No acute abdominal abnormality is identified. D/ / Alfredo Corrigan MD / Alfredo Corrigan MD Interpreting Provider: Alfredo Corrigan MD - VTE Documentation of Mechanical Device: Graduated compression elastic hosiery Consult Discharge Plan - Plan Referrals: [place],Domingo Liang DO [Primary Care Provider] -
[2017-12-27] MEDS ORDERED: *HR* Warfarin 2 MG TABLET PO ONE (18:00)
[2017-12-27] MEDS: Acetaminophen 325 MG TABLET PO PRN (21:16)
[2017-12-28] MEDS: Ipratropium/Albuterol Neb 3 ML IH SCH ×7 (00:06→23:01)
[2017-12-28 04:42] LABS: Basophils % 0.1 %; Hematocrit 32.1 % (35.3-44.9); Hemoglobin 10.1 g/dL (11.5-15.4); Immature Granulocytes % 0.6 % (0-4); Lymphocytes # 2.1 K/mcL (0.6-4.6); Lymphocytes % 22.1 %; Mean Corpuscular HGB Conc 31.5 g/dL (31.6-35.5); Mean Corpuscular Hemoglobin 29.9 pg (28.0-33.3); Mean Platelet Volume 10.9 fL (9.4-12.4); Monocytes # 0.8 K/mcL (0.0-1.3); Monocytes % 8.6 %; Neutrophils # 6.5 K/mcL (1.6-8.9); Platelet Count 150 K/mcL (140-400); Red Blood Count 3.38 M/mcL (3.82-4.97); Red Cell Distribution Width 13.1 % (11.5-14.5); Segmented Neutrophils % 68.6 %
[2017-12-28 04:49] LABS: INR 3.2; Prothrombin Time 35.8 Seconds (9.4-12.1)
[2017-12-28 05:28] LABS: BUN/Creatinine Ratio 29 (6-26); Blood Urea Nitrogen 36 mg/dL (8-23); Calcium 8.6 mg/dL (8.6-10.3); Carbon Dioxide > 45 mEq/L (23-29); Chloride 84 mEq/L (98-107); Glucose 202 mg/dL (70-105); Magnesium 2.8 mg/dL (1.6-2.6); Osmolality,Calculated 298 (280-300); Potassium 3.2 mEq/L (3.5-5.1); Sodium 137 mEq/L (136-145); eGFR For African Americans 50 (> 60); eGFR For Non-African Americans 42 (> 60)
[2017-12-28] MEDS: predniSONE 20 MG TABLET PO SCH (08:01)
[2017-12-28] MEDS: Sennosides/Docusate Sodium TABLET PO SCH ×2 (08:01→21:49)
[2017-12-28] MEDS: Diltiazem CD (24hr) 180 MG CAPSULE PO SCH (08:01)
[2017-12-28] MEDS: Insulin LISPRO 300 UNITS/3 ML VIAL SQ SCH ×4 (08:01→21:49)
[2017-12-28] MEDS: Metoclopramide 10 MG/10 ML UD.LIQ PO SCH ×3 (08:02→21:49)
--- NOTE | 2017-12-28 14:29 | Internal Med Progress Note ---
Date of Encounter: 12/28/17 Time of Encounter: 14:26 - Assessment and plan (1) Acute and chronic respiratory failure ([id number]) Current Visit: Yes Status: Acute Assessment and plan: Acute on chronic respiratory failure due to acute COPD exacerbation from viral bronchitis. Continue BiPAP on/off and HS. Taper prednisone, continue DuoNeb's. Qualifiers: Respiratory failure complication: hypoxia and hypercapnia Qualified Code(s) : J96.21 - Acute and chronic respiratory failure with hypoxia; J96.22 - Acute and chronic respiratory failure with hypercapnia; J96.22 - Acute and chronic respiratory failure with hypercapnia; J96.22 - Acute and chronic respiratory failure with hypercapnia (2) Acute exacerbation of chronic obstructive airways disease Current Visit: Yes Status: Acute Assessment and plan: Home O2 is 2L, duoneb, BiPAP, symbicort, spiriva. VBG has pH of 7.42 and well compensated. Clinically patient is stable. Currently well controlled on abx, steroids, breathing treatments, and O2 support. Patient has CAP w/ hx of COPD. - attempt to titrate patient's O2. Goal O2 is 88-92%. DO NOT TURN UP O2 unless O2 <88% - continue prednisone - Cardiac diet w/ fluid restriction to 1.5L and Na restricted to 2g . (3) Atrial fibrillation Current Visit: Yes Status: Chronic Assessment and plan: Hx of chronic atrial fibrillation. Sinus tachycardia on exam d/t hypoxia. Continue Coumadin w/Pharmacy dosing. Continuous cardiac telemetry. Rate controlled. INR supratherapeutic, hold Coumadin. Qualifiers: Atrial fibrillation type: chronic Qualified Code(s): I48.2 - Chronic atrial fibrillation (4) CAROLIN (obstructive sleep apnea) Current Visit: Yes Status: Chronic (5) Hypoxia Current Visit: Yes Status: Acute Assessment and plan: Acute on chronic hypoxia secondary to acute COPD exacerbation due to acute viral bronchitis. VBG showed pH of 7.42, PCO2 57, PO2 of 193, HCO3 of 37. BiPAP on/off times. Pts. SpO2 currently mid-90s on 5L via NC. Will monitor and titrate PRN. Stable. Supplemental oxygen to maintain O2 saturation goal of 88-91% (6) CKD (chronic kidney disease) stage 3, GFR 30-59 ml/min Current Visit: Yes Status: Chronic Assessment and plan: Hx of chronic CKD. Currently stage III w/GFR of 48 and creatinine of 1.10. Monitor patient and follow-up labs. Avoid nephrotoxins. (7) HTN (hypertension) Current Visit: Yes Status: Chronic Assessment and plan: Hx of chronic HTN. Monitor pt. and VS. Stable Qualifiers: Hypertension type: essential hypertension Qualified Code(s): I10 - Essential (primary) hypertension (8) HLD (hyperlipidemia) Current Visit: Yes Status: Chronic Assessment and plan: Simvastatin Qualifiers: Hyperlipidemia type: mixed hyperlipidemia Qualified Code(s): E78.2 - Mixed hyperlipidemia (9) CHF (congestive heart failure) Current Visit: Yes Status: Chronic Assessment and plan: Hx of chronic diastolic CHF. Stable. BNP 52 on admission. Continuous cardiac telemetry. 1.5L daily fluid restriction. No evidence of acute decompensation. Qualifiers: Heart failure type: diastolic Heart failure chronicity: chronic Qualified Code(s): I50.32 - Chronic diastolic (congestive) heart failure (10) Acute kidney injury superimposed on chronic kidney disease Current Visit: Yes Status: Acute Assessment and plan: BARRY has resolved (11) Small bowel obstruction Current Visit: Yes Status: Acute Assessment and plan: SBO, resolved had bowel movements. . (12) DM (diabetes mellitus) Current Visit: Yes Status: Chronic Assessment and plan: SSI medium dosing Reasonable glycemic control Qualifiers: Diabetes mellitus type: type 2 Diabetes mellitus halfway insulin use: with halfway use Diabetes mellitus complication status: with kidney complications Diabetes mellitus complication detail: with chronic kidney disease Chronic kidney disease stage: stage 3 (moderate) Qualified Code(s): E11.22 - Type 2 diabetes mellitus with diabetic chronic kidney disease; N18.3 - Chronic kidney disease, stage 3 (moderate); N18.3 - Chronic kidney disease, stage 3 (moderate); Z79.4 - pipe roller (current) use of insulin; Z79.4 - retirement (current) use of insulin; Z79.4 - retirement (current) use of insulin; Z79.4 - pipe roller (current) use of insulin - Time Spent With Patient Total time spent is greater than 50% in coordination of care (as documented) at patient's floor/unit and/or counseling patient: - Subjective Interval history: Feeling less short of breath, denies any chest pain, no abdominal pain or dysuria. No fevers - Constitutional Vitals: Temp Pulse Resp BP Pulse Ox 97.9 F 90 18 143/53 92 12/28/17 12:00 12/28/17 12:00 12/28/17 12:00 12/28/17 12:00 12/28/17 12:00 General appearance: Present: cooperative, A&O X 3, pleasant, obese, answers questions appropriately - Head Head exam: Present: atraumatic, normocephalic - Eye Eye exam: Present: PERRL, conjuntiva pink, sclera anicteric Pupils: Present: PERRL - Neck Neck exam general surgery: Present: supple, trachea midline. Absent: lymphadenopathy - Respiratory Respiratory exam: Present: decreased breath sounds, CTAB. Absent: accessory muscle use, rales, rhonchi, wheezes - Cardiovascular Cardiovascular exam: Present: RRR, +S1, +S2. Absent: diastolic murmur, gallop, rubs, systolic murmur - GI/Abdominal GI/Abdominal exam: Present: normal bowel sounds, soft, no peritoneal signs. Absent: distended, tenderness - Extremities Exam Extremities exam: Present: warm, radial pulses palpable and symmetrical. Absent : calf tenderness, cyanotic, pedal edema - Neurological Exam Neurological exam: Present: CN II-XII intact, oriented X3, no focal deficits. Absent: pronater drift, facial droop, speech deficit - Skin Skin exam: Present: dry, intact Internal Medicine: Result - Labs CBC & Chem 7: 12/28/17 04:00 12/28/17 04:00 Labs: Short CBC 12/28/17 Range/Units 04:00 WBC 9.5 (4.3-11.1) K/mcL Hgb 10.1 L (11.5-15.4) g/dL Hct 32.1 L (35.3-44.9) % Plt Count 150 (140-400) K/mcL Neutrophils # 6.5 (1.6-8.9) K/mcL BMP 12/28/17 04:00 Sodium 137 Potassium 3.2 L Chloride 84 L Carbon Dioxide > 45 H* BUN 36 H Creatinine 1.24 H Glucose 202 H Calcium 8.6 - ABG Interpretation ABG results: PT/INR, D-dimer PT 35.8 Seconds (9.4-12.1) H 12/28/17 04:00 - VTE Documentation of Mechanical Device: Graduated compression elastic hosiery Consult Discharge Plan - Plan Referrals: Domingo Melton DO [Primary Care Provider] -
[2017-12-29] MEDS: Ipratropium/Albuterol Neb 3 ML IH SCH ×4 (03:29→15:43)
[2017-12-29 05:05] LABS: INR 3.1; Prothrombin Time 34.3 Seconds (9.4-12.1)
[2017-12-29 05:29] LABS: BUN/Creatinine Ratio 29 (6-26); Blood Urea Nitrogen 29 mg/dL (8-23); Carbon Dioxide 43 mEq/L (23-29); Chloride 86 mEq/L (98-107); Glucose 178 mg/dL (70-105); Osmolality,Calculated 292 (280-300); Potassium 3.4 mEq/L (3.5-5.1); Sodium 136 mEq/L (136-145); eGFR For African Americans > 60 (> 60); eGFR For Non-African Americans 53 (> 60)
[2017-12-29 07:11] VITALS: BP 140/59
--- NOTE | 2017-12-29 08:53 | Discharge Summary ---
- NOTES TO OUTPATIENT PROVIDER Notes to Outpatient Provider: Continue oxygen therapy, keep saturation of oxygen between 88 and 92%. Prednisone taper: 40 mg daily for 3 days, 30 mg for 3 days, 20 mg for 3 days and 10 mg for 3 days. Decrease dose of Coumadin down to 2 mg daily Orders not resulted at time of discharge: Pending orders 12/30/17 04:00 BMP [Basic Metabolic Panel] AM 0400 12/31/17 04:00 BMP [Basic Metabolic Panel] AM 0400 Date of Encounter: 12/29/17 Time of Encounter: 08:47 - Discharge Diagnosis (1) Acute and chronic respiratory failure ([id number]) Priority: Primary Status: Acute Comments: Acute on chronic respiratory failure due to acute COPD exacerbation 2ry to acute viral bronchitis. Qualifiers: Respiratory failure complication: hypoxia and hypercapnia Qualified Code(s) : J96.21 - Acute and chronic respiratory failure with hypoxia; J96.22 - Acute and chronic respiratory failure with hypercapnia; J96.22 - Acute and chronic respiratory failure with hypercapnia; J96.22 - Acute and chronic respiratory failure with hypercapnia (2) Acute exacerbation of chronic obstructive airways disease Priority: Primary Status: Acute (3) Atrial fibrillation Priority: Secondary Status: Chronic Qualifiers: Atrial fibrillation type: chronic Qualified Code(s): I48.2 - Chronic atrial fibrillation (4) CAROLIN (obstructive sleep apnea) Priority: Secondary Status: Chronic (5) Hypoxia Priority: Primary Status: Acute (6) CKD (chronic kidney disease) stage 3, GFR 30-59 ml/min Priority: Secondary Status: Chronic (7) HTN (hypertension) Priority: Secondary Status: Chronic Qualifiers: Hypertension type: essential hypertension Qualified Code(s): I10 - Essential (primary) hypertension (8) HLD (hyperlipidemia) Priority: Secondary Status: Chronic Qualifiers: Hyperlipidemia type: mixed hyperlipidemia Qualified Code(s): E78.2 - Mixed hyperlipidemia (9) CHF (congestive heart failure) Priority: Secondary Status: Chronic Qualifiers: Heart failure type: diastolic Heart failure chronicity: chronic Qualified Code(s): I50.32 - Chronic diastolic (congestive) heart failure (10) Acute kidney injury superimposed on chronic kidney disease Priority: Secondary Status: Acute (11) Small bowel obstruction Priority: Secondary Status: Acute (12) DM (diabetes mellitus) Priority: Secondary Status: Chronic Qualifiers: Diabetes mellitus type: type 2 Diabetes mellitus cob sawyer insulin use: with cob sawyer use Diabetes mellitus complication status: with kidney complications Diabetes mellitus complication detail: with chronic kidney disease Chronic kidney disease stage: stage 3 (moderate) Qualified Code(s): E11.22 - Type 2 diabetes mellitus with diabetic chronic kidney disease; N18.3 - Chronic kidney disease, stage 3 (moderate); N18.3 - Chronic kidney disease, stage 3 (moderate); Z79.4 - appetizer packer (current) use of insulin; Z79.4 - FPC (current) use of insulin; Z79.4 - appetizer packer (current) use of insulin; Z79.4 - appetizer packer (current) use of insulin Hospital course: Ms. Perez is a 82 year old female w/PMH of atrial fibrillation on anticoagulation with warfarin, diastolic CHF, CKD3, CAD status post stents, COPD oxygen dependent, diabetes controlled with oral antihyperglycemic medications, HLD, and HTN presented from the ED with chief complaint of shortness of breath and dyspnea for the past week prior to admission. Patient reported she had nosebleed and was sent to hospital as she was on anticoagulation. Also reported having a recent respiratory infection for which she was placed on antibiotics but symptoms continued to worsen. On admission, patient was hypoxic and placed on BiPAP. Chest x-ray showed no acute process. She was started on Lasix Solu-Medrol, oxygen therapy. Levaquin was started. During her hospitalization the patient developed a small bowel obstruction for which an NG tube had to be placed. The patient improved, NG tube was removed. She denies of the moment any abdominal pain, nausea, she is having normal bowel movements. Received/completed 5 days of Levaquin. INR increased up to 3.2 for which her coumadin was held. Today is 3.1. - Time Spent with Patient Total time spent providing and/or coordinating discharge services: Greater than 30 minutes (40 min) - Discharge Medications Prescriptions: HYDROcodone/Acet 5/325 mg [[place] 5-325 mg] 1 tab PO TID 5 Days #15 tablet predniSONE [PredniSONE] 10 mg PO DAILY 12 Days tablet Warfarin [Coumadin] 2 mg PO DAILY #30 tablet Home Medications: Budesonide/Formoterol 160/4.5 [Symbicort 160/4.5] 2 puff IH BID 08/04/15 [ History] Albuterol Neb [Proventil Neb] 2.5 mg IH TID PRN 11/02/16 [History] Diltiazem HCl [Diltiazem 24Hr Cd] 360 mg PO DAILY 11/02/16 [History] Potassium Chloride [K-Tab ER] 20 meq PO DAILY 11/14/16 [History] Simvastatin [Zocor] 40 mg PO HS 11/14/16 [History] glyBURIDE [GlyBURIDE] 5 mg PO 0800 11/14/16 [History] metFORMIN [Glucophage] 500 mg PO 0800 11/14/16 [History] Acetylcysteine [G-Ktpths-q-Cysteine] 600 mg PO BID 12/19/17 [History] Tiotropium [Spiriva] 18 mcg IH DAILY 12/19/17 [History] Furosemide [Lasix] 60 mg PO BID #0 12/29/17 [Rx] HYDROcodone/Acet 5/325 mg [[place] 5-325 mg] 1 tab PO TID 5 Days #15 tablet [Rx] Warfarin [Coumadin] 2 mg PO DAILY #30 tablet 12/29/17 [Rx] predniSONE [PredniSONE] 10 mg PO DAILY 12 Days tablet 12/29/17 [Rx] Allergies/Adverse Reactions: 3 Allergy/AdvReac Type Severity Reaction Status Date / Time iodine Allergy Rash Verified 12/19/17 09:46 clemastine AdvReac Unknown Verified 12/19/17 09:46 Date of admission: 12/19/17 17:26 Primary care physician: Domingo Liang Colopy - Constitutional Vitals: Temp Pulse Resp BP Pulse Ox 98.0 F 80 16 140/59 95 12/29/17 07:00 12/29/17 07:00 12/29/17 07:40 12/29/17 07:00 12/29/17 07:40 General appearance: Present: cooperative, A&O X 3, pleasant, obese, answers questions appropriately Exam: - Head Head exam: Present: atraumatic, normocephalic - Eye Eye exam: Present: PERRL, conjuntiva pink, sclera anicteric Pupils: Present: PERRL - Neck Neck exam general surgery: Present: supple, trachea midline. Absent: lymphadenopathy - Respiratory Respiratory exam: Present: decreased breath sounds, CTAB. Absent: accessory muscle use, rales, rhonchi, wheezes - Cardiovascular Cardiovascular exam: Present: RRR, +S1, +S2. Absent: diastolic murmur, gallop, rubs, systolic murmur - GI/Abdominal GI/Abdominal exam: Present: normal bowel sounds, soft, no peritoneal signs. Absent: distended, tenderness - Extremities Exam Extremities exam: Present: warm, radial pulses palpable and symmetrical. Absent : calf tenderness, cyanotic, pedal edema - Neurological Exam Neurological exam: Present: CN II-XII intact, oriented X3, no focal deficits. Absent: pronater drift, facial droop, speech deficit - Skin Skin exam: Present: dry, intact - Patient Status Disposition: Transfer SNF Condition: Good Overall status at discharge: patient is progressing back to baseline - Discharge Instructions Follow Up With: Domingo Melton DO [Primary Care Provider] - Additional Instructions: Continue oxygen therapy, keep saturation of oxygen between 88 and 92%. Prednisone taper: 40 mg daily for 3 days, 30 mg for 3 days, 20 mg for 3 days and 10 mg for 3 days. Decrease dose of Coumadin down to 2 mg daily - Diet and Activity Activity: wear oxygen at all times Diet: low fat, low cholesterol - VTE Documentation of Mechanical Device: Graduated compression elastic hosiery
--- NOTE | 2017-12-29 09:04 | Physician Discharge Referral ---
ExtendedCare Referral Info Provider in Charge after Transfer: PCP Institutional Level of Care: Skilled - Diagnosis (1) Acute and chronic respiratory failure (mgymj-hm-cuyvazy) Status: Acute (2) Acute exacerbation of chronic obstructive airways disease Status: Acute (3) Atrial fibrillation Status: Chronic (4) CAROLIN (obstructive sleep apnea) Status: Chronic (5) Hypoxia Status: Acute (6) CKD (chronic kidney disease) stage 3, GFR 30-59 ml/min Status: Chronic (7) HTN (hypertension) Status: Chronic (8) HLD (hyperlipidemia) Status: Chronic (9) CHF (congestive heart failure) Status: Chronic (10) Acute kidney injury superimposed on chronic kidney disease Status: Acute (11) Small bowel obstruction Status: Acute (12) DM (diabetes mellitus) Status: Chronic - Transfer Medications Prescriptions: HYDROcodone/Acet 5/325 mg [[place] 5-325 mg] 1 tab PO TID 5 Days #15 tablet predniSONE [PredniSONE] 10 mg PO DAILY 12 Days tablet Warfarin [Coumadin] 2 mg PO DAILY #30 tablet Home Medications: Budesonide/Formoterol 160/4.5 [Symbicort 160/4.5] 2 puff IH BID 08/04/15 [ History] Albuterol Neb [Proventil Neb] 2.5 mg IH TID PRN 11/02/16 [History] Diltiazem HCl [Diltiazem 24Hr Cd] 360 mg PO DAILY 11/02/16 [History] Potassium Chloride [K-Tab ER] 20 meq PO DAILY 11/14/16 [History] Simvastatin [Zocor] 40 mg PO HS 11/14/16 [History] glyBURIDE [GlyBURIDE] 5 mg PO 0800 11/14/16 [History] metFORMIN [Glucophage] 500 mg PO 0800 11/14/16 [History] Acetylcysteine [P-Bmrpua-w-Cysteine] 600 mg PO BID 12/19/17 [History] Tiotropium [Spiriva] 18 mcg IH DAILY 12/19/17 [History] Furosemide [Lasix] 60 mg PO BID #0 12/29/17 [Rx] HYDROcodone/Acet 5/325 mg [[place] 5-325 mg] 1 tab PO TID 5 Days #15 tablet [Rx] Warfarin [Coumadin] 2 mg PO DAILY #30 tablet 12/29/17 [Rx] predniSONE [PredniSONE] 10 mg PO DAILY 12 Days tablet 12/29/17 [Rx] Allergies/Adverse Reactions: 3 Allergy/AdvReac Type Severity Reaction Status Date / Time iodine Allergy Rash Verified 12/19/17 09:46 clemastine AdvReac Unknown Verified 12/19/17 09:46 - Respiratory Orders Smoking Cessation: Smoking cessation has been advised. For more information, call the [employer] Quit Line at 3-052-KBNQ-NOW. - Advance Directives Code Status: DNR-Arrest/Don't Intubate - Treatments List/Other: Continue oxygen therapy, keep saturation of oxygen between 88 and 92%. Prednisone taper: 40 mg daily for 3 days, 30 mg for 3 days, 20 mg for 3 days and 10 mg for 3 days. Decrease dose of Coumadin down to 2 mg daily - Diet Orders No Added Salt (LAKIA) CERTIFICATION: I certify that the transfer of the above named patient to an Extended Care Facility is necessary for the continuing treatment of the diagnosis listed. The above information is true and accurate reflection of patient's current condition. Confidential - Redisclosure prohibited without a patient's written consent.
[2017-12-29] MEDS: Metoclopramide 10 MG/10 ML UD.LIQ PO SCH (09:05)
[2017-12-29] MEDS: Insulin LISPRO 300 UNITS/3 ML VIAL SQ SCH ×2 (09:05→12:05)
[2017-12-29] MEDS: Diltiazem CD (24hr) 180 MG CAPSULE PO SCH (09:05)
[2017-12-29] MEDS: Sennosides/Docusate Sodium TABLET PO SCH (09:05)
[2017-12-29] MEDS: predniSONE 20 MG TABLET PO SCH (09:05)
--- NOTE | 2017-12-29 13:49 | Physician Discharge Referral ---
Home Health/Hosp Referral Info Transfer to: Home Health Provider in Charge Post Discharge: PCP - Diagnosis (1) Acute and chronic respiratory failure ([id number]-[id number]) Status: Acute (2) Acute exacerbation of chronic obstructive airways disease Status: Acute (3) Atrial fibrillation Status: Chronic (4) CAROLIN (obstructive sleep apnea) Status: Chronic (5) Hypoxia Status: Acute (6) CKD (chronic kidney disease) stage 3, GFR 30-59 ml/min Status: Chronic (7) HTN (hypertension) Status: Chronic (8) HLD (hyperlipidemia) Status: Chronic (9) CHF (congestive heart failure) Status: Chronic (10) Acute kidney injury superimposed on chronic kidney disease Status: Acute (11) Small bowel obstruction Status: Acute (12) DM (diabetes mellitus) Status: Chronic - Respiratory Orders Smoking Cessation: Smoking cessation has been advised. For more information, call the [place] Tobacco Quit Line at 2-173-IFEX-NOW. - Diet/Nutrition Diet/Nutrition Orders: No Added Salt (LAKIA) - Services Needed Following services are medically necessary services: Physical Therapy, Occupational Therapy Home Care Orders: Continue oxygen therapy, keep saturation of oxygen between 88 and 92%. Prednisone taper: 40 mg daily for 3 days, 30 mg for 3 days, 20 mg for 3 days and 10 mg for 3 days. Decrease dose of Coumadin down to 2 mg daily - Transfer Medications Prescriptions: HYDROcodone/Acet 5/325 mg [[place] 5-325 mg] 1 tab PO TID 5 Days #15 tablet predniSONE [PredniSONE] 10 mg PO DAILY 12 Days tablet Warfarin [Coumadin] 2 mg PO DAILY #30 tablet Home Medications: Budesonide/Formoterol 160/4.5 [Symbicort 160/4.5] 2 puff IH BID 08/04/15 [ History] Albuterol Neb [Proventil Neb] 2.5 mg IH TID PRN 11/02/16 [History] Diltiazem HCl [Diltiazem 24Hr Cd] 360 mg PO DAILY 11/02/16 [History] Potassium Chloride [K-Tab ER] 20 meq PO DAILY 11/14/16 [History] Simvastatin [Zocor] 40 mg PO HS 11/14/16 [History] glyBURIDE [GlyBURIDE] 5 mg PO 0800 11/14/16 [History] metFORMIN [Glucophage] 500 mg PO 0800 03/09/17 [History] Acetylcysteine [Z-Zmdmje-r-Cysteine] 600 mg PO BID 12/19/17 [History] Tiotropium [Spiriva] 18 mcg IH DAILY 12/19/17 [History] Furosemide [Lasix] 60 mg PO BID #0 12/29/17 [Rx] HYDROcodone/Acet 5/325 mg [[place] 5-325 mg] 1 tab PO TID 5 Days #15 tablet [Rx] Warfarin [Coumadin] 2 mg PO DAILY #30 tablet 12/29/17 [Rx] predniSONE [PredniSONE] 10 mg PO DAILY 12 Days tablet 12/29/17 [Rx] Allergies/Adverse Reactions: 3 Allergy/AdvReac Type Severity Reaction Status Date / Time iodine Allergy Rash Verified 12/19/17 09:46 clemastine AdvReac Unknown Verified 12/19/17 09:46 Certification: Further, I certify that my clinical findings support that this patient is homebound (i.e. absences from home require considerable and taxing effort and are for medical reasons or adventism services or infrequently or short duration when for other reasons) because: Homebound Reason: Patient requires assistance of a person or device to safely leave home Attestation: My signature below is to certify that this patient is under my care and that I, or nurse practitioner, or a physician's administrative assistant receptionist working with me, has a face-to -face encounter with this patient.
[2017-12-29] MEDS ORDERED: *HR* Warfarin 1 MG TABLET PO ONE (18:00)
== END 2017-12-29 16:34 | DRG 190 ==
LOC: 2NENU 09:03 → EMEROO 09:03 → 2NENU 15:01 → SUATTDRO 17:26
PROVIDERS: ADMIT Internal Medicine; ATTEND Hospitalist

== ENCOUNTER 2018-08-31 18:16 | Inpatient (IN) ==
[2018-08-31] MEDS ORDERED: methylPREDNISolone 125 MG/2 ML VIAL IVP ONE (18:27)
[2018-08-31] MEDS ORDERED: Levofloxacin 750 MG/150 ML 750 MG/150 ML BAG IVPB ONE (18:27)
[2018-08-31] MEDS ORDERED: Ipratropium/Albuterol Neb 3 ML IH ONE (18:28)
--- NOTE | 2018-08-31 18:41 | Emergency Department Note ---
Disposition Clinical Impression: COPD exacerbation Disposition: Still a Patient Forms: ED Satisfaction Letter SOB HPI - General Chief Complaint: ED Shortness of Breath/Dyspnea Stated Complaint: ОЛЕГ Time Seen by Provider: 08/31/18 18:24 Source: patient, EMS Mode of arrival: EMS Limitations: no limitations Nursing Notes Reviewed: Yes Vital Signs Reviewed: Yes - History of Present Illness 82-year-old female history of COPD on 3 L home oxygen supplementation presents to the emergency department via EMS for difficulty in breathing. Gradually worsening over the past 4 days. Reports of a productive sputum yellow in color which is new. She has felt warm at home no recent hospitalization, steroid use or antibiotics. She has a similar history of COPD exacerbation and states this feels similar. She is also complaining of some mild abdominal discomfort with nausea that started today. Denies any injury or trauma. No significant leg swelling. Reports of cardiac ischemic disease. She has a history of atrial fibrillation and takes Coumadin. At this time she has minimal air movement and appears to be tiring out. She will be placed on BiPAP with breathing treatments and likely admission. Will valuate for possible pneumonia on top of her COPD exacerbation. Pt Subjective Complaint: shortness of breath, cough - Related Data Home Medications Medication Instructions Recorded Confirmed Budesonide/Formoterol 160/4.5 2 puff IH BID 08/04/15 12/19/17 [Symbicort 160/4.5] Albuterol Neb [Proventil Neb] 2.5 mg IH TID PRN 11/02/16 12/19/17 dilTIAZem HCl [Diltiazem 24Hr Cd] 360 mg PO DAILY 11/02/16 12/19/17 Potassium Chloride [K-Tab ER] 20 meq PO DAILY 11/14/16 12/19/17 Simvastatin [Zocor] 40 mg PO HS 11/14/16 12/19/17 glyBURIDE [GlyBURIDE] 5 mg PO 0800 11/14/16 12/19/17 metFORMIN [Glucophage] 500 mg PO 0800 11/14/16 12/19/17 Acetylcysteine 600 mg PO BID 12/19/17 12/19/17 [Y-Nobkzk-h-Cysteine] Tiotropium [Spiriva] 18 mcg IH DAILY 12/19/17 12/19/17 Previous Rx's Medication Instructions Recorded Furosemide [Lasix] 60 mg PO BID #0 12/29/17 HYDROcodone/Acet 5/325 mg [[place] 1 tab PO TID 5 Days #15 tablet 12/29/17 5-325 mg] Warfarin [Coumadin] 2 mg PO DAILY #30 tablet 12/29/17 predniSONE [PredniSONE] 10 mg PO DAILY 12 Days tablet 12/29/17 Allergies Allergy/AdvReac Type Severity Reaction Status Date / Time iodine Allergy Rash Verified 12/19/17 09:46 clemastine AdvReac Unknown Verified 12/19/17 09:46 All systems ED: reviewed and negative except as stated. Review of Systems: As Per HPI Constitutional: Reports: fever. Denies: chills ENT ED: Denies: congestion Cardiovascular: Denies: chest pain, syncope Respiratory: Reports: cough, dyspnea, wheezes. Denies: hemoptysis Gastrointestinal: Reports: abdominal pain, nausea. Denies: vomiting, diarrhea Genitourinary: Denies: dysuria Musculoskeletal: Denies: back pain Integumentary: Denies: rash Neurological: Denies: headache Past Medical History - Past Medical History Attestation: Yes The following information was validated with the patient. 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 - Social History Smoking Status: Former smoker Smokeless Tobacco Status: No Alcohol use: Reports: none Drug use: Reports: none Physical Exam - General Limitations: no limitations General appearance: alert, in distress (Respiratory) - Head Head exam: atraumatic, normocephalic, normal inspection - Eye Eye exam: Present: normal appearance, PERRL, EOMI - ENT ENT exam: normal exam, normal oropharynx, mucous membranes moist - Neck Neck exam: Present: normal inspection, full ROM, trachea midline - Chest Chest inspection: Present: normal inspection, symmetric chest wall rise - Respiratory Respiratory exam: Present: respiratory distress, wheezes, prolonged expiratory phase, other (Minimal air movement) - Cardiovascular Cardiovascular exam: Present: regular rate, normal rhythm, normal heart sounds - Abdominal Exam Abdominal exam: Present: soft, tenderness, normal bowel sounds. Absent: Non- Tender, distention, guarding, rebound, rigidity Abdominal tenderness: Present: diffuse - Extremities Exam Extremities exam: Present: normal inspection, full ROM, normal capillary refill. Absent: tenderness, pedal edema, calf tenderness - Neurological Exam Neurological exam: Present: alert, oriented X3 - Psychiatric Psychiatric exam: Present: normal affect, normal mood - Skin Skin exam: Present: warm, dry, intact, normal color. Absent: rash, cyanosis, diaphoresis Course Course Narrative: Patient presents with respiratory distress worsening over the past 4 days. History of COPD, she has minimal air movement with tight aeration and wheezing. Patient will be placed on BiPAP and treated for possible COPD exacerbation well-being evaluate for other infectious etiology such as pneumonia. Sepsis workup initiated including blood cultures as patient is febrile and tachycardic. Patient will require admission. Levaquin ordered. Patient will be signed out to nighttime physician is Dr. Hernandez and Dr. Leblanc pending laboratory results and final disposition. Vital Signs Temperature 100.6 F H 08/31/18 18:21 Pulse Rate 110 08/31/18 18:21 Respiratory Rate 18 08/31/18 18:21 Blood Pressure 130/96 08/31/18 18:21 O2 Sat by Pulse Oximetry 99 08/31/18 18:21 Temperature 100.6 F H 08/31/18 18:21 Pulse Rate 110 08/31/18 18:21 Respiratory Rate 37 08/31/18 18:30 Blood Pressure 139/82 08/31/18 18:30 O2 Sat by Pulse Oximetry 95 08/31/18 18:30 Oxygen Delivery Oxygen Delivery Simple Mask Shortness of Breath/Dyspnea - MDM Narrative Medical decision making narrative: Patient was discussed with my attending physician who agrees with ED management and final disposition. They independently evaluated the patient. Please refer to their attestation to this encounter for additional information. This note was generated by [employer] voice recognition software and as a result grammatical or spelling errors may occur using this program. - Medical Records Medical records reviewed: Yes I reviewed the patient's medical records. - Lab Data Result diagrams: 08/31/18 18:33 Lab Results 08/31/18 Range/Units 18:33 WBC 13.9 H (4.3-11.1) K/mcL RBC 3.41 L (3.82-4.97) M/mcL Hgb 9.9 L (11.5-15.4) g/dL Hct 31.4 L (35.3-44.9) % MCV 92.1 (83.0-100.0) fL MCH 29.0 (28.0-33.3) pg MCHC 31.5 L (31.6-35.5) g/dL RDW 14.3 (11.5-14.5) % Plt Count 258 (140-400) K/mcL MPV 10.3 (9.4-12.4) fL Immature Gran % 0.4 (0-4) % Seg Neutrophils % 78.1 % Lymphocytes % 9.6 % Monocytes % 11.7 % Eosinophils % 0.0 % Basophils % 0.2 % Neutrophils # 10.9 H (1.6-8.9) K/mcL Lymphocytes # 1.3 (0.6-4.6) K/mcL Monocytes # 1.6 H (0.0-1.3) K/mcL Eosinophils # 0.0 (0.0-0.6) K/mcL Basophils # 0.0 (0.0-0.2) K/mcL - EKG Data EKG attestation: Yes I reviewed and interpreted this EKG. EKG results narrative: EKG performed 1828 sinus tachycardia 111 beats per minute, normal axis, good R wave progression, no ST elevation or depression, baseline artifact likely due to movement. This is compared to prior EKG performed 12/23/2017 which shows similar consistent findings. No acute ischemic changes. Attestation Statement - Attestation Attestation: I, Rolf Walker DO, examined this patient [id number] and my medical decision-making was reviewed with Matheus Melo DO , Resident Physician. I agree with the documented findings, disposition and treatment plan as described except to the extent set forth below. Please see my progress notes for details.
[2018-08-31] MEDS ORDERED: Ondansetron 4 MG/2 ML VIAL IVP ONE (18:51)
[2018-08-31 18:52] LABS: Basophils % 0.2 %; Hematocrit 31.4 % (35.3-44.9); Hemoglobin 9.9 g/dL (11.5-15.4); Immature Granulocytes % 0.4 % (0-4); Lymphocytes # 1.3 K/mcL (0.6-4.6); Lymphocytes % 9.6 %; Mean Corpuscular HGB Conc 31.5 g/dL (31.6-35.5); Mean Corpuscular Volume 92.1 fL (83.0-100.0); Mean Platelet Volume 10.3 fL (9.4-12.4); Monocytes # 1.6 K/mcL (0.0-1.3); Monocytes % 11.7 %; Neutrophils # 10.9 K/mcL (1.6-8.9); Platelet Count 258 K/mcL (140-400); Red Blood Count 3.41 M/mcL (3.82-4.97); Red Cell Distribution Width 14.3 % (11.5-14.5); Segmented Neutrophils % 78.1 %
[2018-08-31 19:00] LABS: INR 2.7
[2018-08-31 19:03] LABS: Activated Partial Thrombo Time 41.9 Seconds (26.0-36.0)
--- NOTE | 2018-08-31 19:08 | Emergency Department Note ---
Disposition Clinical Impression: COPD exacerbation Disposition: Still a Patient Condition: Fair Forms: ED Satisfaction Letter Time of Disposition: 19:12 SOB HPI - General Chief Complaint: ED Shortness of Breath/Dyspnea Stated Complaint: ОЛЕГ Time Seen by Provider: 08/31/18 18:24 Source: patient, EMS Mode of arrival: EMS Limitations: no limitations - Related Data Home Medications Medication Instructions Recorded Confirmed Budesonide/Formoterol 160/4.5 2 puff IH BID 08/04/15 12/19/17 [Symbicort 160/4.5] Albuterol Neb [Proventil Neb] 2.5 mg IH TID PRN 11/02/16 12/19/17 dilTIAZem HCl [Diltiazem 24Hr Cd] 360 mg PO DAILY 11/02/16 12/19/17 Potassium Chloride [K-Tab ER] 20 meq PO DAILY 11/14/16 12/19/17 Simvastatin [Zocor] 40 mg PO HS 11/14/16 12/19/17 glyBURIDE [GlyBURIDE] 5 mg PO 0800 11/14/16 12/19/17 metFORMIN [Glucophage] 500 mg PO 0800 11/14/16 12/19/17 Acetylcysteine 600 mg PO BID 12/19/17 12/19/17 [S-Gvxxlu-a-Cysteine] Tiotropium [Spiriva] 18 mcg IH DAILY 12/19/17 12/19/17 Previous Rx's Medication Instructions Recorded Furosemide [Lasix] 60 mg PO BID #0 12/29/17 HYDROcodone/Acet 5/325 mg [[place] 1 tab PO TID 5 Days #15 tablet 12/29/17 5-325 mg] Warfarin [Coumadin] 2 mg PO DAILY #30 tablet 12/29/17 predniSONE [PredniSONE] 10 mg PO DAILY 12 Days tablet 12/29/17 Allergies Allergy/AdvReac Type Severity Reaction Status Date / Time iodine Allergy Rash Verified 12/19/17 09:46 clemastine AdvReac Unknown Verified 12/19/17 09:46 Constitutional: Reports: fever. Denies: chills ENT ED: Denies: congestion Cardiovascular: Denies: chest pain, syncope Respiratory: Reports: cough, dyspnea, wheezes. Denies: hemoptysis Gastrointestinal: Reports: abdominal pain, nausea. 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 - Social History Smoking Status: Former smoker Smokeless Tobacco Status: No Alcohol use: Reports: none Drug use: Reports: none Physical Exam - General Limitations: no limitations General appearance: alert, in distress (Respiratory) Course Vital Signs Temperature 100.6 F H 08/31/18 18:21 Pulse Rate 110 08/31/18 18:21 Respiratory Rate 18 08/31/18 18:21 Blood Pressure 130/96 08/31/18 18:21 O2 Sat by Pulse Oximetry 99 08/31/18 18:21 Temperature 100.6 F H 08/31/18 18:21 Pulse Rate 110 08/31/18 18:21 Respiratory Rate 37 08/31/18 18:30 Blood Pressure 139/82 08/31/18 18:30 O2 Sat by Pulse Oximetry 95 08/31/18 18:30 Oxygen Delivery Oxygen Delivery Simple Mask Shortness of Breath/Dyspnea - Lab Data Result diagrams: 08/31/18 18:33 Lab Results 08/31/18 08/31/18 Range/Units 18:33 18:33 WBC 13.9 H (4.3-11.1) K/mcL RBC 3.41 L (3.82-4.97) M/mcL Hgb 9.9 L (11.5-15.4) g/dL Hct 31.4 L (35.3-44.9) % MCV 92.1 (83.0-100.0) fL MCH 29.0 (28.0-33.3) pg MCHC 31.5 L (31.6-35.5) g/dL RDW 14.3 (11.5-14.5) % Plt Count 258 (140-400) K/mcL MPV 10.3 (9.4-12.4) fL Immature Gran % 0.4 (0-4) % Seg Neutrophils % 78.1 % Lymphocytes % 9.6 % Monocytes % 11.7 % Eosinophils % 0.0 % Basophils % 0.2 % Neutrophils # 10.9 H (1.6-8.9) K/mcL Lymphocytes # 1.3 (0.6-4.6) K/mcL Monocytes # 1.6 H (0.0-1.3) K/mcL Eosinophils # 0.0 (0.0-0.6) K/mcL Basophils # 0.0 (0.0-0.2) K/mcL PT 31.0 H (9.4-12.1) Seconds INR 2.7 APTT 41.9 H (26.0-36.0) Seconds Attestation Statement - Attestation Attestation: I, Rolf Walker DO, examined this patient [id number] and my medical decision-making was reviewed with Matheus Melo DO , Resident Physician. I agree with the documented findings, disposition and treatment plan as described except to the extent set forth below. Please see my progress notes for details. 82-year-old female presents emergency room by EMS for evaluation of shortness of breath and increased work of breathing. Patient had these symptoms for approximately one week at this time. She has had intermittent productive cough and sputum. She has long-standing history of COPD, A. fib, fluid overload. Patient denies any falls trauma or injuries. Denies any chest pain. Denies any headache or vision change. Currently denies any nausea vomiting or diarrhea. Patient has sitting up in the bed with breathing treatment in place. She does have shortness of breath and described increased work of breathing. Typically uses CPAP at home. Initial presentation she had diminished breath sounds bilaterally. She is using accessory muscles to breathe. Her heart is tachycardic at this time. Abdomen is soft but she does describe diffuse tenderness. She has no signs of pitting edema in the extremities. She is conversing answering questions appropriately. Symptomatic control including BiPAP, breathing treatments, steroids along with first dose of IV antibiotics blood cultures CBC chemistry lactic acid will be collected this point. Chest x- ray and EKG will be resulted as well. BNP is and troponin will be added on to the laboratory evaluation. Disposition will most likely be admission the hospital. Patient will require stabilization and further management. Detailed documentation the physical exam, medical intervention, medical decision-making and disposition the resident physician's note. Patient will be signed out to the overnight physician Dr. Leblanc for continuation of care. Patient is otherwise stable
[2018-08-31 19:13] LABS: Alanine Aminotransferase 11 Units/L (7-52); Alkaline Phosphatase 138 Units/L (34-104); Aspartate Amino Transferase 13 Units/L (13-39); BUN/Creatinine Ratio 12 (6-26); Bilirubin,Direct 0.1 mg/dL (0.0-0.2); Bilirubin,Indirect 0.4 mg/dL (0.0-1.2); Bilirubin,Total 0.5 mg/dL (0.3-1.0); Blood Urea Nitrogen 16 mg/dL (8-23); Calcium 9.5 mg/dL (8.6-10.3); Carbon Dioxide 28 mEq/L (23-29); Chloride 92 mEq/L (98-107); Glucose 247 mg/dL (70-105); Osmolality,Calculated 281 (280-300); Potassium 3.8 mEq/L (3.5-5.1); Sodium 131 mEq/L (136-145); Troponin I < 0.03 ng/mL (< 0.04); eGFR For Non-African Americans 38 (> 60)
--- NOTE | 2018-08-31 19:17 | Emergency Department Note ---
Disposition Clinical Impression: COPD exacerbation, Bilateral pneumonia, Colitis Disposition: Admitted As Inpatient Condition: Fair Referrals: Domingo Melton DO [Primary Care Provider] - Forms: ED Satisfaction Letter General Adult HPI - General Chief complaint: ED Shortness of Breath/Dyspnea Stated complaint: ОЛЕГ Time Seen by Provider: 08/31/18 18:24 Source: patient, EMS Mode of arrival: EMS Limitations: no limitations - History of Present Illness Pain Scale: 10 - Related Data Home Medications Medication Instructions Recorded Confirmed Budesonide/Formoterol 160/4.5 2 puff IH BID 08/04/15 12/19/17 [Symbicort 160/4.5] Albuterol Neb [Proventil Neb] 2.5 mg IH TID PRN 11/02/16 12/19/17 dilTIAZem HCl [Diltiazem 24Hr Cd] 360 mg PO DAILY 11/02/16 12/19/17 Potassium Chloride [K-Tab ER] 20 meq PO DAILY 11/14/16 12/19/17 Simvastatin [Zocor] 40 mg PO HS 11/14/16 12/19/17 glyBURIDE [GlyBURIDE] 5 mg PO 0800 11/14/16 12/19/17 metFORMIN [Glucophage] 500 mg PO 0800 11/14/16 12/19/17 Acetylcysteine 600 mg PO BID 12/19/17 12/19/17 [W-Kpubzt-k-Cysteine] Tiotropium [Spiriva] 18 mcg IH DAILY 12/19/17 12/19/17 Previous Rx's Medication Instructions Recorded Furosemide [Lasix] 60 mg PO BID #0 12/29/17 HYDROcodone/Acet 5/325 mg [[place] 1 tab PO TID 5 Days #15 tablet 12/29/17 5-325 mg] Warfarin [Coumadin] 2 mg PO DAILY #30 tablet 12/29/17 predniSONE [PredniSONE] 10 mg PO DAILY 12 Days tablet 12/29/17 Allergies Allergy/AdvReac Type Severity Reaction Status Date / Time iodine Allergy Rash Verified 12/19/17 09:46 clemastine AdvReac Unknown Verified 12/19/17 09:46 Constitutional: Reports: fever. Denies: chills ENT ED: Denies: congestion Cardiovascular: Denies: chest pain, syncope Respiratory: Reports: cough, dyspnea, wheezes. Denies: hemoptysis Gastrointestinal: Reports: abdominal pain, nausea. 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 - Social History Smoking Status: Former smoker Smokeless Tobacco Status: No Alcohol use: Reports: none Drug use: Reports: none Physical Exam - General Limitations: no limitations General appearance: alert, in distress (Respiratory) Course Vital Signs Temperature 100.6 F H 08/31/18 18:21 Pulse Rate 110 08/31/18 18:21 Respiratory Rate 18 08/31/18 18:21 Blood Pressure 130/96 08/31/18 18:21 O2 Sat by Pulse Oximetry 99 08/31/18 18:21 Temperature 100.6 F H 08/31/18 18:21 Pulse Rate 110 08/31/18 18:21 Respiratory Rate 37 08/31/18 18:30 Blood Pressure 139/82 08/31/18 18:30 O2 Sat by Pulse Oximetry 95 08/31/18 18:30 Oxygen Delivery Oxygen Delivery Simple Mask Medical Decision Making - Lab Data Result diagrams: 08/31/18 18:33 08/31/18 18:33 Lab Results 08/31/18 08/31/18 08/31/18 Range/Units 18:33 18:33 18:33 WBC 13.9 H (4.3-11.1) K/mcL RBC 3.41 L (3.82-4.97) M/mcL Hgb 9.9 L (11.5-15.4) g/dL Hct 31.4 L (35.3-44.9) % MCV 92.1 (83.0-100.0) fL MCH 29.0 (28.0-33.3) pg MCHC 31.5 L (31.6-35.5) g/dL RDW 14.3 (11.5-14.5) % Plt Count 258 (140-400) K/mcL MPV 10.3 (9.4-12.4) fL Immature Gran % 0.4 (0-4) % Seg Neutrophils % 78.1 % Lymphocytes % 9.6 % Monocytes % 11.7 % Eosinophils % 0.0 % Basophils % 0.2 % Neutrophils # 10.9 H (1.6-8.9) K/mcL Lymphocytes # 1.3 (0.6-4.6) K/mcL Monocytes # 1.6 H (0.0-1.3) K/mcL Eosinophils # 0.0 (0.0-0.6) K/mcL Basophils # 0.0 (0.0-0.2) K/mcL PT 31.0 H (9.4-12.1) Seconds INR 2.7 APTT 41.9 H (26.0-36.0) Seconds Sodium 131 L (136-145) mEq/L Potassium 3.8 (3.5-5.1) mEq/L Chloride 92 L (98-107) mEq/L Carbon Dioxide 28 (23-29) mEq/L BUN 16 (8-23) mg/dL Creatinine 1.34 H (0.60-1.20) mg/dL Est GFR ( Amer) 46 L (> 60) Est GFR (Non-Af Amer) 38 L (> 60) BUN/Creatinine Ratio 12 (6-26) Glucose 247 H (70-105) mg/dL Calculated Osmolality 281 (280-300) Lactic Acid (0.5-2.2) mmol/L Calcium 9.5 (8.6-10.3) mg/dL Total Bilirubin 0.5 (0.3-1.0) mg/dL Direct Bilirubin 0.1 (0.0-0.2) mg/dL Indirect Bilirubin 0.4 (0.0-1.2) mg/dL AST 13 (13-39) Units/L ALT 11 (7-52) Units/L Alkaline Phosphatase 138 H (34-104) Units/L Troponin I < 0.03 (< 0.04) ng/mL B-Natriuretic Peptide (Less than 100) pg/mL Serum Total Protein 8.0 (6.4-8.9) g/dL Albumin 4.0 (3.5-5.7) g/dL Globulin 4.0 H (2.4-3.5) g/dL Albumin/Globulin Ratio 1.0 L (1.1-2.2) Lipase 4 L (11-82) Units/L 08/31/18 08/31/18 Range/Units 18:33 18:33 WBC (4.3-11.1) K/mcL RBC (3.82-4.97) M/mcL Hgb (11.5-15.4) g/dL Hct (35.3-44.9) % MCV (83.0-100.0) fL MCH (28.0-33.3) pg MCHC (31.6-35.5) g/dL RDW (11.5-14.5) % Plt Count (140-400) K/mcL MPV (9.4-12.4) fL Immature Gran % (0-4) % Seg Neutrophils % % Lymphocytes % % Monocytes % % Eosinophils % % Basophils % % Neutrophils # (1.6-8.9) K/mcL Lymphocytes # (0.6-4.6) K/mcL Monocytes # (0.0-1.3) K/mcL Eosinophils # (0.0-0.6) K/mcL Basophils # (0.0-0.2) K/mcL PT (9.4-12.1) Seconds INR APTT (26.0-36.0) Seconds Sodium (136-145) mEq/L Potassium (3.5-5.1) mEq/L Chloride (98-107) mEq/L Carbon Dioxide (23-29) mEq/L BUN (8-23) mg/dL Creatinine (0.60-1.20) mg/dL Est GFR ( Amer) (> 60) Est GFR (Non-Af Amer) (> 60) BUN/Creatinine Ratio (6-26) Glucose (70-105) mg/dL Calculated Osmolality (280-300) Lactic Acid 1.3 (0.5-2.2) mmol/L Calcium (8.6-10.3) mg/dL Total Bilirubin (0.3-1.0) mg/dL Direct Bilirubin (0.0-0.2) mg/dL Indirect Bilirubin (0.0-1.2) mg/dL AST (13-39) Units/L ALT (7-52) Units/L Alkaline Phosphatase (34-104) Units/L Troponin I (< 0.04) ng/mL B-Natriuretic Peptide 208 H (Less than 100) pg/mL Serum Total Protein (6.4-8.9) g/dL Albumin (3.5-5.7) g/dL Globulin (2.4-3.5) g/dL Albumin/Globulin Ratio (1.1-2.2) Lipase (11-82) Units/L Attestation Statement - Attestation Attestation: I examined this patient and my medical decision-making was reviewed with the Resident Physician. I agree with the documented findings, disposition and mukesh tment plan as described except to the extent set forth below. Patient was signed out to me by Dr. barker. Plan was to follow-up her abdominal CT. She does have evidence of a proximal descending colitis. Patient was given Levaquin for pneumonia. Chest x-ray shows left-sided pneumonia and CT showing possible right lower lobe pneumonia development. Patient will be admitted to the hospitalist. She is hemodynamically stable. Case was discussed with her granddaughter at bedside. Patient updated.
[2018-08-31 19:31] LABS: Lipase 4 Units/L (11-82)
[2018-08-31] MEDS ORDERED: *HR* FentaNYL (PF) 100 MCG/2 ML VIAL IVP ONE (19:56)
--- NOTE | 2018-08-31 20:18 | Internal Med History&Physical ---
Date of Encounter: 09/01/18 Time of Encounter: 20:17 Internal Medicine - H&P: HPI Chief complaint: sob History of present illness: 82-year-old female presents emergency room by EMS for evaluation of shortness of breath associated with intermittent productive cough and sputum. She has long- standing history of COPD, A. fib. On presentation She was febrile and tachycar dic and was placed on BiPAP, treated with breathing treatments, steroids along with first dose of IV antibiotics. CT scan revealed Mild acute uncomplicated colitis involving the proximal descending colon, Bilateral lower lobe bronchiolitis with more focal consolidation in the right lower lobe concerning for developing pneumonia. The patient was admitted for further evaluation and management Past Med Surg Social Fam HX - Past Medical History Medical history: atrial fibrillation, CHF, COPD, diabetes, hyperlipidemia, hypertension, other Additional medical history: emphysema Psychiatric history: no psych history - Past Surgical History Surgical History: hysterectomy, other (Carpal tunnel release, cataracts) - Social History Smoking Status: Former smoker Smokeless Tobacco Status: No Alcohol use: none Drug use: none - Family History Brother Family Member Ethnicity: Non- Living Status: Hx Family Respiratory Disorders: Yes (COPD/Emphysema) Sister Family Member Ethnicity: Non- Living Status: Mother Adopted: No Family Member Ethnicity: Non- Living Status: Hx Family Cardiac Disorders: Yes (CAD) Father Adopted: No Family Member Ethnicity: Non- Living Status: Hx Family Cancer: Yes (Colon) Internal Medicine - H&P: Meds Budesonide/Formoterol 160/4.5 [Symbicort 160/4.5] 2 puff IH DAILY 08/04/15 [History] Albuterol Neb [Proventil Neb] 2.5 mg IH Q6H PRN 11/02/16 [History] dilTIAZem HCl [Diltiazem 24Hr Cd] 360 mg PO DAILY 11/02/16 [History] Potassium Chloride [K-Tab ER] 20 meq PO BID 11/14/16 [History] Simvastatin [Zocor] 40 mg PO DAILY 11/14/16 [History] glyBURIDE [GlyBURIDE] 5 mg PO DAILY 11/14/16 [History] metFORMIN [Glucophage] 500 mg PO DAILY 11/14/16 [History] Acetylcysteine [I-Vsgfhq-w-Cysteine] 600 mg PO BID 12/19/17 [History] Tiotropium [Spiriva] 18 mcg IH DAILY 12/19/17 [History] Aspirin/Acetaminophen/Caffeine [Excedrin Extra Strength Caplet] 2 tab PO Q6H PRN 08/31/18 [History] Furosemide [Lasix] 60 mg PO BID 08/31/18 [History] HYDROcodone/Acet 5/325 mg [[place] 5-325 mg] 1 tab PO TID PRN 08/31/18 [History] Oxygen 3 l IN DAILY 08/31/18 [History] Polyethylene Glycol 3350 [MiraLAX] 17 gm PO DAILY 08/31/18 [History] Warfarin Sodium 1.5 mg PO MOWEFR 08/31/18 [History] Warfarin Sodium 3 mg PO SUTUTHSA 08/31/18 [History] Allergy/AdvReac Type Severity Reaction Status Date / Time iodine Allergy See Verified 08/31/18 19:51 Comments clemastine AdvReac Unknown Verified 12/19/17 09:46 All Systems PM: A 10-system review of systems was performed and is negative for pertinent findings except as documented above in the HPI. - Constitutional Constitutional: no chills, no fever(s), no night sweats - Cardiovascular Cardiovascular ROS IM: chest pain, no diaphoresis, no dyspnea, no lightheadedness, no palpitations, no syncope - Respiratory Respiratory: cough, dyspnea, no wheezing, no excessive phlegm production - Gastrointestinal Gastrointestinal: no abdominal pain, no diarrhea, no hematemesis, no hematochezia, no melena, no nausea, no vomiting - Neurological Neurological ROS: no confusion, no convulsions, no focal weakness, no numbness, no tingling, no tremor(s) - Constitutional Vitals: Temp Pulse Resp BP Pulse Ox 100.6 F H 110 30 132/53 95 08/31/18 18:21 08/31/18 18:21 08/31/18 20:10 08/31/18 20:10 08/31/18 18:30 General appearance: Present: A&O X 3 Exam: as below - Head Head exam: Present: atraumatic, normocephalic - Neck Neck exam general surgery: Present: supple, trachea midline. Absent: lymphadenopathy - Respiratory Respiratory exam: Present: decreased breath sounds, rhonchi. Absent: accessory muscle use, rales, wheezes - Cardiovascular Cardiovascular exam: Present: RRR, +S1, +S2. Absent: diastolic murmur, gallop, rubs, systolic murmur - GI/Abdominal GI/Abdominal exam: Present: normal bowel sounds, soft, no peritoneal signs. Absent: distended, tenderness - Extremities Exam Extremities exam: Present: warm, radial pulses palpable and symmetrical. Ab sent: calf tenderness, cyanotic, pedal edema Internal Med - H&P Results - Labs CBC & Chem 7: 08/31/18 18:33 08/31/18 18:33 Labs: Short CBC 08/31/18 Range/Units 18:33 WBC 13.9 H (4.3-11.1) K/mcL Hgb 9.9 L (11.5-15.4) g/dL Hct 31.4 L (35.3-44.9) % Plt Count 258 (140-400) K/mcL Neutrophils # 10.9 H (1.6-8.9) K/mcL BMP 08/31/18 18:33 Sodium 131 L Potassium 3.8 Chloride 92 L Carbon Dioxide 28 BUN 16 Creatinine 1.34 H Glucose 247 H Calcium 9.5 Cardiac Enzymes 08/31/18 Range/Units 18:33 Troponin I < 0.03 (< 0.04) ng/mL Liver Function 08/31/18 Range/Units 18:33 Total Bilirubin 0.5 (0.3-1.0) mg/dL Direct Bilirubin 0.1 (0.0-0.2) mg/dL AST 13 (13-39) Units/L ALT 11 (7-52) Units/L Alkaline Phosphatase 138 H (34-104) Units/L Albumin 4.0 (3.5-5.7) g/dL - Impressions ITS Impressions Chest X-Ray 08/31/18 18:25 IMPRESSION: Left parahilar airspace opacification could represent pneumonia. Follow-up is suggested to ensure resolution D/ / Ranjeet Holloway MD / Ranjeet Holloway MD Interpreting Provider: Ranjeet Holloway MD Abdomen/Pelvis CT 08/31/18 18:52 IMPRESSION: 1. Mild acute uncomplicated colitis involving the proximal descending colon. 2. Bilateral lower lobe bronchiolitis with more focal consolidation in the right lower lobe concerning for developing pneumonia. Recommend chest radiograph in 8 weeks to confirm resolution. 3. Trace left pleural effusion. D/ / Turner Voss MD / Turner Voss MD Interpreting Provider: Turner Voss MD - Assessment and plan (1) Bilateral pneumonia Current Visit: Yes Status: Acute Assessment and plan: ASSESSMENT: - SOB due to Pneumonia, COPD exacerbation - Blood Cx - Urine Legionella antigen - Antibiotics - CBCD, CMP in AM - Tylenol 650 mg PO q 4-6 hr PRN pain or fever Qualifiers: Qualified Code(s): J18.9 - Pneumonia, unspecified organism (2) Insulin dependent diabetes mellitus Current Visit: No Status: Acute Assessment and plan: We will start the patient on insulin sliding scale with moderate coverage (3) BARRY (acute kidney injury) Current Visit: No Status: Acute Assessment and plan: Most likely secondary to volume depletion in the setting of sepsis and febrile illness (4) A-fib Current Visit: No Status: Chronic Assessment and plan: The patient rate is controlled we will continue anticoagulation with Coumadin, pharmacy was consulted for further dosing. Qualifiers: (5) Colitis Current Visit: Yes Status: Acute Assessment and plan: CAT scan are evidence of colitis patient was started and Levaquin (6) COPD exacerbation Current Visit: Yes Status: Acute (7) Chronic anticoagulation Current Visit: No Status: Acute (8) DVT prophylaxis Current Visit: Yes Status: Acute Assessment and plan: The patient is on chronic anticoagulation with Coumadin (9) Hyponatremia Current Visit: Yes Status: Acute Assessment and plan: Most likely hypo-volume of hyponatremia in the setting of sepsis and febrile. - Time Spent With Patient Total time spent is greater than 50% in coordination of care (as documented) at patient's floor/unit and/or counseling patient:
[2018-08-31] MEDS ORDERED: Naloxone 0.4 MG/ML INJ IVP PRN (20:57)
[2018-08-31] MEDS ORDERED: Acetaminophen 325 MG TABLET PO PRN (20:57)
[2018-08-31] MEDS ORDERED: Acetaminophen/Aspirin/Caffeine TABLET PO PRN (21:01)
[2018-08-31] MEDS ORDERED: D5% in Water 1,000 ML IVC PRN (21:03)
[2018-08-31] MEDS ORDERED: *HR* Dextrose 50 % in Water (Syg) 50 ML SYRINGE IVP PRN (21:03)
[2018-08-31] MEDS ORDERED: Dextrose Gel 15 GM/37.5 ML TUBE PO PRN ×2 (21:03)
[2018-08-31] MEDS ORDERED: Albuterol 2.5 MG/3 ML NEBULIZER IH PRN (22:00)
[2018-08-31] MEDS: Insulin LISPRO 300 UNITS/3 ML VIAL SQ SCH ×2 (22:09)
[2018-08-31] MEDS: Ipratropium/Albuterol Neb 3 ML IH SCH (23:53)
[2018-09-01] MEDS ORDERED: Naloxone 0.4 MG/ML INJ IVP PRN (00:04)
[2018-09-01 00:37] LABS: Basophils % 0.2 %; Hematocrit 28.1 % (35.3-44.9); Hemoglobin 8.7 g/dL (11.5-15.4); Immature Granulocytes % 0.3 % (0-4); Lymphocytes # 0.4 K/mcL (0.6-4.6); Lymphocytes % 3.9 %; Mean Corpuscular Hemoglobin 28.3 pg (28.0-33.3); Mean Corpuscular Volume 91.5 fL (83.0-100.0); Mean Platelet Volume 10.3 fL (9.4-12.4); Monocytes # 0.5 K/mcL (0.0-1.3); Monocytes % 4.9 %; Neutrophils # 9.2 K/mcL (1.6-8.9); Platelet Count 233 K/mcL (140-400); Red Blood Count 3.07 M/mcL (3.82-4.97); Red Cell Distribution Width 14.1 % (11.5-14.5); Segmented Neutrophils % 90.7 %
[2018-09-01 00:45] LABS: INR 3.1; Prothrombin Time 34.7 Seconds (9.4-12.1)
[2018-09-01] MEDS: MethylPREDNISolone 40 MG/ML VIAL IVP SCH ×3 (00:46→17:35)
[2018-09-01 00:48] LABS: Activated Partial Thrombo Time 43.8 Seconds (26.0-36.0)
[2018-09-01 00:55] LABS: Albumin 3.7 g/dL (3.5-5.7); Albumin/Globulin Ratio 1.1 (1.1-2.2); Bilirubin,Total 0.4 mg/dL (0.3-1.0); Calcium 9.1 mg/dL (8.6-10.3); Chol/HDL Ratio 2.5 (0-4.9); Globulin 3.5 g/dL (2.4-3.5); Phosphorous 2.9 mg/dL (2.7-4.5); Potassium 3.9 mEq/L (3.5-5.1); Total Protein 7.2 g/dL (6.4-8.9)
[2018-09-01] MEDS: Ipratropium/Albuterol Neb 3 ML IH SCH ×4 (04:23→22:58)
[2018-09-01 06:30] LABS: INR 3.1; Prothrombin Time 35.5 Seconds (9.4-12.1)
[2018-09-01 07:03] LABS: Estimated Average Glucose 171 mg/dl; Hemoglobin A1C 7.6 %
[2018-09-01 07:53] LABS: Bilirubin,Urine Negative (Negative); Blood,Urine Trace (Negative); Clarity,Urine Clear (Clear); Color,Urine Yellow (Yellow); Glucose,Urine (UA) 250 mg/dL (Normal); Ketones,Urine Negative (Negative); Leukocyte Esterase,Urine Trace (Negative); Nitrite,Urine Negative (Negative); PH,Urine 5.5 pH Units (5.0-8.0); Protein,Urine 30 mg/dL (Neg-Trace); Specific Gravity,Urine 1.021 (1.010-1.025); Urobilinogen,Urine Normal (Normal)
[2018-09-01 07:55] LABS: Bacteria,Urine None Seen per hpf (None-Few); Hyaline Casts,Urine None Seen per lpf (None-Few); Squamous Epithelial Cell,Urine Many per lpf (None-Few); WBC,Urine 0-3 per hpf (0-3)
[2018-09-01] MEDS: Diltiazem CD (24hr) 180 MG CAPSULE PO SCH (09:35)
[2018-09-01] MEDS: MetroNIDAZOLE 500 MG/100 ML 500 MG/100 ML BAG IVPB SCH ×2 (09:36→17:34)
[2018-09-01] MEDS: Insulin LISPRO 300 UNITS/3 ML VIAL SQ SCH ×4 (09:42→21:50)
[2018-09-01] MEDS: *HR* Acetylcysteine 20% 600 MG/3 ML ORAL SYRINGE PO SCH ×2 (09:54→21:52)
[2018-09-01] MEDS: Budesonide/Formoterol 160/4.5 1 PUFF INH IH SCH (10:34)
[2018-09-01] MEDS: Tiotropium 18 MCG inhalation IH SCH (10:35)
--- NOTE | 2018-09-01 12:42 | Internal Med Progress Note ---
Hospitalist Progress Note - Encounter Date of Encounter: 09/01/18 Time of Encounter: 12:41 - Subjective Interval History: I have seen and evaluated the patient at bedside. she reports improvement in the shortness of breath and generalized weakness that brought her to the hospital. denies nausea, vomiting or abdominal pain. - Exam Vitals: Temp Pulse Resp BP Pulse Ox 98.0 F 102 18 155/68 98 09/01/18 12:06 09/01/18 12:06 09/01/18 12:06 09/01/18 12:06 09/01/18 12:06 Exam: Vitals: reviewed. General: Alert and oriented x4. in mild distress due to shortness of breath and productive cough. Skin: Normal color, no rash, no lesions. HEENT: EOM, pupils equal, round and reactive. Cardiovascular: Irregularly, irregular, Normal S1 & S2, no rubs, murmurs or gallops. Lungs: mild expiratory wheezing b/l, rales at the left lower lung field, no crackles. Abdomen: Obese, Soft, non-tender, no rigidity. Extremities: No deformity, no edema or tenderness, no joint swelling or clubbing. Neurological: Normal cognition and motor skills. Rest of the physical exam is non contributory - Assessment and Plan (1) A-fib Current Visit: No Status: Chronic Assessment and Plan: rate controlled. patient is on diltiazem 360 mg by mouth daily. Warfarin per pharmacy protocol. (2) Insulin dependent diabetes mellitus Current Visit: No Status: Chronic Assessment and Plan: Blood sugar is not well controlled. Carb controlled diet. Levemir 10 units twice a day. continue lispro medium dose sliding scale ac. (3) BARRY (acute kidney injury) Current Visit: No Status: Acute Assessment and Plan: will start gentle IV hydration with 0.9%ns@75mls/hr x24 hours. avoid nephrotoxic medications. (4) COPD exacerbation Current Visit: Yes Status: Acute Assessment and Plan: patient still has mild scattered inspiratory and expiratory wheezing. Continue scheduled bronchodilators On Symbicort and Spiriva. Decrease methylprednisolone to 40mg/IV BID Incentive spirometry. patient on empiric IV antibiotics (5) Bilateral pneumonia Current Visit: Yes Status: Acute Assessment and Plan: Patient on broad-spectrum IV antibiotics. Will send sputum culture and Gram stain urine for atypical organisms (6) Colitis Current Visit: Yes Status: Acute Assessment and Plan: CT/CT abd pelvis wo no iv no oral IMPRESSION: 1. Mild acute uncomplicated colitis involving the proximal descending colon. patient has been tolerating diet without any complains. will continue levofloxacin 750mg/IV daily, started on metronidazole 500mg/IV Q8HRs (7) Hyponatremia Current Visit: Yes Status: Acute Assessment and Plan: Possible due to pneumonia. patient started on NS@75mls/hr. (8) Chronic hypoxemic respiratory failure Current Visit: No Status: Chronic Assessment and Plan: On 2 litters of O2, by nasal cannula. titrate for O2Sat >92%. (9) CAROLIN (obstructive sleep apnea) Current Visit: No Status: Chronic Assessment and Plan: nocturnal Bipap. DVT Prophylaxis: Patient on Warfarin due to A.fib with therapeutic INR. - Summary of Assessment and Plan Summary of Assessment and Plan: Patient to remain in the hospital due to pneumonia, copd exacerbation and colitis. - Time Spent with Patient Total time spent is greater than 50% in coordination of care (as documented) at patient's floor/unit and/or counseling patient: Greater than 35 minutes (40) Plan of Care Discussed with: patient (and the nurse.) Internal Medicine: Result - Labs CBC & Chem 7: 09/01/18 00:23 09/01/18 00:23 Labs: Short CBC 08/31/18 09/01/18 Range/Units 18:33 00:23 WBC 13.9 H 10.1 (4.3-11.1) K/mcL Hgb 9.9 L 8.7 L (11.5-15.4) g/dL Hct 31.4 L 28.1 L (35.3-44.9) % Plt Count 258 233 (140-400) K/mcL Neutrophils # 10.9 H 9.2 H (1.6-8.9) K/mcL BMP 08/31/18 09/01/18 18:33 00:23 Sodium 131 L 128 L Potassium 3.8 3.9 Chloride 92 L 95 L Carbon Dioxide 28 28 BUN 16 19 Creatinine 1.34 H 1.39 H Glucose 247 H 327 H Calcium 9.5 9.1 Cardiac Enzymes 08/31/18 09/01/18 09/01/18 Range/Units 18:33 00:23 06:02 Troponin I < 0.03 < 0.03 < 0.03 (< 0.04) ng/mL Liver Function 08/31/18 09/01/18 Range/Units 18:33 00:23 Total Bilirubin 0.5 0.4 (0.3-1.0) mg/dL Direct Bilirubin 0.1 (0.0-0.2) mg/dL AST 13 11 L (13-39) Units/L ALT 11 9 (7-52) Units/L Alkaline Phosphatase 138 H 117 H (34-104) Units/L Albumin 4.0 3.7 (3.5-5.7) g/dL Urine 09/01/18 Range/Units 07:30 Urine Color Yellow (Yellow) Urine Clarity Clear (Clear) Urine pH 5.5 (5.0-8.0) pH Units Ur Specific Vest 1.021 (1.010-1.025) Urine Protein 30 H (Neg-Trace) mg/dL Urine Glucose (UA) 250 H (Normal) mg/dL - ABG Interpretation ABG results: PT/INR, D-dimer PT 35.5 Seconds (9.4-12.1) H 09/01/18 06:02 - Impressions Impressions Chest X-Ray 08/31/18 18:25 IMPRESSION: Left parahilar airspace opacification could represent pneumonia. Follow-up is suggested to ensure resolution D/ / Ranjeet Holloway MD / Ranjeet Holloway MD Interpreting Provider: Ranjeet Holloway MD Abdomen/Pelvis CT 08/31/18 18:52 IMPRESSION: 1. Mild acute uncomplicated colitis involving the proximal descending colon. 2. Bilateral lower lobe bronchiolitis with more focal consolidation in the right lower lobe concerning for developing pneumonia. Recommend chest radiograph in 8 weeks to confirm resolution. 3. Trace left pleural effusion. D/ / Turner Voss MD / Turner Voss MD Interpreting Provider: Turner Voss MD Consult Discharge Plan - Plan Referrals: Geronimo,Domingo Liang DO [Primary Care Provider] - (1) A-fib Qualifiers: Atrial fibrillation type: unspecified Qualified Code(s): I48.91 - Unspecified atrial fibrillation (5) Bilateral pneumonia Qualifiers: Pneumonia type: due to unspecified organism Lung location: unspecified part of lung Qualified Code(s): J18.9 - Pneumonia, unspecified organism
[2018-09-01] MEDS: *HR* HYDROcodone/Acet 5/325 mg TABLET PO PRN (17:42)
[2018-09-01] MEDS ORDERED: *HR* Warfarin 1 MG TABLET PO ONE (18:00)
[2018-09-01] MEDS ORDERED: Warfarin perPT PO PRN (18:00)
[2018-09-01] MEDS ORDERED: Insulin DETEMIR 100 UNIT/ML X5UNITS SQ SCH (21:00)
[2018-09-02] MEDS: MetroNIDAZOLE 500 MG/100 ML 500 MG/100 ML BAG IVPB SCH ×2 (01:18→08:11)
[2018-09-02] MEDS: *HR* HYDROcodone/Acet 5/325 mg TABLET PO PRN ×2 (01:19→20:57)
[2018-09-02 03:50] LABS: Basophils % 0.1 %; Hematocrit 27.3 % (35.3-44.9); Hemoglobin 8.5 g/dL (11.5-15.4); Immature Granulocytes % 0.6 % (0-4); Lymphocytes # 0.6 K/mcL (0.6-4.6); Lymphocytes % 7.3 %; Mean Corpuscular HGB Conc 31.1 g/dL (31.6-35.5); Mean Corpuscular Hemoglobin 28.5 pg (28.0-33.3); Mean Corpuscular Volume 91.6 fL (83.0-100.0); Mean Platelet Volume 10.6 fL (9.4-12.4); Monocytes # 0.3 K/mcL (0.0-1.3); Monocytes % 3.7 %; Neutrophils # 7.3 K/mcL (1.6-8.9); Platelet Count 267 K/mcL (140-400); Red Blood Count 2.98 M/mcL (3.82-4.97); Red Cell Distribution Width 14.2 % (11.5-14.5); Segmented Neutrophils % 88.3 %
[2018-09-02 03:59] LABS: INR 3.3; Prothrombin Time 37.4 Seconds (9.4-12.1)
[2018-09-02 04:09] LABS: Calcium 9.6 mg/dL (8.6-10.3); Magnesium 2.5 mg/dL (1.6-2.6); Phosphorous 3.7 mg/dL (2.7-4.5); Potassium 3.8 mEq/L (3.5-5.1)
[2018-09-02] MEDS: Ipratropium/Albuterol Neb 3 ML IH SCH ×4 (04:54→22:51)
[2018-09-02] MEDS: MethylPREDNISolone 40 MG/ML VIAL IVP SCH ×2 (05:40→17:05)
[2018-09-02] MEDS: Diltiazem CD (24hr) 180 MG CAPSULE PO SCH (08:11)
[2018-09-02] MEDS: *HR* Acetylcysteine 20% 600 MG/3 ML ORAL SYRINGE PO SCH ×2 (08:12→20:49)
[2018-09-02] MEDS: Insulin LISPRO 300 UNITS/3 ML VIAL SQ SCH ×4 (08:22→20:52)
[2018-09-02] MEDS: Tiotropium 18 MCG inhalation IH SCH (09:25)
--- NOTE | 2018-09-02 11:25 | Internal Med Progress Note ---
Hospitalist Progress Note - Encounter Date of Encounter: 09/02/18 Time of Encounter: 11:21 - Subjective Interval History: I have seen and evaluated the patient at bedside. reports that her breathing continues to improve. reports having a coughing spell light night. denies chest pain, nausea or vomiting - Exam Vitals: Temp Pulse Resp BP Pulse Ox 98 F 66 16 107/52 93 09/02/18 07:59 09/02/18 07:59 09/02/18 09:25 09/02/18 07:59 09/02/18 09:25 Exam: Vitals: Reviewed. General: Alert and oriented x4. distress due to shortness of breath improving. Skin: Normal color, no rash, no lesions. Cardiovascular: Irregularly, irregular, Normal S1 & S2, no rubs, murmurs or gallops. Lungs: CTA b/l, no wheezing or crackles. Abdomen: Obese, Soft, non-tender, no rigidity. NABS in all 4 quadrants. Extremities: No edema Neurological: Normal cognition. Rest of the physical exam is non contributory - Assessment and Plan (1) COPD exacerbation Current Visit: Yes Status: Acute Assessment and Plan: improving respiratory status. no wheezing on auscultation. will continue bronchodilators scheduled and when necessary continue methyl-prednisolone 40mg/IV BID On Symbicort and Spiriva. Continue levofloxacin 750 mg IV every 48 hours. On acetylcysteine 600mg/PO BID. Incentive spirometry (2) A-fib Current Visit: No Status: Chronic Assessment and Plan: Rate has been controlled on diltiazem 260 mg by mouth daily. On warfarin per pharmacy dosing with a therapeutic INR. (3) Insulin dependent diabetes mellitus Current Visit: No Status: Chronic Assessment and Plan: Blood sugar suboptimally controlled. Increase Levemir to 15 units twice a day, continue lispro medium doses sliding scale before meals. On a carb controlled diet (4) BARRY (acute kidney injury) Current Visit: No Status: Acute Assessment and Plan: Patient on high-dose diuretics at home. which have been held. will give a trial of gentle IV hydration with 0.45%NS@75mls/hr and re-assess kidney function in the morning. (5) Colitis Current Visit: Yes Status: Acute Assessment and Plan: Patient has been tolerating by mouth diet. Discontinue metronidazole IV. Start metronidazole 500 mg by mouth every 8 hours. (6) Hyponatremia Current Visit: Yes Status: Resolved (7) Chronic hypoxemic respiratory failure Current Visit: No Status: Chronic Assessment and Plan: Continue oxygen by nasal cannula, on 3 L. Titrate for O2 sat duration more than 91%. (8) CAROLIN (obstructive sleep apnea) Current Visit: No Status: Chronic Assessment and Plan: Nocturnal BiPAP (9) Pneumonia Current Visit: Yes Status: Acute Assessment and Plan: bacterial. sputum culture growing gram-positive cocci, pending sensitivity and specificity. Continue levofloxacin 750 mg IV every 48 hours. DVT Prophylaxis: Patient on warfarin with a therapeutic INR due to A. fib. - Summary of Assessment and Plan Summary of Assessment and Plan: Patient to remain in the hospital due to BARRY, COPD exacerbation and pneumonia. Potential discharge tomorrow morning. - Time Spent with Patient Total time spent is greater than 50% in coordination of care (as documented) at patient's floor/unit and/or counseling patient: Greater than 35 minutes (40) Plan of Care Discussed with: patient (her son and the nurse.) Internal Medicine: Result - Labs CBC & Chem 7: 09/02/18 03:24 09/02/18 03:24 Labs: Short CBC 09/02/18 Range/Units 03:24 WBC 8.3 (4.3-11.1) K/mcL Hgb 8.5 L (11.5-15.4) g/dL Hct 27.3 L (35.3-44.9) % Plt Count 267 (140-400) K/mcL Neutrophils # 7.3 (1.6-8.9) K/mcL BMP 09/02/18 03:24 Sodium 135 L Potassium 3.8 Chloride 97 L Carbon Dioxide 29 BUN 34 H Creatinine 1.45 H Glucose 266 H Calcium 9.6 Cardiac Enzymes 09/01/18 Range/Units 12:38 Troponin I < 0.03 (< 0.04) ng/mL - ABG Interpretation ABG results: PT/INR, D-dimer PT 37.4 Seconds (9.4-12.1) H 09/02/18 03:24 Consult Discharge Plan - Plan Referrals: Domingo Melton, DO [Primary Care Provider] - (2) A-fib Qualifiers: Atrial fibrillation type: unspecified Qualified Code(s): I48.91 - Unspecified atrial fibrillation (9) Pneumonia Qualifiers: Pneumonia type: due to unspecified organism Laterality: left Lung location: lower lobe of lung Qualified Code(s): J18.1 - Lobar pneumonia, unspecified organism
[2018-09-02] MEDS: Budesonide/Formoterol 160/4.5 1 PUFF INH IH SCH (11:36)
[2018-09-02] MEDS ORDERED: Levofloxacin 750 MG/150 ML 750 MG/150 ML BAG IVPB SCH (12:00)
[2018-09-02] MEDS: metroNIDAZOLE 500 MG TABLET PO SCH ×2 (15:29→20:49)
--- NOTE | 2018-09-02 16:28 | Electrocardiograph Report ---
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
[2018-09-02] MEDS ORDERED: Levofloxacin 500 MG/100 ML 500 MG/100 ML BAG IVPB SCH (18:00)
[2018-09-02] MEDS: Insulin DETEMIR 100 UNIT/ML X5UNITS SQ SCH (20:49)
[2018-09-03] MEDS: Ipratropium/Albuterol Neb 3 ML IH SCH ×3 (04:15→15:32)
[2018-09-03 05:56] LABS: Basophils % 0.1 %; Hematocrit 27.3 % (35.3-44.9); Hemoglobin 8.6 g/dL (11.5-15.4); Immature Granulocytes % 1.8 % (0-4); Lymphocytes # 0.8 K/mcL (0.6-4.6); Mean Corpuscular HGB Conc 31.5 g/dL (31.6-35.5); Mean Corpuscular Hemoglobin 28.8 pg (28.0-33.3); Mean Corpuscular Volume 91.3 fL (83.0-100.0); Monocytes # 0.3 K/mcL (0.0-1.3); Monocytes % 3.5 %; Neutrophils # 7.3 K/mcL (1.6-8.9); Platelet Count 265 K/mcL (140-400); Red Blood Count 2.99 M/mcL (3.82-4.97); Red Cell Distribution Width 14.4 % (11.5-14.5); Segmented Neutrophils % 85.6 %
[2018-09-03] MEDS: *HR* HYDROcodone/Acet 5/325 mg TABLET PO PRN ×2 (06:05→14:26)
[2018-09-03] MEDS: MethylPREDNISolone 40 MG/ML VIAL IVP SCH (06:06)
[2018-09-03 06:08] LABS: Calcium 9.5 mg/dL (8.6-10.3); Magnesium 2.4 mg/dL (1.6-2.6); Phosphorous 3.7 mg/dL (2.7-4.5); Potassium 3.8 mEq/L (3.5-5.1)
[2018-09-03 06:14] LABS: Prothrombin Time 33.3 Seconds (9.4-12.1)
[2018-09-03 08:16] VITALS: BP 144/67
[2018-09-03] MEDS: Insulin LISPRO 300 UNITS/3 ML VIAL SQ SCH ×2 (08:27→12:01)
[2018-09-03] MEDS: metroNIDAZOLE 500 MG TABLET PO SCH (08:27)
[2018-09-03] MEDS: Diltiazem CD (24hr) 180 MG CAPSULE PO SCH (08:27)
[2018-09-03] MEDS: *HR* Acetylcysteine 20% 600 MG/3 ML ORAL SYRINGE PO SCH (08:34)
[2018-09-03] MEDS: Insulin DETEMIR 100 UNIT/ML X5UNITS SQ SCH (08:34)
[2018-09-03] MEDS ORDERED: Lactulose Oral Soln 20 GM/30 ML UDC PO SCH (10:30)
--- NOTE | 2018-09-03 10:36 | Discharge Summary ---
- NOTES TO OUTPATIENT PROVIDER Notes to Outpatient Provider: Follow-up with your primary care physician within a week to get a BMP and check your kidney function. Follow-up with GI within a week of hospital discharge. Orders not resulted at time of discharge: Pending orders 08/31/18 20:36 Culture,Blood [BC] Stat 09/01/18 13:53 Legionella Type 1 Antibody,IgM Stat 09/01/18 18:48 Sputum Culture [Culture,Sputum with Gram Stain] [RM] Stat 09/03/18 10:25 XR KUB [XR] Routine Date of Encounter: 09/03/18 Time of Encounter: 10:32 - Discharge Diagnosis (1) COPD exacerbation Priority: Primary Status: Resolved (2) A-fib Priority: Secondary Status: Chronic Qualifiers: Atrial fibrillation type: unspecified Qualified Code(s): I48.91 - Unspecified atrial fibrillation (3) Insulin dependent diabetes mellitus Priority: Secondary Status: Chronic (4) BARRY (acute kidney injury) Priority: Secondary Status: Resolved (5) Colitis Priority: Secondary Status: Acute (6) Hyponatremia Priority: Secondary Status: Resolved (7) Chronic hypoxemic respiratory failure Priority: Secondary Status: Chronic (8) CAROLIN (obstructive sleep apnea) Priority: Secondary Status: Chronic (9) Pneumonia Priority: Secondary Status: Acute Qualifiers: Pneumonia type: due to unspecified organism Laterality: left Lung location: lower lobe of lung Qualified Code(s): J18.1 - Lobar pneumonia, unspecified organism Hospital course: Ms. Perez is a 82 year old female past medical history of atrial fibrillation, CHF, COPD, diabetes, hyperlipidemia, hypertension. Presents emergency room by EMS for evaluation of shortness of breath associated with intermittent productive cough and sputumpresents emergency room by EMS for evaluation of shortness of breath associated with intermittent productive cough and sputum. Patient admitted to the hospital due to COPD exacerbation. As part of the workup a CT scan was done which revealed Mild acute uncomplicated colitis involving the proximal descending colon, Bilateral lower lobe bronchiolitis with more focal consolidation in the right lower lobe concerning for developing pneumonia. Patient managed with IV steroids, bronchodilators and IV antibiotics. Patient was also found to have an BARRY, for which her home dose of furosemide was held and given a trial of IV hydration. Kidney function returned back to almost normal. Patient acute symptoms have resolved and patient is hemodynamically stable to be discharged home on oral antibiotics and a medrol-dosepack. Due to having mild colitis on ct and having a history of bowel obstruction, patient recommended to follow up with GI as outpatient for further work up if needed. Patient passing gas, with no GI symptoms but chronic constipation. - Time Spent with Patient Total time spent providing and/or coordinating discharge services: Greater than 30 minutes (40) - Discharge Medications Prescriptions: Amoxicillin/Clavulanate [Augmentin] 875 mg PO BIDWM 5 Days #10 tablet Lactulose 20 gm PO BID 30 Days #60 udc Home Medications: Budesonide/Formoterol 160/4.5 [Symbicort 160/4.5] 2 puff IH DAILY 08/04/15 [History] Albuterol Neb [Proventil Neb] 2.5 mg IH Q6H PRN 11/02/16 [History] dilTIAZem HCl [Diltiazem 24Hr Cd] 360 mg PO DAILY 11/02/16 [History] Potassium Chloride [K-Tab ER] 20 meq PO BID 11/14/16 [History] Simvastatin [Zocor] 40 mg PO DAILY 11/14/16 [History] glyBURIDE [GlyBURIDE] 5 mg PO DAILY 11/14/16 [History] metFORMIN [Glucophage] 500 mg PO DAILY 11/14/16 [History] Acetylcysteine [P-Wzescf-l-Cysteine] 600 mg PO BID 12/19/17 [History] Tiotropium [Spiriva] 18 mcg IH DAILY 12/19/17 [History] Aspirin/Acetaminophen/Caffeine [Excedrin Extra Strength Caplet] 2 tab PO Q6H PRN 08/31/18 [History] Furosemide [Lasix] 60 mg PO BID 08/31/18 [History] HYDROcodone/Acet 5/325 mg [[place] 5-325 mg] 1 tab PO TID PRN 08/31/18 [History] Oxygen 3 l IN DAILY 08/31/18 [History] Polyethylene Glycol 3350 [MiraLAX] 17 gm PO DAILY 08/31/18 [History] Warfarin Sodium 1.5 mg PO MOWEFR 08/31/18 [History] Warfarin Sodium 3 mg PO SUTUTHSA 08/31/18 [History] Amoxicillin/Clavulanate [Augmentin] 875 mg PO BIDWM 5 Days #10 tablet 09/03/18 [ Rx] Lactulose 20 gm PO BID 30 Days #60 udc 09/03/18 [Rx] Allergies/Adverse Reactions: Allergy/AdvReac Type Severity Reaction Status Date / Time iodine Allergy See Verified 08/31/18 19:51 Comments clemastine AdvReac Unknown Verified 12/19/17 09:46 Date of admission: 09/01/18 13:46 Primary care physician: Domingo Melton Consults: 08/31/18 20:58 Consult to Nurse Navigator [CONS] Routine Comment: 09/02/18 11:24 Consult to Physical Therapy [CONS] Routine Comment: Evaluate, develop and implement POC Reason for Consult: generalized weakness Does patient have active BEDREST order?: No Is patient medically & hemodynamically stable?: Yes - Constitutional Vitals: Temp Pulse Resp BP Pulse Ox 98.0 F 89 16 144/67 94 09/03/18 08:14 09/03/18 08:14 09/03/18 08:14 09/03/18 08:14 09/03/18 08:14 General appearance: Present: A&O X 3 Exam: Vitals: Reviewed. General: Alert and oriented x4. In no acute distress. Skin: Normal color, no rash, no lesions. Cardiovascular: Irregularly, irregular, Normal S1 & S2, no rubs, murmurs or gallops. Lungs: CTA b/l, no wheezing or crackles. Abdomen: Obese, Soft, non-tender, no rigidity. NABS in all 4 quadrants. Extremities: No edema Neurological: Normal cognition. Rest of the physical exam is non contributory - Patient Status Disposition: Home, Self-Care Condition: Good Functional capacity at discharge: independent ambulation Overall status at discharge: patient is back to baseline - Discharge Instructions Follow Up With: Domingo Melton DO [Primary Care Provider] - - Diet and Activity Activity: resume usual activities as tolerated Diet: diabetic diet, low salt diet
[2018-09-03] MEDS: Tiotropium 18 MCG inhalation IH SCH (11:06)
[2018-09-03] MEDS: Budesonide/Formoterol 160/4.5 1 PUFF INH IH SCH (11:14)
[2018-09-04] MEDS ORDERED: levoFLOXacin 750 MG TABLET PO SCH (09:00)
== END 2018-09-03 16:16 | disposition home or self-care (01) | DRG 194 ==
LOC: 2NENU 18:16 → EMEROOARM 18:16 → SUATTDRO 19:51 → 2NENU 20:17
PROVIDERS: ADMIT Internal Medicine; ATTEND Internal Medicine

== ENCOUNTER 2022-02-01 14:30 | Inpatient (IN) ==
[2022-02-01 15:51] LABS: Basophils % 0.3 %; Eosinophils # 0.2 K/mcL (0.0-0.6); Eosinophils % 3.2 %; Hematocrit 33.5 % (35.3-44.9); Hemoglobin 9.4 g/dL (11.5-15.4); Immature Granulocytes % 0.7 % (0-4); Lymphocytes # 0.7 K/mcL (0.6-4.6); Lymphocytes % 11.7 %; Mean Corpuscular HGB Conc 28.1 g/dL (31.6-35.5); Mean Corpuscular Hemoglobin 26.3 pg (28.0-33.3); Mean Corpuscular Volume 93.6 fL (83.0-100.0); Mean Platelet Volume 10.1 fL (9.4-12.4); Monocytes # 0.4 K/mcL (0.0-1.3); Monocytes % 6.9 %; Neutrophils # 4.6 K/mcL (1.6-8.9); Platelet Count 249 K/mcL (140-400); Red Blood Count 3.58 M/mcL (3.82-4.97); Red Cell Distribution Width 15.6 % (11.5-14.5); Segmented Neutrophils % 77.2 %
[2022-02-01 16:04] LABS: Bacteria,Urine Few per hpf (None-Few); Bilirubin,Urine Negative (Negative); Blood,Urine Negative (Negative); Clarity,Urine Clear (Clear); Color,Urine Colorless (Yellow); Glucose,Urine (UA) 70 mg/dL (Normal); Hyaline Casts,Urine Few per lpf (None Seen); Ketones,Urine Negative (Negative); Leukocyte Esterase,Urine Trace (Negative); Mucus,Urine Few per lpf (None-Few); Nitrite,Urine Negative (Negative); PH,Urine 6.5 pH Units (5.0-8.0); Protein,Urine Negative (Neg-Trace); RBC,Urine 0-3 per hpf (0-3); Specific Gravity,Urine 1.009 (1.010-1.025); Squamous Epithelial Cell,Urine Few per hpf (None-Few); Urobilinogen,Urine Normal (Normal)
[2022-02-01 16:05] LABS: Albumin 4.3 g/dL (3.5-5.7); Albumin/Globulin Ratio 1.1 (1.1-2.2); Bilirubin,Direct 0.1 mg/dL (0.0-0.2); Bilirubin,Indirect 0.2 mg/dL (0.0-1.0); Bilirubin,Total 0.3 mg/dL (0.3-1.0); Calcium 9.4 mg/dL (8.6-10.3); Potassium 4.3 mEq/L (3.5-5.1); Total Protein 8.3 g/dL (6.4-8.9); Troponin I 0.04 ng/mL (< 0.04)
[2022-02-01] MEDS ORDERED: cefTRIAXone 1,000 MG in 0.9 % Sodium Chloride Mini Bag 100 ML IVPB ONE (16:09)
[2022-02-01 16:26] LABS: INR 2.6; Prothrombin Time 28.7 Seconds (9.4-12.1)
[2022-02-01 16:29] LABS: Activated Partial Thrombo Time 51.8 Seconds (26.0-36.0)
[2022-02-01 16:30] LABS: Hypochromasia Present (Not Present)
[2022-02-01 16:31] LABS: Poikilocytosis 2+ (Not Present); Stomatocytes 1+ (Not Present)
[2022-02-01 16:32] LABS: Anisocytosis 1+ (Not Present); Platelet Estimate Normal (Normal)
[2022-02-01] MEDS ORDERED: Aspirin 325 MG TABLET PO ONE (16:50)
[2022-02-01 17:44] LABS: ABG Base Excess 17 mEq/L (-2 to 3); ABG HCO3 47 mEq/L (21-27); ABG Oxygen Saturation 45 % (95-98); ABG PCO2 92 mmHg (35-45); ABG PH 7.32 pH Units (7.32-7.45); ABG PO2 29 mmHg (85-104); ABG TCO2 50 mEq/L (20-26)
[2022-02-01] MEDS ORDERED: Naloxone 0.4 MG/ML INJ IVP PRN (17:58)
[2022-02-01] MEDS ORDERED: Melatonin 3 MG TABLET PO PRN (17:58)
[2022-02-01] MEDS ORDERED: MethylPREDNISolone 40 MG/ML VIAL IVP SCH (18:00)
[2022-02-01] MEDS ORDERED: D5% in Water 1,000 ML IVC PRN (18:10)
[2022-02-01] MEDS ORDERED: Dextrose Gel 15 GM/37.5 ML TUBE PO PRN ×2 (18:10)
[2022-02-01] MEDS ORDERED: *HR* Dextrose 50 % in Water (Syg) 50 ML SYRINGE IVP PRN (18:10)
[2022-02-01] MEDS ORDERED: Ipratropium/Albuterol Neb 3 ML IH ONE (18:13)
[2022-02-01] MEDS ORDERED: levoFLOXacin 500 MG/100 ML 500 MG/100 ML BAG IVPB SCH (18:15)
[2022-02-01] MEDS ORDERED: DilTIAZem CD (24hr) 180 MG CAP.ER.24H PO SCH (18:15)
[2022-02-01] MEDS ORDERED: *HR* HYDROcodone/Acet 5/325 mg TABLET PO ONE (18:45)
[2022-02-01] MEDS: Ipratropium/Albuterol Neb 3 ML IH SCH ×2 (20:16→23:35)
[2022-02-01] MEDS: Budesonide/Formoterol 160/4.5 1 PUFF INH IH SCH (20:16)
[2022-02-01] MEDS: MethylPREDNISolone 40 MG/ML VIAL IVP SCH (20:57)
[2022-02-01] MEDS: Insulin LISPRO 300 UNITS/3 ML VIAL SUBQ SCH ×2 (20:57)
[2022-02-01] MEDS: Nystatin POWDER 30 GM BOTTLE TP SCH (23:41)
[2022-02-02] MEDS: MethylPREDNISolone 40 MG/ML VIAL IVP SCH ×4 (03:17→22:30)
[2022-02-02] MEDS: Ipratropium/Albuterol Neb 3 ML IH SCH ×3 (03:34→11:55)
[2022-02-02 05:30] LABS: Hemoglobin 8.6 g/dL (11.5-15.4)
[2022-02-02 05:31] LABS: Basophils % 0.1 %; Hematocrit 30.9 % (35.3-44.9); Immature Granulocytes % 0.7 % (0-4); Lymphocytes # 0.2 K/mcL (0.6-4.6); Lymphocytes % 1.7 %; Mean Corpuscular HGB Conc 27.8 g/dL (31.6-35.5); Mean Corpuscular Hemoglobin 25.7 pg (28.0-33.3); Mean Corpuscular Volume 92.5 fL (83.0-100.0); Mean Platelet Volume 10.1 fL (9.4-12.4); Monocytes # 0.2 K/mcL (0.0-1.3); Monocytes % 1.9 %; Neutrophils # 11.5 K/mcL (1.6-8.9); Platelet Count 218 K/mcL (140-400); Red Blood Count 3.34 M/mcL (3.82-4.97); Red Cell Distribution Width 15.7 % (11.5-14.5); Segmented Neutrophils % 95.6 %
[2022-02-02 05:35] LABS: INR 3.2
[2022-02-02 05:52] LABS: Calcium 9.2 mg/dL (8.6-10.3); Magnesium 2.3 mg/dL (1.6-2.6); Potassium 4.6 mEq/L (3.5-5.1)
[2022-02-02] MEDS: Budesonide/Formoterol 160/4.5 1 PUFF INH IH SCH ×2 (07:52→20:18)
[2022-02-02] MEDS: Insulin LISPRO 300 UNITS/3 ML VIAL SUBQ SCH ×4 (08:11→20:58)
[2022-02-02] MEDS: DilTIAZem CD (24hr) 180 MG CAP.ER.24H PO SCH (08:13)
[2022-02-02] MEDS: Nystatin POWDER 30 GM BOTTLE TP SCH ×3 (08:14→21:00)
[2022-02-02] MEDS ORDERED: Albuterol 2.5 MG/3 ML NEBULIZER IH PRN (08:36)
[2022-02-02] MEDS ORDERED: levoFLOXacin 500 MG/100 ML 500 MG/100 ML BAG IVPB SCH (09:00)
[2022-02-02 09:25] LABS: ABG Base Excess 14 mEq/L (-2 to 3); ABG HCO3 43 mEq/L (21-27); ABG Oxygen Saturation 99 % (95-98); ABG PCO2 86 mmHg (35-45); ABG PH 7.31 pH Units (7.32-7.45); ABG PO2 147 mmHg (85-104); ABG TCO2 45 mEq/L (20-26)
[2022-02-02] MEDS: Furosemide 20 MG TABLET PO SCH ×2 (12:45→17:07)
[2022-02-02] MEDS: Levalbuterol Neb 0.63 MG/3 ML IH SCH ×2 (16:14→20:13)
[2022-02-02] MEDS: Ipratropium Neb 0.5 MG NEBULIZER IH SCH ×2 (16:14→20:13)
[2022-02-02] MEDS: Insulin DETEMIR 100 UNIT/ML X5UNITS SUBQ SCH ×2 (17:07→20:57)
[2022-02-02] MEDS: *HR* HYDROcodone/Acet 5/325 mg TABLET PO PRN (20:53)
[2022-02-03 00:52] LABS: Lymphocytes % 0.8 %; Mean Platelet Volume 10.1 fL (9.4-12.4); Red Blood Count 3.34 M/mcL (3.82-4.97); Red Cell Distribution Width 15.9 % (11.5-14.5)
[2022-02-03 00:54] LABS: Basophils % 0.1 %; Hematocrit 30.6 % (35.3-44.9); Hemoglobin 8.7 g/dL (11.5-15.4); Immature Granulocytes % 1.2 % (0-4); Lymphocytes # 0.1 K/mcL (0.6-4.6); Mean Corpuscular HGB Conc 28.4 g/dL (31.6-35.5); Mean Corpuscular Volume 91.6 fL (83.0-100.0); Monocytes # 0.5 K/mcL (0.0-1.3); Monocytes % 2.8 %; Neutrophils # 16.9 K/mcL (1.6-8.9); Platelet Count 241 K/mcL (140-400); Segmented Neutrophils % 95.1 %; White Blood Count 17.8 K/mcL (4.3-11.1)
[2022-02-03 01:08] LABS: INR 3.8; Prothrombin Time 41.7 Seconds (9.4-12.1)
[2022-02-03 01:09] LABS: Calcium 9.6 mg/dL (8.6-10.3); Magnesium 2.3 mg/dL (1.6-2.6); Potassium 4.6 mEq/L (3.5-5.1)
[2022-02-03 01:22] LABS: Anisocytosis 1+ (Not Present); Hypochromasia Present (Not Present); Platelet Estimate Normal (Normal); Stomatocytes 1+ (Not Present)
[2022-02-03] MEDS: MethylPREDNISolone 40 MG/ML VIAL IVP SCH ×4 (03:58→20:34)
[2022-02-03] MEDS: Ipratropium Neb 0.5 MG NEBULIZER IH SCH ×4 (04:13→20:39)
[2022-02-03] MEDS: Levalbuterol Neb 0.63 MG/3 ML IH SCH ×4 (04:13→20:39)
[2022-02-03] MEDS: *HR* HYDROcodone/Acet 5/325 mg TABLET PO PRN ×2 (05:14→17:44)
[2022-02-03] MEDS ORDERED: Perflutren Lipid Microsphere 1.3 ML in 0.9 % Sodium Chloride 8.7 ML IVP PRN (06:42)
[2022-02-03] MEDS ORDERED: levoFLOXacin 750 MG/150 ML 750 MG/150 ML BAG IVPB SCH (09:00)
[2022-02-03] MEDS: Furosemide 20 MG TABLET PO SCH ×2 (09:16→17:34)
[2022-02-03] MEDS: DilTIAZem CD (24hr) 180 MG CAP.ER.24H PO SCH (09:16)
[2022-02-03] MEDS: Insulin DETEMIR 100 UNIT/ML X5UNITS SUBQ SCH ×2 (09:29→20:35)
[2022-02-03] MEDS: Insulin LISPRO 300 UNITS/3 ML VIAL SUBQ SCH ×4 (09:30→20:35)
[2022-02-03] MEDS: Budesonide/Formoterol 160/4.5 1 PUFF INH IH SCH ×2 (09:46→20:39)
[2022-02-03] MEDS: Nystatin POWDER 30 GM BOTTLE TP SCH ×3 (12:56→20:36)
[2022-02-04 01:13] LABS: Basophils % 0.1 %; Hemoglobin 8.1 g/dL (11.5-15.4); Immature Granulocytes % 1.2 % (0-4)
[2022-02-04 01:14] LABS: Hematocrit 28.4 % (35.3-44.9); Lymphocytes # 0.2 K/mcL (0.6-4.6); Lymphocytes % 1.3 %; Mean Corpuscular HGB Conc 28.5 g/dL (31.6-35.5); Mean Corpuscular Hemoglobin 25.9 pg (28.0-33.3); Mean Corpuscular Volume 90.7 fL (83.0-100.0); Mean Platelet Volume 10.6 fL (9.4-12.4); Monocytes # 0.3 K/mcL (0.0-1.3); Monocytes % 1.7 %; Platelet Count 222 K/mcL (140-400); Red Blood Count 3.13 M/mcL (3.82-4.97); Segmented Neutrophils % 95.7 %; White Blood Count 15.7 K/mcL (4.3-11.1)
[2022-02-04 01:34] LABS: Calcium 9.4 mg/dL (8.6-10.3); Magnesium 2.3 mg/dL (1.6-2.6); Potassium 4.8 mEq/L (3.5-5.1)
[2022-02-04 01:53] LABS: Hypochromasia Present (Not Present)
[2022-02-04] MEDS: Levalbuterol Neb 0.63 MG/3 ML IH SCH ×4 (03:52→20:39)
[2022-02-04] MEDS: Ipratropium Neb 0.5 MG NEBULIZER IH SCH ×4 (03:52→20:39)
[2022-02-04] MEDS: MethylPREDNISolone 40 MG/ML VIAL IVP SCH ×4 (04:21→21:27)
[2022-02-04] MEDS ORDERED: 0.9 % Sodium Chloride 500 ML IVC ONE (07:27)
[2022-02-04] MEDS: Insulin DETEMIR 100 UNIT/ML X5UNITS SUBQ SCH ×2 (07:57→21:27)
[2022-02-04] MEDS: DilTIAZem CD (24hr) 180 MG CAP.ER.24H PO SCH (07:57)
[2022-02-04] MEDS: Insulin LISPRO 300 UNITS/3 ML VIAL SUBQ SCH ×4 (08:05→21:25)
[2022-02-04] MEDS: Nystatin POWDER 30 GM BOTTLE TP SCH ×3 (08:07→21:26)
[2022-02-04] MEDS: Budesonide/Formoterol 160/4.5 1 PUFF INH IH SCH ×2 (11:16→20:40)
[2022-02-04] MEDS ORDERED: Carbamide Peroxide 150 DROP/15 ML BOTTLE BOTH EARS ONE (16:45)
[2022-02-04] MEDS: *HR* HYDROcodone/Acet 5/325 mg TABLET PO PRN (22:41)
[2022-02-05 01:24] LABS: Calcium 9.3 mg/dL (8.6-10.3); Potassium 4.2 mEq/L (3.5-5.1)
[2022-02-05] MEDS: Ipratropium Neb 0.5 MG NEBULIZER IH SCH ×4 (04:01→21:49)
[2022-02-05] MEDS: Levalbuterol Neb 0.63 MG/3 ML IH SCH ×4 (04:01→21:49)
[2022-02-05] MEDS ORDERED: Regadenoson 0.4 MG/5 ML SYRINGE IVP ONE (07:33)
[2022-02-05] MEDS: DilTIAZem CD (24hr) 180 MG CAP.ER.24H PO SCH (08:53)
[2022-02-05] MEDS: predniSONE 20 MG TABLET PO SCH (08:54)
[2022-02-05] MEDS: Nystatin POWDER 30 GM BOTTLE TP SCH ×3 (08:54→21:45)
[2022-02-05] MEDS: Insulin DETEMIR 100 UNIT/ML X5UNITS SUBQ SCH ×3 (08:56→21:36)
[2022-02-05] MEDS: Insulin LISPRO 300 UNITS/3 ML VIAL SUBQ SCH ×4 (08:56→21:36)
[2022-02-05] MEDS: *HR* HYDROcodone/Acet 5/325 mg TABLET PO PRN ×2 (09:57→21:36)
[2022-02-05] MEDS: 0.9 % Sodium Chloride 500 ML IVC SCH ×2 (09:58→13:12)
[2022-02-05] MEDS ORDERED: Carbamide Peroxide 150 DROP/15 ML BOTTLE LEFT EAR ONE (10:17)
[2022-02-05] MEDS ORDERED: Carbamide Peroxide 150 DROP/15 ML BOTTLE RIGHT EAR ONE (10:25)
[2022-02-05] MEDS ORDERED: Carbamide Peroxide 150 DROP/15 ML BOTTLE BOTH EARS ONE (10:25)
[2022-02-05] MEDS: Budesonide/Formoterol 160/4.5 1 PUFF INH IH SCH ×2 (10:53→21:53)
[2022-02-06] MEDS: Ipratropium Neb 0.5 MG NEBULIZER IH SCH ×2 (04:22→10:44)
[2022-02-06] MEDS: Levalbuterol Neb 0.63 MG/3 ML IH SCH ×2 (04:22→10:44)
[2022-02-06 07:59] LABS: Calcium 8.9 mg/dL (8.6-10.3); Potassium 4.9 mEq/L (3.5-5.1)
[2022-02-06] MEDS: predniSONE 20 MG TABLET PO SCH (08:51)
[2022-02-06] MEDS: DilTIAZem CD (24hr) 180 MG CAP.ER.24H PO SCH (08:51)
[2022-02-06] MEDS: Nystatin POWDER 30 GM BOTTLE TP SCH (08:52)
[2022-02-06] MEDS: Insulin LISPRO 300 UNITS/3 ML VIAL SUBQ SCH ×2 (08:53→12:12)
[2022-02-06] MEDS: Insulin DETEMIR 100 UNIT/ML X5UNITS SUBQ SCH (09:02)
[2022-02-06] MEDS: Budesonide/Formoterol 160/4.5 1 PUFF INH IH SCH (10:44)
[2022-02-06] MEDS ORDERED: Sennosides/Docusate Sodium TABLET PO SCH (11:30)
[2022-02-06 11:34] VITALS: BP 182/75; PULSE 76; TEMP 98.6; O2SAT 96
== END 2022-02-06 16:00 | disposition hospice, home (50) | DRG 189 ==
LOC: 3NENU 14:30 → EMEROOARM 14:30 → SUATTDRO 18:57 → 3NENU 19:24
PROVIDERS: ADMIT Internal Medicine; ATTEND Family Medicine

== ENCOUNTER 2022-05-14 12:43 | Inpatient (IN) ==
[2022-05-14 13:18] LABS: Basophils % 0.2 %; Hematocrit 33.2 % (35.3-44.9); Hemoglobin 9.9 g/dL (11.5-15.4); Immature Granulocytes % 0.9 % (0-4); Lymphocytes % 9.6 %; Mean Corpuscular HGB Conc 29.8 g/dL (31.6-35.5); Mean Corpuscular Hemoglobin 26.8 pg (28.0-33.3); Mean Platelet Volume 9.6 fL (9.4-12.4); Monocytes # 0.5 K/mcL (0.0-1.3); Monocytes % 4.8 %; Neutrophils # 8.5 K/mcL (1.6-8.9); Platelet Count 324 K/mcL (140-400); Red Blood Count 3.69 M/mcL (3.82-4.97); Red Cell Distribution Width 16.3 % (11.5-14.5); Segmented Neutrophils % 84.5 %; White Blood Count 10.1 K/mcL (4.3-11.1)
[2022-05-14 13:35] LABS: Activated Partial Thrombo Time 65.8 Seconds (26.0-36.0)
[2022-05-14 13:43] LABS: Alanine Aminotransferase 15 Units/L (7-52); Albumin 3.9 g/dL (3.5-5.7); Albumin/Globulin Ratio 1.1 (1.1-2.2); Alkaline Phosphatase 92 Units/L (34-104); Aspartate Amino Transferase 12 Units/L (13-39); BUN/Creatinine Ratio 16 (6-26); Bilirubin,Direct 0.1 mg/dL (0.0-0.2); Bilirubin,Indirect 0.2 mg/dL (0.0-1.0); Bilirubin,Total 0.3 mg/dL (0.3-1.0); Blood Urea Nitrogen 31 mg/dL (8-23); C-Reactive Protein 157 mg/L (Less than 10); Calcium 9.5 mg/dL (8.6-10.3); Carbon Dioxide 35 mEq/L (23-29); Chloride 88 mEq/L (98-107); Globulin 3.5 g/dL (2.4-3.5); Glucose 238 mg/dL (70-105); Osmolality,Calculated 286 (280-300); Potassium 4.7 mEq/L (3.5-5.1); Sodium 131 mEq/L (136-145); Total Protein 7.4 g/dL (6.4-8.9); Troponin I < 0.03 ng/mL (< 0.04)
[2022-05-14 13:44] LABS: INR 10.4
[2022-05-14] MEDS ORDERED: *HR* Phytonadione 5 MG TABLET PO ONE (13:51)
[2022-05-14] MEDS ORDERED: Furosemide 40 MG/4 ML VIAL IVP ONE (14:29)
[2022-05-14] MEDS ORDERED: Piperacillin/Tazobactam 3.375 GM in 0.9 % Sodium Chloride Mini Bag 100 ML IVPB ONE (16:42)
[2022-05-14] MEDS ORDERED: Vancomycin 1,250 MG/262.5 ML IV.SOLN IVPB ONE (17:00)
[2022-05-14] MEDS ORDERED: Dextrose Gel 15 GM/37.5 ML TUBE PO PRN ×2 (17:41)
[2022-05-14] MEDS ORDERED: *HR* Dextrose 50 % in Water (Syg) 50 ML SYRINGE IVP PRN (17:41)
[2022-05-14] MEDS ORDERED: D5% in Water 1,000 ML IVC PRN (17:41)
[2022-05-14] MEDS ORDERED: Naloxone 0.4 MG/ML INJ IVP PRN (17:42)
[2022-05-14] MEDS ORDERED: Ondansetron 4 MG/2 ML VIAL IVP PRN (17:42)
[2022-05-14] MEDS ORDERED: polyethylene glycoL 3350 17 GM POWD.PACK PO PRN (20:02)
[2022-05-14] MEDS: Insulin LISPRO 300 UNITS/3 ML VIAL SUBQ SCH (21:11)
[2022-05-15 01:28] LABS: Basophils % 0.3 %; Hematocrit 30.9 % (35.3-44.9); Hemoglobin 9.5 g/dL (11.5-15.4); Immature Granulocytes % 0.4 % (0-4); Lymphocytes # 1.1 K/mcL (0.6-4.6); Lymphocytes % 16.3 %; Mean Corpuscular HGB Conc 30.7 g/dL (31.6-35.5); Mean Corpuscular Hemoglobin 27.5 pg (28.0-33.3); Mean Corpuscular Volume 89.6 fL (83.0-100.0); Mean Platelet Volume 9.4 fL (9.4-12.4); Monocytes # 0.5 K/mcL (0.0-1.3); Monocytes % 7.3 %; Neutrophils # 5.2 K/mcL (1.6-8.9); Platelet Count 298 K/mcL (140-400); Red Blood Count 3.45 M/mcL (3.82-4.97); Red Cell Distribution Width 16.2 % (11.5-14.5); Segmented Neutrophils % 75.7 %; White Blood Count 6.8 K/mcL (4.3-11.1)
[2022-05-15 01:44] LABS: INR 7.6; Prothrombin Time 83.4 Seconds (9.4-12.1)
[2022-05-15 02:13] LABS: Calcium 9.1 mg/dL (8.6-10.3); Magnesium 2.3 mg/dL (1.6-2.6); Potassium 3.9 mEq/L (3.5-5.1)
[2022-05-15] MEDS: Piperacillin/Tazobactam 3.375 GM in 0.9 % Sodium Chloride Mini Bag 100 ML IVPB SCH ×2 (06:35→18:27)
[2022-05-15] MEDS: *HR* HYDROcodone/Acet 10/325 mg TABLET PO PRN ×2 (08:19→13:28)
[2022-05-15] MEDS: DilTIAZem CD (24hr) 180 MG CAP.ER.24H PO SCH (08:22)
[2022-05-15] MEDS: Furosemide 40 MG/4 ML VIAL IVP SCH ×2 (08:22→18:44)
[2022-05-15] MEDS: Ipratropium/Albuterol Neb 3 ML IH PRN (08:51)
[2022-05-15] MEDS: Tiotropium 10 INH DOSE IH SCH (08:52)
[2022-05-15] MEDS: Insulin LISPRO 300 UNITS/3 ML VIAL SUBQ SCH ×5 (09:22→20:39)
[2022-05-15] MEDS: Albumin 25% 25gram/100mL 25 GM/100 ML IV.SOLN IVPB SCH (16:32)
[2022-05-15] MEDS: Vancomycin 1,250 MG/262.5 ML IV.SOLN IVPB SCH (18:51)
[2022-05-16] MEDS: Albumin 25% 25gram/100mL 25 GM/100 ML IV.SOLN IVPB SCH ×3 (01:58→20:00)
[2022-05-16 05:34] LABS: Basophils % 0.4 %; Eosinophils % 0.6 %; Hematocrit 29.9 % (35.3-44.9); Hemoglobin 8.7 g/dL (11.5-15.4); Immature Granulocytes % 0.4 % (0-4); Lymphocytes # 1.6 K/mcL (0.6-4.6); Mean Corpuscular HGB Conc 29.1 g/dL (31.6-35.5); Mean Corpuscular Hemoglobin 26.5 pg (28.0-33.3); Mean Corpuscular Volume 91.2 fL (83.0-100.0); Mean Platelet Volume 9.7 fL (9.4-12.4); Monocytes # 0.7 K/mcL (0.0-1.3); Monocytes % 9.4 %; Neutrophils # 4.7 K/mcL (1.6-8.9); Platelet Count 309 K/mcL (140-400); Red Blood Count 3.28 M/mcL (3.82-4.97); Red Cell Distribution Width 16.5 % (11.5-14.5); Segmented Neutrophils % 66.2 %; White Blood Count 7.1 K/mcL (4.3-11.1)
[2022-05-16 05:42] LABS: INR 3.1; Prothrombin Time 34.1 Seconds (9.4-12.1)
[2022-05-16 05:55] LABS: Potassium 3.6 mEq/L (3.5-5.1)
[2022-05-16] MEDS: Tiotropium 10 INH DOSE IH SCH (07:38)
[2022-05-16] MEDS: Insulin LISPRO 300 UNITS/3 ML VIAL SUBQ SCH ×4 (07:59→20:36)
[2022-05-16] MEDS: *HR* HYDROcodone/Acet 10/325 mg TABLET PO PRN ×2 (08:30→13:15)
[2022-05-16 09:30] LABS: Prothrombin Time 33.7 Seconds (9.4-12.1)
[2022-05-16] MEDS: DilTIAZem CD (24hr) 180 MG CAP.ER.24H PO SCH (10:15)
[2022-05-16] MEDS: Piperacillin/Tazobactam 3.375 GM in 0.9 % Sodium Chloride Mini Bag 100 ML IVPB SCH ×2 (10:15→15:56)
[2022-05-16] MEDS: Furosemide 40 MG/4 ML VIAL IVP SCH ×2 (13:05→17:51)
[2022-05-16] MEDS: *HR* OxyCODONE Immed Rel 5 MG TABLET PO PRN (15:57)
[2022-05-16] MEDS ORDERED: Warfarin perPT PO PRN (18:00)
[2022-05-16] MEDS: Vancomycin 1,250 MG/262.5 ML IV.SOLN IVPB SCH (18:54)
[2022-05-17 01:56] LABS: Mean Platelet Volume 9.9 fL (9.4-12.4)
[2022-05-17 01:57] LABS: Basophils % 0.3 %; Eosinophils % 0.3 %; Hematocrit 29.5 % (35.3-44.9); Hemoglobin 8.6 g/dL (11.5-15.4); Immature Granulocytes % 0.4 % (0-4); Lymphocytes # 1.6 K/mcL (0.6-4.6); Lymphocytes % 21.1 %; Mean Corpuscular HGB Conc 29.2 g/dL (31.6-35.5); Mean Corpuscular Hemoglobin 27.8 pg (28.0-33.3); Mean Corpuscular Volume 95.5 fL (83.0-100.0); Monocytes # 0.7 K/mcL (0.0-1.3); Monocytes % 8.5 %; Neutrophils # 5.3 K/mcL (1.6-8.9); Platelet Count 268 K/mcL (140-400); Red Blood Count 3.09 M/mcL (3.82-4.97); Red Cell Distribution Width 16.6 % (11.5-14.5); Segmented Neutrophils % 69.4 %; White Blood Count 7.6 K/mcL (4.3-11.1)
[2022-05-17 02:02] LABS: INR 2.9; Prothrombin Time 32.5 Seconds (9.4-12.1)
[2022-05-17 02:15] LABS: Calcium 8.8 mg/dL (8.6-10.3); Magnesium 2.1 mg/dL (1.6-2.6); Potassium 3.9 mEq/L (3.5-5.1)
[2022-05-17] MEDS: Piperacillin/Tazobactam 3.375 GM in 0.9 % Sodium Chloride Mini Bag 100 ML IVPB SCH ×2 (03:30→22:28)
[2022-05-17] MEDS: *HR* OxyCODONE Immed Rel 5 MG TABLET PO PRN (06:43)
[2022-05-17] MEDS: Tiotropium 10 INH DOSE IH SCH (07:28)
[2022-05-17] MEDS: Insulin LISPRO 300 UNITS/3 ML VIAL SUBQ SCH ×4 (07:36→22:29)
[2022-05-17] MEDS: DilTIAZem CD (24hr) 180 MG CAP.ER.24H PO SCH (07:37)
[2022-05-17] MEDS: Furosemide 40 MG/4 ML VIAL IVP SCH (07:37)
[2022-05-17] MEDS: *HR* HYDROcodone/Acet 10/325 mg TABLET PO PRN ×2 (07:40→21:20)
[2022-05-17 08:13] LABS: INR 2.8; Prothrombin Time 30.7 Seconds (9.4-12.1)
[2022-05-17] MEDS ORDERED: *HR* FentaNYL (PF) 100 MCG/2 ML VIAL ONE ×2 (14:13→15:37)
[2022-05-17] MEDS ORDERED: *HR* Propofol 200 MG/20 ML VIAL IVP ONE ×2 (14:13→15:37)
[2022-05-17] MEDS ORDERED: Lidocaine -MPF 2% 5 ML VIAL ONE (15:37)
[2022-05-17] MEDS ORDERED: Ondansetron 4 MG/2 ML VIAL ONE (15:37)
[2022-05-17] MEDS ORDERED: Ipratropium/Albuterol Neb 3 ML IH ONE (16:02)
[2022-05-17] MEDS ORDERED: *HR* OxyCODONE Immed Rel 5 MG TABLET PO PRN ×3 (16:19→20:40)
[2022-05-17] MEDS ORDERED: *HR* Labetalol 20 MG/4 ML SYRINGE IVP PRN ×2 (16:19→20:40)
[2022-05-17] MEDS ORDERED: Acetaminophen IV 1,000 MG/100 ML BAG IVPB PRN (16:19)
[2022-05-17] MEDS ORDERED: Albuterol 2.5 MG/3 ML NEBULIZER IH PRN ×2 (16:19→20:40)
[2022-05-17] MEDS ORDERED: Ondansetron 4 MG/2 ML VIAL IVP PRN ×2 (16:19→20:40)
[2022-05-17] MEDS ORDERED: Ipratropium Neb 0.5 MG NEBULIZER IH PRN ×2 (16:19→20:40)
[2022-05-17] MEDS: Ipratropium/Albuterol Neb 3 ML IH PRN ×2 (17:35→18:20)
[2022-05-17] MEDS: *HR* HYDROmorphone PF 0.5 MG/0.5 ML SYRINGE IVP PRN ×4 (17:37→18:27)
[2022-05-17] MEDS ORDERED: Pregabalin 50 MG CAPSULE PO ONE (17:55)
[2022-05-17] MEDS ORDERED: tiZANidine 4 MG TABLET PO ONE (17:55)
[2022-05-17] MEDS ORDERED: Furosemide 40 MG/4 ML VIAL IVP ONE (18:27)
[2022-05-17] MEDS ORDERED: Furosemide 40 MG/4 ML VIAL ONE (18:42)
[2022-05-17] MEDS ORDERED: Dextrose Gel 15 GM/37.5 ML TUBE PO PRN ×2 (20:40)
[2022-05-17] MEDS ORDERED: *HR* Dextrose 50 % in Water (Syg) 50 ML SYRINGE IVP PRN (20:40)
[2022-05-17] MEDS ORDERED: D5% in Water 1,000 ML IVC PRN (20:40)
[2022-05-17] MEDS ORDERED: polyethylene glycoL 3350 17 GM POWD.PACK PO PRN (20:40)
[2022-05-17] MEDS ORDERED: Ipratropium/Albuterol Neb 3 ML IH PRN (20:40)
[2022-05-17] MEDS ORDERED: Naloxone 0.4 MG/ML INJ IVP PRN (20:40)
[2022-05-17] MEDS ORDERED: Vancomycin 1,250 MG/262.5 ML IV.SOLN IVPB SCH (21:00)
[2022-05-17] MEDS ORDERED: Piperacillin/Tazobactam 3.375 GM in 0.9 % Sodium Chloride Mini Bag 100 ML IVPB SCH (21:00)
[2022-05-17] MEDS: Vancomycin 1,250 MG/262.5 ML IV.SOLN IVPB SCH ×2 (22:29→23:16)
[2022-05-18] MEDS: Piperacillin/Tazobactam 3.375 GM in 0.9 % Sodium Chloride Mini Bag 100 ML IVPB SCH ×2 (01:03→11:42)
[2022-05-18] MEDS: *HR* HYDROcodone/Acet 10/325 mg TABLET PO PRN ×2 (03:48→17:07)
[2022-05-18 04:22] LABS: Red Cell Distribution Width 16.5 % (11.5-14.5); Segmented Neutrophils % 74.1 %
[2022-05-18 04:24] LABS: Basophils % 0.3 %; Eosinophils % 0.1 %; Hematocrit 26.8 % (35.3-44.9); Hemoglobin 7.6 g/dL (11.5-15.4); Lymphocytes # 1.6 K/mcL (0.6-4.6); Lymphocytes % 17.3 %; Mean Corpuscular HGB Conc 28.4 g/dL (31.6-35.5); Mean Corpuscular Volume 95.4 fL (83.0-100.0); Mean Platelet Volume 9.7 fL (9.4-12.4); Monocytes # 0.7 K/mcL (0.0-1.3); Monocytes % 7.2 %; Platelet Count 287 K/mcL (140-400); Red Blood Count 2.81 M/mcL (3.82-4.97); White Blood Count 9.5 K/mcL (4.3-11.1)
[2022-05-18 04:36] LABS: INR 1.2; Prothrombin Time 13.5 Seconds (9.4-12.1)
[2022-05-18 04:41] LABS: Calcium 8.7 mg/dL (8.6-10.3)
[2022-05-18 04:45] LABS: Platelet Estimate Normal (Normal)
[2022-05-18] MEDS: Insulin LISPRO 300 UNITS/3 ML VIAL SUBQ SCH ×4 (08:39→21:19)
[2022-05-18] MEDS: DilTIAZem CD (24hr) 180 MG CAP.ER.24H PO SCH (08:40)
[2022-05-18] MEDS: Furosemide 40 MG TABLET PO SCH (08:40)
[2022-05-18] MEDS: Tiotropium 10 INH DOSE IH SCH (09:50)
[2022-05-18] MEDS: *HR* OxyCODONE Immed Rel 5 MG TABLET PO PRN ×2 (10:44→22:12)
[2022-05-18] MEDS ORDERED: *HR* Warfarin 1 MG TABLET PO ONE (18:00)
[2022-05-18] MEDS ORDERED: *HR* Warfarin 0.5 MG TABLET PO ONE (18:00)
[2022-05-18] MEDS ORDERED: Warfarin perPT PO PRN (18:00)
[2022-05-18] MEDS: Vancomycin 1,250 MG/262.5 ML IV.SOLN IVPB SCH (23:28)
[2022-05-19] MEDS: Piperacillin/Tazobactam 3.375 GM in 0.9 % Sodium Chloride Mini Bag 100 ML IVPB SCH ×2 (01:17→12:18)
[2022-05-19] MEDS: Insulin LISPRO 300 UNITS/3 ML VIAL SUBQ SCH ×4 (08:07→20:57)
[2022-05-19] MEDS: Furosemide 40 MG TABLET PO SCH (08:08)
[2022-05-19] MEDS: DilTIAZem CD (24hr) 180 MG CAP.ER.24H PO SCH (08:08)
[2022-05-19] MEDS: *HR* HYDROcodone/Acet 10/325 mg TABLET PO PRN (08:08)
[2022-05-19] MEDS: Tiotropium 10 INH DOSE IH SCH (08:13)
[2022-05-19 13:40] LABS: INR 1.2; Prothrombin Time 13.8 Seconds (9.4-12.1)
[2022-05-19 13:42] LABS: Basophils % 0.3 %; Eosinophils # 0.1 K/mcL (0.0-0.6); Eosinophils % 0.6 %; Hematocrit 25.9 % (35.3-44.9); Hemoglobin 7.6 g/dL (11.5-15.4); Immature Granulocytes % 1.6 % (0-4); Immature Platelets 3.7 % (1.1-6.1); Lymphocytes # 1.8 K/mcL (0.6-4.6); Mean Corpuscular HGB Conc 29.3 g/dL (31.6-35.5); Mean Corpuscular Hemoglobin 27.4 pg (28.0-33.3); Mean Corpuscular Volume 93.5 fL (83.0-100.0); Monocytes # 0.8 K/mcL (0.0-1.3); Monocytes % 9.3 %; Nucleated Red Blood Cells 0.2 /100 WBC (0); Platelet Count 264 K/mcL (140-400); Red Blood Count 2.77 M/mcL (3.82-4.97); Red Cell Distribution Width 16.5 % (11.5-14.5); Segmented Neutrophils % 68.2 %; White Blood Count 8.8 K/mcL (4.3-11.1)
[2022-05-19 13:51] LABS: Calcium 8.7 mg/dL (8.6-10.3); Potassium 4.1 mEq/L (3.5-5.1)
[2022-05-19] MEDS: *HR* OxyCODONE Immed Rel 5 MG TABLET PO PRN ×2 (14:39→21:39)
[2022-05-19] MEDS ORDERED: *HR* Warfarin 3 MG TABLET PO ONE (18:00)
[2022-05-19] MEDS: Vancomycin 1,250 MG/262.5 ML IV.SOLN IVPB SCH (23:50)
[2022-05-20] MEDS: Insulin LISPRO 300 UNITS/3 ML VIAL SUBQ SCH ×4 (08:56→20:15)
[2022-05-20] MEDS: Furosemide 40 MG TABLET PO SCH (08:57)
[2022-05-20] MEDS: DilTIAZem CD (24hr) 180 MG CAP.ER.24H PO SCH (08:57)
[2022-05-20 09:53] LABS: Basophils % 0.2 %; Calcium 8.9 mg/dL (8.6-10.3); Eosinophils # 0.1 K/mcL (0.0-0.6); Eosinophils % 0.6 %; Hematocrit 26.1 % (35.3-44.9); Hemoglobin 7.6 g/dL (11.5-15.4); Immature Granulocytes % 2.1 % (0-4); Lymphocytes # 1.7 K/mcL (0.6-4.6); Lymphocytes % 21.1 %; Mean Corpuscular HGB Conc 29.1 g/dL (31.6-35.5); Mean Corpuscular Hemoglobin 27.5 pg (28.0-33.3); Mean Corpuscular Volume 94.6 fL (83.0-100.0); Mean Platelet Volume 9.7 fL (9.4-12.4); Monocytes # 0.7 K/mcL (0.0-1.3); Monocytes % 8.1 %; Neutrophils # 5.5 K/mcL (1.6-8.9); Platelet Count 269 K/mcL (140-400); Potassium 3.9 mEq/L (3.5-5.1); Red Blood Count 2.76 M/mcL (3.82-4.97); Red Cell Distribution Width 16.7 % (11.5-14.5); Segmented Neutrophils % 67.9 %
[2022-05-20 10:15] LABS: INR 1.4; Prothrombin Time 15.2 Seconds (9.4-12.1)
[2022-05-20] MEDS: Tiotropium 10 INH DOSE IH SCH (10:43)
[2022-05-20] MEDS: *HR* OxyCODONE Immed Rel 5 MG TABLET PO PRN ×2 (12:02→19:40)
[2022-05-20] MEDS ORDERED: *HR* Warfarin 3 MG TABLET PO ONE (18:00)
[2022-05-21] MEDS: *HR* OxyCODONE Immed Rel 5 MG TABLET PO PRN ×3 (04:42→17:00)
[2022-05-21] MEDS: Tiotropium 10 INH DOSE IH SCH (07:50)
[2022-05-21] MEDS: Furosemide 40 MG TABLET PO SCH (08:20)
[2022-05-21] MEDS: Insulin LISPRO 300 UNITS/3 ML VIAL SUBQ SCH ×4 (08:20→17:36)
[2022-05-21] MEDS: DilTIAZem CD (24hr) 180 MG CAP.ER.24H PO SCH (10:17)
[2022-05-21 10:26] LABS: Influenza A PCR Negative (Negative); Influenza B PCR Negative (Negative); Resp. Syncytial Virus PCR Negative (Negative)
[2022-05-21 10:36] VITALS: BP 156/61; PULSE 76; TEMP 97.9; O2SAT 97
[2022-05-21 11:02] LABS: SARS-CoV-2 by PCR (In House) Negative (Negative)
[2022-05-21 14:54] LABS: Hematocrit 27.7 % (35.3-44.9); Hemoglobin 7.9 g/dL (11.5-15.4)
== END 2022-05-21 17:16 | DRG 987 ==
LOC: EMEROOARM 12:43 → SUATTDRO 18:46 → 3BNU 18:46
PROVIDERS: ADMIT Internal Medicine; ATTEND Registered Nurse